=== PATIENT | female | born 1970 | race African-American/Black ===

== ENCOUNTER 2019-07-19 12:11 | Inpatient (IN) | payer OTHER ==
[2019-07-19] MEDS ORDERED: SODIUM CHLORIDE 0.9% 1,000 ML IV ONE ×2 (12:22)
[2019-07-19 12:26] LABS: Glucose,Whole Blood 174 mg/dL (75-99)
[2019-07-19 12:36] LABS: VBG PH 6.84 (7.31-7.41)
[2019-07-19] MEDS ORDERED: SODIUM BICARB 8.4% 50 ML SYR (1 MEQ/ML) IV STA ×4 (12:36→22:08)
[2019-07-19] MEDS ORDERED: EPINEPHrine 10 ML SYRINGE (0.1 MG/ML) ONE (12:50)
[2019-07-19 12:54] LABS: ALT 43 U/L (4-34); AST 178 U/L (14-36); Acetaminophen 11.5 ug/mL; African American GFR (CKD) 17 (>60 ml/min/1.73 sqM); Albumin 2.5 g/dL (3.5-5.0); Alkaline Phosphatase 215 U/L (38-126); Blood Urea Nitrogen 11 mg/dL (7-17); Calcium 7.5 mg/dL (8.4-10.2); Chloride 111 mmol/L (98-107); Creatine Kinase 374 U/L (30-135); Glucose 167 mg/dL (74-99); Non-African American GFR(CKD) 15 (>60 ml/min/1.73 sqM); Sodium 143 mmol/L (137-145); Total Bilirubin 0.8 mg/dL (0.2-1.3); Total Protein 5.3 g/dL (6.3-8.2)
[2019-07-19 12:59] LABS: Lactic Acid, Venous 20.4 mmol/L (0.7-2.0)
[2019-07-19 13:00] LABS: Potassium 6.6 mmol/L (3.5-5.1)
[2019-07-19 13:01] LABS: Alcohol 274 mg/dL; Carbon Dioxide <5 mmol/L (22-30)
[2019-07-19 13:04] LABS: Anisocytosis Slight; Basophils % (A) 0 %; Eosinophils # (A) 0.1 k/uL (0-0.7); Eosinophils % (A) 1 %; HCT 23.7 % (34.0-46.0); Hypochromasia Marked; Lymphocytes # (A) 1.4 k/uL (1.0-4.8); Lymphocytes % (A) 26 %; MCH 30.7 pg (25.0-35.0); MCHC 26.5 g/dL (31.0-37.0); MCV 115.7 fL (80.0-100.0); Macrocytosis Marked; Mean Platelet Volume 10.7; Monocytes # (A) 0.2 k/uL (0-1.0); Monocytes % (A) 4 %; Neutrophils # (A) 3.8 k/uL (1.3-7.7); Neutrophils % (A) 69 %; RBC 2.05 m/uL (3.80-5.40); RDW 19.9 % (11.5-15.5); WBC 5.6 k/uL (3.8-10.6)
[2019-07-19] MEDS ORDERED: DEXTROSE 50% SYRINGE 50 ML IVP STA (13:05)
[2019-07-19] MEDS ORDERED: INSULIN REGULAR 100 UNIT/ML VIAL IV ONE (13:05)
[2019-07-19 13:06] LABS: INR 1.7 (<1.2); Partial Thromboplastin Time 42.3 sec (22.0-30.0); Prothrombin Time 16.9 sec (9.0-12.0)
[2019-07-19 13:08] LABS: HGB 6.3 gm/dL (11.4-16.0)
--- NOTE | 2019-07-19 13:19 | CT ---
EXAMINATION TYPE: CT brain wo con DATE OF EXAM: 07/19/2019 COMPARISON: None HISTORY: Altered mental status CT DLP: 1212.4 mGycm. Automated Exposure Control for Dose Reduction was Utilized. TECHNIQUE: CT scan of the head is performed without contrast. FINDINGS: There is motion on the exam. There is no acute intracranial hemorrhage, mass effect, or m idline shift identified. The ventricles and sulci are within normal limits in size. The globes are intact and the visualized sinuses are clear. IMPRESSION: No acute intracranial hemorrhage, mass effect, or midline shift is seen.
[2019-07-19] MEDS ORDERED: SODIUM CHLORIDE 0.9% 2,000 ML IV ONE (13:20)
[2019-07-19 13:24] LABS: Poikilocytosis (M) Present; Target Cells Present
[2019-07-19 13:25] LABS: Crenated RBC Present; Platelet Count 48 k/uL (150-450)
[2019-07-19 13:27] LABS: RBC Fragments Present
[2019-07-19] MEDS ORDERED: PANTOPRAZOLE 40 MG/10 ML VIAL IVP ONE (13:28)
[2019-07-19 13:35] LABS: ABG Oxygen Saturation 99.3 % (94-97); ABG PCO2 22 mmHg (35-45); ABG PO2 >400 mmHg (83-108); ABG TCO2 4 mmol/L (19-24); Allen Test Performed? Yes
[2019-07-19] MEDS ORDERED: NOREPINEPHRINE 32 MG in SODIUM CHLORIDE 0.9% 218 ML IV ONE (13:35)
[2019-07-19] MEDS ORDERED: MIDAZOLAM 1 MG/ML 5 ML VIAL IV STA ×2 (13:39→15:30)
[2019-07-19 13:42] LABS: ABG PH 6.81 (7.35-7.45)
[2019-07-19 13:43] LABS: ABG Base Excess -30.8 mmol/L; ABG HCO3 4 mmol/L (21-25)
--- NOTE | 2019-07-19 14:20 | XR ---
EXAMINATION TYPE: XR chest 1V DATE OF EXAM: 07/19/2019 COMPARISON: None HISTORY: Status post intubation TECHNIQUE: Single frontal view of the chest is obtained. FINDINGS: Endotracheal tube is present within the right mainstem bronchus. NG tube is present and is coursing to the level overlying the stomach the left upper quadrant. There is a loop recorder over t he left heart. No evident pneumothorax. No pleural effusion. Lung lines are low. Perihilar increased attenuation is greater on the right than on the left. There are overlying cardiac leads. IMPRESSION: Selective intubation. Low lung volumes, possible perihilar atelectatic change. Follow-up recommended. Report relayed telephonically to the referring clinician at the time of interpretation.
[2019-07-19 14:36] LABS: Glucose,Whole Blood 210 mg/dL (75-99)
[2019-07-19 14:37] LABS: Amorphous Sediment,Urine Rare /hpf; Appearance,Urine Turbid (Clear); Bacteria,Urine Many /hpf; Bilirubin,Urine Negative (Negative); Blood,Urine Moderate (Negative); Color,Urine Yellow; Glucose,Urine (UA) Trace (Negative); Hyaline Casts,Urine 73 /lpf (0-2); Ketones,Urine Negative (Negative); Leukocyte Esterase,Urine Large (Negative); Mucus,Urine Many /hpf; Nitrite,Urine Negative (Negative); Protein,Urine 2+ (Negative); RBC,Urine 82 /hpf (0-5); Urobilinogen,Urine <2.0 mg/dL (<2.0); WBC,Urine >182 /hpf (0-5)
[2019-07-19 14:42] LABS: Amphetamine Screen,Urine Not Detected (NotDetected); Barbiturate Screen,Urine Not Detected (NotDetected); Benzodiazepines Screen,Urine Not Detected (NotDetected); Cocaine Screen,Urine Not Detected (NotDetected); Methadone Screen, Urine Not Detected (NotDetected); Opiate Screen,Urine Not Detected (NotDetected); Oxycodone Screen, Urine Not Detected (NotDetected); Phencyclidine Screen,Urine Not Detected (NotDetected); Tricyclic Antidepressant,Urine Not Detected (NotDetected); Urn Cannabinoid Scrn Not Detected (NotDetected)
--- NOTE | 2019-07-19 14:47 | ED ---
Altered Mental Status HPI - General Chief Complaint: Altered Mental Status Stated Complaint: Unconscious Time Seen by Provider: 07/19/19 12:11 Source: EMS Mode of arrival: EMS Limitations: altered mental status - History of Present Illness Initial Comments: E patient is a 48-year-old female with unknown past medical history presents to the emergency department after EMS was called for unresponsive state. The patient lives with a friend. The friend states that the patient awoke at 8:30 this morning and took her trazodone. She then went back into her room. He checked on her round 11:30 and found her unresponsive. EMS arrived to find the patient laying supine on the ground covered with a blanket. They found her sugars to be low and therefore gave her an amp of dextrose. She did awaken somewhat. She was yelling in the back of the ambulance. She opens her eyes to tactile stimuli and repetitively states "stop". She arrives and does not follow commands. Friend states that she had a history of psychiatric disease however cannot comment on her other medical history. She recently moved area. She does have some medications with her however friend states that he never sees her take them. He cannot provide any additional history. The remainder of the HPI is limited as the patient is altered - Related Data Home Medications Medication Instructions Recorded Confirmed Acetaminophen [Tylenol 8 Hour] 650 mg PO DAILY 07/22/19 07/22/19 Citalopram Hydrobromide 20 mg PO DAILY PRN 07/22/19 07/22/19 [Citalopram HBr] Famotidine 20 mg PO HS 07/22/19 07/22/19 Ferrous Sulfate [Feosol] 325 mg PO DAILY 07/22/19 07/22/19 Lisinopril [Prinivil] 10 mg PO DAILY 07/22/19 07/22/19 Loratadine 10 mg PO DAILY 07/22/19 07/22/19 Metoprolol Tartrate [Lopressor] 50 mg PO BID 07/22/19 07/22/19 Omeprazole 20 mg PO DAILY 07/22/19 07/22/19 risperiDONE [RisperDAL] 4 mg PO HS 07/22/19 07/22/19 traZODone HCL 150 mg PO DAILY 07/22/19 07/22/19 Allergies Allergy/AdvReac Type Severity Reaction Status Date / Time Unable to Assess Allergy Verified 07/19/19 12:38 Review of Systems ROS Statement: Those systems with pertinent positive or pertinent negative responses have been documented in the HPI. ROS Other: All systems not noted in ROS Statement are negative. Past Medical History Past Medical History: Unable to Obtain History of Any Multi-Drug Resistant Organisms: Unobtainable Past Surgical History: Unable to Obtain Past Psychological History: Unable to Obtain Smoking Status: Unknown if ever smoked Past Alcohol Use History: Unable to Obtain Past Drug Use History: Unable to Obtain General Exam Limitations: altered mental status General appearance: obtunded Head exam: Present: atraumatic, normocephalic, normal inspection Eye exam: Present: other (4 to 3, sluggish ) ENT exam: Present: mucous membranes dry Neck exam: Absent: meningismus Respiratory exam: Present: normal lung sounds bilaterally, other (normal spontanous respirations). Absent: respiratory distress, rales, rhonchi Cardiovascular Exam: Present: normal rhythm, tachycardia GI/Abdominal exam: Present: soft, tenderness (generalized upon palpation. ). Absent: guarding, rebound, rigid Extremities exam: Present: normal inspection, full ROM, normal capillary refill. Absent: tenderness, pedal edema, joint swelling, calf tenderness Neurological exam: Present: altered Skin exam: Present: diaphoretic, pallor Course Vital Signs 07/19/19 07/19/19 07/19/19 12:38 13:26 14:02 Temperature 90.1 F L Pulse Rate 80 85 Pulse Rate [ 92 Right Supine] Respiratory 22 14 17 Rate Blood Pressure 65/37 88/40 Blood Pressure 93/44 [Right Arm] O2 Sat by Pulse 96 100 100 Oximetry 07/19/19 07/19/19 07/19/19 14:10 14:20 14:30 Temperature Pulse Rate 85 88 Pulse Rate [ Right Supine] Respiratory 15 16 Rate Blood Pressure 93/44 97/45 96/45 Blood Pressure [Right Arm] O2 Sat by Pulse 100 100 Oximetry 07/19/19 07/19/19 07/19/19 14:40 14:50 15:00 Temperature Pulse Rate 89 84 95 Pulse Rate [ Right Supine] Respiratory 20 14 17 Rate Blood Pressure 90/45 96/49 92/46 Blood Pressure [Right Arm] O2 Sat by Pulse 100 100 100 Oximetry 07/19/19 07/19/19 07/19/19 15:01 15:05 15:10 Temperature 90 F L Pulse Rate 96 98 96 Pulse Rate [ Right Supine] Respiratory 17 16 16 Rate Blood Pressure 106/52 107/43 102/46 Blood Pressure [Right Arm] O2 Sat by Pulse 100 100 Oximetry 07/19/19 07/19/19 07/19/19 15:15 15:20 15:30 Temperature 90 F L Pulse Rate 101 H 98 105 H Pulse Rate [ Right Supine] Respiratory 17 13 15 Rate Blood Pressure 111/65 106/60 115/82 Blood Pressure [Right Arm] O2 Sat by Pulse 100 100 100 Oximetry 07/19/19 07/19/19 07/19/19 15:39 15:40 15:50 Temperature 90 F L Pulse Rate 100 101 H 103 H Pulse Rate [ Right Supine] Respiratory 17 14 20 Rate Blood Pressure 116/73 116/73 128/76 Blood Pressure [Right Arm] O2 Sat by Pulse 100 100 Oximetry 07/19/19 07/19/19 07/19/19 16:00 16:10 16:20 Temperature Pulse Rate 106 H 108 H 109 H Pulse Rate [ Right Supine] Respiratory 18 18 18 Rate Blood Pressure 126/78 140/77 144/80 Blood Pressure [Right Arm] O2 Sat by Pulse 100 100 100 Oximetry 07/19/19 07/19/19 07/19/19 16:30 16:40 16:50 Temperature Pulse Rate 108 H 105 H 105 H Pulse Rate [ Right Supine] Respiratory 19 14 16 Rate Blood Pressure 150/80 136/75 132/70 Blood Pressure [Right Arm] O2 Sat by Pulse 100 100 100 Oximetry 07/19/19 07/19/19 07/19/19 17:00 17:10 17:20 Temperature Pulse Rate 104 H 105 H 100 Pulse Rate [ Right Supine] Respiratory 18 22 11 L Rate Blood Pressure 128/72 135/72 121/71 Blood Pressure [Right Arm] O2 Sat by Pulse 99 100 100 Oximetry 07/19/19 07/19/19 17:30 17:40 Temperature 94.2 F L Pulse Rate 101 H 102 H Pulse Rate [ Right Supine] Respiratory 23 14 Rate Blood Pressure 136/69 128/67 Blood Pressure [Right Arm] O2 Sat by Pulse 100 Oximetry Procedures - Central Line Placement Right Femoral Consent Obtained: emergent situation Patient Placed on Monitor/Pulse Ox: Yes Prep: mask, gown, gloves Central Line Prep: Povidone-Iodine 1% Ultrasound Used for Placement: Yes Central Line Lumen Inserted: triple Bloods Obtained for Lab: No Central Line Position: good blood return, all ports aspirated, flushed, capped, sutured in place with nylon Dressing Applied: Tegaderm Patient Tolerated Procedure: no complications - Intubation Laryngoscope: other (glidescope) Size: 3 ET Tube Size: 7.5 ET Tube Uncuffed: No Tube Secured Depth (cm): 25 (cm) Tube Secured Location: lips Tube Placement Confirmation: visualized tube passing through cords, equal breath sounds bilaterally, confirmation by capnometry Patient Tolerated Procedure: no complications Additional Comments: ET tube retracted twice due to right mainstem intubation Medical Decision Making - Medical Decision Making Upon arrival the patient is placed in a trauma 2. She is protecting her airway. She does open her eyes and look around to tactile stimuli. She is hooked up to continuous pulse ox and cardiac monitoring. A peripheral IV had been placed by EMS. A second line was established. Patient was started on a 2 L bolus of norm al saline due to her hypotension. Laboratory studies were drawn. Accu-Chek was performed and was 174. A bedside FAST exam was performed to evaluate for hypotension. No signs of aortic dissection or free fluid in the pelvis. A 12- lead EKG was performed which demonstrated a normal sinus rhythm with a ventricular rate of 81. ID interval 162. QRS 102. Narrow QRS complex. QTC prolonged at 506. Peaked T waves in V2 through V4. The patient was immediately sent over for CT of her brain because of her altered mental status. Patient is returned to the trauma bay. She remains hypotensive. Levophed is ordered however the patient does become bradycardic, then asystolic. Pulses can not be palpated and compressions are started. Patient was given a dose of epinephrine. Glidescope intubation was performed wth 7.5 cm tube placed 25 cm at the lips. One round of compressions was performed and the patient did achieve pulses back - downtime approximately 3 minutes. A right femoral central line was placed. Chest x-ray was performed which demonstrated mainstem bronchus intubation. The patient's tube was retracted. Repeat x-ray was performed after tube was retracted to 23 cm. OG tube placed immediately put out 75 cc of bright red blood. The patient does have stable blood pressures for a short period of time however they did fall again and the patient is started on Levophed. A VBG was performed which demonstrated a pH of 6.8. CO2 of 25 and CO3 of 4. Because this patient was given an amp of bicarb. The patient was also given 10 units of insulin and an amp of dextrose because of her hyperkalemia with peaked T waves. Patient received her full 2 L bolus of normal saline. Patient additional laboratory studies are markedly off to include hemoglobin of 6.3. She was typed and screened and a unit of blood was ordered. Platelets are only 48 therefore platelets are ordered. INR is 1.7. Creatinine 3.5. AST 178. ALTs 43. Alk phos 215. CK 374. Ammonia is 199. Serum alcohol 274. I did order an additional amp of bicarb as well as a bicarb drip as the patient does have a repeat gas which shows a pH of 6.8 and a bicarb of 4. The patient's weaned down on her O2 and respiratory rate. The patient does awaken a little and therefore she is given 2 mg of Versed and started on a Versed drip. Patient given a dose of Protonix [address] brain demonstrates no acute intracranial hemorrhage, mass effect or midline shift. She is also sent over for a CT of her abdomen and pelvis without contrast. The patient was transfused one unit of blood. Lactulose ordered for her high ammonia level. Antibiotics were placed for the acute urinary tract infection.Patient was sent over for the CT without contrast of her abdomen which demonstrated severe pancolitis with mesenteric edema and small volume ascites. Ischemic bowel should be excluded. Few areas of fluid which is hyperdense could relate to proteinaceous continence or hemoperitoneum. Severe degree of hepatic steatosis. Bibasilar airspace disease left greater than right. Mild fullness of the renal collecting system without radiopaque calculus. This read I did discuss the case with Dr. chapman at 1509 p.m. He is aware of the consult. Patient is unstable at this time to be taken for surgery. I discussed the case with Dr. Ruiz at 1519 PM. He requested the patient be placed on vasopressin. I discussed the case with Dr. Chapman at 1410 who requested lites every 4. Patient will remain at 100 mL on the bicarb drip. I also discussed case with Dr. Pierre at 1620 who requested octreotide drip. Patient was given Rocephin originally for her UTI. After the addition of the CT read from the abdomen I did add on Zosyn. Repeat chest x-ray continues to demonstrate a right mainstem intubation and therefore we did retract the tube to 21 cm. The patient was admitted to Dr. Ramirez who I discussed the case with at 1530. Patient is then transferred to the unit in critical condition - Lab Data Result diagrams: 07/22/19 04:00 07/22/19 04:00 Lab Results 07/19/19 07/19/19 07/19/19 Range/Units 08:18 08:18 12:14 WBC (3.8-10.6) k/uL RBC (3.80-5.40) m/uL Hgb (11.4-16.0) gm/dL Hct (34.0-46.0) % MCV (80.0-100.0) fL MCH (25.0-35.0) pg MCHC (31.0-37.0) g/dL RDW (11.5-15.5) % Plt Count (150-450) k/uL Neutrophils % % Lymphocytes % % Monocytes % % Eosinophils % % Basophils % % Neutrophils # (1.3-7.7) k/uL Lymphocytes # (1.0-4.8) k/uL Monocytes # (0-1.0) k/uL Eosinophils # (0-0.7) k/uL Basophils # (0-0.2) k/uL Manual Slide Review Hypochromasia Poikilocytosis (manual Anisocytosis Macrocytosis Target Cells Crenated Cell Fragmented RBCs PT (9.0-12.0) sec INR (<1.2) APTT (22.0-30.0) sec Sample Site ABG pH (7.35-7.45) ABG pCO2 (35-45) mmHg ABG pO2 (83-108) mmHg ABG HCO3 (21-25) mmol/L ABG Total CO2 (19-24) mmol/L ABG O2 Saturation (94-97) % ABG Base Excess mmol/L Norberto Test VBG pH (7.31-7.41) VBG pCO2 (37-51) mmHg VBG HCO3 (24-28) mmol/L FiO2 % Sodium (137-145) mmol/L Potassium (3.5-5.1) mmol/L Chloride (98-107) mmol/L Carbon Dioxide (22-30) mmol/L Anion Gap mmol/L BUN (7-17) mg/dL Creatinine (0.52-1.04) mg/dL Est GFR (CKD-EPI)AfAm (>60 ml/min/1.73 sqM) Est GFR (CKD-EPI)NonAf (>60 ml/min/1.73 sqM) Glucose (74-99) mg/dL POC Glucose (mg/dL) 174 H (75-99) mg/dL POC Glu [employer] ID Priscilla [place] Osmolality 382 H* (280-301) mosm/kg Lactic Ac Sepsis Rflx Plasma Lactic Acid Robert (0.7-2.0) mmol/L Calcium (8.4-10.2) mg/dL Total Bilirubin (0.2-1.3) mg/dL AST (14-36) U/L ALT (4-34) U/L Alkaline Phosphatase (38-126) U/L Ammonia (<30) umol/L Creatine Kinase (30-135) U/L Troponin I (0.000-0.034) ng/mL Total Protein (6.3-8.2) g/dL Albumin (3.5-5.0) g/dL Urine Color Urine Appearance (Clear) Urine pH (5.0-8.0) Ur Specific [place] (1.001-1.035) Urine Protein (Negative) Urine Glucose (UA) (Negative) Urine Ketones (Negative) Urine Blood (Negative) Urine Nitrite (Negative) Urine Bilirubin (Negative) Urine Urobilinogen (<2.0) mg/dL Ur Leukocyte Esterase (Negative) Urine RBC (0-5) /hpf Urine WBC (0-5) /hpf Urine WBC Clumps (None) /hpf Amorphous Sediment (None) /hpf Urine Bacteria (None) /hpf Hyaline Casts (0-2) /lpf Urine Mucus (None) /hpf Urine HCG, Qual (Not Detectd) Salicylates mg/dL Urine Opiates Screen (NotDetected) Ur Oxycodone Screen (NotDetected) Urine Methadone Screen (NotDetected) Ur Propoxyphene Screen (NotDetected) Acetaminophen ug/mL Ur Barbiturates Screen (NotDetected) U Tricyclic Antidepress (NotDetected) Ur Phencyclidine Scrn (NotDetected) Ur Amphetamines Screen (NotDetected) U Methamphetamines Scrn (NotDetected) U Benzodiazepines Scrn (NotDetected) Urine Cocaine Screen (NotDetected) U Marijuana (THC) Screen (NotDetected) Serum Alcohol mg/dL Ethyl Alcohol Screen 191 H (Negative) mg/dL Methyl Alcohol, Qual Negative (Negative) mg/dL Isopropyl Alc, Qual Negative (Negative) mg/dL Acetone, Qual Negative (Negative) mg/dL Blood Type Blood Type Confirm Blood Type Recheck Bld Type Recheck Status Antibody Screen Crossmatch Spec Expiration Date 07/19/19 07/19/19 07/19/19 Range/Units 12:15 12:15 12:15 WBC 5.6 (3.8-10.6) k/uL RBC 2.05 L (3.80-5.40) m/uL Hgb 6.3 L* (11.4-16.0) gm/dL Hct 23.7 L (34.0-46.0) % MCV 115.7 H (80.0-100.0) fL MCH 30.7 (25.0-35.0) pg MCHC 26.5 L (31.0-37.0) g/dL RDW 19.9 H (11.5-15.5) % Plt Count 48 L (150-450) k/uL Neutrophils % 69 % Lymphocytes % 26 % Monocytes % 4 % Eosinophils % 1 % Basophils % 0 % Neutrophils # 3.8 (1.3-7.7) k/uL Lymphocytes # 1.4 (1.0-4.8) k/uL Monocytes # 0.2 (0-1.0) k/uL Eosinophils # 0.1 (0-0.7) k/uL Basophils # 0.0 (0-0.2) k/uL Manual Slide Review Performed Hypochromasia Marked Poikilocytosis (manual Present Anisocytosis Slight Macrocytosis Marked A Target Cells Present Crenated Cell Present Fragmented RBCs Present PT 16.9 H (9.0-12.0) sec INR 1.7 H (<1.2) APTT 42.3 H (22.0-30.0) sec Sample Site ABG pH (7.35-7.45) ABG pCO2 (35-45) mmHg ABG pO2 (83-108) mmHg ABG HCO3 (21-25) mmol/L ABG Total CO2 (19-24) mmol/L ABG O2 Saturation (94-97) % ABG Base Excess mmol/L Norberto Test VBG pH 6.84 L* (7.31-7.41) VBG pCO2 25 L (37-51) mmHg VBG HCO3 4 L* (24-28) mmol/L FiO2 % Sodium (137-145) mmol/L Potassium (3.5-5.1) mmol/L Chloride (98-107) mmol/L Carbon Dioxide (22-30) mmol/L Anion Gap mmol/L BUN (7-17) mg/dL Creatinine (0.52-1.04) mg/dL Est GFR (CKD-EPI)AfAm (>60 ml/min/1.73 sqM) Est GFR (CKD-EPI)NonAf (>60 ml/min/1.73 sqM) Glucose (74-99) mg/dL POC Glucose (mg/dL) (75-99) mg/dL POC Glu [employer] ID Osmolality (280-301) mosm/kg Lactic Ac Sepsis Rflx Plasma Lactic Acid Robert (0.7-2.0) mmol/L Calcium (8.4-10.2) mg/dL Total Bilirubin (0.2-1.3) mg/dL AST (14-36) U/L ALT (4-34) U/L Alkaline Phosphatase (38-126) U/L Ammonia (<30) umol/L Creatine Kinase (30-135) U/L Troponin I (0.000-0.034) ng/mL Total Protein (6.3-8.2) g/dL Albumin (3.5-5.0) g/dL Urine Color Urine Appearance (Clear) Urine pH (5.0-8.0) Ur Specific [place] (1.001-1.035) Urine Protein (Negative) Urine Glucose (UA) (Negative) Urine Ketones (Negative) Urine Blood (Negative) Urine Nitrite (Negative) Urine Bilirubin (Negative) Urine Urobilinogen (<2.0) mg/dL Ur Leukocyte Esterase (Negative) Urine RBC (0-5) /hpf Urine WBC (0-5) /hpf Urine WBC Clumps (None) /hpf Amorphous Sediment (None) /hpf Urine Bacteria (None) /hpf Hyaline Casts (0-2) /lpf Urine Mucus (None) /hpf Urine HCG, Qual (Not Detectd) Salicylates mg/dL Urine Opiates Screen (NotDetected) Ur Oxycodone Screen (NotDetected) Urine Methadone Screen (NotDetected) Ur Propoxyphene Screen (NotDetected) Acetaminophen ug/mL Ur Barbiturates Screen (NotDetected) U Tricyclic Antidepress (NotDetected) Ur Phencyclidine Scrn (NotDetected) Ur Amphetamines Screen (NotDetected) U Methamphetamines Scrn (NotDetected) U Benzodiazepines Scrn (NotDetected) Urine Cocaine Screen (NotDetected) U Marijuana (THC) Screen (NotDetected) Serum Alcohol mg/dL Ethyl Alcohol Screen (Negative) mg/dL Methyl Alcohol, Qual (Negative) mg/dL Isopropyl Alc, Qual (Negative) mg/dL Acetone, Qual (Negative) mg/dL Blood Type Blood Type Confirm Blood Type Recheck Bld Type Recheck Status Antibody Screen Crossmatch Spec Expiration Date 07/19/19 07/19/19 07/19/19 Range/Units 12:15 12:15 12:15 WBC (3.8-10.6) k/uL RBC (3.80-5.40) m/uL Hgb (11.4-16.0) gm/dL Hct (34.0-46.0) % MCV (80.0-100.0) fL MCH (25.0-35.0) pg MCHC (31.0-37.0) g/dL RDW (11.5-15.5) % Plt Count (150-450) k/uL Neutrophils % % Lymphocytes % % Monocytes % % Eosinophils % % Basophils % % Neutrophils # (1.3-7.7) k/uL Lymphocytes # (1.0-4.8) k/uL Monocytes # (0-1.0) k/uL Eosinophils # (0-0.7) k/uL Basophils # (0-0.2) k/uL Manual Slide Review Hypochromasia Poikilocytosis (manual Anisocytosis Macrocytosis Target Cells Crenated Cell Fragmented RBCs PT (9.0-12.0) sec INR (<1.2) APTT (22.0-30.0) sec Sample Site ABG pH (7.35-7.45) ABG pCO2 (35-45) mmHg ABG pO2 (83-108) mmHg ABG HCO3 (21-25) mmol/L ABG Total CO2 (19-24) mmol/L ABG O2 Saturation (94-97) % ABG Base Excess mmol/L Norberto Test VBG pH (7.31-7.41) VBG pCO2 (37-51) mmHg VBG HCO3 (24-28) mmol/L FiO2 % Sodium 143 (137-145) mmol/L Potassium 6.6 H* (3.5-5.1) mmol/L Chloride 111 H (98-107) mmol/L Carbon Dioxide <5 L* (22-30) mmol/L Anion Gap mmol/L BUN 11 (7-17) mg/dL Creatinine 3.55 H (0.52-1.04) mg/dL Est GFR (CKD-EPI)AfAm 17 (>60 ml/min/1.73 sqM) Est GFR (CKD-EPI)NonAf 15 (>60 ml/min/1.73 sqM) Glucose 167 H (74-99) mg/dL POC Glucose (mg/dL) (75-99) mg/dL POC Glu [employer] Architect ID Osmolality (280-301) mosm/kg Lactic Ac Sepsis Rflx Plasma Lactic Acid Robert 20.4 H* (0.7-2.0) mmol/L Calcium 7.5 L (8.4-10.2) mg/dL Total Bilirubin 0.8 (0.2-1.3) mg/dL AST 178 H (14-36) U/L ALT 43 H (4-34) U/L Alkaline Phosphatase 215 H (38-126) U/L Ammonia 199 H (<30) umol/L Creatine Kinase 374 H (30-135) U/L Troponin I <0.012 (0.000-0.034) ng/mL Total Protein 5.3 L (6.3-8.2) g/dL Albumin 2.5 L (3.5-5.0) g/dL Urine Color Urine Appearance (Clear) Urine pH (5.0-8.0) Ur Specific [place] (1.001-1.035) Urine Protein (Negative) Urine Glucose (UA) (Negative) Urine Ketones (Negative) Urine Blood (Negative) Urine Nitrite (Negative) Urine Bilirubin (Negative) Urine Urobilinogen (<2.0) mg/dL Ur Leukocyte Esterase (Negative) Urine RBC (0-5) /hpf Urine WBC (0-5) /hpf Urine WBC Clumps (None) /hpf Amorphous Sediment (None) /hpf Urine Bacteria (None) /hpf Hyaline Casts (0-2) /lpf Urine Mucus (None) /hpf Urine HCG, Qual (Not Detectd) Salicylates 1.0 mg/dL Urine Opiates Screen (NotDetected) Ur Oxycodone Screen (NotDetected) Urine Methadone Screen (NotDetected) Ur Propoxyphene Screen (NotDetected) Acetaminophen 11.5 ug/mL Ur Barbiturates Screen (NotDetected) U Tricyclic Antidepress (NotDetected) Ur Phencyclidine Scrn (NotDetected) Ur Amphetamines Screen (NotDetected) U Methamphetamines Scrn (NotDetected) U Benzodiazepines Scrn (NotDetected) Urine Cocaine Screen (NotDetected) U Marijuana (THC) Screen (NotDetected) Serum Alcohol 274 H* mg/dL Ethyl Alcohol Screen (Negative) mg/dL Methyl Alcohol, Qual (Negative) mg/dL Isopropyl Alc, Qual (Negative) mg/dL Acetone, Qual (Negative) mg/dL Blood Type Blood Type Confirm Blood Type Recheck Bld Type Recheck Status Antibody Screen Crossmatch Spec Expiration Date 07/19/19 07/19/19 07/19/19 Range/Units 12:15 13:00 13:10 WBC (3.8-10.6) k/uL RBC (3.80-5.40) m/uL Hgb (11.4-16.0) gm/dL Hct (34.0-46.0) % MCV (80.0-100.0) fL MCH (25.0-35.0) pg MCHC (31.0-37.0) g/dL RDW (11.5-15.5) % Plt Count (150-450) k/uL Neutrophils % % Lymphocytes % % Monocytes % % Eosinophils % % Basophils % % Neutrophils # (1.3-7.7) k/uL Lymphocytes # (1.0-4.8) k/uL Monocytes # (0-1.0) k/uL Eosinophils # (0-0.7) k/uL Basophils # (0-0.2) k/uL Manual Slide Review Hypochromasia Poikilocytosis (manual Anisocytosis Macrocytosis Target Cells Crenated Cell Fragmented RBCs PT (9.0-12.0) sec INR (<1.2) APTT (22.0-30.0) sec Sample Site ABG pH (7.35-7.45) ABG pCO2 (35-45) mmHg ABG pO2 (83-108) mmHg ABG HCO3 (21-25) mmol/L ABG Total CO2 (19-24) mmol/L ABG O2 Saturation (94-97) % ABG Base Excess mmol/L Norberto Test VBG pH (7.31-7.41) VBG pCO2 (37-51) mmHg VBG HCO3 (24-28) mmol/L FiO2 % Sodium (137-145) mmol/L Potassium (3.5-5.1) mmol/L Chloride (98-107) mmol/L Carbon Dioxide (22-30) mmol/L Anion Gap mmol/L BUN (7-17) mg/dL Creatinine (0.52-1.04) mg/dL Est GFR (CKD-EPI)AfAm (>60 ml/min/1.73 sqM) Est GFR (CKD-EPI)NonAf (>60 ml/min/1.73 sqM) Glucose (74-99) mg/dL POC Glucose (mg/dL) (75-99) mg/dL POC Glu [employer] Architect ID Osmolality (280-301) mosm/kg Lactic Ac Sepsis Rflx Y Plasma Lactic Acid Robert (0.7-2.0) mmol/L Calcium (8.4-10.2) mg/dL Total Bilirubin (0.2-1.3) mg/dL AST (14-36) U/L ALT (4-34) U/L Alkaline Phosphatase (38-126) U/L Ammonia (<30) umol/L Creatine Kinase (30-135) U/L Troponin I (0.000-0.034) ng/mL Total Protein (6.3-8.2) g/dL Albumin (3.5-5.0) g/dL Urine Color Urine Appearance (Clear) Urine pH (5.0-8.0) Ur Specific [place] (1.001-1.035) Urine Protein (Negative) Urine Glucose (UA) (Negative) Urine Ketones (Negative) Urine Blood (Negative) Urine Nitrite (Negative) Urine Bilirubin (Negative) Urine Urobilinogen (<2.0) mg/dL Ur Leukocyte Esterase (Negative) Urine RBC (0-5) /hpf Urine WBC (0-5) /hpf Urine WBC Clumps (None) /hpf Amorphous Sediment (None) /hpf Urine Bacteria (None) /hpf Hyaline Casts (0-2) /lpf Urine Mucus (None) /hpf Urine HCG, Qual (Not Detectd) Salicylates mg/dL Urine Opiates Screen (NotDetected) Ur Oxycodone Screen (NotDetected) Urine Methadone Screen (NotDetected) Ur Propoxyphene Screen (NotDetected) Acetaminophen ug/mL Ur Barbiturates Screen (NotDetected) U Tricyclic Antidepress (NotDetected) Ur Phencyclidine Scrn (NotDetected) Ur Amphetamines Screen (NotDetected) U Methamphetamines Scrn (NotDetected) U Benzodiazepines Scrn (NotDetected) Urine Cocaine Screen (NotDetected) U Marijuana (THC) Screen (NotDetected) Serum Alcohol mg/dL Ethyl Alcohol Screen (Negative) mg/dL Methyl Alcohol, Qual (Negative) mg/dL Isopropyl Alc, Qual (Negative) mg/dL Acetone, Qual (Negative) mg/dL Blood Type B Positive Blood Type Confirm B Positive Blood Type Recheck No Previous Record Bld Type Recheck Status CABO Indicated Antibody Screen NEGATIVE Crossmatch See Detail Spec Expiration Date 07/22/2019 - 231407/19/19 07/19/19 07/19/19 Range/Units 13:25 14:22 14:22 WBC (3.8-10.6) k/uL RBC (3.80-5.40) m/uL Hgb (11.4-16.0) gm/dL Hct (34.0-46.0) % MCV (80.0-100.0) fL MCH (25.0-35.0) pg MCHC (31.0-37.0) g/dL RDW (11.5-15.5) % Plt Count (150-450) k/uL Neutrophils % % Lymphocytes % % Monocytes % % Eosinophils % % Basophils % % Neutrophils # (1.3-7.7) k/uL Lymphocytes # (1.0-4.8) k/uL Monocytes # (0-1.0) k/uL Eosinophils # (0-0.7) k/uL Basophils # (0-0.2) k/uL Manual Slide Review Hypochromasia Poikilocytosis (manual Anisocytosis Macrocytosis Target Cells Crenated Cell Fragmented RBCs PT (9.0-12.0) sec INR (<1.2) APTT (22.0-30.0) sec Sample Site RT BRACHIAL ABG pH 6.81 L* (7.35-7.45) ABG pCO2 22 L (35-45) mmHg ABG pO2 >400 H (83-108) mmHg ABG HCO3 4 L* (21-25) mmol/L ABG Total CO2 4 L (19-24) mmol/L ABG O2 Saturation 99.3 H (94-97) % ABG Base Excess -30.8 mmol/L Norberto Test Yes VBG pH (7.31-7.41) VBG pCO2 (37-51) mmHg VBG HCO3 (24-28) mmol/L FiO2 100 % Sodium (137-145) mmol/L Potassium (3.5-5.1) mmol/L Chloride (98-107) mmol/L Carbon Dioxide (22-30) mmol/L Anion Gap mmol/L BUN (7-17) mg/dL Creatinine (0.52-1.04) mg/dL Est GFR (CKD-EPI)AfAm (>60 ml/min/1.73 sqM) Est GFR (CKD-EPI)NonAf (>60 ml/min/1.73 sqM) Glucose (74-99) mg/dL POC Glucose (mg/dL) (75-99) mg/dL POC Glu [employer] ID Osmolality ([phone]) mosm/kg Lactic Ac Sepsis Rflx Plasma Lactic Acid Robert (0.7-2.0) mmol/L Calcium (8.4-10.2) mg/dL Total Bilirubin (0.2-1.3) mg/dL AST (14-36) U/L ALT (4-34) U/L Alkaline Phosphatase (38-126) U/L Ammonia (<30) umol/L Creatine Kinase (30-135) U/L Troponin I (0.000-0.034) ng/mL Total Protein (6.3-8.2) g/dL Albumin (3.5-5.0) g/dL Urine Color Yellow Urine Appearance Turbid H (Clear) Urine pH 6.0 (5.0-8.0) Ur Specific [place] 1.020 (1.001-1.035) Urine Protein 2+ H (Negative) Urine Glucose (UA) Trace H (Negative) Urine Ketones Negative (Negative) Urine Blood Moderate H (Negative) Urine Nitrite Negative (Negative) Urine Bilirubin Negative (Negative) Urine Urobilinogen <2.0 (<2.0) mg/dL Ur Leukocyte Esterase Large H (Negative) Urine RBC 82 H (0-5) /hpf Urine WBC >182 H (0-5) /hpf Urine WBC Clumps Many H (None) /hpf Amorphous Sediment Rare H (None) /hpf Urine Bacteria Many H (None) /hpf Hyaline Casts 73 H (0-2) /lpf Urine Mucus Many H (None) /hpf Urine HCG, Qual (Not Detectd) Salicylates mg/dL Urine Opiates Screen Not Detected (NotDetected) Ur Oxycodone Screen Not Detected (NotDetected) Urine Methadone Screen Not Detected (NotDetected) Ur Propoxyphene Screen Not Detected (NotDetected) Acetaminophen ug/mL Ur Barbiturates Screen Not Detected (NotDetected) U Tricyclic Antidepress Not Detected (NotDetected) Ur Phencyclidine Scrn Not Detected (NotDetected) Ur Amphetamines Screen Not Detected (NotDetected) U Methamphetamines Scrn Not Detected (NotDetected) U Benzodiazepines Scrn Not Detected (NotDetected) Urine Cocaine Screen Not Detected (NotDetected) U Marijuana (THC) Screen Not Detected (NotDetected) Serum Alcohol mg/dL Ethyl Alcohol Screen (Negative) mg/dL Methyl Alcohol, Qual (Negative) mg/dL Isopropyl Alc, Qual (Negative) mg/dL Acetone, Qual (Negative) mg/dL Blood Type Blood Type Confirm Blood Type Recheck Bld Type Recheck Status Antibody Screen Crossmatch Spec Expiration Date 07/19/19 07/19/19 Range/Units 14:22 14:29 WBC (3.8-10.6) k/uL RBC (3.80-5.40) m/uL Hgb (11.4-16.0) gm/dL Hct (34.0-46.0) % MCV (80.0-100.0) fL MCH (25.0-35.0) pg MCHC (31.0-37.0) g/dL RDW (11.5-15.5) % Plt Count (150-450) k/uL Neutrophils % % Lymphocytes % % Monocytes % % Eosinophils % % Basophils % % Neutrophils # (1.3-7.7) k/uL Lymphocytes # (1.0-4.8) k/uL Monocytes # (0-1.0) k/uL Eosinophils # (0-0.7) k/uL Basophils # (0-0.2) k/uL Manual Slide Review Hypochromasia Poikilocytosis (manual Anisocytosis Macrocytosis Target Cells Crenated Cell Fragmented RBCs PT (9.0-12.0) sec INR (<1.2) APTT (22.0-30.0) sec Sample Site ABG pH (7.35-7.45) ABG pCO2 (35-45) mmHg ABG pO2 (83-108) mmHg ABG HCO3 (21-25) mmol/L ABG Total CO2 (19-24) mmol/L ABG O2 Saturation (94-97) % ABG Base Excess mmol/L Norberto Test VBG pH (7.31-7.41) VBG pCO2 (37-51) mmHg VBG HCO3 (24-28) mmol/L FiO2 % Sodium (137-145) mmol/L Potassium (3.5-5.1) mmol/L Chloride (98-107) mmol/L Carbon Dioxide (22-30) mmol/L Anion Gap mmol/L BUN (7-17) mg/dL Creatinine (0.52-1.04) mg/dL Est GFR (CKD-EPI)AfAm (>60 ml/min/1.73 sqM) Est GFR (CKD-EPI)NonAf (>60 ml/min/1.73 sqM) Glucose (74-99) mg/dL POC Glucose (mg/dL) 210 H (75-99) mg/dL POC Glu Cloud [employer] Architect ID Jocelyn Montano Osmolality ([phone]) mosm/kg Lactic Ac Sepsis Rflx Plasma Lactic Acid Robert (0.7-2.0) mmol/L Calcium (8.4-10.2) mg/dL Total Bilirubin (0.2-1.3) mg/dL AST (14-36) U/L ALT (4-34) U/L Alkaline Phosphatase (38-126) U/L Ammonia (<30) umol/L Creatine Kinase (30-135) U/L Troponin I (0.000-0.034) ng/mL Total Protein (6.3-8.2) g/dL Albumin (3.5-5.0) g/dL Urine Color Urine Appearance (Clear) Urine pH (5.0-8.0) Ur Specific [place] (1.001-1.035) Urine Protein (Negative) Urine Glucose (UA) (Negative) Urine Ketones (Negative) Urine Blood (Negative) Urine Nitrite (Negative) Urine Bilirubin (Negative) Urine Urobilinogen (<2.0) mg/dL Ur Leukocyte Esterase (Negative) Urine RBC (0-5) /hpf Urine WBC (0-5) /hpf Urine WBC Clumps (None) /hpf Amorphous Sediment (None) /hpf Urine Bacteria (None) /hpf Hyaline Casts (0-2) /lpf Urine Mucus (None) /hpf Urine HCG, Qual Not Detected (Not Detectd) Salicylates mg/dL Urine Opiates Screen (NotDetected) Ur Oxycodone Screen (NotDetected) Urine Methadone Screen (NotDetected) Ur Propoxyphene Screen (NotDetected) Acetaminophen ug/mL Ur Barbiturates Screen (NotDetected) U Tricyclic Antidepress (NotDetected) Ur Phencyclidine Scrn (NotDetected) Ur Amphetamines Screen (NotDetected) U Methamphetamines Scrn (NotDetected) U Benzodiazepines Scrn (NotDetected) Urine Cocaine Screen (NotDetected) U Marijuana (THC) Screen (NotDetected) Serum Alcohol mg/dL Ethyl Alcohol Screen (Negative) mg/dL Methyl Alcohol, Qual (Negative) mg/dL Isopropyl Alc, Qual (Negative) mg/dL Acetone, Qual (Negative) mg/dL Blood Type Blood Type Confirm Blood Type Recheck Bld Type Recheck Status Antibody Screen Crossmatch Spec Expiration Date Critical Care Time Critical Care Time: Yes Critical Care Time: 76 minutes Disposition Clinical Impression: Alcoholic intoxication, Altered mental status, Hypoglycemia, Hypothermia, ADALBERTO (acute kidney injury), Lactic acidosis, Anemia, Cardiopulmonary arrest, UTI (urinary tract infection), Ventilator dependent, Hyperkalemia, Thrombocytopathia, Hypotension Disposition: ADMITTED IP TO THIS [facility] Condition: Critical Is patient prescribed a controlled substance at d/c from ED?: No Decision to Admit Reason: Admit from EC Decision Date: 07/19/19 Decision Time: 15:44
[2019-07-19] MEDS ORDERED: cefTRIAXone IN SWFI 1,000 MG/10 ML SYRINGE IVP STA (14:50)
--- NOTE | 2019-07-19 14:57 | CT ---
EXAMINATION TYPE: CT abdomen pelvis wo con DATE OF EXAM: 07/19/2019 COMPARISON: None HISTORY: abnormal labs, acidosis CT DLP: 649.7 mGycm Automated exposure control for dose reduction was used. TECHNIQUE: Helical acquisition of images was performed from the lung bases through the pelvis. FINDINGS: Lack of intravenous and oral contrast limit evaluation of both the hollow and solid viscera . LUNG BASES: Strand-like bibasilar opacities, left greater than right are likely on the basis of atele ctasis. LIVER/GB: Severe hypoattenuation of the hepatic parenchyma most commonly relates to hepatic steatosis and limits evaluation for hepatic masses. A punctate central focus of pneumobilia is incidentally se en. Crescentic fluid surrounds the liver although this appears hyperdense in comparison to the liver measures an average Hounsfield unit of that of simple fluid on multiple evaluations. Small amount of perisplenic fluid is also seen. Gallbladder appears hyperdense in comparison to the liver, possibly r elated to diffuse biliary sludge or cholelithiasis. PANCREAS: Pancreatic parenchymal calcifications are indicative of chronic pancreatitis. SPLEEN: Small amount of perisplenic fluid. ADRENALS: Grossly unremarkable in unenhanced morphology. KIDNEYS: There is fullness of the collecting systems bilaterally although suboptimally evaluated with out contrast. No nephrolithiasis. FREE AIR: No free air is visualized ADENOPATHY: Grossly limited by lack of intravenous and oral contrast, ascites, and mesenteric edema. Overall nondiagnostic exam for adenopathy. OSSEOUS STRUCTURES: Minimal retrolisthesis of L5 on S1 likely on a degenerative basis. Mild degenera tive change of the spine overall. BOWEL: There is severe diffuse bowel wall thickening throughout the entirety of the colon with ascit es and mesenteric edema limiting evaluation for pericolonic fat stranding. OTHER: Right-sided femoral approach central venous catheter is seen. Enteric tube is also placed. Fem oral catheter terminates in the common femoral vein and enteric tube within the stomach. Urinary blad bree is decompressed by Hillman catheter placement. Trace pericardial effusion partially visualized. IMPRESSION: 1. SEVERE PANCOLONIC BOWEL WALL THICKENING WITH MESENTERIC EDEMA AND SMALL VOLUME ASCITES. GIVEN THE ELEVATED LACTIC ACID ISCHEMIC BOWEL SHOULD BE EXCLUDED. GIVEN THE DIFFUSE INVOLVEMENT C. DIFFICILE I S AN ALTERNATIVE CONSIDERATION. 2. FEW AREAS OF THE FLUID IS SLIGHTLY HYPERDENSE THAT COULD RELATE TO PROTEINACEOUS CONTENT OR HEMOPE RITONEUM. CLOSE SURVEILLANCE WITH HEMATOCRIT AND HEMOGLOBIN IS RECOMMENDED THE UNENHANCED EXAM IS LIMITED TO EVALUATE VISCERAL TRAUMA. 3. SEVERE DEGREE HEPATIC STEATOSIS. 4. BIBASILAR AIRSPACE DISEASE, LEFT GREATER THAN RIGHT. THIS IS LIKELY ON THE BASIS OF ATELECTASIS AL THOUGH PNEUMONIA IS POSSIBLE. 5. MILD FULLNESS OF THE RENAL COLLECTING SYSTEMS/MILD HYDRONEPHROSIS WITHOUT RADIOPAQUE OBSTRUCTING C ALCULUS.
[2019-07-19] MEDS: MIDAZOLAM HCL 50 MG in SODIUM CHLORIDE 0.9% 40 ML IV SCH ×2 (14:58→23:41)
[2019-07-19] MEDS ORDERED: PIPERACILLIN-TAZOBACTAM 3.375 GM in SODIUM CHLORIDE 0.9% 100 ML IVPB STA (15:31)
--- NOTE | 2019-07-19 15:32 | XR ---
EXAMINATION TYPE: XR chest 1V portable DATE OF EXAM: 07/19/2019 COMPARISON: 07/19/2019 HISTORY: Tube retraction. TECHNIQUE: Single frontal view of the chest is obtained. FINDINGS: Artifact ischemia is seen overlying the patient, which could not be removed. Perihilar opac ities could be atelectasis as there is right mainstem bronchial intubation. Enteric tube appears appr opriate. Cardiac loop recorder is seen. Enlarged cardiomediastinal silhouette. IMPRESSION: Right mainstem bronchial intubation remains. Retraction of 2 cm is recommended.
[2019-07-19] MEDS ORDERED: NALOXONE 0.4 MG/ML 1 ML VIAL IV PRN (15:44)
[2019-07-19] MEDS ORDERED: SODIUM CHLORIDE 0.9% 50 ML with VASOPRESSIN 20 UNIT IVPB SCH ×2 (15:45)
[2019-07-19] MEDS ORDERED: SODIUM CHLORIDE 0.9% 150 ML with VASOPRESSIN 60 UNIT IV SCH ×2 (15:45)
[2019-07-19] MEDS: LACTULOSE 20 GM/30 ML CUP PO SCH (16:22)
[2019-07-19] MEDS ORDERED: DESMOPRESSIN ACETATE 24 MCG in SODIUM CHLORIDE 0.9% 50 ML IVPB ONE (16:29)
[2019-07-19 16:30] LABS: ABG Base Excess -29.5 mmol/L; ABG Oxygen Saturation 98.1 % (94-97); ABG PO2 165 mmHg (83-108); ABG TCO2 4 mmol/L (19-24); Allen Test Performed? Yes
[2019-07-19 16:36] LABS: ABG PH 6.89 (7.35-7.45)
[2019-07-19 16:37] LABS: ABG HCO3 4 mmol/L (21-25); ABG PCO2 19 mmHg (35-45)
[2019-07-19] MEDS: HYDROCORTISONE SUCCINATE 100 MG/2 ML VIAL IV SCH (16:45)
[2019-07-19] MEDS: OCTREOTIDE 500 MCG in SODIUM CHLORIDE 0.9% 250 ML IV SCH (16:46)
[2019-07-19] MEDS: DEXTROSE 5% IN WATER 1,000 ML with SODIUM BICARB (1 MEQ/ML) 150 ML IV SCH (16:48)
[2019-07-19 17:59] LABS: Glucose,Whole Blood 135 mg/dL (75-99)
[2019-07-19] MEDS: metroNIDAZOLE-NS PMX 500 MG in SALINE 1 100ML.BAG IVPB SCH (20:49)
[2019-07-19 20:51] LABS: ABG Base Excess -22.1 mmol/L; ABG Oxygen Saturation 98.1 % (94-97); ABG PCO2 22 mmHg (35-45); ABG PO2 122 mmHg (83-108); ABG TCO2 8 mmol/L (19-24); Allen Test Performed? Yes
[2019-07-19 20:55] LABS: ABG HCO3 7 mmol/L (21-25); ABG PH 7.12 (7.35-7.45)
--- NOTE | 2019-07-19 21:15 | P.GSCN ---
History of Present Illness Consult date: 07/19/19 History of present illness: 48 y/o female who was found down at home by her boyfriend. History of ETOH absue. Boyfriend states she was having normal BM yesterday and no NV. Only complaint was backpain according to him. Patient coded in ER and was intubated. Now intubated on high dose pressors in ICU. CT showed thickened colon and general surgery was consulted Past Medical History Past Medical History: Unable to Obtain History of Any Multi-Drug Resistant Organisms: Unobtainable Past Surgical History: Unable to Obtain Past Psychological History: Unable to Obtain Smoking Status: Unknown if ever smoked Past Alcohol Use History: Unable to Obtain Past Drug Use History: Unable to Obtain Medications and Allergies Home Medications Medication Instructions Recorded Confirmed Type Unable To Assess [Unable to Assess] 07/19/19 07/19/19 History Allergies Allergy/AdvReac Type Severity Reaction Status Date / Time Unable to Assess Allergy Verified 07/19/19 12:38 Surgical - Exam Osteopathic Statement: *. No significant issues noted on an osteopathic st ructural exam other than those noted in the History and Physical/Consult. Vital Signs Pulse Resp BP Pulse Ox 80 22 65/37 96 07/19/19 12:38 07/19/19 12:38 07/19/19 12:38 07/19/19 12:38 - General intubated and sedated. opens eyes but no meaningful response - Eyes PERRL - Neck no masses, trachea midline - Respiratory intubated sedated - Abdomen soft/distended/ no peritoneal signs on exam - Psychiatric intubated and sedated Results - Labs 07/19/19 12:15 07/19/19 12:15 Abnormal Lab Results - Last 24 Hours (Table) 07/19/19 07/19/19 07/19/19 Range/Units 12:14 12:15 12:15 RBC 2.05 L (3.80-5.40) m/uL Hgb 6.3 L* (11.4-16.0) gm/dL Hct 23.7 L (34.0-46.0) % MCV 115.7 H (80.0-100.0) fL MCHC 26.5 L (31.0-37.0) g/dL RDW 19.9 H (11.5-15.5) % Plt Count 48 L (150-450) k/uL Macrocytosis Marked A PT (9.0-12.0) sec INR (<1.2) APTT (22.0-30.0) sec ABG pH (7.35-7.45) ABG pCO2 (35-45) mmHg ABG pO2 (83-108) mmHg ABG HCO3 (21-25) mmol/L ABG Total CO2 (19-24) mmol/L ABG O2 Saturation (94-97) % VBG pH 6.84 L* (7.31-7.41) VBG pCO2 25 L (37-51) mmHg VBG HCO3 4 L* (24-28) mmol/L Potassium (3.5-5.1) mmol/L Chloride (98-107) mmol/L Carbon Dioxide (22-30) mmol/L Creatinine (0.52-1.04) mg/dL Glucose (74-99) mg/dL POC Glucose (mg/dL) 174 H (75-99) mg/dL Plasma Lactic Acid Rboert (0.7-2.0) mmol/L Calcium (8.4-10.2) mg/dL AST (14-36) U/L ALT (4-34) U/L Alkaline Phosphatase (38-126) U/L Ammonia (<30) umol/L Creatine Kinase (30-135) U/L Total Protein (6.3-8.2) g/dL Albumin (3.5-5.0) g/dL Urine Appearance (Clear) Urine Protein (Negative) Urine Glucose (UA) (Negative) Urine Blood (Negative) Ur Leukocyte Esterase (Negative) Urine RBC (0-5) /hpf Urine WBC (0-5) /hpf Urine WBC Clumps (None) /hpf Amorphous Sediment (None) /hpf Urine Bacteria (None) /hpf Hyaline Casts (0-2) /lpf Urine Mucus (None) /hpf Serum Alcohol mg/dL Crossmatch 07/19/19 07/19/19 07/19/19 Range/Units 12:15 12:15 12:15 RBC (3.80-5.40) m/uL Hgb (11.4-16.0) gm/dL Hct (34.0-46.0) % MCV (80.0-100.0) fL MCHC (31.0-37.0) g/dL RDW (11.5-15.5) % Plt Count (150-450) k/uL Macrocytosis PT 16.9 H (9.0-12.0) sec INR 1.7 H (<1.2) APTT 42.3 H (22.0-30.0) sec ABG pH (7.35-7.45) ABG pCO2 (35-45) mmHg ABG pO2 (83-108) mmHg ABG HCO3 (21-25) mmol/L ABG Total CO2 (19-24) mmol/L ABG O2 Saturation (94-97) % VBG pH (7.31-7.41) VBG pCO2 (37-51) mmHg VBG HCO3 (24-28) mmol/L Potassium 6.6 H* (3.5-5.1) mmol/L Chloride 111 H (98-107) mmol/L Carbon Dioxide <5 L* (22-30) mmol/L Creatinine 3.55 H (0.52-1.04) mg/dL Glucose 167 H (74-99) mg/dL POC Glucose (mg/dL) (75-99) mg/dL Plasma Lactic Acid Robert 20.4 H* (0.7-2.0) mmol/L Calcium 7.5 L (8.4-10.2) mg/dL AST 178 H (14-36) U/L ALT 43 H (4-34) U/L Alkaline Phosphatase 215 H (38-126) U/L Ammonia 199 H (<30) umol/L Creatine Kinase 374 H (30-135) U/L Total Protein 5.3 L (6.3-8.2) g/dL Albumin 2.5 L (3.5-5.0) g/dL Urine Appearance (Clear) Urine Protein (Negative) Urine Glucose (UA) (Negative) Urine Blood (Negative) Ur Leukocyte Esterase (Negative) Urine RBC (0-5) /hpf Urine WBC (0-5) /hpf Urine WBC Clumps (None) /hpf Amorphous Sediment (None) /hpf Urine Bacteria (None) /hpf Hyaline Casts (0-2) /lpf Urine Mucus (None) /hpf Serum Alcohol 274 H* mg/dL Crossmatch 07/19/19 07/19/19 07/19/19 Range/Units 12:15 13:25 14:22 RBC (3.80-5.40) m/uL Hgb (11.4-16.0) gm/dL Hct (34.0-46.0) % MCV (80.0-100.0) fL MCHC (31.0-37.0) g/dL RDW (11.5-15.5) % Plt Count (150-450) k/uL Macrocytosis PT (9.0-12.0) sec INR (<1.2) APTT (22.0-30.0) sec ABG pH 6.81 L* (7.35-7.45) ABG pCO2 22 L (35-45) mmHg ABG pO2 >400 H (83-108) mmHg ABG HCO3 4 L* (21-25) mmol/L ABG Total CO2 4 L (19-24) mmol/L ABG O2 Saturation 99.3 H (94-97) % VBG pH (7.31-7.41) VBG pCO2 (37-51) mmHg VBG HCO3 (24-28) mmol/L Potassium (3.5-5.1) mmol/L Chloride (98-107) mmol/L Carbon Dioxide (22-30) mmol/L Creatinine (0.52-1.04) mg/dL Glucose (74-99) mg/dL POC Glucose (mg/dL) (75-99) mg/dL Plasma Lactic Acid Robert (0.7-2.0) mmol/L Calcium (8.4-10.2) mg/dL AST (14-36) U/L ALT (4-34) U/L Alkaline Phosphatase (38-126) U/L Ammonia (<30) umol/L Creatine Kinase (30-135) U/L Total Protein (6.3-8.2) g/dL Albumin (3.5-5.0) g/dL Urine Appearance Turbid H (Clear) Urine Protein 2+ H (Negative) Urine Glucose (UA) Trace H (Negative) Urine Blood Moderate H (Negative) Ur Leukocyte Esterase Large H (Negative) Urine RBC 82 H (0-5) /hpf Urine WBC >182 H (0-5) /hpf Urine WBC Clumps Many H (None) /hpf Amorphous Sediment Rare H (None) /hpf Urine Bacteria Many H (None) /hpf Hyaline Casts 73 H (0-2) /lpf Urine Mucus Many H (None) /hpf Serum Alcohol mg/dL Crossmatch See Detail 07/19/19 07/19/19 07/19/19 Range/Units 14:29 16:26 17:57 RBC (3.80-5.40) m/uL Hgb (11.4-16.0) gm/dL Hct (34.0-46.0) % MCV (80.0-100.0) fL MCHC (31.0-37.0) g/dL RDW (11.5-15.5) % Plt Count (150-450) k/uL Macrocytosis PT (9.0-12.0) sec INR (<1.2) APTT (22.0-30.0) sec ABG pH 6.89 L* (7.35-7.45) ABG pCO2 19 L* (35-45) mmHg ABG pO2 165 H (83-108) mmHg ABG HCO3 4 L* (21-25) mmol/L ABG Total CO2 4 L (19-24) mmol/L ABG O2 Saturation 98.1 H (94-97) % VBG pH (7.31-7.41) VBG pCO2 (37-51) mmHg VBG HCO3 (24-28) mmol/L Potassium (3.5-5.1) mmol/L Chloride (98-107) mmol/L Carbon Dioxide (22-30) mmol/L Creatinine (0.52-1.04) mg/dL Glucose (74-99) mg/dL POC Glucose (mg/dL) 210 H 135 H (75-99) mg/dL Plasma Lactic Acid Robert (0.7-2.0) mmol/L Calcium (8.4-10.2) mg/dL AST (14-36) U/L ALT (4-34) U/L Alkaline Phosphatase (38-126) U/L Ammonia (<30) umol/L Creatine Kinase (30-135) U/L Total Protein (6.3-8.2) g/dL Albumin (3.5-5.0) g/dL Urine Appearance (Clear) Urine Protein (Negative) Urine Glucose (UA) (Negative) Urine Blood (Negative) Ur Leukocyte Esterase (Negative) Urine RBC (0-5) /hpf Urine WBC (0-5) /hpf Urine WBC Clumps (None) /hpf Amorphous Sediment (None) /hpf Urine Bacteria (None) /hpf Hyaline Casts (0-2) /lpf Urine Mucus (None) /hpf Serum Alcohol mg/dL Crossmatch 07/19/19 Range/Units 20:46 RBC (3.80-5.40) m/uL Hgb (11.4-16.0) gm/dL Hct (34.0-46.0) % MCV (80.0-100.0) fL MCHC (31.0-37.0) g/dL RDW (11.5-15.5) % Plt Count (150-450) k/uL Macrocytosis PT (9.0-12.0) sec INR (<1.2) APTT (22.0-30.0) sec ABG pH 7.12 L* (7.35-7.45) ABG pCO2 22 L (35-45) mmHg ABG pO2 122 H (83-108) mmHg ABG HCO3 7 L* (21-25) mmol/L ABG Total CO2 8 L (19-24) mmol/L ABG O2 Saturation 98.1 H (94-97) % VBG pH (7.31-7.41) VBG pCO2 (37-51) mmHg VBG HCO3 (24-28) mmol/L Potassium (3.5-5.1) mmol/L Chloride (98-107) mmol/L Carbon Dioxide (22-30) mmol/L Creatinine (0.52-1.04) mg/dL Glucose (74-99) mg/dL POC Glucose (mg/dL) (75-99) mg/dL Plasma Lactic Acid Robert (0.7-2.0) mmol/L Calcium (8.4-10.2) mg/dL AST (14-36) U/L ALT (4-34) U/L Alkaline Phosphatase (38-126) U/L Ammonia (<30) umol/L Creatine Kinase (30-135) U/L Total Protein (6.3-8.2) g/dL Albumin (3.5-5.0) g/dL Urine Appearance (Clear) Urine Protein (Negative) Urine Glucose (UA) (Negative) Urine Blood (Negative) Ur Leukocyte Esterase (Negative) Urine RBC (0-5) /hpf Urine WBC (0-5) /hpf Urine WBC Clumps (None) /hpf Amorphous Sediment (None) /hpf Urine Bacteria (None) /hpf Hyaline Casts (0-2) /lpf Urine Mucus (None) /hpf Serum Alcohol mg/dL Crossmatch Diabetes panel 07/19/19 Range/Units 12:15 Sodium 143 (137-145) mmol/L Potassium 6.6 H* (3.5-5.1) mmol/L Chloride 111 H (98-107) mmol/L Carbon Dioxide <5 L* (22-30) mmol/L BUN 11 (7-17) mg/dL Creatinine 3.55 H (0.52-1.04) mg/dL Glucose 167 H (74-99) mg/dL Calcium 7.5 L (8.4-10.2) mg/dL AST 178 H (14-36) U/L ALT 43 H (4-34) U/L Alkaline Phosphatase 215 H (38-126) U/L Total Protein 5.3 L (6.3-8.2) g/dL Albumin 2.5 L (3.5-5.0) g/dL Calcium panel 07/19/19 Range/Units 12:15 Calcium 7.5 L (8.4-10.2) mg/dL Albumin 2.5 L (3.5-5.0) g/dL Pituitary panel 07/19/19 Range/Units 12:15 Sodium 143 (137-145) mmol/L Potassium 6.6 H* (3.5-5.1) mmol/L Chloride 111 H (98-107) mmol/L Carbon Dioxide <5 L* (22-30) mmol/L BUN 11 (7-17) mg/dL Creatinine 3.55 H (0.52-1.04) mg/dL Glucose 167 H (74-99) mg/dL Calcium 7.5 L (8.4-10.2) mg/dL Adrenal panel 07/19/19 Range/Units 12:15 Sodium 143 (137-145) mmol/L Potassium 6.6 H* (3.5-5.1) mmol/L Chloride 111 H (98-107) mmol/L Carbon Dioxide <5 L* (22-30) mmol/L BUN 11 (7-17) mg/dL Creatinine 3.55 H (0.52-1.04) mg/dL Glucose 167 H (74-99) mg/dL Calcium 7.5 L (8.4-10.2) mg/dL Total Bilirubin 0.8 (0.2-1.3) mg/dL AST 178 H (14-36) U/L ALT 43 H (4-34) U/L Alkaline Phosphatase 215 H (38-126) U/L Total Protein 5.3 L (6.3-8.2) g/dL Albumin 2.5 L (3.5-5.0) g/dL Assessment and Plan Assessment: VDRF, Colitis, likely septic shock, UTI, etoh abuse, coagulopathic Plan: Patient is critically ill and unstable. She is severely acidotic and coagulopathic. She also is thrombocytopenic. She is not a surgical candidate at this time. Recommend continued ICU care and resuscitation along with empiric broad spectum antibiotics. Very poor prognosis
[2019-07-19] MEDS: SODIUM CHLORIDE 0.9% 150 ML with VASOPRESSIN 60 UNIT IV SCH ×2 (21:16)
[2019-07-19 22:27] LABS: Glucose,Whole Blood 186 mg/dL (75-99)
[2019-07-19 22:42] LABS: Anisocytosis Slight; HCT 28.8 % (34.0-46.0); Hypochromasia Marked; MCH 30.2 pg (25.0-35.0); MCHC 29.5 g/dL (31.0-37.0); Macrocytosis Moderate; Mean Platelet Volume 9.7; RBC 2.82 m/uL (3.80-5.40); RDW 19.9 % (11.5-15.5); WBC 5.4 k/uL (3.8-10.6)
[2019-07-19 22:51] LABS: HGB 8.5 gm/dL (11.4-16.0)
[2019-07-19 22:52] LABS: INR 1.5 (<1.2); MCV 102.2 fL (80.0-100.0); Partial Thromboplastin Time 30.6 sec (22.0-30.0); Platelet Count 81 k/uL (150-450); Prothrombin Time 14.5 sec (9.0-12.0)
[2019-07-19 22:56] LABS: Calcium 6.6 mg/dL (8.4-10.2); Potassium 5.4 mmol/L (3.5-5.1); Total Bilirubin 1.4 mg/dL (0.2-1.3); Total Protein 6.1 g/dL (6.3-8.2)
[2019-07-19 22:56] LABS: ABG Base Excess -20.1 mmol/L; ABG Oxygen Saturation 97.9 % (94-97); ABG PCO2 23 mmHg (35-45); ABG PO2 116 mmHg (83-108); ABG TCO2 9 mmol/L (19-24); Allen Test Performed? Yes
[2019-07-19 23:01] LABS: ABG HCO3 8 mmol/L (21-25); ABG PH 7.17 (7.35-7.45)
--- NOTE | 2019-07-19 23:19 | P.CNPUL ---
History of Present Illness Consult date: 07/19/19 Requesting physician: Alexy Ramirez Reason for consult: other Chief complaint: Cardiac arrest History of present illness: This is a 48-year-old -Citizen Of [place] female, no available past medical history on this patient, patient was brought into the emergency room by EMS when the patient was noted by a boyfriend unresponsive. Patient is known to have history of alcohol abuse, she is also known to have history of depression, normally takes trazodone. According to the boyfriend, around 8:30 AM, patient was found unresponsive. Upon EMS arrival patient was noted to have low sugars, and she was given an amp of dextrose. She did wake up a bit, however remained lethargic, and on her weight in the ambulance to the ER patient was yelling and getting restless and agitated. Upon arrival to the ER, patient was not follow any instructions. Patient was evaluated, initially she was able to protect her airways, she would open her eyes and look around to tactile stimuli. After IV access, and after basic labs were ordered, patient was noted to 12-lead EKG showed mostly normal sinus rhythm rate of 81/m. She had peak T waves in V2 through V4 and the patient was sent for CT of the brain because of altered mental status. Upon returning from CT to the trauma bay, patient became hypot ensive, levo fed was started for hypotension and bradycardia then she went into asystole. CPR was started, epinephrine was given, patient was intubated by the ER physician, and she had one round of chest compressions. In the meantime patient was intubated, and her endotracheal tube was noted to be initially in the right mainstem bronchus, and this was retracted a bit. Orogastric tube was placed, and she was noted to have 75 mL of bright blood in the orogastric tube. Patient continued to require levo fed, and she was given fluid boluses for hypotension. Venous blood gases showed very low pH of 6.8, pCO2 was 25, and bicarb was 4. Sodium bicarb was given. Patient was noted to have elevated potassium, hence 10 units of insulin were given along with 1 amp of dextrose. Patient received 2 L of fluid boluses. And labs came back showing a hemoglobin of 6.3. Platelets were also noted to be low at 48,000. INR was 1.7. Creatinine 3.5. And her liver enzymes were elevated. Ammonia level was also noted to be 199. Her serum alcohol was 274. Patient was placed on a bicarb drip, she was placed empirically on antibiotics, and she was also placed on lactulose. CT of the brain showed no evidence of intracranial hemorrhage or mass effect. CT of the abdomen and pelvis was abnormal showing severe pancolitis with mesenteric edema and small volume ascites. The radiologist felt this could be consistent with ischemic bowel. Patient was also noted to have severe degree of hepatic steatosis. And bibasilar airspace disease/atelectasis. Patient remained hypotensive requiring more norepinephrine, and vasopressin was added. Surgical consultation was initiated, however considering the patient's clinical presentation and hypotension requiring significant amount of vasopressin and norepinephrine, and considering the patient was extremely acidotic, her lactic acid was as high as 20. Patient felt to be not a surgical candidate. And she needed to be more resuscitated before surgery could even be considered. Patient was also placed on Sandostatin. Rocephin was given in the ER, and I have recommended Flagyl and Zosyn. I came in to see the patient in the ICU, a left brachial arterial line was placed, and recommended further labs to be ordered including ABG, coagulation profile, and CBC. These are presently pending. In the meantime patient received a total of 2 units of packed RBCs, 2 units of fresh frozen plasma, and 1 unit of platelets. Drug screen was basically negative except she had acetaminophen level of 11.5. Salicylate 1.0, and serum alcohol level was 274. Review of Systems ROS unobtainable: due to endotracheal tube Past Medical History Past Medical History: Unable to Obtain History of Any Multi-Drug Resistant Organisms: Unobtainable Past Surgical History: Unable to Obtain Past Psychological History: Unable to Obtain Smoking Status: Unknown if ever smoked Past Alcohol Use History: Unable to Obtain Past Drug Use History: Unable to Obtain Medications and Allergies Home Medications Medication Instructions Recorded Confirmed Type Unable To Assess [Unable to Assess] 07/19/19 07/19/19 History Allergies Allergy/AdvReac Type Severity Reaction Status Date / Time Unable to Assess Allergy Verified 07/19/19 12:38 Physical Exam Vitals: Vital Signs Temp Pulse Pulse Resp BP BP Pulse Ox 07/19/19 21:24 94.5 F L 103 H 29 H 96/50 99 07/19/19 21:15 104 H 26 H 103/53 99 07/19/19 21:07 94.5 F L 102 H 26 H 103/53 98 07/19/19 21:00 93.9 F L 103 H 24 107/54 99 07/19/19 20:57 34.4 F L 103 H 26 H 100/52 99 07/19/19 20:45 34.6 F L 103 H 24 104/49 98 07/19/19 20:30 102 H 24 92/50 99 07/19/19 20:27 94.4 F L 105 H 24 99/50 07/19/19 20:15 34.1 F L 103 H 22 92/49 99 07/19/19 20:05 92.8 F L 101 H 22 92/49 100 07/19/19 20:00 92.8 F L 111 H 25 H 85/48 99 07/19/19 19:57 92.8 F L 102 H 20 94/57 100 07/19/19 19:45 92 20 84/46 99 07/19/19 19:30 91 27 H 84/46 99 07/19/19 19:27 92.8 F L 103 H 20 85/48 100 07/19/19 19:17 92.8 F L 105 H 21 84/46 98 07/19/19 19:15 89 25 H 76/44 99 07/19/19 19:00 87 19 80/44 99 07/19/19 18:45 89 17 91/52 99 07/19/19 18:30 92 9 L 94/54 99 07/19/19 18:15 93 11 L 120/66 99 07/19/19 17:40 94.2 F L 102 H 14 128/67 07/19/19 17:30 101 H 23 136/69 100 07/19/19 17:20 100 11 L 121/71 100 07/19/19 17:10 105 H 22 135/72 100 07/19/19 17:00 104 H 18 128/72 99 07/19/19 16:50 105 H 16 132/70 100 07/19/19 16:40 105 H 14 136/75 100 07/19/19 16:30 108 H 19 150/80 100 07/19/19 16:20 109 H 18 144/80 100 07/19/19 16:10 108 H 18 140/77 100 05//20 16:00 106 H 18 126/78 100 07/19/19 15:50 103 H 20 128/76 100 07/19/19 15:40 101 H 14 116/73 100 07/19/19 15:39 90 F L 100 17 116/73 07/19/19 15:30 105 H 15 115/82 100 07/19/19 15:20 98 13 106/60 100 07/19/19 15:15 90 F L 101 H 17 111/65 100 07/19/19 15:10 96 16 102/46 100 07/19/19 15:05 98 16 107/43 100 07/19/19 15:01 90 F L 96 17 106/52 07/19/19 15:00 95 17 92/46 100 07/19/19 14:50 84 14 96/49 100 07/19/19 14:40 89 20 90/45 100 07/19/19 14:30 96/45 07/19/19 14:20 88 16 97/45 100 07/19/19 14:10 85 15 93/44 100 07/19/19 14:02 85 17 88/40 100 07/19/19 13:26 90.1 F L 92 14 93/44 100 07/19/19 12:38 80 22 65/37 96 Intake and Output 07/19/19 07/19/19 07/19/19 06:59 14:59 22:59 Intake Total 1.053 1267.327 Output Total 10 45 Balance -8.947 1222.327 Intake: IV 400 Dextrose 5% in Water 1, 400 000 ml @ 150 mls/hr IV . Q7H40M CIARRA with Sodium Bicarb (1 Meq/ml) 150 ml Rx#:[id number] Intake, IV Titration 1.053 33.327 Amount Midazolam HCl 50 mg In 6.25 Sodium Chloride 0.9% 40 ml @ 1 MG/HR 1 mls/hr IV .Q24H CIRARA Rx#:[id number] Norepinephrine 32 mg In 1.053 27.077 Sodium Chloride 0.9% 218 ml @ 0.05 MCG/KG/MIN 1. 914 mls/hr IV .Q24H ONE Rx#:[id number] Blood Product 834 Ffp 24 Cpd Unit 0 [id number] Platelet Irr Pheresis 2 214 Acda Unit [id number] As-1 Unit 310 [id number] As-3 Unit 310 [id number] Output: Urine 10 45 Uretheral (Hillman) 10 Other: Weight 81.647 kg Physical Exam: Revealed a 48-year-old -Citizen Of [place] female, intubated, with draws to painful stimuli, presently on Versed drip. Head: Atraumatic, normocephalic, endotracheal tube and orogastric tube are intact. HEENT:[Neck is supple.] [No neck masses.] [No thyromegaly.] [No JVD.] Moist mucous membranes. PERRLA, EOMI, no icterus. Chest: [Symmetrical chest expansion, crackles at the bases, no rhonchi and no wheezes..] Cardiac Exam: [Normal S1 and S2, no S3 gallop, no murmur.] Abdomen: [Soft, distended, nontender, no megaly, no rebound, no guarding, no bowel sounds. Extremities: [No clubbing, no edema, no cyanosis.] Neurological Exam: Patient is intubated, sedated, unable to assess. Psychiatric: Could not be assessed. Results - Laboratory Findings CBC and BMP: 07/19/19 22:25 07/19/19 12:15 ABG ABG pH 7.12 (7.35-7.45) L* 07/19/19 20:46 ABG pCO2 22 mmHg (35-45) L 07/19/19 20:46 ABG pO2 122 mmHg (83-108) H 07/19/19 20:46 ABG O2 Saturation 98.1 % (94-97) H 07/19/19 20:46 PT/INR, D-dimer PT 14.5 sec (9.0-12.0) H 07/19/19 22:25 INR 1.5 (<1.2) H 07/19/19 22:25 Abnormal lab findings: Abnormal Labs 07/19/19 07/19/19 07/19/19 08:18 08:18 12:14 RBC Hgb Hct MCV MCHC RDW Plt Count Macrocytosis PT INR APTT ABG pH ABG pCO2 ABG pO2 ABG HCO3 ABG Total CO2 ABG O2 Saturation VBG pH VBG pCO2 VBG HCO3 Potassium Chloride Carbon Dioxide Creatinine Glucose POC Glucose (mg/dL) 174 H Osmolality 382 H* Plasma Lactic Acid Robert 18.1 H* Calcium AST ALT Alkaline Phosphatase Ammonia Creatine Kinase Total Protein Albumin Urine Appearance Urine Protein Urine Glucose (UA) Urine Blood Ur Leukocyte Esterase Urine RBC Urine WBC Urine WBC Clumps Amorphous Sediment Urine Bacteria Hyaline Casts Urine Mucus Serum Alcohol Crossmatch 07/19/19 07/19/19 07/19/19 12:15 12:15 12:15 RBC 2.05 L Hgb 6.3 L* Hct 23.7 L MCV 115.7 H MCHC 26.5 L RDW 19.9 H Plt Count 48 L Macrocytosis Marked A PT 16.9 H INR 1.7 H APTT 42.3 H ABG pH ABG pCO2 ABG pO2 ABG HCO3 ABG Total CO2 ABG O2 Saturation VBG pH 6.84 L* VBG pCO2 25 L VBG HCO3 4 L* Potassium Chloride Carbon Dioxide Creatinine Glucose POC Glucose (mg/dL) Osmolality Plasma Lactic Acid Robert Calcium AST ALT Alkaline Phosphatase Ammonia Creatine Kinase Total Protein Albumin Urine Appearance Urine Protein Urine Glucose (UA) Urine Blood Ur Leukocyte Esterase Urine RBC Urine WBC Urine WBC Clumps Amorphous Sediment Urine Bacteria Hyaline Casts Urine Mucus Serum Alcohol Crossmatch 07/19/19 07/19/19 07/19/19 12:15 12:15 12:15 RBC Hgb Hct MCV MCHC RDW Plt Count Macrocytosis PT INR APTT ABG pH ABG pCO2 ABG pO2 ABG HCO3 ABG Total CO2 ABG O2 Saturation VBG pH VBG pCO2 VBG HCO3 Potassium 6.6 H* Chloride 111 H Carbon Dioxide <5 L* Creatinine 3.55 H Glucose 167 H POC Glucose (mg/dL) Osmolality Plasma Lactic Acid Robert 20.4 H* Calcium 7.5 L AST 178 H ALT 43 H Alkaline Phosphatase 215 H Ammonia 199 H Creatine Kinase 374 H Total Protein 5.3 L Albumin 2.5 L Urine Appearance Urine Protein Urine Glucose (UA) Urine Blood Ur Leukocyte Esterase Urine RBC Urine WBC Urine WBC Clumps Amorphous Sediment Urine Bacteria Hyaline Casts Urine Mucus Serum Alcohol 274 H* Crossmatch See Detail 07/19/19 07/19/19 07/19/19 13:25 14:22 14:29 RBC Hgb Hct MCV MCHC RDW Plt Count Macrocytosis PT INR APTT ABG pH 6.81 L* ABG pCO2 22 L ABG pO2 >400 H ABG HCO3 4 L* ABG Total CO2 4 L ABG O2 Saturation 99.3 H VBG pH VBG pCO2 VBG HCO3 Potassium Chloride Carbon Dioxide Creatinine Glucose POC Glucose (mg/dL) 210 H Osmolality Plasma Lactic Acid Robert Calcium AST ALT Alkaline Phosphatase Ammonia Creatine Kinase Total Protein Albumin Urine Appearance Turbid H Urine Protein 2+ H Urine Glucose (UA) Trace H Urine Blood Moderate H Ur Leukocyte Esterase Large H Urine RBC 82 H Urine WBC >182 H Urine WBC Clumps Many H Amorphous Sediment Rare H Urine Bacteria Many H Hyaline Casts 73 H Urine Mucus Many H Serum Alcohol Crossmatch 07/19/19 07/19/19 07/19/19 16:26 17:57 20:46 RBC Hgb Hct MCV MCHC RDW Plt Count Macrocytosis PT INR APTT ABG pH 6.89 L* 7.12 L* ABG pCO2 19 L* 22 L ABG pO2 165 H 122 H ABG HCO3 4 L* 7 L* ABG Total CO2 4 L 8 L ABG O2 Saturation 98.1 H 98.1 H VBG pH VBG pCO2 VBG HCO3 Potassium Chloride Carbon Dioxide Creatinine Glucose POC Glucose (mg/dL) 135 H Osmolality Plasma Lactic Acid Robert Calcium AST ALT Alkaline Phosphatase Ammonia Creatine Kinase Total Protein Albumin Urine Appearance Urine Protein Urine Glucose (UA) Urine Blood Ur Leukocyte Esterase Urine RBC Urine WBC Urine WBC Clumps Amorphous Sediment Urine Bacteria Hyaline Casts Urine Mucus Serum Alcohol Crossmatch 07/19/19 07/19/19 07/19/19 22:25 22:25 22:26 RBC 2.82 L Hgb 8.5 L D Hct 28.8 L MCV 102.2 H D MCHC 29.5 L RDW 19.9 H Plt Count 81 L D Macrocytosis PT 14.5 H INR 1.5 H APTT 30.6 H ABG pH ABG pCO2 ABG pO2 ABG HCO3 ABG Total CO2 ABG O2 Saturation VBG pH VBG pCO2 VBG HCO3 Potassium Chloride Carbon Dioxide Creatinine Glucose POC Glucose (mg/dL) 186 H Osmolality Plasma Lactic Acid Robert Calcium AST ALT Alkaline Phosphatase Ammonia Creatine Kinase Total Protein Albumin Urine Appearance Urine Protein Urine Glucose (UA) Urine Blood Ur Leukocyte Esterase Urine RBC Urine WBC Urine WBC Clumps Amorphous Sediment Urine Bacteria Hyaline Casts Urine Mucus Serum Alcohol Crossmatch - Diagnostic Findings Additional studies: CT of abdomen and pelvis as noted in HPI. Assessment and Plan Assessment: Impression: Acute hypoxic respiratory failure, suspect abdominal sepsis. And septic shock. Possible ischemic colitis. Acute blood loss anemia with upper GI bleeding noted after placement of nasogastric tube. Acute thrombocytopenia secondary to sepsis. Shock liver secondary to hypotension and could also be related to history of alcohol abuse. Mental status change, suspect hepatic encephalopathy with elevated ammonia level. Acute kidney injury secondary to acute tubular necrosis and hypotension. Severe anion gap metabolic acidosis, secondary to sepsis and acute kidney injury. Acute lactic acidosis secondary to ischemic bowel and hypotension. Possible urinary tract infection. Acute alcohol intoxication based on her abnormal I'll call level on presentation. Recommendation: Continue present supportive care measures including Ventilatory support. Hemodynamic support. Patient is presently on norepinephrine and vasopressin. GI and DVT prophylaxis. Avoid anticoagulation therapy. Surgical consultation Infectious disease consultation GI consultation for upper GI bleeding. Nephrology consultation for her acute kidney injury. Empiric antibiotics. Patient is now on Zosyn and Flagyl. Transfuse accordingly, maintain hemoglobin of above 7. Continue sodium bicarb. And correct metabolic acidosis. Patient received significant amount of fluid boluses initially. Continue octreotide. Overall prognosis is extremely poor and guarded. Patient was already evaluated by general surgery, and felt to be unstable for any surgical intervention at this point. We'll continue to follow. Time with Patient: Greater than 30
--- NOTE | 2019-07-20 00:16 | PCN ---
PROCEDURE NOTE OPERATIVE REPORT: Placement of the left brachial arterial line. PREOPERATIVE DIAGNOSIS: Acute septic shock and hypotension. POSTOPERATIVE DIAGNOSIS: Acute septic shock and hypotension. ANESTHESIA: Used none deployed. PROCEDURE IN DETAIL: The left brachial artery was prepared and the left brachial region was prepared in a sterile fashion and drapes were applied. The left brachial artery was palpated, cannulated easily and a guidewire was placed. A Cook catheter was inserted over the guidewire, the guidewire was removed. Good blood flow, good waveform noted, line was secured using 3.0 silk sutures, no evidence of any immediate complications. MMODL / IJN: [id number] /
[2019-07-20] MEDS: HYDROCORTISONE SUCCINATE 100 MG/2 ML VIAL IV SCH ×4 (00:24→22:04)
[2019-07-20] MEDS: CHLORHEXIDINE GLUCONATE 15 ML CUP MUCOUS MEM SCH ×3 (00:24→20:18)
[2019-07-20] MEDS: LACTULOSE 20 GM/30 ML CUP PO SCH ×3 (00:24→20:17)
[2019-07-20 01:05] LABS: Ethanol 191 mg/dL (Negative); Isopropanol Negative (Negative)
[2019-07-20] MEDS: metroNIDAZOLE-NS PMX 500 MG in SALINE 1 100ML.BAG IVPB SCH ×4 (02:08→22:04)
[2019-07-20 02:34] LABS: Glucose,Whole Blood 229 mg/dL (75-99)
[2019-07-20] MEDS: OCTREOTIDE 500 MCG in SODIUM CHLORIDE 0.9% 250 ML IV SCH (02:35)
[2019-07-20 02:46] LABS: Anisocytosis Moderate; HCT 28.1 % (34.0-46.0); HGB 8.5 gm/dL (11.4-16.0); Hypochromasia Marked; MCH 30.6 pg (25.0-35.0); MCHC 30.4 g/dL (31.0-37.0); MCV 100.7 fL (80.0-100.0); Macrocytosis Moderate; Mean Platelet Volume 9.9; RBC 2.79 m/uL (3.80-5.40); RDW 20.1 % (11.5-15.5); WBC 4.5 k/uL (3.8-10.6)
[2019-07-20] MEDS: INSULIN ASPART (NovoLOG) 100 UNIT/ML VIAL SQ SCH ×3 (02:53→11:10)
[2019-07-20 02:54] LABS: Potassium 5.7 mmol/L (3.5-5.1)
[2019-07-20 02:57] LABS: Platelet Count 97 k/uL (150-450)
[2019-07-20] MEDS: DEXTROSE 5% IN WATER 1,000 ML with SODIUM BICARB (1 MEQ/ML) 150 ML IV SCH ×3 (04:57→20:15)
[2019-07-20] MEDS: PIPERACILLIN-TAZOBACTAM 3.375 GM in SODIUM CHLORIDE 0.9% 100 ML IVPB SCH ×2 (06:13→16:33)
[2019-07-20 06:48] LABS: Glucose,Whole Blood 240 mg/dL (75-99)
[2019-07-20 07:09] LABS: Albumin 2.9 g/dL (3.5-5.0)
[2019-07-20 07:10] LABS: Anisocytosis Moderate; HCT 27.4 % (34.0-46.0); HGB 8.5 gm/dL (11.4-16.0); Hypochromasia Marked; MCH 30.7 pg (25.0-35.0); MCHC 30.9 g/dL (31.0-37.0); MCV 99.3 fL (80.0-100.0); Macrocytosis Moderate; Mean Platelet Volume 9.3; Potassium 5.4 mmol/L (3.5-5.1); RBC 2.76 m/uL (3.80-5.40); Total Bilirubin 1.5 mg/dL (0.2-1.3); WBC 6.1 k/uL (3.8-10.6)
[2019-07-20 07:15] LABS: Platelet Count 84 k/uL (150-450)
[2019-07-20 07:28] LABS: Band Neutrophils % 22 %; Lymphocytes # (M) 0.98 k/uL (1.0-4.8); Monocytes # (M) 0.24 k/uL (0-1.0); Neutrophils % (M) 59 %; Nucleated Red Blood Cells 0 /100 WBC (0-0); Total Cells Counted 200; Toxic Vacuolation Present
[2019-07-20 07:29] LABS: Crenated RBC Present; Polychromasia Present
[2019-07-20 07:50] LABS: Calcium 6.2 mg/dL (8.4-10.2)
[2019-07-20 07:56] LABS: ABG Base Excess -16.5 mmol/L; ABG Oxygen Saturation 97.1 % (94-97); ABG PCO2 22 mmHg (35-45); ABG PH 7.28 (7.35-7.45); ABG PO2 97 mmHg (83-108); ABG TCO2 11 mmol/L (19-24)
[2019-07-20 07:58] LABS: ABG HCO3 10 mmol/L (21-25)
[2019-07-20] MEDS: PANTOPRAZOLE 40 MG/10 ML VIAL IV SCH (08:26)
[2019-07-20] MEDS ORDERED: CALCIUM GLUCONATE 1 GM in SODIUM CHLORIDE 0.9% 100 ML IVPB ONE ×2 (08:30→20:15)
--- NOTE | 2019-07-20 09:59 | CONS ---
CONSULTATION DATE OF CONSULTATION: July 20, 2019. REASON FOR CONSULTATION: Acute upper GI bleed. HISTORY OF PRESENT ILLNESS: The patient is a 48-year-old white female with history of alcoholism, was brought in to the emergency room by her boyfriend and as per the notes, she was complaining of some back pain yesterday morning and took some trazodone. Following that, she became unresponsive around 8:30 am. She came to the emergency room was unresponsive by the EMS. In the ER, she had cardiac arrest. She was CODED and intubated and while they were putting an NG tube, there was about 75 mL of bright red blood per NG tube and hence I was consulted for upper GI bleed. The patient subsequently was transferred to the intensive care unit. She remains on pressors with Levophed and vasopressin at this time. She was also started on Sandostatin however through the night, the patient continues to remain hemodynamically unstable. She is on pressor support. She had an NG tube in there which she had about 200 mL of coffee-ground material. She did have a CT of the abdomen and pelvis done in the emergency room that did show diffuse thickening of the colon. Possibility of ischemic colitis was considered by the radiologist. Dr. Hinojosa was consulted who recommended conservative approach at the present time. The patient is currently intubated, sedated on the vent, on pressors. PAST MEDICAL HISTORY: Alcohol use. PAST SURGICAL HISTORY: Unable to obtain. MEDICATIONS: At home unable to obtain. SOCIAL HISTORY: Unable to obtain. Family history unable to obtain. REVIEW OF SYSTEMS: Unable to obtain. ALLERGIES: Unable to obtain. PHYSICAL EXAMINATION: She remains on the vent, hemodynamically unstable. Vital signs: Blood pressure is 112/53, pulse rate 114, temperature 99.7. HEENT examination unremarkable. Conjunctivae pink. Sclerae anicteric. Oral cavity no lesions. NECK: No JVD or lymph node enlargement. CHEST was clear to auscultation. HEART: Regular rate and rhythm. ABDOMEN was distended. It was firm. No free fluid noted. EXTREMITIES no pedal edema. NEURO: She is sedated. LABS: Done at the time of admission to the hospital yesterday WBC 5.4, hemoglobin 8.5, and platelets 81. Today hemoglobin is 8.5, and platelets are 84,000. Sodium 145, potassium 5.4, chloride 107, CO2 10, BUN 12, creatinine 3.52, T-bilirubin is 1.4, AST 89, ALT is 53. Ammonia was 65. It was 199 yesterday. IMPRESSION: 1. Acute respiratory failure on the vent and sedated. 2. Hemodynamic instability remains on pressor support. 3. Severe metabolic acidosis. 4. Acute upper gastrointestinal bleed after NG tube was placed, probably related to NG tube trauma. The patient did not have significant bleeding since being in the hospital. However, she did present with a hemoglobin of 6.3 g/dL and most likely she may be having occult gastrointestinal blood loss/subacute bleed. Presently on IV Sandostatin drip for possible esophageal variceal bleeding. 5. Elevated LFTs consistent with alcoholic liver disease. 6. Diffuse abdominal pain and questionable ischemic colitis on CT scan. Surgery following the patient closely. 7. Hepatic encephalopathy on oral lactulose 30 mL twice daily. RECOMMENDATIONS: 1. Continue with broad-spectrum antibiotics. 2. Management as per ICU. 3. No plans for any endoscopic intervention at the present time. 4. Continue Protonix 40 mg twice daily. 5. Continue lactulose and will add oral Xifaxan 550 mg twice a day via the NG tube. 6. Monitor labs on a daily basis. We will follow with you closely. Thank you for this consultation. MMODL / IJN: [id number] /
[2019-07-20] MEDS: PROPOFOL 1,000 MG in EMPTY BAG 1 BAG IV SCH ×4 (10:16→23:46)
[2019-07-20] MEDS: RIFAXIMIN 550 MG TABLET PO SCH ×2 (11:05→20:20)
--- NOTE | 2019-07-20 11:05 | P.NPCON ---
History of Present Illness - Reason for Consult acute renal failure, metabolic acidosis - History of Present Illness Reason for consultation: Acute kidney injury History of present illness: Patient is a 48-year-old female seen in renal consultation for acute kidney injury. Patient's creatinine on admission was 3.55 and is 3.52 today. Unknown baseline renal function. Patient was brought to the hospital by the EMS due to altered mental status. She was found to be unresponsive. She lives with a frie nd. Patient had taken trazodone the morning of admission and was later found to be unresponsive on the ground covered with a blanket. Her blood sugar was low and she received a dose of dextrose at the EMS. She is currently intubated and sedated. Patient was noted to be severely acidotic with a bicarb level that was less than 5. Patient's potassium level was 6.6 which was medically treated. It was 5.4 this morning. She is currently maintained on bicarb drip along with high-dose Levophed and vasopressin. Patient is oliguric. Subsequently the patient had cardiac arrest in the ER. She she underwent chest compressions and was also given a dose of epinephrine. He was subsequently transferred to the intensive care unit. CAT scan of the abdomen and pelvis revealed a thickened:. She's being followed by surgery and is not a surgical candidate at this time. She is receiving IV antibiotics. Vital signs: Currently on high-dose vasopressors. She is tachycardic. Temperature 99.7F. General: The patient appeared well nourished and normally developed. HEENT: Head exam is unremarkable. Neck is without jugular venous distension. Intubated. LUNGS: Lungs are clear to auscultation and percussion. Breath sounds decreased. HEART: Tachycardic. ABDOMEN: No distention noted. EXTREMITITES: No clubbing, cyanosis, or edema. Past Medical History Past Medical History: Unable to Obtain History of Any Multi-Drug Resistant Organisms: Unobtainable Past Surgical History: Unable to Obtain Past Psychological History: Unable to Obtain Smoking Status: Unknown if ever smoked Past Alcohol Use History: Unable to Obtain Past Drug Use History: Unable to Obtain Medications and Allergies Home Medications Medication Instructions Recorded Confirmed Type Unable To Assess [Unable to Assess] 07/19/19 07/19/19 History Allergies Allergy/AdvReac Type Severity Reaction Status Date / Time Unable to Assess Allergy Verified 07/19/19 12:38 Physical Exam Vitals: Vital Signs Temp Pulse Pulse Pulse Resp BP BP 07/20/19 09:00 117 H 31 H 112/54 20 08:45 114 H 24 112/53 20 08:30 114 H 25 H 112/54 20 08:15 118 H 30 H 108/51 20 08:00 99.7 F H 113 H 24 105/53 20 07:45 115 H 24 109/48 07/20/19 07:39 122 H 07/20/19 07:30 112 H 23 105/45 07/20/19 07:15 112 H 25 H 103/45 07/20/19 07:00 113 H 24 102/44 07/20/19 06:45 114 H 22 106/45 07/20/19 06:30 114 H 23 96/46 07/20/19 06:15 113 H 24 89/34 07/20/19 06:00 111 H 23 102/45 07/20/19 05:45 118 H 23 102/43 07/20/19 05:30 117 H 24 105/44 07/20/19 05:15 118 H 24 104/51 07/20/19 05:00 121 H 23 93/47 07/20/19 04:45 123 H 23 91/60 07/20/19 04:30 123 H 21 92/42 20 04:15 122 H 27 H 92/42 20 04:00 99.3 F 121 H 122 H 28 H 88/43 20 03:45 120 H 25 H 90/38 0520 03:30 120 H 31 H 86/45 05/2420 03:15 123 H 17 99/41 0520 03:00 123 H 32 H 94/48 052420 02:45 123 H 36 H 97/51 05/24/20 02:30 123 H 36 H 88/50 052420 02:15 126 H 31 H 92/48 2420 02:00 125 H 31 H 80/58 052420 01:45 123 H 29 H 97/47 052420 01:30 123 H 29 H 95/51 05/2420 01:15 122 H 23 88/55 05/24/20 01:00 99.0 F 122 H 30 H 88/55 20 00:45 121 H 29 H 96/52 20 00:30 28 H 84/53 20 00:15 116 H 23 92/49 20 00:14 116 H 23 92/49 20 00:00 98.2 F 115 H 114 H 25 H 90/43 20 23:45 114 H 23 93/48 20 23:41 97.5 F L 114 H 31 H 93/50 20 23:30 113 H 22 96/47 07/19/19 23:15 113 H 22 93/50 07/19/19 23:11 97.3 F L 114 H 30 H 105/45 20 23:01 96.4 F L 112 H 29 H 93/50 20 23:00 112 H 22 94/46 07/19/19 22:45 112 H 44 H 98/56 07/19/19 22:30 96.4 F L 113 H 12 99/55 07/19/19 22:15 108 H 32 H 93/49 20 22:00 102 H 26 H 104/50 20 21:45 106 H 29 H 105/58 20 21:30 102 H 20 96/50 20 21:24 94.5 F L 103 H 29 H 96/50 20 21:15 104 H 26 H 103/53 20 21:07 94.5 F L 102 H 26 H 103/53 20 21:00 93.9 F L 103 H 24 107/54 //20 20:57 34.4 F L 103 H 26 H 100/52 //20 20:45 34.6 F L 103 H 24 104/49 20 20:30 102 H 24 92/50 07/18/20 20:27 94.4 F L 105 H 24 99/50 //20 20:15 34.1 F L 103 H 22 92/49 07/18/20 20:05 92.8 F L 101 H 22 92/49 20 20:00 92.8 F L 111 H 102 H 22 85/48 05/23/20 19:57 92.8 F L 102 H 20 94/57 05/23/20 19:45 92 20 84/46 05/23/20 19:30 91 27 H 84/46 05/23/20 19:27 92.8 F L 103 H 20 85/48 05/23/20 19:17 92.8 F L 105 H 21 84/46 05/23/20 19:15 89 25 H 76/44 05//20 19:00 87 19 80/44 05/23/20 18:45 89 17 91/52 05/23/20 18:30 92 9 L 94/54 05//20 18:15 93 11 L 120/66 05//20 17:40 94.2 F L 102 H 14 128/67 05//20 17:30 101 H 23 136/69 05//20 17:20 100 11 L 121/71 05//20 17:10 105 H 22 135/72 05//20 17:00 104 H 18 128/72 05//20 16:50 105 H 16 132/70 05//20 16:40 105 H 14 136/75 05//20 16:30 108 H 19 150/80 05//20 16:20 109 H 18 144/80 05//20 16:10 108 H 18 140/77 05//20 16:00 106 H 18 126/78 05//20 15:50 103 H 20 128/76 05//20 15:40 101 H 14 116/73 05//20 15:39 90 F L 100 17 116/73 05//20 15:30 105 H 15 115/82 05/23/20 15:20 98 13 106/60 05//20 15:15 90 F L 101 H 17 111/65 05//20 15:10 96 16 102/46 05//20 15:05 98 16 107/43 05//20 15:01 90 F L 96 17 106/52 05//20 15:00 95 17 92/46 05//20 14:50 84 14 96/49 05//20 14:40 89 20 90/45 05//20 14:30 96/45 05/23/20 14:20 88 16 97/45 07/19/19 14:10 85 15 93/44 07/19/19 14:02 85 17 88/40 07/19/19 13:26 90.1 F L 92 14 93/44 07/19/19 12:38 80 22 65/37 Pulse Ox 07/20/19 09:00 98 07/20/19 08:45 99 07/20/19 08:30 99 07/20/19 08:15 99 07/20/19 08:00 98 07/20/19 07:45 99 07/20/19 07:39 07/20/19 07:30 98 07/20/19 07:15 99 07/20/19 07:00 99 07/20/19 06:45 97 07/20/19 06:30 99 07/20/19 06:15 99 07/20/19 06:00 100 07/20/19 05:45 100 07/20/19 05:30 98 07/20/19 05:15 99 07/20/19 05:00 99 07/20/19 04:45 07/20/19 04:30 07/20/19 04:15 98 07/20/19 04:00 98 07/20/19 03:45 98 07/20/19 03:30 98 07/20/19 03:15 97 07/20/19 03:00 97 07/20/19 02:45 97 07/20/19 02:30 97 07/20/19 02:15 97 07/20/19 02:00 97 07/20/19 01:45 97 07/20/19 01:30 97 07/20/19 01:15 97 07/20/19 01:00 98 07/20/19 00:45 98 07/20/19 00:30 98 07/20/19 00:15 98 07/20/19 00:14 98 07/20/19 00:00 98 07/19/19 23:45 98 07/19/19 23:41 98 07/19/19 23:30 98 07/19/19 23:15 99 05 23:11 98 07/19/19 23:01 99 07/19/19 23:00 99 07/19/19 22:45 99 05 22:30 99 05 22:15 99 05 22:00 99 05 21:45 99 05 21:30 98 05 21:24 99 05 21:15 99 05 21:07 98 05 21:00 99 05 20:57 99 05 20:45 98 05 20:30 99 05 20:27 05 20:15 99 05 20:05 100 05 20:00 99 05 19:57 100 05 19:45 99 05 19:30 99 05 19:27 100 05 19:17 98 05 19:15 99 05 19:00 99 05 18:45 99 05 18:30 99 05 18:15 99 05 17:40 05 17:30 100 05 17:20 100 05 17:10 100 05 17:00 99 05 16:50 100 05 16:40 100 05 16:30 100 05 16:20 100 05 16:10 100 05 16:00 100 05 15:50 100 05 15:40 100 05 15:39 05 15:30 100 05 15:20 100 05 15:15 100 05 15:10 100 05 15:05 100 05 15:01 05 15:00 100 05 14:50 100 05 14:40 100 05 14:30 05 14:20 100 05 14:10 100 05 14:02 100 05 13:26 100 05 12:38 96 Intake and Output 05 05/07/20/19 22:59 06:59 14:59 Intake Total 1494.469 3422.620 509 Output Total 45 210 10 Balance 6808.299 0725.620 499 Intake: IV 700 1274 459 Dextrose 5% in Water 1, 550 1200 450 000 ml @ 150 mls/hr IV . Q7H40M [facility] with Sodium Bicarb (1 Meq/ml) 150 ml Rx#:[id number] Sodium bicarbonate IVP 150 50 pressure bag 24 9 Intake, IV Titration 33.327 479.620 50 Amount Midazolam HCl 50 mg In 6.25 12.333 50 Sodium Chloride 0.9% 40 ml @ 1 MG/HR 1 mls/hr IV .Q24H [facility] Rx#:[id number] Norepinephrine 32 mg In 27.077 221.870 Sodium Chloride 0.9% 218 ml @ 0.05 MCG/KG/MIN 1. 914 mls/hr IV .Q24H ONE Rx#:[id number] Octreotide 500 mcg In 245.417 Sodium Chloride 0.9% 250 ml @ 50 MCG/HR 25 mls/hr IV .Q10H [facility] Rx#: [id number] Blood Product 834 591 Ffp 24 Cpd Unit 275 [id number] Ffp 24 Cpd Unit 0 316 [id number] Platelet Irr Pheresis 2 214 Acda Unit [id number] As-1 Unit 310 [id number] As-3 Unit 310 [id number] Output: Gastric Drainage 200 Urine 45 10 10 Other: Voiding Method Indwelling Catheter Indwelling Catheter Indwelling Catheter # Voids 0 0 Weight 84.5 kg ABP, PAP, CO, CI - Last 8 Hours Arterial Blood Pressure 137/51 Arterial Blood Pressure 134/48 Arterial Blood Pressure 133/46 Arterial Blood Pressure 132/45 Arterial Blood Pressure 130/45 Arterial Blood Pressure 126/43 Arterial Blood Pressure 126/42 Arterial Blood Pressure 122/42 Arterial Blood Pressure 120/39 Arterial Blood Pressure 20/20 Arterial Blood Pressure 127/44 Arterial Blood Pressure 118/45 Arterial Blood Pressure 82/33 Arterial Blood Pressure 127/45 Arterial Blood Pressure 121/43 Arterial Blood Pressure 121/43 Arterial Blood Pressure 120/44 Arterial Blood Pressure 143/45 Arterial Blood Pressure 123/49 Arterial Blood Pressure 122/46 Arterial Blood Pressure 121/45 Arterial Blood Pressure 117/44 Arterial Blood Pressure 113/45 Arterial Blood Pressure 105/46 Arterial Blood Pressure 105/46 Results - Lab Results Most recent lab results ABG pH 7.28 (7.35-7.45) L 07/20/19 07:48 ABG pCO2 22 mmHg (35-45) L 07/20/19 07:48 ABG pO2 97 mmHg (83-108) 07/20/19 07:48 ABG HCO3 10 mmol/L (21-25) L* 07/20/19 07:48 ABG O2 Saturation 97.1 % (94-97) H 07/20/19 07:48 Calcium 6.2 mg/dL (8.4-10.2) L* 07/20/19 06:45 07/20/19 06:45 07/20/19 06:45 Assessment and Plan Plan: Assessment: 1. Acute kidney injury secondary to ATN secondary to septic shock. Creatinine 3.52 today. CAT scan revealed fullness of the collecting systems. Unknown baseline renal function. 2. Hyperkalemia secondary to acute kidney injury, metabolic acidosis and GI bleed. Improved with medical management. 3. Severe metabolic acidosis secondary to acute kidney injury and lactic acidosis. Volatile screen negative. 4. Hypocalcemia secondary to acute kidney injury. 5. Acute GI bleed status post blood transfusion and IV DDAVP. GI following. Plan: Maintain isotonic bicarb drip at 150 mL an hour. Wean FiO2 and vasopressors. Follow cultures. Repeat BMP at 5 PM today. Check phosphorus level. Calcium was replaced. Check renal ultrasound. Continue to assess daily for the need for renal replacement therapy. At this time she is hemodynamically very unstable to tolerate renal replacement therapy. Thank you for the consultation. I will continue to follow the patient with you during her hospital stay.
[2019-07-20] MEDS: NOREPINEPHRINE 32 MG in SODIUM CHLORIDE 0.9% 218 ML IV SCH (11:07)
[2019-07-20 11:11] LABS: Glucose,Whole Blood 264 mg/dL (75-99)
--- NOTE | 2019-07-20 11:12 | XR ---
EXAMINATION TYPE: XR chest 1V portable DATE OF EXAM: 07/20/2019 COMPARISON: 07/19/2019 HISTORY: Tube placement TECHNIQUE: Single frontal view of the chest is obtained. FINDINGS: Endotracheal tube has been retracted. This terminates approximately 9 mm from the zully a nd remains low-lying. Enteric tube terminates in the left upper quadrant appearing appropriately plac ed. Strand-like bibasilar opacities are now present with improved aeration of the upper lungs. Stable size of the cardiomediastinal silhouette. Cardiac loop recorder again noted. IMPRESSION: 1. Endotracheal tube has been retracted no longer within the right mainstem bronchus however this rem ains low-lying terminating approximately 9 mm from the zully and should be retracted 1 to 2 cm for o ptimal placement. 2. Improved aeration of the upper lungs with strand-like bibasilar opacities, possible atelectasis.
--- NOTE | 2019-07-20 12:26 | P.PN ---
Subjective Progress Note Date: 07/20/19 patient continues to be on high dose pressors. She is unstable. No bowel movement reported. Objective - Vital Signs Vital signs: Vital Signs Temp 99.7 F H 07/20/19 08:00 Pulse 122 H 07/20/19 11:38 Resp 29 H 07/20/19 11:30 BP 119/62 07/20/19 11:30 Pulse Ox 98 07/20/19 11:30 Intake & Output 07/19/19 07/20/19 07/20/19 18:59 06:59 18:59 Intake Total 173.401 2002.863 979.450 Output Total 10 255 30 Balance 770.073 1492.863 949.450 Weight 81.647 kg 84.5 kg Intake: IV 1974 918 Dextrose 5% in Water 1, 1750 900 000 ml @ 150 mls/hr IV . Q7H40M [facility] with Sodium Bicarb (1 Meq/ml) 150 ml Rx#:[id number] Sodium bicarbonate IVP 200 pressure bag 24 18 Intake, IV Titration 19.137 494.863 61.450 Amount Midazolam HCl 50 mg In 18.583 50 Sodium Chloride 0.9% 40 ml @ 1 MG/HR 1 mls/hr IV .Q24H [facility] Rx#:[id number] Norepinephrine 32 mg In 19.137 230.863 Sodium Chloride 0.9% 218 ml @ 0.05 MCG/KG/MIN 1. 914 mls/hr IV .Q24H ONE Rx#:[id number] Octreotide 500 mcg In 245.417 Sodium Chloride 0.9% 250 ml @ 50 MCG/HR 25 mls/hr IV .Q10H [facility] Rx#: [id number] Propofol 1,000 mg In 11.450 Empty Bag 1 bag @ Titrate IV .Q0M [facility] Rx#: [id number] Blood Product 310 1115 Ffp 24 Cpd Unit 275 [id number] Ffp 24 Cpd Unit 316 [id number] Platelet Irr Pheresis 2 214 Acda Unit [id number] Rc As-1 Unit 310 [id number] As-3 Unit 310 [id number] Output: Gastric Drainage 200 Urine 10 55 30 Uretheral ([place]) 10 Other: Voiding Method Indwelling Catheter Indwelling Catheter # Voids 0 0 ABP, PAP, CO, CI - Last Documented Arterial Blood Pressure 134/58 - Constitutional Constitutional Comment(s): intubated and sedated - Respiratory Details: nonlabored - Cardiovascular Details: tachy - Gastrointestinal Gastrointestinal Comment(s): Distended, nontender. no rigidity - Psychiatric Psychiatric Comment(s): intubated and sedated - Labs CBC & Chem 7: 07/20/19 06:45 07/20/19 06:45 Labs: Abnormal Lab Results - Last 24 Hours (Table) 07/19/19 07/19/19 07/19/19 Range/Units 08:18 08:18 12:14 RBC (3.80-5.40) m/uL Hgb (11.4-16.0) gm/dL Hct (34.0-46.0) % MCV (80.0-100.0) fL MCHC (31.0-37.0) g/dL RDW (11.5-15.5) % Plt Count (150-450) k/uL Lymphocytes # (Manual) (1.0-4.8) k/uL Macrocytosis PT (9.0-12.0) sec INR (<1.2) APTT (22.0-30.0) sec ABG pH (7.35-7.45) ABG pCO2 (35-45) mmHg ABG pO2 (83-108) mmHg ABG HCO3 (21-25) mmol/L ABG Total CO2 (19-24) mmol/L ABG O2 Saturation (94-97) % ABG Lactic Acid (0.5-1.6) mmol/L VBG pH (7.31-7.41) VBG pCO2 (37-51) mmHg VBG HCO3 (24-28) mmol/L Potassium (3.5-5.1) mmol/L Chloride (98-107) mmol/L Carbon Dioxide (22-30) mmol/L Creatinine (0.52-1.04) mg/dL Glucose (74-99) mg/dL POC Glucose (mg/dL) 174 H (75-99) mg/dL Osmolality 382 H* (280-301) mosm/kg Plasma Lactic Acid Robert (0.7-2.0) mmol/L Calcium (8.4-10.2) mg/dL Total Bilirubin (0.2-1.3) mg/dL AST (14-36) U/L ALT (4-34) U/L Alkaline Phosphatase (38-126) U/L Ammonia (<30) umol/L Creatine Kinase (30-135) U/L Total Protein (6.3-8.2) g/dL Albumin (3.5-5.0) g/dL Urine Appearance (Clear) Urine Protein (Negative) Urine Glucose (UA) (Negative) Urine Blood (Negative) Ur Leukocyte Esterase (Negative) Urine RBC (0-5) /hpf Urine WBC (0-5) /hpf Urine WBC Clumps (None) /hpf Amorphous Sediment (None) /hpf Urine Bacteria (None) /hpf Hyaline Casts (0-2) /lpf Urine Mucus (None) /hpf Serum Alcohol mg/dL Ethyl Alcohol Screen 191 H (Negative) mg/dL Crossmatch 07/19/19 07/19/19 07/19/19 Range/Units 12:15 12:15 12:15 RBC 2.05 L (3.80-5.40) m/uL Hgb 6.3 L* (11.4-16.0) gm/dL Hct 23.7 L (34.0-46.0) % MCV 115.7 H (80.0-100.0) fL MCHC 26.5 L (31.0-37.0) g/dL RDW 19.9 H (11.5-15.5) % Plt Count 48 L (150-450) k/uL Lymphocytes # (Manual) (1.0-4.8) k/uL Macrocytosis Marked A PT 16.9 H (9.0-12.0) sec INR 1.7 H (<1.2) APTT 42.3 H (22.0-30.0) sec ABG pH (7.35-7.45) ABG pCO2 (35-45) mmHg ABG pO2 (83-108) mmHg ABG HCO3 (21-25) mmol/L ABG Total CO2 (19-24) mmol/L ABG O2 Saturation (94-97) % ABG Lactic Acid (0.5-1.6) mmol/L VBG pH 6.84 L* (7.31-7.41) VBG pCO2 25 L (37-51) mmHg VBG HCO3 4 L* (24-28) mmol/L Potassium (3.5-5.1) mmol/L Chloride (98-107) mmol/L Carbon Dioxide (22-30) mmol/L Creatinine (0.52-1.04) mg/dL Glucose (74-99) mg/dL POC Glucose (mg/dL) (75-99) mg/dL Osmolality (280-301) mosm/kg Plasma Lactic Acid Robert (0.7-2.0) mmol/L Calcium (8.4-10.2) mg/dL Total Bilirubin (0.2-1.3) mg/dL AST (14-36) U/L ALT (4-34) U/L Alkaline Phosphatase (38-126) U/L Ammonia (<30) umol/L Creatine Kinase (30-135) U/L Total Protein (6.3-8.2) g/dL Albumin (3.5-5.0) g/dL Urine Appearance (Clear) Urine Protein (Negative) Urine Glucose (UA) (Negative) Urine Blood (Negative) Ur Leukocyte Esterase (Negative) Urine RBC (0-5) /hpf Urine WBC (0-5) /hpf Urine WBC Clumps (None) /hpf Amorphous Sediment (None) /hpf Urine Bacteria (None) /hpf Hyaline Casts (0-2) /lpf Urine Mucus (None) /hpf Serum Alcohol mg/dL Ethyl Alcohol Screen (Negative) mg/dL Crossmatch 07/19/19 07/19/19 07/19/19 Range/Units 12:15 12:15 12:15 RBC (3.80-5.40) m/uL Hgb (11.4-16.0) gm/dL Hct (34.0-46.0) % MCV (80.0-100.0) fL MCHC (31.0-37.0) g/dL RDW (11.5-15.5) % Plt Count (150-450) k/uL Lymphocytes # (Manual) (1.0-4.8) k/uL Macrocytosis PT (9.0-12.0) sec INR (<1.2) APTT (22.0-30.0) sec ABG pH (7.35-7.45) ABG pCO2 (35-45) mmHg ABG pO2 (83-108) mmHg ABG HCO3 (21-25) mmol/L ABG Total CO2 (19-24) mmol/L ABG O2 Saturation (94-97) % ABG Lactic Acid (0.5-1.6) mmol/L VBG pH (7.31-7.41) VBG pCO2 (37-51) mmHg VBG HCO3 (24-28) mmol/L Potassium 6.6 H* (3.5-5.1) mmol/L Chloride 111 H (98-107) mmol/L Carbon Dioxide <5 L* (22-30) mmol/L Creatinine 3.55 H (0.52-1.04) mg/dL Glucose 167 H (74-99) mg/dL POC Glucose (mg/dL) (75-99) mg/dL Osmolality (280-301) mosm/kg Plasma Lactic Acid Robert 20.4 H* (0.7-2.0) mmol/L Calcium 7.5 L (8.4-10.2) mg/dL Total Bilirubin (0.2-1.3) mg/dL AST 178 H (14-36) U/L ALT 43 H (4-34) U/L Alkaline Phosphatase 215 H (38-126) U/L Ammonia 199 H (<30) umol/L Creatine Kinase 374 H (30-135) U/L Total Protein 5.3 L (6.3-8.2) g/dL Albumin 2.5 L (3.5-5.0) g/dL Urine Appearance (Clear) Urine Protein (Negative) Urine Glucose (UA) (Negative) Urine Blood (Negative) Ur Leukocyte Esterase (Negative) Urine RBC (0-5) /hpf Urine WBC (0-5) /hpf Urine WBC Clumps (None) /hpf Amorphous Sediment (None) /hpf Urine Bacteria (None) /hpf Hyaline Casts (0-2) /lpf Urine Mucus (None) /hpf Serum Alcohol 274 H* mg/dL Ethyl Alcohol Screen (Negative) mg/dL Crossmatch See Detail 07/19/19 07/19/19 07/19/19 Range/Units 13:25 14:22 14:29 RBC (3.80-5.40) m/uL Hgb (11.4-16.0) gm/dL Hct (34.0-46.0) % MCV (80.0-100.0) fL MCHC (31.0-37.0) g/dL RDW (11.5-15.5) % Plt Count (150-450) k/uL Lymphocytes # (Manual) (1.0-4.8) k/uL Macrocytosis PT (9.0-12.0) sec INR (<1.2) APTT (22.0-30.0) sec ABG pH 6.81 L* (7.35-7.45) ABG pCO2 22 L (35-45) mmHg ABG pO2 >400 H (83-108) mmHg ABG HCO3 4 L* (21-25) mmol/L ABG Total CO2 4 L (19-24) mmol/L ABG O2 Saturation 99.3 H (94-97) % ABG Lactic Acid (0.5-1.6) mmol/L VBG pH (7.31-7.41) VBG pCO2 (37-51) mmHg VBG HCO3 (24-28) mmol/L Potassium (3.5-5.1) mmol/L Chloride (98-107) mmol/L Carbon Dioxide (22-30) mmol/L Creatinine (0.52-1.04) mg/dL Glucose (74-99) mg/dL POC Glucose (mg/dL) 210 H (75-99) mg/dL Osmolality (280-301) mosm/kg Plasma Lactic Acid Robert (0.7-2.0) mmol/L Calcium (8.4-10.2) mg/dL Total Bilirubin (0.2-1.3) mg/dL AST (14-36) U/L ALT (4-34) U/L Alkaline Phosphatase (38-126) U/L Ammonia (<30) umol/L Creatine Kinase (30-135) U/L Total Protein (6.3-8.2) g/dL Albumin (3.5-5.0) g/dL Urine Appearance Turbid H (Clear) Urine Protein 2+ H (Negative) Urine Glucose (UA) Trace H (Negative) Urine Blood Moderate H (Negative) Ur Leukocyte Esterase Large H (Negative) Urine RBC 82 H (0-5) /hpf Urine WBC >182 H (0-5) /hpf Urine WBC Clumps Many H (None) /hpf Amorphous Sediment Rare H (None) /hpf Urine Bacteria Many H (None) /hpf Hyaline Casts 73 H (0-2) /lpf Urine Mucus Many H (None) /hpf Serum Alcohol mg/dL Ethyl Alcohol Screen (Negative) mg/dL Crossmatch 07/19/19 07/19/19 07/19/19 Range/Units 16:26 17:57 20:00 RBC (3.80-5.40) m/uL Hgb (11.4-16.0) gm/dL Hct (34.0-46.0) % MCV (80.0-100.0) fL MCHC (31.0-37.0) g/dL RDW (11.5-15.5) % Plt Count (150-450) k/uL Lymphocytes # (Manual) (1.0-4.8) k/uL Macrocytosis PT (9.0-12.0) sec INR (<1.2) APTT (22.0-30.0) sec ABG pH 6.89 L* (7.35-7.45) ABG pCO2 19 L* (35-45) mmHg ABG pO2 165 H (83-108) mmHg ABG HCO3 4 L* (21-25) mmol/L ABG Total CO2 4 L (19-24) mmol/L ABG O2 Saturation 98.1 H (94-97) % ABG Lactic Acid (0.5-1.6) mmol/L VBG pH (7.31-7.41) VBG pCO2 (37-51) mmHg VBG HCO3 (24-28) mmol/L Potassium (3.5-5.1) mmol/L Chloride (98-107) mmol/L Carbon Dioxide (22-30) mmol/L Creatinine (0.52-1.04) mg/dL Glucose (74-99) mg/dL POC Glucose (mg/dL) 135 H (75-99) mg/dL Osmolality (280-301) mosm/kg Plasma Lactic Acid Robert 18.1 H* (0.7-2.0) mmol/L Calcium (8.4-10.2) mg/dL Total Bilirubin (0.2-1.3) mg/dL AST (14-36) U/L ALT (4-34) U/L Alkaline Phosphatase (38-126) U/L Ammonia (<30) umol/L Creatine Kinase (30-135) U/L Total Protein (6.3-8.2) g/dL Albumin (3.5-5.0) g/dL Urine Appearance (Clear) Urine Protein (Negative) Urine Glucose (UA) (Negative) Urine Blood (Negative) Ur Leukocyte Esterase (Negative) Urine RBC (0-5) /hpf Urine WBC (0-5) /hpf Urine WBC Clumps (None) /hpf Amorphous Sediment (None) /hpf Urine Bacteria (None) /hpf Hyaline Casts (0-2) /lpf Urine Mucus (None) /hpf Serum Alcohol mg/dL Ethyl Alcohol Screen (Negative) mg/dL Crossmatch 07/19/19 07/19/19 07/19/19 Range/Units 20:46 22:25 22:25 RBC 2.82 L (3.80-5.40) m/uL Hgb 8.5 L D (11.4-16.0) gm/dL Hct 28.8 L (34.0-46.0) % MCV 102.2 H D (80.0-100.0) fL MCHC 29.5 L (31.0-37.0) g/dL RDW 19.9 H (11.5-15.5) % Plt Count 81 L D (150-450) k/uL Lymphocytes # (Manual) (1.0-4.8) k/uL Macrocytosis PT (9.0-12.0) sec INR (<1.2) APTT (22.0-30.0) sec ABG pH 7.12 L* (7.35-7.45) ABG pCO2 22 L (35-45) mmHg ABG pO2 122 H (83-108) mmHg ABG HCO3 7 L* (21-25) mmol/L ABG Total CO2 8 L (19-24) mmol/L ABG O2 Saturation 98.1 H (94-97) % ABG Lactic Acid (0.5-1.6) mmol/L VBG pH (7.31-7.41) VBG pCO2 (37-51) mmHg VBG HCO3 (24-28) mmol/L Potassium 5.4 H (3.5-5.1) mmol/L Chloride 109 H (98-107) mmol/L Carbon Dioxide 7 L* (22-30) mmol/L Creatinine 3.03 H (0.52-1.04) mg/dL Glucose 174 H (74-99) mg/dL POC Glucose (mg/dL) (75-99) mg/dL Osmolality (280-301) mosm/kg Plasma Lactic Acid Robert (0.7-2.0) mmol/L Calcium 6.6 L (8.4-10.2) mg/dL Total Bilirubin 1.4 H (0.2-1.3) mg/dL AST 289 H (14-36) U/L ALT 53 H (4-34) U/L Alkaline Phosphatase 241 H (38-126) U/L Ammonia (<30) umol/L Creatine Kinase (30-135) U/L Total Protein 6.1 L (6.3-8.2) g/dL Albumin 3.0 L (3.5-5.0) g/dL Urine Appearance (Clear) Urine Protein (Negative) Urine Glucose (UA) (Negative) Urine Blood (Negative) Ur Leukocyte Esterase (Negative) Urine RBC (0-5) /hpf Urine WBC (0-5) /hpf Urine WBC Clumps (None) /hpf Amorphous Sediment (None) /hpf Urine Bacteria (None) /hpf Hyaline Casts (0-2) /lpf Urine Mucus (None) /hpf Serum Alcohol mg/dL Ethyl Alcohol Screen (Negative) mg/dL Crossmatch 07/19/19 07/19/19 07/19/19 Range/Units 22:25 22:26 22:50 RBC (3.80-5.40) m/uL Hgb (11.4-16.0) gm/dL Hct (34.0-46.0) % MCV (80.0-100.0) fL MCHC (31.0-37.0) g/dL RDW (11.5-15.5) % Plt Count (150-450) k/uL Lymphocytes # (Manual) (1.0-4.8) k/uL Macrocytosis PT 14.5 H (9.0-12.0) sec INR 1.5 H (<1.2) APTT 30.6 H (22.0-30.0) sec ABG pH 7.17 L* (7.35-7.45) ABG pCO2 23 L (35-45) mmHg ABG pO2 116 H (83-108) mmHg ABG HCO3 8 L* (21-25) mmol/L ABG Total CO2 9 L (19-24) mmol/L ABG O2 Saturation 97.9 H (94-97) % ABG Lactic Acid (0.5-1.6) mmol/L VBG pH (7.31-7.41) VBG pCO2 (37-51) mmHg VBG HCO3 (24-28) mmol/L Potassium (3.5-5.1) mmol/L Chloride (98-107) mmol/L Carbon Dioxide (22-30) mmol/L Creatinine (0.52-1.04) mg/dL Glucose (74-99) mg/dL POC Glucose (mg/dL) 186 H (75-99) mg/dL Osmolality (280-301) mosm/kg Plasma Lactic Acid Robert (0.7-2.0) mmol/L Calcium (8.4-10.2) mg/dL Total Bilirubin (0.2-1.3) mg/dL AST (14-36) U/L ALT (4-34) U/L Alkaline Phosphatase (38-126) U/L Ammonia (<30) umol/L Creatine Kinase (30-135) U/L Total Protein (6.3-8.2) g/dL Albumin (3.5-5.0) g/dL Urine Appearance (Clear) Urine Protein (Negative) Urine Glucose (UA) (Negative) Urine Blood (Negative) Ur Leukocyte Esterase (Negative) Urine RBC (0-5) /hpf Urine WBC (0-5) /hpf Urine WBC Clumps (None) /hpf Amorphous Sediment (None) /hpf Urine Bacteria (None) /hpf Hyaline Casts (0-2) /lpf Urine Mucus (None) /hpf Serum Alcohol mg/dL Ethyl Alcohol Screen (Negative) mg/dL Crossmatch 07/20/19 07/20/19 07/20/19 Range/Units 02:32 02:35 02:35 RBC 2.79 L (3.80-5.40) m/uL Hgb 8.5 L (11.4-16.0) gm/dL Hct 28.1 L (34.0-46.0) % MCV 100.7 H (80.0-100.0) fL MCHC 30.4 L (31.0-37.0) g/dL RDW 20.1 H (11.5-15.5) % Plt Count 97 L (150-450) k/uL Lymphocytes # (Manual) (1.0-4.8) k/uL Macrocytosis PT (9.0-12.0) sec INR (<1.2) APTT (22.0-30.0) sec ABG pH (7.35-7.45) ABG pCO2 (35-45) mmHg ABG pO2 (83-108) mmHg ABG HCO3 (21-25) mmol/L ABG Total CO2 (19-24) mmol/L ABG O2 Saturation (94-97) % ABG Lactic Acid (0.5-1.6) mmol/L VBG pH (7.31-7.41) VBG pCO2 (37-51) mmHg VBG HCO3 (24-28) mmol/L Potassium 5.7 H (3.5-5.1) mmol/L Chloride (98-107) mmol/L Carbon Dioxide 9 L* (22-30) mmol/L Creatinine (0.52-1.04) mg/dL Glucose (74-99) mg/dL POC Glucose (mg/dL) 229 H (75-99) mg/dL Osmolality (280-301) mosm/kg Plasma Lactic Acid Robert (0.7-2.0) mmol/L Calcium (8.4-10.2) mg/dL Total Bilirubin (0.2-1.3) mg/dL AST (14-36) U/L ALT (4-34) U/L Alkaline Phosphatase (38-126) U/L Ammonia (<30) umol/L Creatine Kinase (30-135) U/L Total Protein (6.3-8.2) g/dL Albumin (3.5-5.0) g/dL Urine Appearance (Clear) Urine Protein (Negative) Urine Glucose (UA) (Negative) Urine Blood (Negative) Ur Leukocyte Esterase (Negative) Urine RBC (0-5) /hpf Urine WBC (0-5) /hpf Urine WBC Clumps (None) /hpf Amorphous Sediment (None) /hpf Urine Bacteria (None) /hpf Hyaline Casts (0-2) /lpf Urine Mucus (None) /hpf Serum Alcohol mg/dL Ethyl Alcohol Screen (Negative) mg/dL Crossmatch 07/20/19 07/20/19 07/20/19 Range/Units 06:45 06:45 06:45 RBC 2.76 L (3.80-5.40) m/uL Hgb 8.5 L (11.4-16.0) gm/dL Hct 27.4 L (34.0-46.0) % MCV (80.0-100.0) fL MCHC 30.9 L (31.0-37.0) g/dL RDW 20.0 H (11.5-15.5) % Plt Count 84 L (150-450) k/uL Lymphocytes # (Manual) 0.98 L (1.0-4.8) k/uL Macrocytosis PT (9.0-12.0) sec INR (<1.2) APTT (22.0-30.0) sec ABG pH (7.35-7.45) ABG pCO2 (35-45) mmHg ABG pO2 (83-108) mmHg ABG HCO3 (21-25) mmol/L ABG Total CO2 (19-24) mmol/L ABG O2 Saturation (94-97) % ABG Lactic Acid (0.5-1.6) mmol/L VBG pH (7.31-7.41) VBG pCO2 (37-51) mmHg VBG HCO3 (24-28) mmol/L Potassium 5.4 H (3.5-5.1) mmol/L Chloride (98-107) mmol/L Carbon Dioxide 10 L (22-30) mmol/L Creatinine 3.52 H (0.52-1.04) mg/dL Glucose 231 H (74-99) mg/dL POC Glucose (mg/dL) (75-99) mg/dL Osmolality (280-301) mosm/kg Plasma Lactic Acid Robert (0.7-2.0) mmol/L Calcium 6.2 L* (8.4-10.2) mg/dL Total Bilirubin 1.5 H (0.2-1.3) mg/dL AST 355 H (14-36) U/L ALT 50 H (4-34) U/L Alkaline Phosphatase 221 H (38-126) U/L Ammonia 65 H (<30) umol/L Creatine Kinase (30-135) U/L Total Protein 6.0 L (6.3-8.2) g/dL Albumin 2.9 L (3.5-5.0) g/dL Urine Appearance (Clear) Urine Protein (Negative) Urine Glucose (UA) (Negative) Urine Blood (Negative) Ur Leukocyte Esterase (Negative) Urine RBC (0-5) /hpf Urine WBC (0-5) /hpf Urine WBC Clumps (None) /hpf Amorphous Sediment (None) /hpf Urine Bacteria (None) /hpf Hyaline Casts (0-2) /lpf Urine Mucus (None) /hpf Serum Alcohol mg/dL Ethyl Alcohol Screen (Negative) mg/dL Crossmatch 07/20/19 07/20/19 07/20/19 Range/Units 06:45 06:47 07:48 RBC (3.80-5.40) m/uL Hgb (11.4-16.0) gm/dL Hct (34.0-46.0) % MCV (80.0-100.0) fL MCHC (31.0-37.0) g/dL RDW (11.5-15.5) % Plt Count (150-450) k/uL Lymphocytes # (Manual) (1.0-4.8) k/uL Macrocytosis PT (9.0-12.0) sec INR (<1.2) APTT (22.0-30.0) sec ABG pH 7.28 L (7.35-7.45) ABG pCO2 22 L (35-45) mmHg ABG pO2 (83-108) mmHg ABG HCO3 10 L* (21-25) mmol/L ABG Total CO2 11 L (19-24) mmol/L ABG O2 Saturation 97.1 H (94-97) % ABG Lactic Acid 17.5 H* (0.5-1.6) mmol/L VBG pH (7.31-7.41) VBG pCO2 (37-51) mmHg VBG HCO3 (24-28) mmol/L Potassium (3.5-5.1) mmol/L Chloride (98-107) mmol/L Carbon Dioxide (22-30) mmol/L Creatinine (0.52-1.04) mg/dL Glucose (74-99) mg/dL POC Glucose (mg/dL) 240 H (75-99) mg/dL Osmolality (280-301) mosm/kg Plasma Lactic Acid Robert (0.7-2.0) mmol/L Calcium (8.4-10.2) mg/dL Total Bilirubin (0.2-1.3) mg/dL AST (14-36) U/L ALT (4-34) U/L Alkaline Phosphatase (38-126) U/L Ammonia (<30) umol/L Creatine Kinase (30-135) U/L Total Protein (6.3-8.2) g/dL Albumin (3.5-5.0) g/dL Urine Appearance (Clear) Urine Protein (Negative) Urine Glucose (UA) (Negative) Urine Blood (Negative) Ur Leukocyte Esterase (Negative) Urine RBC (0-5) /hpf Urine WBC (0-5) /hpf Urine WBC Clumps (None) /hpf Amorphous Sediment (None) /hpf Urine Bacteria (None) /hpf Hyaline Casts (0-2) /lpf Urine Mucus (None) /hpf Serum Alcohol mg/dL Ethyl Alcohol Screen (Negative) mg/dL Crossmatch 07/20/19 Range/Units 11:09 RBC (3.80-5.40) m/uL Hgb (11.4-16.0) gm/dL Hct (34.0-46.0) % MCV (80.0-100.0) fL MCHC (31.0-37.0) g/dL RDW (11.5-15.5) % Plt Count (150-450) k/uL Lymphocytes # (Manual) (1.0-4.8) k/uL Macrocytosis PT (9.0-12.0) sec INR (<1.2) APTT (22.0-30.0) sec ABG pH (7.35-7.45) ABG pCO2 (35-45) mmHg ABG pO2 (83-108) mmHg ABG HCO3 (21-25) mmol/L ABG Total CO2 (19-24) mmol/L ABG O2 Saturation (94-97) % ABG Lactic Acid (0.5-1.6) mmol/L VBG pH (7.31-7.41) VBG pCO2 (37-51) mmHg VBG HCO3 (24-28) mmol/L Potassium (3.5-5.1) mmol/L Chloride (98-107) mmol/L Carbon Dioxide (22-30) mmol/L Creatinine (0.52-1.04) mg/dL Glucose (74-99) mg/dL POC Glucose (mg/dL) 264 H (75-99) mg/dL Osmolality (280-301) mosm/kg Plasma Lactic Acid Robert (0.7-2.0) mmol/L Calcium (8.4-10.2) mg/dL Total Bilirubin (0.2-1.3) mg/dL AST (14-36) U/L ALT (4-34) U/L Alkaline Phosphatase (38-126) U/L Ammonia (<30) umol/L Creatine Kinase (30-135) U/L Total Protein (6.3-8.2) g/dL Albumin (3.5-5.0) g/dL Urine Appearance (Clear) Urine Protein (Negative) Urine Glucose (UA) (Negative) Urine Blood (Negative) Ur Leukocyte Esterase (Negative) Urine RBC (0-5) /hpf Urine WBC (0-5) /hpf Urine WBC Clumps (None) /hpf Amorphous Sediment (None) /hpf Urine Bacteria (None) /hpf Hyaline Casts (0-2) /lpf Urine Mucus (None) /hpf Serum Alcohol mg/dL Ethyl Alcohol Screen (Negative) mg/dL Crossmatch Microbiology - Last 24 Hours (Table) 07/19/19 14:22 Urine Culture - Preliminary Urine,Voided 07/19/19 20:14 Sputum Culture - Preliminary Sputum Assessment and Plan Assessment: VDRF, Colitis, likely septic shock, UTI, cirrhosis, ADALBERTO Plan: patient continues to require high dose pressors, bicarb drip. I do not believe she is is stable for surgery would survive surgery at this time. Continue ICU care.if concern for ischemic colitis continues possibly could consider flexible sigmoidoscopy at bedside as a diagnostic procedure. There has been no reports of bloody bowel movements yet which would be expected with ischemic colitis.
--- NOTE | 2019-07-20 13:17 | US ---
EXAMINATION TYPE: US kidneys/renal and bladder DATE OF EXAM: 07/20/2019 COMPARISON: NONE CLINICAL HISTORY: annabel. Very limited and difficult exam. ICU patient on a vent EXAM MEASUREMENTS: Right Kidney: Not visualized Left Kidney: 12 x 5.6 x 4.2 cm Right Kidney: Obscured by overlying bowel gas Left Kidney: No hydronephrosis or masses seen Bladder: Not visualized, patient has banks Trace perihepatic ascites partially visualized. IMPRESSION: Partially visualized abdominal ascites. No hydronephrosis or nephrolithiasis of the left kidney. Nonvisualization of the right kidney.
--- NOTE | 2019-07-20 13:41 | P.PN ---
Subjective Progress Note Date: 07/20/19 Principal diagnosis: Acute hypoxic respiratory failure, cardiac arrest, suspect ischemic colitis with This is a 48-year-old -[place] female, no available past medical history on this patient, patient was brought into the emergency room by EMS when the patient was noted by a boyfriend unresponsive. Patient is known to have history of alcohol abuse, she is also known to have history of depression, normally takes trazodone. According to the boyfriend, around 8:30 AM, patient was found unresponsive. Upon EMS arrival patient was noted to have low sugars, and she was given an amp of dextrose. She did wake up a bit, however remained lethargic, and on her weight in the ambulance to the ER patient was yelling and getting restless and agitated. Upon arrival to the ER, patient was not follow any instructions. Patient was evaluated, initially she was able to protect her airways, she would open her eyes and look around to tactile stimuli. After IV access, and after basic labs were ordered, patient was noted to 12-lead EKG showed mostly normal sinus rhythm rate of 81/m. She had peak T waves in V2 through V4 and the patient was sent for CT of the brain because of altered mental status. Upon returning from CT to the trauma bay, patient became hypotensive, levo fed was started for hypotension and bradycardia then she went into asystole. CPR was started, epinephrine was given, patient was intubated by the ER physician, and she had one round of chest compressions. In the meantime patient was intubated, and her endotracheal tube was noted to be initially in the right mainstem bronchus, and this was retracted a bit. Orogastric tube was placed, and she was noted to have 75 mL of bright blood in the orogastric tube. Patient continued to require levo fed, and she was given fluid boluses for hypotension. Venous blood gases showed very low pH of 6.8, pCO2 was 25, and bicarb was 4. Sodium bicarb was given. Patient was noted to have elevated potassium, hence 10 units of insulin were given along with 1 amp of dextrose. Patient received 2 L of fluid boluses. And labs came back showing a hemoglobin of 6.3. Platelets were also noted to be low at 48,000. INR was 1.7. Creatinine 3.5. And her liver enzymes were elevated. Ammonia level was also noted to be 199. Her serum alcohol was 274. Patient was placed on a bicarb drip, she was placed empirically on antibiotics, and she was also placed on lactulose. CT of the brain showed no evidence of intracranial hemorrhage or mass effect. CT of the abdomen and pelvis was abnormal showing severe pancolitis with mesenteric edema and small volume ascites. The radiologist felt this could be consistent with ischemic bowel. Patient was also noted to have severe degree of hepatic steatosis. And bibasilar airspace disease/atelectasis. Patient remained hypotensive requiring more norepinephrine, and vasopressin was added. Surgical consultation was initiated, however considering the patient's clinical presentation and hypotension requiring significant amount of vasopressin and norepinephrine, and considering the patient was extremely acidotic, her lactic acid was as high as 20. Patient felt to be not a surgical candidate. And she needed to be more resuscitated before surgery could even be considered. Patient was also placed on Sandostatin. Rocephin was given in the ER, and I have recommended Flagyl and Zosyn. I came in to see the patient in the ICU, a left brachial arterial line was placed, and recommended further labs to be ordered including ABG, coagulation profile, and CBC. These are presently pending. In the meantime patient received a total of 2 units of packed RBCs, 2 units of fresh frozen plasma, and 1 unit of platelets. Drug screen was basically negative except she had acetaminophen level of 11.5. Salicylate 1.0, and serum alcohol level was 274. Patient was reevaluated today on 07/20/19. Remains intubated and mechanically ventilated. Her ventilator settings are assist control rate of 20, volume is 400 FiO2 is 40% and PEEP of 5. ABG showed a pO2 of 97 pCO2 of 22 pH of 7.28. Patient remains on sodium bicarb drip. Remains on octreotide, Versed at 5 mg per hour, vasopressin at 0.04 units per hour, norepinephrine at 0.75 mcg/kg/m, is also on bicarb drip at 150 MLS per hour. Patient has no urine output, her liver enzymes remain elevated. Her abdomen remains distended. She was seen by many consultants including surgery, patient remains a very poor candidate for any surgical intervention at this point as she seems to be hemodynamically unsta ble. Ideally speaking would be worthwhile doing exploratory laparotomy, however the surgeon evaluated the patient, and we both felt that she is a high surgical risk at this point, and her hemodynamic status will not allow surgical intervention safely. Her boyfriend is here today, and I discussed her status with the boyfriend, he told me that the patient is known to be alcoholic, he also told me that the night before she came into the hospital she was having lower back pain and abdominal pain. She had this all night and she was moaning and groaning with pain. The following day she was unresponsive and she had mental status changes, that is when EMS was notified. Patient received so far s lizeth admission 2 units of packed RBCs, 2 units of fresh frozen plasma, and bunions of platelets. She is also on Zosyn and Flagyl empirically for abdominal sepsis and septic shock. WBC count today is 6.1 hemoglobin is 8.5. Patient continues to have significant bandemia on her differential. Potassium is a bit high at 5.4 bicarb today is 10 BUN is 12 creatinine is 3.52. Liver enzymes remain elevated. And her blood sugar is 240. Calcium is low, the patient will receive calcium gluconate. Ammonia level is down to 65, patient remains on lactulose. AST is 355 and ALT is 50 with alkaline phosphatase of 221. Chest x- ray showed improved aeration of upper lungs with stand like bibasilar atele ctasis. Ultrasound of the abdomen and pelvis showed partially visualized abdominal ascites. No hydronephrosis. And a trace of perihepatic ascites noted. Patient is sedated on Versed Objective - Vital Signs Vital signs: Vital Signs Temp 99.7 F H 07/20/19 08:00 Pulse 122 H 07/20/19 11:38 Resp 29 H 07/20/19 11:30 BP 119/62 07/20/19 11:30 Pulse Ox 98 07/20/19 11:30 Intake & Output 07/19/19 07/20/19 07/20/19 18:59 06:59 18:59 Intake Total 603.403 8223.863 979.450 Output Total 10 255 30 Balance 535.007 7296.863 949.450 Weight 84.5 kg 84.5 kg Intake: IV 1974 918 Dextrose 5% in Water 1 1750 900 000 ml @ 150 mls/hr IV . Q7H40M [facility] with Sodium Bicarb (1 Meq/ml) 150 ml Rx#:[id number] Sodium bicarbonate IVP 200 pressure bag 24 18 Intake, IV Titration 19.137 494.863 61.450 Amount Midazolam HCl 50 mg In 18.583 50 Sodium Chloride 0.9% 40 ml @ 1 MG/HR 1 mls/hr IV .Q24H [facility] Rx#:[id number] Norepinephrine 32 mg In 19.137 230.863 Sodium Chloride 0.9% 218 ml @ 0.05 MCG/KG/MIN 1. 914 mls/hr IV .Q24H [facility] Rx#:[id number] Octreotide 500 mcg In 245.417 Sodium Chloride 0.9% 250 ml @ 50 MCG/HR 25 mls/hr IV .Q10H [facility] Rx#: [id number] Propofol 1,000 mg In 11.450 Empty Bag 1 bag @ Titrate IV .Q0M [facility] Rx#: [id number] Blood Product 310 1115 Ffp 24 Cpd Unit 275 [id number] Ffp 24 Cpd Unit 316 [id number] Platelet Irr Pheresis 2 214 Acda Unit [id number] Rc As-1 Unit 310 [id number] Rc As-3 Unit 310 [id number] Output: Gastric Drainage 200 Urine 10 55 30 Uretheral (Hillman) 10 Other: Voiding Method Indwelling Catheter Indwelling Catheter # Voids 0 0 ABP, PAP, CO, CI - Last Documented Arterial Blood Pressure 134/58 - Exam Physical Exam: Revealed a 48-year-old -[place] female, intubated, on Versed drip. Head: Atraumatic, normocephalic, endotracheal tube and orogastric tube are intact. HEENT:[Neck is supple.] [No neck masses.] [No thyromegaly.] [No JVD.] Moist mucous membranes. PERRLA, EOMI, no icterus. Chest: [Symmetrical chest expansion, crackles at the bases, no rhonchi and no wheezes..] Cardiac Exam: [Normal S1 and S2, no S3 gallop, no murmur.] Abdomen: [Soft, distended, nontender, no megaly, no rebound, no guarding, no bowel sounds. Extremities: [No clubbing, no edema, no cyanosis.] Neurological Exam: Patient is intubated, sedated, unable to assess. Psychiatric: Could not be assessed. Skin: No rashes. - Labs CBC & Chem 7: 07/20/19 06:45 07/20/19 06:45 Labs: Abnormal Lab Results - Last 24 Hours (Table) 07/19/19 07/19/19 07/19/19 Range/Units 08:18 08:18 12:15 RBC (3.80-5.40) m/uL Hgb (11.4-16.0) gm/dL Hct (34.0-46.0) % MCV (80.0-100.0) fL MCHC (31.0-37.0) g/dL RDW (11.5-15.5) % Plt Count (150-450) k/uL Lymphocytes # (Manual) (1.0-4.8) k/uL PT (9.0-12.0) sec INR (<1.2) APTT (22.0-30.0) sec ABG pH (7.35-7.45) ABG pCO2 (35-45) mmHg ABG pO2 (83-108) mmHg ABG HCO3 (21-25) mmol/L ABG Total CO2 (19-24) mmol/L ABG O2 Saturation (94-97) % ABG Lactic Acid (0.5-1.6) mmol/L Potassium (3.5-5.1) mmol/L Chloride (98-107) mmol/L Carbon Dioxide (22-30) mmol/L Creatinine (0.52-1.04) mg/dL Glucose (74-99) mg/dL POC Glucose (mg/dL) (75-99) mg/dL Osmolality 382 H* (280-301) mosm/kg Plasma Lactic Acid Robert (0.7-2.0) mmol/L Calcium (8.4-10.2) mg/dL Total Bilirubin (0.2-1.3) mg/dL AST (14-36) U/L ALT (4-34) U/L Alkaline Phosphatase (38-126) U/L Ammonia (<30) umol/L Total Protein (6.3-8.2) g/dL Albumin (3.5-5.0) g/dL Urine Appearance (Clear) Urine Protein (Negative) Urine Glucose (UA) (Negative) Urine Blood (Negative) Ur Leukocyte Esterase (Negative) Urine RBC (0-5) /hpf Urine WBC (0-5) /hpf Urine WBC Clumps (None) /hpf Amorphous Sediment (None) /hpf Urine Bacteria (None) /hpf Hyaline Casts (0-2) /lpf Urine Mucus (None) /hpf Ethyl Alcohol Screen 191 H (Negative) mg/dL Crossmatch See Detail 07/19/19 07/19/19 07/19/19 Range/Units 13:25 14:22 14:29 RBC (3.80-5.40) m/uL Hgb (11.4-16.0) gm/dL Hct (34.0-46.0) % MCV (80.0-100.0) fL MCHC (31.0-37.0) g/dL RDW (11.5-15.5) % Plt Count (150-450) k/uL Lymphocytes # (Manual) (1.0-4.8) k/uL PT (9.0-12.0) sec INR (<1.2) APTT (22.0-30.0) sec ABG pH 6.81 L* (7.35-7.45) ABG pCO2 22 L (35-45) mmHg ABG pO2 >400 H (83-108) mmHg ABG HCO3 4 L* (21-25) mmol/L ABG Total CO2 4 L (19-24) mmol/L ABG O2 Saturation 99.3 H (94-97) % ABG Lactic Acid (0.5-1.6) mmol/L Potassium (3.5-5.1) mmol/L Chloride (98-107) mmol/L Carbon Dioxide (22-30) mmol/L Creatinine (0.52-1.04) mg/dL Glucose (74-99) mg/dL POC Glucose (mg/dL) 210 H (75-99) mg/dL Osmolality (280-301) mosm/kg Plasma Lactic Acid Robert (0.7-2.0) mmol/L Calcium (8.4-10.2) mg/dL Total Bilirubin (0.2-1.3) mg/dL AST (14-36) U/L ALT (4-34) U/L Alkaline Phosphatase (38-126) U/L Ammonia (<30) umol/L Total Protein (6.3-8.2) g/dL Albumin (3.5-5.0) g/dL Urine Appearance Turbid H (Clear) Urine Protein 2+ H (Negative) Urine Glucose (UA) Trace H (Negative) Urine Blood Moderate H (Negative) Ur Leukocyte Esterase Large H (Negative) Urine RBC 82 H (0-5) /hpf Urine WBC >182 H (0-5) /hpf Urine WBC Clumps Many H (None) /hpf Amorphous Sediment Rare H (None) /hpf Urine Bacteria Many H (None) /hpf Hyaline Casts 73 H (0-2) /lpf Urine Mucus Many H (None) /hpf Ethyl Alcohol Screen (Negative) mg/dL Crossmatch 07/19/19 07/19/19 07/19/19 Range/Units 16:26 17:57 20:00 RBC (3.80-5.40) m/uL Hgb (11.4-16.0) gm/dL Hct (34.0-46.0) % MCV (80.0-100.0) fL MCHC (31.0-37.0) g/dL RDW (11.5-15.5) % Plt Count (150-450) k/uL Lymphocytes # (Manual) (1.0-4.8) k/uL PT (9.0-12.0) sec INR (<1.2) APTT (22.0-30.0) sec ABG pH 6.89 L* (7.35-7.45) ABG pCO2 19 L* (35-45) mmHg ABG pO2 165 H (83-108) mmHg ABG HCO3 4 L* (21-25) mmol/L ABG Total CO2 4 L (19-24) mmol/L ABG O2 Saturation 98.1 H (94-97) % ABG Lactic Acid (0.5-1.6) mmol/L Potassium (3.5-5.1) mmol/L Chloride (98-107) mmol/L Carbon Dioxide (22-30) mmol/L Creatinine (0.52-1.04) mg/dL Glucose (74-99) mg/dL POC Glucose (mg/dL) 135 H (75-99) mg/dL Osmolality (280-301) mosm/kg Plasma Lactic Acid Robert 18.1 H* (0.7-2.0) mmol/L Calcium (8.4-10.2) mg/dL Total Bilirubin (0.2-1.3) mg/dL AST (14-36) U/L ALT (4-34) U/L Alkaline Phosphatase (38-126) U/L Ammonia (<30) umol/L Total Protein (6.3-8.2) g/dL Albumin (3.5-5.0) g/dL Urine Appearance (Clear) Urine Protein (Negative) Urine Glucose (UA) (Negative) Urine Blood (Negative) Ur Leukocyte Esterase (Negative) Urine RBC (0-5) /hpf Urine WBC (0-5) /hpf Urine WBC Clumps (None) /hpf Amorphous Sediment (None) /hpf Urine Bacteria (None) /hpf Hyaline Casts (0-2) /lpf Urine Mucus (None) /hpf Ethyl Alcohol Screen (Negative) mg/dL Crossmatch 07/19/19 07/19/19 07/19/19 Range/Units 20:46 22:25 22:25 RBC 2.82 L (3.80-5.40) m/uL Hgb 8.5 L D (11.4-16.0) gm/dL Hct 28.8 L (34.0-46.0) % MCV 102.2 H D (80.0-100.0) fL MCHC 29.5 L (31.0-37.0) g/dL RDW 19.9 H (11.5-15.5) % Plt Count 81 L D (150-450) k/uL Lymphocytes # (Manual) (1.0-4.8) k/uL PT (9.0-12.0) sec INR (<1.2) APTT (22.0-30.0) sec ABG pH 7.12 L* (7.35-7.45) ABG pCO2 22 L (35-45) mmHg ABG pO2 122 H (83-108) mmHg ABG HCO3 7 L* (21-25) mmol/L ABG Total CO2 8 L (19-24) mmol/L ABG O2 Saturation 98.1 H (94-97) % ABG Lactic Acid (0.5-1.6) mmol/L Potassium 5.4 H (3.5-5.1) mmol/L Chloride 109 H (98-107) mmol/L Carbon Dioxide 7 L* (22-30) mmol/L Creatinine 3.03 H (0.52-1.04) mg/dL Glucose 174 H (74-99) mg/dL POC Glucose (mg/dL) (75-99) mg/dL Osmolality (280-301) mosm/kg Plasma Lactic Acid Robert (0.7-2.0) mmol/L Calcium 6.6 L (8.4-10.2) mg/dL Total Bilirubin 1.4 H (0.2-1.3) mg/dL AST 289 H (14-36) U/L ALT 53 H (4-34) U/L Alkaline Phosphatase 241 H (38-126) U/L Ammonia (<30) umol/L Total Protein 6.1 L (6.3-8.2) g/dL Albumin 3.0 L (3.5-5.0) g/dL Urine Appearance (Clear) Urine Protein (Negative) Urine Glucose (UA) (Negative) Urine Blood (Negative) Ur Leukocyte Esterase (Negative) Urine RBC (0-5) /hpf Urine WBC (0-5) /hpf Urine WBC Clumps (None) /hpf Amorphous Sediment (None) /hpf Urine Bacteria (None) /hpf Hyaline Casts (0-2) /lpf Urine Mucus (None) /hpf Ethyl Alcohol Screen (Negative) mg/dL Crossmatch 07/19/19 07/19/19 07/19/19 Range/Units 22:25 22:26 22:50 RBC (3.80-5.40) m/uL Hgb (11.4-16.0) gm/dL Hct (34.0-46.0) % MCV (80.0-100.0) fL MCHC (31.0-37.0) g/dL RDW (11.5-15.5) % Plt Count (150-450) k/uL Lymphocytes # (Manual) (1.0-4.8) k/uL PT 14.5 H (9.0-12.0) sec INR 1.5 H (<1.2) APTT 30.6 H (22.0-30.0) sec ABG pH 7.17 L* (7.35-7.45) ABG pCO2 23 L (35-45) mmHg ABG pO2 116 H (83-108) mmHg ABG HCO3 8 L* (21-25) mmol/L ABG Total CO2 9 L (19-24) mmol/L ABG O2 Saturation 97.9 H (94-97) % ABG Lactic Acid (0.5-1.6) mmol/L Potassium (3.5-5.1) mmol/L Chloride (98-107) mmol/L Carbon Dioxide (22-30) mmol/L Creatinine (0.52-1.04) mg/dL Glucose (74-99) mg/dL POC Glucose (mg/dL) 186 H (75-99) mg/dL Osmolality (280-301) mosm/kg Plasma Lactic Acid Robert (0.7-2.0) mmol/L Calcium (8.4-10.2) mg/dL Total Bilirubin (0.2-1.3) mg/dL AST (14-36) U/L ALT (4-34) U/L Alkaline Phosphatase (38-126) U/L Ammonia (<30) umol/L Total Protein (6.3-8.2) g/dL Albumin (3.5-5.0) g/dL Urine Appearance (Clear) Urine Protein (Negative) Urine Glucose (UA) (Negative) Urine Blood (Negative) Ur Leukocyte Esterase (Negative) Urine RBC (0-5) /hpf Urine WBC (0-5) /hpf Urine WBC Clumps (None) /hpf Amorphous Sediment (None) /hpf Urine Bacteria (None) /hpf Hyaline Casts (0-2) /lpf Urine Mucus (None) /hpf Ethyl Alcohol Screen (Negative) mg/dL Crossmatch 07/20/19 07/20/19 07/20/19 Range/Units 02:32 02:35 02:35 RBC 2.79 L (3.80-5.40) m/uL Hgb 8.5 L (11.4-16.0) gm/dL Hct 28.1 L (34.0-46.0) % MCV 100.7 H (80.0-100.0) fL MCHC 30.4 L (31.0-37.0) g/dL RDW 20.1 H (11.5-15.5) % Plt Count 97 L (150-450) k/uL Lymphocytes # (Manual) (1.0-4.8) k/uL PT (9.0-12.0) sec INR (<1.2) APTT (22.0-30.0) sec ABG pH (7.35-7.45) ABG pCO2 (35-45) mmHg ABG pO2 (83-108) mmHg ABG HCO3 (21-25) mmol/L ABG Total CO2 (19-24) mmol/L ABG O2 Saturation (94-97) % ABG Lactic Acid (0.5-1.6) mmol/L Potassium 5.7 H (3.5-5.1) mmol/L Chloride (98-107) mmol/L Carbon Dioxide 9 L* (22-30) mmol/L Creatinine (0.52-1.04) mg/dL Glucose (74-99) mg/dL POC Glucose (mg/dL) 229 H (75-99) mg/dL Osmolality (280-301) mosm/kg Plasma Lactic Acid Robert (0.7-2.0) mmol/L Calcium (8.4-10.2) mg/dL Total Bilirubin (0.2-1.3) mg/dL AST (14-36) U/L ALT (4-34) U/L Alkaline Phosphatase (38-126) U/L Ammonia (<30) umol/L Total Protein (6.3-8.2) g/dL Albumin (3.5-5.0) g/dL Urine Appearance (Clear) Urine Protein (Negative) Urine Glucose (UA) (Negative) Urine Blood (Negative) Ur Leukocyte Esterase (Negative) Urine RBC (0-5) /hpf Urine WBC (0-5) /hpf Urine WBC Clumps (None) /hpf Amorphous Sediment (None) /hpf Urine Bacteria (None) /hpf Hyaline Casts (0-2) /lpf Urine Mucus (None) /hpf Ethyl Alcohol Screen (Negative) mg/dL Crossmatch 07/20/19 07/20/19 07/20/19 Range/Units 06:45 06:45 06:45 RBC 2.76 L (3.80-5.40) m/uL Hgb 8.5 L (11.4-16.0) gm/dL Hct 27.4 L (34.0-46.0) % MCV (80.0-100.0) fL MCHC 30.9 L (31.0-37.0) g/dL RDW 20.0 H (11.5-15.5) % Plt Count 84 L (150-450) k/uL Lymphocytes # (Manual) 0.98 L (1.0-4.8) k/uL PT (9.0-12.0) sec INR (<1.2) APTT (22.0-30.0) sec ABG pH (7.35-7.45) ABG pCO2 (35-45) mmHg ABG pO2 (83-108) mmHg ABG HCO3 (21-25) mmol/L ABG Total CO2 (19-24) mmol/L ABG O2 Saturation (94-97) % ABG Lactic Acid (0.5-1.6) mmol/L Potassium 5.4 H (3.5-5.1) mmol/L Chloride (98-107) mmol/L Carbon Dioxide 10 L (22-30) mmol/L Creatinine 3.52 H (0.52-1.04) mg/dL Glucose 231 H (74-99) mg/dL POC Glucose (mg/dL) (75-99) mg/dL Osmolality (280-301) mosm/kg Plasma Lactic Acid Robert (0.7-2.0) mmol/L Calcium 6.2 L* (8.4-10.2) mg/dL Total Bilirubin 1.5 H (0.2-1.3) mg/dL AST 355 H (14-36) U/L ALT 50 H (4-34) U/L Alkaline Phosphatase 221 H (38-126) U/L Ammonia 65 H (<30) umol/L Total Protein 6.0 L (6.3-8.2) g/dL Albumin 2.9 L (3.5-5.0) g/dL Urine Appearance (Clear) Urine Protein (Negative) Urine Glucose (UA) (Negative) Urine Blood (Negative) Ur Leukocyte Esterase (Negative) Urine RBC (0-5) /hpf Urine WBC (0-5) /hpf Urine WBC Clumps (None) /hpf Amorphous Sediment (None) /hpf Urine Bacteria (None) /hpf Hyaline Casts (0-2) /lpf Urine Mucus (None) /hpf Ethyl Alcohol Screen (Negative) mg/dL Crossmatch 05/24/20 05/24/20 05/24/20 Range/Units 06:45 06:47 07:48 RBC (3.80-5.40) m/uL Hgb (11.4-16.0) gm/dL Hct (34.0-46.0) % MCV (80.0-100.0) fL MCHC (31.0-37.0) g/dL RDW (11.5-15.5) % Plt Count (150-450) k/uL Lymphocytes # (Manual) (1.0-4.8) k/uL PT (9.0-12.0) sec INR (<1.2) APTT (22.0-30.0) sec ABG pH 7.28 L (7.35-7.45) ABG pCO2 22 L (35-45) mmHg ABG pO2 (83-108) mmHg ABG HCO3 10 L* (21-25) mmol/L ABG Total CO2 11 L (19-24) mmol/L ABG O2 Saturation 97.1 H (94-97) % ABG Lactic Acid 17.5 H* (0.5-1.6) mmol/L Potassium (3.5-5.1) mmol/L Chloride (98-107) mmol/L Carbon Dioxide (22-30) mmol/L Creatinine (0.52-1.04) mg/dL Glucose (74-99) mg/dL POC Glucose (mg/dL) 240 H (75-99) mg/dL Osmolality (280-301) mosm/kg Plasma Lactic Acid Robert (0.7-2.0) mmol/L Calcium (8.4-10.2) mg/dL Total Bilirubin (0.2-1.3) mg/dL AST (14-36) U/L ALT (4-34) U/L Alkaline Phosphatase (38-126) U/L Ammonia (<30) umol/L Total Protein (6.3-8.2) g/dL Albumin (3.5-5.0) g/dL Urine Appearance (Clear) Urine Protein (Negative) Urine Glucose (UA) (Negative) Urine Blood (Negative) Ur Leukocyte Esterase (Negative) Urine RBC (0-5) /hpf Urine WBC (0-5) /hpf Urine WBC Clumps (None) /hpf Amorphous Sediment (None) /hpf Urine Bacteria (None) /hpf Hyaline Casts (0-2) /lpf Urine Mucus (None) /hpf Ethyl Alcohol Screen (Negative) mg/dL Crossmatch 07/20/19 Range/Units 11:09 RBC (3.80-5.40) m/uL Hgb (11.4-16.0) gm/dL Hct (34.0-46.0) % MCV (80.0-100.0) fL MCHC (31.0-37.0) g/dL RDW (11.5-15.5) % Plt Count (150-450) k/uL Lymphocytes # (Manual) (1.0-4.8) k/uL PT (9.0-12.0) sec INR (<1.2) APTT (22.0-30.0) sec ABG pH (7.35-7.45) ABG pCO2 (35-45) mmHg ABG pO2 (83-108) mmHg ABG HCO3 (21-25) mmol/L ABG Total CO2 (19-24) mmol/L ABG O2 Saturation (94-97) % ABG Lactic Acid (0.5-1.6) mmol/L Potassium (3.5-5.1) mmol/L Chloride (98-107) mmol/L Carbon Dioxide (22-30) mmol/L Creatinine (0.52-1.04) mg/dL Glucose (74-99) mg/dL POC Glucose (mg/dL) 264 H (75-99) mg/dL Osmolality (280-301) mosm/kg Plasma Lactic Acid Robert (0.7-2.0) mmol/L Calcium (8.4-10.2) mg/dL Total Bilirubin (0.2-1.3) mg/dL AST (14-36) U/L ALT (4-34) U/L Alkaline Phosphatase (38-126) U/L Ammonia (<30) umol/L Total Protein (6.3-8.2) g/dL Albumin (3.5-5.0) g/dL Urine Appearance (Clear) Urine Protein (Negative) Urine Glucose (UA) (Negative) Urine Blood (Negative) Ur Leukocyte Esterase (Negative) Urine RBC (0-5) /hpf Urine WBC (0-5) /hpf Urine WBC Clumps (None) /hpf Amorphous Sediment (None) /hpf Urine Bacteria (None) /hpf Hyaline Casts (0-2) /lpf Urine Mucus (None) /hpf Ethyl Alcohol Screen (Negative) mg/dL Crossmatch Microbiology - Last 24 Hours (Table) 07/19/19 14:22 Urine Culture - Preliminary Urine,Voided 07/19/19 20:14 Sputum Culture - Preliminary Sputum Assessment and Plan Assessment: Impression: Acute hypoxic respiratory failure, suspect abdominal sepsis. And septic shock. Strongly suspect ischemic colitis. Acute blood loss anemia with upper GI bleeding noted after placement of nasogas tric tube. Acute thrombocytopenia secondary to sepsis. Shock liver secondary to hypotension and could also be related to history of alcohol abuse. Mental status change, suspect hepatic encephalopathy with elevated ammonia level. Acute kidney injury secondary to acute tubular necrosis and hypotension. Severe anion gap metabolic acidosis, secondary to sepsis and acute kidney injury. Acute lactic acidosis secondary to ischemic bowel and hypotension. Possible urinary tract infection. Acute alcohol intoxication based on her abnormal I'll call level on presentation. Recommendation: Continue present supportive care measures including Ventilatory support. Hemodynamic support. Continue vasopressin and norepinephrine.. GI and DVT prophylaxis. Avoid anticoagulation therapy. Surgical consultation, discussed the case with the surgeon/Dr. chapman today, again the patient is extremely poor surgical candidate at this point. Infectious disease consultation, pending. GI consultation for upper GI bleeding. Patient may have to be considered for dialysis considering the patient is anuric Empiric antibiotics. Patient is now on Zosyn and Flagyl. Transfuse accordingly, maintain hemoglobin of above 7. Continue sodium bicarb. Monitor acid base status closely. Continue octreotide. Patient to be seen by gastroenterology today Discussed her condition with her boyfriend who has been her boyfriend for the last 5 years. And he will try to approach her family and updated them on her status. Her family lives in [place]. Overall prognosis is extremely poor and guarded. Critical care time is 36 minutes. Time with Patient: Greater than 30
[2019-07-20 13:51] LABS: Anisocytosis Moderate; HCT 27.1 % (34.0-46.0); Hypochromasia Moderate; MCH 32.2 pg (25.0-35.0); MCHC 33.1 g/dL (31.0-37.0); MCV 97.2 fL (80.0-100.0); Macrocytosis Slight; Mean Platelet Volume 9.6; RBC 2.79 m/uL (3.80-5.40); RDW 20.4 % (11.5-15.5); WBC 8.5 k/uL (3.8-10.6)
[2019-07-20 13:54] LABS: Platelet Count 71 k/uL (150-450)
[2019-07-20 14:07] LABS: Glucose,Whole Blood 261 mg/dL (75-99)
[2019-07-20] MEDS ORDERED: INSULIN REGULAR BOLUS (FROM DRIP BAG) IV PRN (14:14)
[2019-07-20] MEDS: INSULIN REGULAR 100 UNIT in SODIUM CHLORIDE 0.9% 100 ML IV SCH (15:14)
[2019-07-20] MEDS: SODIUM CHLORIDE 0.9% 150 ML with VASOPRESSIN 60 UNIT IV SCH ×2 (15:25)
[2019-07-20 16:30] LABS: Glucose,Whole Blood 224 mg/dL (75-99)
[2019-07-20 17:11] LABS: Glucose,Whole Blood 200 mg/dL (75-99)
[2019-07-20 17:51] LABS: ABG Base Excess -3.4 mmol/L; ABG HCO3 21 mmol/L (21-25); ABG Oxygen Saturation 97.1 % (94-97); ABG PCO2 32 mmHg (35-45); ABG PH 7.43 (7.35-7.45); ABG PO2 90 mmHg (83-108); ABG TCO2 22 mmol/L (19-24); Allen Test Performed? Yes
[2019-07-20 18:40] LABS: Glucose,Whole Blood 183 mg/dL (75-99)
[2019-07-20 19:27] LABS: Potassium 3.8 mmol/L (3.5-5.1)
--- NOTE | 2019-07-20 19:41 | HP ---
HISTORY AND PHYSICAL CHIEF COMPLAINT: Altered mental status. HISTORY OF PRESENT ILLNESS: This 48-year-old year old female was brought to the emergency room by her boyfriend when she apparently became unresponsive. She had taken a trazodone and then apparently went back to bed. EMS was summoned and when they arrived, her blood sugar was low and she was minimally responsive. Relatives or friends indicated that she had histories of psychiatric problems in the past and recently moved to this area. While in the emergency room, she was hypotensive at 65/37 and then underwent a cardiorespiratory arrest and she was resuscitated and then transferred to ICU. There is no other history. Apparently, there was suggestion that she may have an intraabdominal process such as an ischemic bowel. Laboratory studies are abnormal with a white count of 5600 and hemoglobin is 6.3. Platelet count is 48,000. She had plasma lactic was 20.4. Calcium was low at 7.5 and AST was elevated at 178 with an ALT of 43. Alkaline phosphatase was 215. Ammonia level was 199. CK was 374. Serum alcohol was 274. Blood gases revealed a pH of 6.81, and CO2 of 22, and PO2 over 400 on 100% FiO2. REVIEW OF SYSTEMS: Could not be obtained. Past medical history, family history and personal and social histories could not be obtained. PHYSICAL EXAM: Blood pressure 120/53 with a pulse of 105, respirations 24 on a ventilator. Head, ears, eyes, nose, mouth, and throat were normal. Pupils were mid-range and gaze is conjugate. Breath sounds are heard bilaterally. Cardiac exam demonstrated 4/6 systolic murmur heard at the base. Abdomen is soft. There are no masses. Extremities: Normal and perfusion was adequate. IMPRESSION: 1. Cardiorespiratory arrest. 2. Anemia. 3. Elevated liver function studies. 4. Lactic acidemia. 5. Possible intraabdominal process. 6. Cardiac murmur. PLAN: Continue to follow in the ICU with intensive medicine, cardiology and surgery. MMODL / IJN: [id number] /
[2019-07-20 19:47] LABS: Calcium 6.2 mg/dL (8.4-10.2)
--- NOTE | 2019-07-20 19:59 | PN ---
PROGRESS NOTE DATE OF SERVICE: 07/20/2019. CHIEF COMPLAINT: Cardiorespiratory arrest, lactic acidemia, cardiac murmur. HISTORY OF PRESENT ILLNESS: This lady is improving slowly. Pressors are being weaned. She is sedated but she has moved about when she is not. PHYSICAL EXAMINATION: Blood pressure is 121/74. Eyes are unchanged, pupils being mid range. Breath sounds are heard on both sides and cardiac exam demonstrates murmur. Abdomen is soft. Extremities are appear perfused. IMPRESSION: 1. Cardiorespiratory arrest, etiology unknown. 2. Anemia. 3. Hypotension. 4. Possible intraabdominal catastrophe. 5. Possible sepsis. PLAN: Continue to follow with General Surgery. She is also being evaluated by Cardiology. MMODL / IJN: [id number] /
[2019-07-20 20:29] LABS: Glucose,Whole Blood 151 mg/dL (75-99)
[2019-07-20] MEDS: POTASSIUM CHLORIDE 10 MEQ in WATER FOR INJECTION 1 100ML.BAG IVPB SCH ×2 (20:59→22:04)
[2019-07-20 21:25] LABS: Glucose,Whole Blood 168 mg/dL (75-99)
[2019-07-20 22:01] LABS: Glucose,Whole Blood 170 mg/dL (75-99)
--- NOTE | 2019-07-20 22:59 | P.CONS ---
History of Present Illness - Reason for Consult Consult date: 07/20/19 sepsis Requesting physician: Jeet Ruiz - Chief Complaint unresponsive x 1 day - History of Present Illness Patient is a 48-year-old -[place] female who was brought into the ER [facility] yesterday afternoon after coming to the hospital with unresponsive by a friend that lives with her chronically to the friend the patient woke around 8 this morning and took her trazodone she then went back in her room discharge her on 830 and for her unresponsive EMS arrived to find patient lying supine on the ground covered with a blanket patient is to have a l ow blood sugar she was given an amp of dextrose slightly woke up yelling in the back of the ambulance and subsequently the patient was brought into the ER currently in the ER the patient had coded and had to be resuscitated patient has been hypothermic on presentation to the ER as well as hypotensive requiring pressor support patient did have a normal white count on presentation and remains to normal she did have low hemoglobin of 6.3 status post blood transfusion is up to 9.0 patient did have a CT of abdominal pelvis which did show diffuse thickening of the and chronic bowel wall thickening with mesenteric edema and small volume ascites suspicious for ischemic bowel resection with perihilar opacities patient had received multiple antibiotics and is currently on Zosyn infectious disease has been consulted for further recommendation monitor sepsis antibiotic mentation patient is currently sedated on the vent requiring pressor support in the form of lightheadedness depression and most in formation has been obtained from review the chart.nursing staff as patient herself is reported history no family available bedside. Review of Systems Positive point has been mentioned in HPI complete review could not be obtained because patient is intubated on the vent sedated Past Medical History Past Medical History: Unable to Obtain History of Any Multi-Drug Resistant Organisms: Unobtainable Past Surgical History: Unable to Obtain Past Psychological History: Unable to Obtain Smoking Status: Unknown if ever smoked Past Alcohol Use History: Unable to Obtain Past Drug Use History: Unable to Obtain Medications and Allergies Home Medications Medication Instructions Recorded Confirmed Type Unable To Assess [Unable to Assess] 07/19/19 07/19/19 History Allergies Allergy/AdvReac Type Severity Reaction Status Date / Time Unable to Assess Allergy Verified 07/19/19 12:38 Physical Exam Vitals: Vital Signs Temp Pulse Pulse Pulse Resp BP BP 05/24/20 09:00 117 H 31 H 112/54 05/24/20 08:45 114 H 24 112/53 05/24/20 08:30 114 H 25 H 112/54 05/24/20 08:15 118 H 30 H 108/51 05/24/20 08:00 99.7 F H 113 H 24 105/53 05/24/20 07:45 115 H 24 109/48 05/24/20 07:39 122 H 05/2420 07:30 112 H 23 105/45 05/24/20 07:15 112 H 25 H 103/45 05/24/20 07:00 113 H 24 102/44 05/24/20 06:45 114 H 22 106/45 05/24/20 06:30 114 H 23 96/46 05/24/20 06:15 113 H 24 89/34 05/24/20 06:00 111 H 23 102/45 05/24/20 05:45 118 H 23 102/43 05/24/20 05:30 117 H 24 105/44 05/24/20 05:15 118 H 24 104/51 05/24/20 05:00 121 H 23 93/47 05/24/20 04:45 123 H 23 91/60 05/24/20 04:30 123 H 21 92/42 05/24/20 04:15 122 H 27 H 92/42 05/24/20 04:00 99.3 F 121 H 122 H 28 H 88/43 05/24/20 03:45 120 H 25 H 90/38 05/24/20 03:30 120 H 31 H 86/45 05/24/20 03:15 123 H 17 99/41 05/24/20 03:00 123 H 32 H 94/48 05/24/20 02:45 123 H 36 H 97/51 05/24/20 02:30 123 H 36 H 88/50 05/24/20 02:15 126 H 31 H 92/48 05/24/20 02:00 125 H 31 H 80/58 05/24/20 01:45 123 H 29 H 97/47 05/24/20 01:30 123 H 29 H 95/51 05/24/20 01:15 122 H 23 88/55 05/24/20 01:00 99.0 F 122 H 30 H 88/55 05/24/20 00:45 121 H 29 H 96/52 20 00:30 28 H 84/53 20 00:15 116 H 23 92/49 20 00:14 116 H 23 92/49 20 00:00 98.2 F 115 H 114 H 25 H 90/43 20 23:45 114 H 23 93/48 20 23:41 97.5 F L 114 H 31 H 93/50 20 23:30 113 H 22 96/47 07/19/19 23:15 113 H 22 93/50 20 23:11 97.3 F L 114 H 30 H 105/45 07/19/19 23:01 96.4 F L 112 H 29 H 93/50 07/19/19 23:00 112 H 22 94/46 07/19/19 22:45 112 H 44 H 98/56 07/19/19 22:30 96.4 F L 113 H 12 99/55 07/19/19 22:15 108 H 32 H 93/49 07/19/19 22:00 102 H 26 H 104/50 20 21:45 106 H 29 H 105/58 07/19/19 21:30 102 H 20 96/50 07/19/19 21:24 94.5 F L 103 H 29 H 96/50 20 21:15 104 H 26 H 103/53 20 21:07 94.5 F L 102 H 26 H 103/53 20 21:00 93.9 F L 103 H 24 107/54 20 20:57 34.4 F L 103 H 26 H 100/52 20 20:45 34.6 F L 103 H 24 104/49 20 20:30 102 H 24 92/50 20 20:27 94.4 F L 105 H 24 99/50 20 20:15 34.1 F L 103 H 22 92/49 20 20:05 92.8 F L 101 H 22 92/49 20 20:00 92.8 F L 111 H 102 H 22 85/48 07/19/19 19:57 92.8 F L 102 H 20 94/57 05/23/20 19:45 92 20 84/46 05/23/20 19:30 91 27 H 84/46 05/23/20 19:27 92.8 F L 103 H 20 85/48 05/23/20 19:17 92.8 F L 105 H 21 84/46 05/23/20 19:15 89 25 H 76/44 05/23/20 19:00 87 19 80/44 05/23/20 18:45 89 17 91/52 05/23/20 18:30 92 9 L 94/54 05/23/20 18:15 93 11 L 120/66 05/23/20 17:40 94.2 F L 102 H 14 128/67 05//20 17:30 101 H 23 136/69 05/23/20 17:20 100 11 L 121/71 05/23/20 17:10 105 H 22 135/72 05/23/20 17:00 104 H 18 128/72 05//20 16:50 105 H 16 132/70 05//20 16:40 105 H 14 136/75 05//20 16:30 108 H 19 150/80 05/23/20 16:20 109 H 18 144/80 05/23/20 16:10 108 H 18 140/77 05/23/20 16:00 106 H 18 126/78 05/23/20 15:50 103 H 20 128/76 05/23/20 15:40 101 H 14 116/73 05/23/20 15:39 90 F L 100 17 116/73 05/23/20 15:30 105 H 15 115/82 05/23/20 15:20 98 13 106/60 05/23/20 15:15 90 F L 101 H 17 111/65 05/23/20 15:10 96 16 102/46 05/23/20 15:05 98 16 107/43 05//20 15:01 90 F L 96 17 106/52 05//20 15:00 95 17 92/46 05//20 14:50 84 14 96/49 05//20 14:40 89 20 90/45 05/23/20 14:30 96/45 05/23/20 14:20 88 16 97/45 05/23/20 14:10 85 15 93/44 07/19/19 14:02 85 17 88/40 07/19/19 13:26 90.1 F L 92 14 93/44 07/19/19 12:38 80 22 65/37 Pulse Ox 07/20/19 09:00 98 07/20/19 08:45 99 07/20/19 08:30 99 07/20/19 08:15 99 07/20/19 08:00 98 07/20/19 07:45 99 07/20/19 07:39 07/20/19 07:30 98 07/20/19 07:15 99 07/20/19 07:00 99 07/20/19 06:45 97 07/20/19 06:30 99 07/20/19 06:15 99 07/20/19 06:00 100 07/20/19 05:45 100 07/20/19 05:30 98 07/20/19 05:15 99 07/20/19 05:00 99 07/20/19 04:45 07/20/19 04:30 07/20/19 04:15 98 07/20/19 04:00 98 07/20/19 03:45 98 07/20/19 03:30 98 07/20/19 03:15 97 07/20/19 03:00 97 07/20/19 02:45 97 07/20/19 02:30 97 07/20/19 02:15 97 07/20/19 02:00 97 07/20/19 01:45 97 07/20/19 01:30 97 07/20/19 01:15 97 07/20/19 01:00 98 07/20/19 00:45 98 07/20/19 00:30 98 07/20/19 00:15 98 07/20/19 00:14 98 07/20/19 00:00 98 07/19/19 23:45 98 07/19/19 23:41 98 07/19/19 23:30 98 07/19/19 23:15 99 07/19/19 23:11 98 07/19/19 23:01 99 07/19/19 23:00 99 07/19/19 22:45 99 07/19/19 22:30 99 07/19/19 22:15 99 07/19/19 22:00 99 05 21:45 99 0520 21:30 98 0520 21:24 99 05 21:15 99 05 21:07 98 05 21:00 99 0520 20:57 99 0520 20:45 98 0520 20:30 99 0520 20:27 05 20:15 99 05 20:05 100 05 20:00 99 0520 19:57 100 05 19:45 99 05 19:30 99 05 19:27 100 05 19:17 98 05 19:15 99 05 19:00 99 05 18:45 99 05 18:30 99 05 18:15 99 05 17:40 05 17:30 100 05 17:20 100 05 17:10 100 05 17:00 99 05 16:50 100 05 16:40 100 05 16:30 100 05 16:20 100 05 16:10 100 05 16:00 100 05 15:50 100 05 15:40 100 05 15:39 05 15:30 100 05 15:20 100 07/19/19 15:15 100 07/19/19 15:10 100 05 15:05 100 07/19/19 15:01 05 15:00 100 05 14:50 100 05 14:40 100 07/19/19 14:30 05 14:20 100 05 14:10 100 05 14:02 100 05 13:26 100 05 12:38 96 Intake and Output 05 05/20 05 22:59 06:59 14:59 Intake Total 7090.033 2100.620 510.986 Output Total 45 210 10 Balance 9219.948 5960.620 500.986 Intake: IV 700 1274 459 Dextrose 5% in Water 1, 550 1200 450 000 ml @ 150 mls/hr IV . Q7H40M [facility] with Sodium Bicarb (1 Meq/ml) 150 ml Rx#:[id number] Sodium bicarbonate IVP 150 50 pressure bag 24 9 Intake, IV Titration 33.327 479.620 51.986 Amount Midazolam HCl 50 mg In 6.25 12.333 50 Sodium Chloride 0.9% 40 ml @ 1 MG/HR 1 mls/hr IV .Q24H [facility] Rx#:[id number] Norepinephrine 32 mg In 27.077 221.870 Sodium Chloride 0.9% 218 ml @ 0.05 MCG/KG/MIN 1. 914 mls/hr IV .Q24H [facility] Rx#:[id number] Octreotide 500 mcg In 245.417 Sodium Chloride 0.9% 250 ml @ 50 MCG/HR 25 mls/hr IV .Q10H [facility] Rx#: [id number] Propofol 1,000 mg In 1.986 Empty Bag 1 bag @ Titrate IV .Q0M [facility] Rx#: [id number] Blood Product 834 591 Ffp 24 Cpd Unit 275 [id number] Ffp 24 Cpd Unit 0 316 [id number] Platelet Irr Pheresis 2 214 Acda Unit [id number] As-1 Unit 310 [id number] As-3 Unit 310 [id number] Output: Gastric Drainage 200 Urine 45 10 10 Other: Voiding Method Indwelling Catheter Indwelling Catheter Indwelling Catheter # Voids 0 0 Weight 84.5 kg ABP, PAP, CO, CI - Last 8 Hours Arterial Blood Pressure 137/51 Arterial Blood Pressure 134/48 Arterial Blood Pressure 133/46 Arterial Blood Pressure 132/45 Arterial Blood Pressure 130/45 Arterial Blood Pressure 126/43 Arterial Blood Pressure 126/42 Arterial Blood Pressure 122/42 Arterial Blood Pressure 120/39 Arterial Blood Pressure 20/20 Arterial Blood Pressure 127/44 Arterial Blood Pressure 118/45 Arterial Blood Pressure 82/33 Arterial Blood Pressure 127/45 Arterial Blood Pressure 121/43 Arterial Blood Pressure 121/43 Arterial Blood Pressure 120/44 Arterial Blood Pressure 143/45 Arterial Blood Pressure 123/49 Arterial Blood Pressure 122/46 Arterial Blood Pressure 121/45 Arterial Blood Pressure 117/44 Arterial Blood Pressure 113/45 Arterial Blood Pressure 105/46 GENERAL DESCRIPTION: Middle-aged female lying in bed, intubated on the vent no tachypnea or accessory muscle of respiration use. HEENT: Shows Pallor , no scleral icterus. Oral mucous membrane is dry. NECK: Trachea central, no thyromegaly. LUNGS: Unlabored breathing. Decreased breath sound at base. No wheeze or crackle. HEART: S1, S2, regular rate and rhythm. ABDOMEN: Soft, mild distention no tenderness , guarding or rigidity EXTREMITIES: No edema of feet. SKIN: No rash, no masses palpable. NEUROLOGICAL: The patient is sedated on the vent Results CBC & Chem 7: 07/20/19 13:15 07/20/19 19:05 Labs: Abnormal Lab Results - Last 24 Hours (Table) 07/19/19 07/19/19 07/19/19 Range/Units 08:18 08:18 12:14 RBC (3.80-5.40) m/uL Hgb (11.4-16.0) gm/dL Hct (34.0-46.0) % MCV (80.0-100.0) fL MCHC (31.0-37.0) g/dL RDW (11.5-15.5) % Plt Count (150-450) k/uL Lymphocytes # (Manual) (1.0-4.8) k/uL Macrocytosis PT (9.0-12.0) sec INR (<1.2) APTT (22.0-30.0) sec ABG pH (7.35-7.45) ABG pCO2 (35-45) mmHg ABG pO2 (83-108) mmHg ABG HCO3 (21-25) mmol/L ABG Total CO2 (19-24) mmol/L ABG O2 Saturation (94-97) % ABG Lactic Acid (0.5-1.6) mmol/L VBG pH (7.31-7.41) VBG pCO2 (37-51) mmHg VBG HCO3 (24-28) mmol/L Potassium (3.5-5.1) mmol/L Chloride (98-107) mmol/L Carbon Dioxide (22-30) mmol/L Creatinine (0.52-1.04) mg/dL Glucose (74-99) mg/dL POC Glucose (mg/dL) 174 H (75-99) mg/dL Osmolality 382 H* (280-301) mosm/kg Plasma Lactic Acid Robert (0.7-2.0) mmol/L Calcium (8.4-10.2) mg/dL Total Bilirubin (0.2-1.3) mg/dL AST (14-36) U/L ALT (4-34) U/L Alkaline Phosphatase (38-126) U/L Ammonia (<30) umol/L Creatine Kinase (30-135) U/L Total Protein (6.3-8.2) g/dL Albumin (3.5-5.0) g/dL Urine Appearance (Clear) Urine Protein (Negative) Urine Glucose (UA) (Negative) Urine Blood (Negative) Ur Leukocyte Esterase (Negative) Urine RBC (0-5) /hpf Urine WBC (0-5) /hpf Urine WBC Clumps (None) /hpf Amorphous Sediment (None) /hpf Urine Bacteria (None) /hpf Hyaline Casts (0-2) /lpf Urine Mucus (None) /hpf Serum Alcohol mg/dL Ethyl Alcohol Screen 191 H (Negative) mg/dL Crossmatch 07/19/19 07/19/19 07/19/19 Range/Units 12:15 12:15 12:15 RBC 2.05 L (3.80-5.40) m/uL Hgb 6.3 L* (11.4-16.0) gm/dL Hct 23.7 L (34.0-46.0) % MCV 115.7 H (80.0-100.0) fL MCHC 26.5 L (31.0-37.0) g/dL RDW 19.9 H (11.5-15.5) % Plt Count 48 L (150-450) k/uL Lymphocytes # (Manual) (1.0-4.8) k/uL Macrocytosis Marked A PT 16.9 H (9.0-12.0) sec INR 1.7 H (<1.2) APTT 42.3 H (22.0-30.0) sec ABG pH (7.35-7.45) ABG pCO2 (35-45) mmHg ABG pO2 (83-108) mmHg ABG HCO3 (21-25) mmol/L ABG Total CO2 (19-24) mmol/L ABG O2 Saturation (94-97) % ABG Lactic Acid (0.5-1.6) mmol/L VBG pH 6.84 L* (7.31-7.41) VBG pCO2 25 L (37-51) mmHg VBG HCO3 4 L* (24-28) mmol/L Potassium (3.5-5.1) mmol/L Chloride (98-107) mmol/L Carbon Dioxide (22-30) mmol/L Creatinine (0.52-1.04) mg/dL Glucose (74-99) mg/dL POC Glucose (mg/dL) (75-99) mg/dL Osmolality (280-301) mosm/kg Plasma Lactic Acid Robert (0.7-2.0) mmol/L Calcium (8.4-10.2) mg/dL Total Bilirubin (0.2-1.3) mg/dL AST (14-36) U/L ALT (4-34) U/L Alkaline Phosphatase (38-126) U/L Ammonia (<30) umol/L Creatine Kinase (30-135) U/L Total Protein (6.3-8.2) g/dL Albumin (3.5-5.0) g/dL Urine Appearance (Clear) Urine Protein (Negative) Urine Glucose (UA) (Negative) Urine Blood (Negative) Ur Leukocyte Esterase (Negative) Urine RBC (0-5) /hpf Urine WBC (0-5) /hpf Urine WBC Clumps (None) /hpf Amorphous Sediment (None) /hpf Urine Bacteria (None) /hpf Hyaline Casts (0-2) /lpf Urine Mucus (None) /hpf Serum Alcohol mg/dL Ethyl Alcohol Screen (Negative) mg/dL Crossmatch 07/19/19 07/19/19 07/19/19 Range/Units 12:15 12:15 12:15 RBC (3.80-5.40) m/uL Hgb (11.4-16.0) gm/dL Hct (34.0-46.0) % MCV (80.0-100.0) fL MCHC (31.0-37.0) g/dL RDW (11.5-15.5) % Plt Count (150-450) k/uL Lymphocytes # (Manual) (1.0-4.8) k/uL Macrocytosis PT (9.0-12.0) sec INR (<1.2) APTT (22.0-30.0) sec ABG pH (7.35-7.45) ABG pCO2 (35-45) mmHg ABG pO2 (83-108) mmHg ABG HCO3 (21-25) mmol/L ABG Total CO2 (19-24) mmol/L ABG O2 Saturation (94-97) % ABG Lactic Acid (0.5-1.6) mmol/L VBG pH (7.31-7.41) VBG pCO2 (37-51) mmHg VBG HCO3 (24-28) mmol/L Potassium 6.6 H* (3.5-5.1) mmol/L Chloride 111 H (98-107) mmol/L Carbon Dioxide <5 L* (22-30) mmol/L Creatinine 3.55 H (0.52-1.04) mg/dL Glucose 167 H (74-99) mg/dL POC Glucose (mg/dL) (75-99) mg/dL Osmolality (280-301) mosm/kg Plasma Lactic Acid Robert 20.4 H* (0.7-2.0) mmol/L Calcium 7.5 L (8.4-10.2) mg/dL Total Bilirubin (0.2-1.3) mg/dL AST 178 H (14-36) U/L ALT 43 H (4-34) U/L Alkaline Phosphatase 215 H (38-126) U/L Ammonia 199 H (<30) umol/L Creatine Kinase 374 H (30-135) U/L Total Protein 5.3 L (6.3-8.2) g/dL Albumin 2.5 L (3.5-5.0) g/dL Urine Appearance (Clear) Urine Protein (Negative) Urine Glucose (UA) (Negative) Urine Blood (Negative) Ur Leukocyte Esterase (Negative) Urine RBC (0-5) /hpf Urine WBC (0-5) /hpf Urine WBC Clumps (None) /hpf Amorphous Sediment (None) /hpf Urine Bacteria (None) /hpf Hyaline Casts (0-2) /lpf Urine Mucus (None) /hpf Serum Alcohol 274 H* mg/dL Ethyl Alcohol Screen (Negative) mg/dL Crossmatch See Detail 07/19/19 07/19/19 07/19/19 Range/Units 13:25 14:22 14:29 RBC (3.80-5.40) m/uL Hgb (11.4-16.0) gm/dL Hct (34.0-46.0) % MCV (80.0-100.0) fL MCHC (31.0-37.0) g/dL RDW (11.5-15.5) % Plt Count (150-450) k/uL Lymphocytes # (Manual) (1.0-4.8) k/uL Macrocytosis PT (9.0-12.0) sec INR (<1.2) APTT (22.0-30.0) sec ABG pH 6.81 L* (7.35-7.45) ABG pCO2 22 L (35-45) mmHg ABG pO2 >400 H (83-108) mmHg ABG HCO3 4 L* (21-25) mmol/L ABG Total CO2 4 L (19-24) mmol/L ABG O2 Saturation 99.3 H (94-97) % ABG Lactic Acid (0.5-1.6) mmol/L VBG pH (7.31-7.41) VBG pCO2 (37-51) mmHg VBG HCO3 (24-28) mmol/L Potassium (3.5-5.1) mmol/L Chloride (98-107) mmol/L Carbon Dioxide (22-30) mmol/L Creatinine (0.52-1.04) mg/dL Glucose (74-99) mg/dL POC Glucose (mg/dL) 210 H (75-99) mg/dL Osmolality (280-301) mosm/kg Plasma Lactic Acid Robert (0.7-2.0) mmol/L Calcium (8.4-10.2) mg/dL Total Bilirubin (0.2-1.3) mg/dL AST (14-36) U/L ALT (4-34) U/L Alkaline Phosphatase (38-126) U/L Ammonia (<30) umol/L Creatine Kinase (30-135) U/L Total Protein (6.3-8.2) g/dL Albumin (3.5-5.0) g/dL Urine Appearance Turbid H (Clear) Urine Protein 2+ H (Negative) Urine Glucose (UA) Trace H (Negative) Urine Blood Moderate H (Negative) Ur Leukocyte Esterase Large H (Negative) Urine RBC 82 H (0-5) /hpf Urine WBC >182 H (0-5) /hpf Urine WBC Clumps Many H (None) /hpf Amorphous Sediment Rare H (None) /hpf Urine Bacteria Many H (None) /hpf Hyaline Casts 73 H (0-2) /lpf Urine Mucus Many H (None) /hpf Serum Alcohol mg/dL Ethyl Alcohol Screen (Negative) mg/dL Crossmatch 07/19/19 07/19/19 07/19/19 Range/Units 16:26 17:57 20:00 RBC (3.80-5.40) m/uL Hgb (11.4-16.0) gm/dL Hct (34.0-46.0) % MCV (80.0-100.0) fL MCHC (31.0-37.0) g/dL RDW (11.5-15.5) % Plt Count (150-450) k/uL Lymphocytes # (Manual) (1.0-4.8) k/uL Macrocytosis PT (9.0-12.0) sec INR (<1.2) APTT (22.0-30.0) sec ABG pH 6.89 L* (7.35-7.45) ABG pCO2 19 L* (35-45) mmHg ABG pO2 165 H (83-108) mmHg ABG HCO3 4 L* (21-25) mmol/L ABG Total CO2 4 L (19-24) mmol/L ABG O2 Saturation 98.1 H (94-97) % ABG Lactic Acid (0.5-1.6) mmol/L VBG pH (7.31-7.41) VBG pCO2 (37-51) mmHg VBG HCO3 (24-28) mmol/L Potassium (3.5-5.1) mmol/L Chloride (98-107) mmol/L Carbon Dioxide (22-30) mmol/L Creatinine (0.52-1.04) mg/dL Glucose (74-99) mg/dL POC Glucose (mg/dL) 135 H (75-99) mg/dL Osmolality (280-301) mosm/kg Plasma Lactic Acid Robert 18.1 H* (0.7-2.0) mmol/L Calcium (8.4-10.2) mg/dL Total Bilirubin (0.2-1.3) mg/dL AST (14-36) U/L ALT (4-34) U/L Alkaline Phosphatase (38-126) U/L Ammonia (<30) umol/L Creatine Kinase (30-135) U/L Total Protein (6.3-8.2) g/dL Albumin (3.5-5.0) g/dL Urine Appearance (Clear) Urine Protein (Negative) Urine Glucose (UA) (Negative) Urine Blood (Negative) Ur Leukocyte Esterase (Negative) Urine RBC (0-5) /hpf Urine WBC (0-5) /hpf Urine WBC Clumps (None) /hpf Amorphous Sediment (None) /hpf Urine Bacteria (None) /hpf Hyaline Casts (0-2) /lpf Urine Mucus (None) /hpf Serum Alcohol mg/dL Ethyl Alcohol Screen (Negative) mg/dL Crossmatch 07/19/19 07/19/19 07/19/19 Range/Units 20:46 22:25 22:25 RBC 2.82 L (3.80-5.40) m/uL Hgb 8.5 L D (11.4-16.0) gm/dL Hct 28.8 L (34.0-46.0) % MCV 102.2 H D (80.0-100.0) fL MCHC 29.5 L (31.0-37.0) g/dL RDW 19.9 H (11.5-15.5) % Plt Count 81 L D (150-450) k/uL Lymphocytes # (Manual) (1.0-4.8) k/uL Macrocytosis PT (9.0-12.0) sec INR (<1.2) APTT (22.0-30.0) sec ABG pH 7.12 L* (7.35-7.45) ABG pCO2 22 L (35-45) mmHg ABG pO2 122 H (83-108) mmHg ABG HCO3 7 L* (21-25) mmol/L ABG Total CO2 8 L (19-24) mmol/L ABG O2 Saturation 98.1 H (94-97) % ABG Lactic Acid (0.5-1.6) mmol/L VBG pH (7.31-7.41) VBG pCO2 (37-51) mmHg VBG HCO3 (24-28) mmol/L Potassium 5.4 H (3.5-5.1) mmol/L Chloride 109 H (98-107) mmol/L Carbon Dioxide 7 L* (22-30) mmol/L Creatinine 3.03 H (0.52-1.04) mg/dL Glucose 174 H (74-99) mg/dL POC Glucose (mg/dL) (75-99) mg/dL Osmolality (280-301) mosm/kg Plasma Lactic Acid Robert (0.7-2.0) mmol/L Calcium 6.6 L (8.4-10.2) mg/dL Total Bilirubin 1.4 H (0.2-1.3) mg/dL AST 289 H (14-36) U/L ALT 53 H (4-34) U/L Alkaline Phosphatase 241 H (38-126) U/L Ammonia (<30) umol/L Creatine Kinase (30-135) U/L Total Protein 6.1 L (6.3-8.2) g/dL Albumin 3.0 L (3.5-5.0) g/dL Urine Appearance (Clear) Urine Protein (Negative) Urine Glucose (UA) (Negative) Urine Blood (Negative) Ur Leukocyte Esterase (Negative) Urine RBC (0-5) /hpf Urine WBC (0-5) /hpf Urine WBC Clumps (None) /hpf Amorphous Sediment (None) /hpf Urine Bacteria (None) /hpf Hyaline Casts (0-2) /lpf Urine Mucus (None) /hpf Serum Alcohol mg/dL Ethyl Alcohol Screen (Negative) mg/dL Crossmatch 07/19/19 07/19/19 07/19/19 Range/Units 22:25 22:26 22:50 RBC (3.80-5.40) m/uL Hgb (11.4-16.0) gm/dL Hct (34.0-46.0) % MCV (80.0-100.0) fL MCHC (31.0-37.0) g/dL RDW (11.5-15.5) % Plt Count (150-450) k/uL Lymphocytes # (Manual) (1.0-4.8) k/uL Macrocytosis PT 14.5 H (9.0-12.0) sec INR 1.5 H (<1.2) APTT 30.6 H (22.0-30.0) sec ABG pH 7.17 L* (7.35-7.45) ABG pCO2 23 L (35-45) mmHg ABG pO2 116 H (83-108) mmHg ABG HCO3 8 L* (21-25) mmol/L ABG Total CO2 9 L (19-24) mmol/L ABG O2 Saturation 97.9 H (94-97) % ABG Lactic Acid (0.5-1.6) mmol/L VBG pH (7.31-7.41) VBG pCO2 (37-51) mmHg VBG HCO3 (24-28) mmol/L Potassium (3.5-5.1) mmol/L Chloride (98-107) mmol/L Carbon Dioxide (22-30) mmol/L Creatinine (0.52-1.04) mg/dL Glucose (74-99) mg/dL POC Glucose (mg/dL) 186 H (75-99) mg/dL Osmolality (280-301) mosm/kg Plasma Lactic Acid Robert (0.7-2.0) mmol/L Calcium (8.4-10.2) mg/dL Total Bilirubin (0.2-1.3) mg/dL AST (14-36) U/L ALT (4-34) U/L Alkaline Phosphatase (38-126) U/L Ammonia (<30) umol/L Creatine Kinase (30-135) U/L Total Protein (6.3-8.2) g/dL Albumin (3.5-5.0) g/dL Urine Appearance (Clear) Urine Protein (Negative) Urine Glucose (UA) (Negative) Urine Blood (Negative) Ur Leukocyte Esterase (Negative) Urine RBC (0-5) /hpf Urine WBC (0-5) /hpf Urine WBC Clumps (None) /hpf Amorphous Sediment (None) /hpf Urine Bacteria (None) /hpf Hyaline Casts (0-2) /lpf Urine Mucus (None) /hpf Serum Alcohol mg/dL Ethyl Alcohol Screen (Negative) mg/dL Crossmatch 07/20/19 07/20/19 07/20/19 Range/Units 02:32 02:35 02:35 RBC 2.79 L (3.80-5.40) m/uL Hgb 8.5 L (11.4-16.0) gm/dL Hct 28.1 L (34.0-46.0) % MCV 100.7 H (80.0-100.0) fL MCHC 30.4 L (31.0-37.0) g/dL RDW 20.1 H (11.5-15.5) % Plt Count 97 L (150-450) k/uL Lymphocytes # (Manual) (1.0-4.8) k/uL Macrocytosis PT (9.0-12.0) sec INR (<1.2) APTT (22.0-30.0) sec ABG pH (7.35-7.45) ABG pCO2 (35-45) mmHg ABG pO2 (83-108) mmHg ABG HCO3 (21-25) mmol/L ABG Total CO2 (19-24) mmol/L ABG O2 Saturation (94-97) % ABG Lactic Acid (0.5-1.6) mmol/L VBG pH (7.31-7.41) VBG pCO2 (37-51) mmHg VBG HCO3 (24-28) mmol/L Potassium 5.7 H (3.5-5.1) mmol/L Chloride (98-107) mmol/L Carbon Dioxide 9 L* (22-30) mmol/L Creatinine (0.52-1.04) mg/dL Glucose (74-99) mg/dL POC Glucose (mg/dL) 229 H (75-99) mg/dL Osmolality (280-301) mosm/kg Plasma Lactic Acid Robert (0.7-2.0) mmol/L Calcium (8.4-10.2) mg/dL Total Bilirubin (0.2-1.3) mg/dL AST (14-36) U/L ALT (4-34) U/L Alkaline Phosphatase (38-126) U/L Ammonia (<30) umol/L Creatine Kinase (30-135) U/L Total Protein (6.3-8.2) g/dL Albumin (3.5-5.0) g/dL Urine Appearance (Clear) Urine Protein (Negative) Urine Glucose (UA) (Negative) Urine Blood (Negative) Ur Leukocyte Esterase (Negative) Urine RBC (0-5) /hpf Urine WBC (0-5) /hpf Urine WBC Clumps (None) /hpf Amorphous Sediment (None) /hpf Urine Bacteria (None) /hpf Hyaline Casts (0-2) /lpf Urine Mucus (None) /hpf Serum Alcohol mg/dL Ethyl Alcohol Screen (Negative) mg/dL Crossmatch 07/20/19 07/20/19 07/20/19 Range/Units 06:45 06:45 06:45 RBC 2.76 L (3.80-5.40) m/uL Hgb 8.5 L (11.4-16.0) gm/dL Hct 27.4 L (34.0-46.0) % MCV (80.0-100.0) fL MCHC 30.9 L (31.0-37.0) g/dL RDW 20.0 H (11.5-15.5) % Plt Count 84 L (150-450) k/uL Lymphocytes # (Manual) 0.98 L (1.0-4.8) k/uL Macrocytosis PT (9.0-12.0) sec INR (<1.2) APTT (22.0-30.0) sec ABG pH (7.35-7.45) ABG pCO2 (35-45) mmHg ABG pO2 (83-108) mmHg ABG HCO3 (21-25) mmol/L ABG Total CO2 (19-24) mmol/L ABG O2 Saturation (94-97) % ABG Lactic Acid (0.5-1.6) mmol/L VBG pH (7.31-7.41) VBG pCO2 (37-51) mmHg VBG HCO3 (24-28) mmol/L Potassium 5.4 H (3.5-5.1) mmol/L Chloride (98-107) mmol/L Carbon Dioxide 10 L (22-30) mmol/L Creatinine 3.52 H (0.52-1.04) mg/dL Glucose 231 H (74-99) mg/dL POC Glucose (mg/dL) (75-99) mg/dL Osmolality (280-301) mosm/kg Plasma Lactic Acid Robert (0.7-2.0) mmol/L Calcium 6.2 L* (8.4-10.2) mg/dL Total Bilirubin 1.5 H (0.2-1.3) mg/dL AST 355 H (14-36) U/L ALT 50 H (4-34) U/L Alkaline Phosphatase 221 H (38-126) U/L Ammonia 65 H (<30) umol/L Creatine Kinase (30-135) U/L Total Protein 6.0 L (6.3-8.2) g/dL Albumin 2.9 L (3.5-5.0) g/dL Urine Appearance (Clear) Urine Protein (Negative) Urine Glucose (UA) (Negative) Urine Blood (Negative) Ur Leukocyte Esterase (Negative) Urine RBC (0-5) /hpf Urine WBC (0-5) /hpf Urine WBC Clumps (None) /hpf Amorphous Sediment (None) /hpf Urine Bacteria (None) /hpf Hyaline Casts (0-2) /lpf Urine Mucus (None) /hpf Serum Alcohol mg/dL Ethyl Alcohol Screen (Negative) mg/dL Crossmatch 07/20/19 07/20/19 07/20/19 Range/Units 06:45 06:47 07:48 RBC (3.80-5.40) m/uL Hgb (11.4-16.0) gm/dL Hct (34.0-46.0) % MCV (80.0-100.0) fL MCHC (31.0-37.0) g/dL RDW (11.5-15.5) % Plt Count (150-450) k/uL Lymphocytes # (Manual) (1.0-4.8) k/uL Macrocytosis PT (9.0-12.0) sec INR (<1.2) APTT (22.0-30.0) sec ABG pH 7.28 L (7.35-7.45) ABG pCO2 22 L (35-45) mmHg ABG pO2 (83-108) mmHg ABG HCO3 10 L* (21-25) mmol/L ABG Total CO2 11 L (19-24) mmol/L ABG O2 Saturation 97.1 H (94-97) % ABG Lactic Acid 17.5 H* (0.5-1.6) mmol/L VBG pH (7.31-7.41) VBG pCO2 (37-51) mmHg VBG HCO3 (24-28) mmol/L Potassium (3.5-5.1) mmol/L Chloride (98-107) mmol/L Carbon Dioxide (22-30) mmol/L Creatinine (0.52-1.04) mg/dL Glucose (74-99) mg/dL POC Glucose (mg/dL) 240 H (75-99) mg/dL Osmolality (280-301) mosm/kg Plasma Lactic Acid Robetr (0.7-2.0) mmol/L Calcium (8.4-10.2) mg/dL Total Bilirubin (0.2-1.3) mg/dL AST (14-36) U/L ALT (4-34) U/L Alkaline Phosphatase (38-126) U/L Ammonia (<30) umol/L Creatine Kinase (30-135) U/L Total Protein (6.3-8.2) g/dL Albumin (3.5-5.0) g/dL Urine Appearance (Clear) Urine Protein (Negative) Urine Glucose (UA) (Negative) Urine Blood (Negative) Ur Leukocyte Esterase (Negative) Urine RBC (0-5) /hpf Urine WBC (0-5) /hpf Urine WBC Clumps (None) /hpf Amorphous Sediment (None) /hpf Urine Bacteria (None) /hpf Hyaline Casts (0-2) /lpf Urine Mucus (None) /hpf Serum Alcohol mg/dL Ethyl Alcohol Screen (Negative) mg/dL Crossmatch Microbiology - Last 24 Hours (Table) 07/19/19 14:22 Urine Culture - Preliminary Urine,Voided 07/19/19 20:14 Sputum Culture - Preliminary Sputum Assessment and Plan Assessment: -patient presented to hospital with unresponsiveness this patient noticed to have low blood sugar and subsequently have a cardiac arrest in the ER in this patient who noted to be hypotensive hypothermic with diffuse thickening of the colon wall and concern for possible ischemic colitis there is no clear history of any recent antibiotic exposure and are not mention no diarrhea making infectious colitis to be less likely. (1) Sepsis Current Visit: Yes Status: Acute Code(s): A41.9 - SEPSIS, UNSPECIFIED ORGANISM SNOMED Code(s): 14720567 (2) Ischemic colitis Current Visit: Yes Status: Acute Code(s): K55.9 - VASCULAR DISORDER OF INTESTINE, UNSPECIFIED SNOMED Code(s): 64063987 Plan: 1-patient will be treated with Zosyn 3.375 g every 8 hour should cover for enteric anaerobes and anaerobes 2-if the patient has any loose stool stool studies will be collected to rule out infectious etiology 3-IV fluids We will follow on clinical condition and cultures to further adjust medication if needed Thank you for this consultation we will follow the patient along with you Time with Patient: Greater than 30
[2019-07-20 23:41] LABS: Glucose,Whole Blood 170 mg/dL (75-99)
[2019-07-21 00:37] LABS: Glucose,Whole Blood 184 mg/dL (75-99)
[2019-07-21 02:13] LABS: Glucose,Whole Blood 148 mg/dL (75-99)
[2019-07-21 03:36] LABS: Glucose,Whole Blood 152 mg/dL (75-99)
[2019-07-21 04:24] LABS: Glucose,Whole Blood 138 mg/dL (75-99)
[2019-07-21] MEDS: INSULIN REGULAR 100 UNIT in SODIUM CHLORIDE 0.9% 100 ML IV SCH (04:43)
[2019-07-21] MEDS: PIPERACILLIN-TAZOBACTAM 3.375 GM in SODIUM CHLORIDE 0.9% 100 ML IVPB SCH ×2 (04:44→17:45)
[2019-07-21] MEDS: DEXTROSE 5% IN WATER 1,000 ML with SODIUM BICARB (1 MEQ/ML) 150 ML IV SCH (04:54)
[2019-07-21 05:07] LABS: Anisocytosis Moderate; HCT 27.8 % (34.0-46.0); HGB 9.3 gm/dL (11.4-16.0); MCH 31.8 pg (25.0-35.0); MCHC 33.6 g/dL (31.0-37.0); MCV 94.7 fL (80.0-100.0); Macrocytosis Slight; Mean Platelet Volume 10.1; RBC 2.94 m/uL (3.80-5.40); RDW 20.3 % (11.5-15.5)
[2019-07-21 05:22] LABS: Albumin 2.7 g/dL (3.5-5.0); Calcium 6.5 mg/dL (8.4-10.2); Potassium 3.9 mmol/L (3.5-5.1); Total Bilirubin 2.2 mg/dL (0.2-1.3); Total Protein 5.8 g/dL (6.3-8.2)
[2019-07-21 05:33] LABS: Glucose,Whole Blood 120 mg/dL (75-99)
[2019-07-21] MEDS: PROPOFOL 1,000 MG in EMPTY BAG 1 BAG IV SCH ×2 (05:33→12:00)
[2019-07-21 05:43] LABS: Band Neutrophils % 27 %; Metamyelocytes # (M) 0.18 k/uL (0); Metamyelocytes % 2 %; Neutrophils % (M) 59 %; Nucleated Red Blood Cells 1 /100 WBC (0-0); Total Cells Counted 200
[2019-07-21 05:44] LABS: Lymphocytes # (M) 0.79 k/uL (1.0-4.8); Monocytes # (M) 0.35 k/uL (0-1.0); Target Cells Present; WBC 8.8 k/uL (3.8-10.6)
[2019-07-21 05:45] LABS: Platelet Count 47 k/uL (150-450)
[2019-07-21 06:31] LABS: Glucose,Whole Blood 127 mg/dL (75-99)
--- NOTE | 2019-07-21 07:14 | XR ---
EXAMINATION TYPE: XR chest 1V portable DATE OF EXAM: 07/21/2019 COMPARISON: Prior chest x-ray 07/20/2019 HISTORY: Intubated TECHNIQUE: Single frontal view of the chest is obtained. FINDINGS: Endotracheal tube and NG tube are overlying appropriate positions. There are overlying car diac leads. No evident pneumothorax. Patchy density present bilaterally within the lungs. Heart size is stable. Loop recorder overlying the chest. IMPRESSION: There is no significant interval change, correlate for atelectasis versus pneumonia.
--- NOTE | 2019-07-21 07:17 | P.CRDCN ---
History of Present Illness Consult date: 07/20/19 History of present illness: Sadaf Lomeli This is Dr. Oliver dictating a consult on this patient Seen on June IMPRESSION / ASSESSMENT: Patient with multiple medical problems with a systolic arrest Hyperkalemic From a cardiac standpoint she had a mildly abnormal ECG with slightly peaked T waves but was also hyperkalemic. This is being treated At lites are normal creatinine is elevated she is a low calcium abnormal LFTs PLAN: From a cardiac standpoint no further workup at this point indicated Her prognosis is very guarded and a condition critical but primarily from noncardiac issues Continue ICU care Please call cardiology for any new cardiac issues HPI 48-year-old Afro-[place] female brought to the emergency room unresponsive History of alcohol use and depression Became hypertensive started on norepinephrine later became bradycardic and asys tolic CPR done patient intubated Noted to have an elevated potassium and this was treated Liver enzymes elevated Creatinine elevated Ammonia level CXCIX Serum alcohol 274 Computed tomography scan of the brain did not show any intracranial hemorrhage CT of the abdomen and pelvis showed severe pancolitis, mesenteric edema and small volume ascites Suggestion of ischemic bowel Seen by surgery Deemed not to be a surgical candidate Treated with IV antibiotics and packed red cells for anemia Acetaminophen level in the serum of around 11.5 Currently called. 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 Past Anesthesia/Blood Transfusion Reactions: No Reported Reaction Past Psychological History: Unable to Obtain Smoking Status: Unknown if ever smoked Past Alcohol Use History: Unable to Obtain Past Drug Use History: Unable to Obtain Medications and Allergies Home Medications Medication Instructions Recorded Confirmed Type Unable To Assess [Unable to Assess] 07/19/19 07/19/19 History Allergies Allergy/AdvReac Type Severity Reaction Status Date / Time Unable to Assess Allergy Verified 07/19/19 12:38 Physical Exam Vitals: Vital Signs Temp Pulse Pulse Resp BP Pulse Ox 07/21/19 07:00 82 20 122/71 99 05/25/20 06:45 82 20 123/71 99 05/25/20 06:30 81 20 128/74 99 05/25/20 06:15 74 20 128/76 100 05/25/20 06:00 80 20 121/68 99 05/25/20 05:45 82 20 123/68 100 05/25/20 05:30 81 20 124/71 100 05/25/20 05:15 79 20 125/75 99 05/25/20 05:00 78 20 126/72 99 05/25/20 04:45 80 20 122/71 99 05/25/20 04:30 83 20 130/72 99 05/25/20 04:15 81 20 53/36 98 05/25/20 04:00 98.1 F 87 20 131/76 91 L 05/25/20 03:45 89 20 120/66 05/25/20 03:30 93 20 120/68 98 05/25/20 03:15 92 20 115/67 99 05/25/20 03:00 92 20 119/68 99 05/25/20 02:45 92 20 117/66 99 05/25/20 02:30 91 20 118/68 100 05/25/20 02:15 88 20 114/65 99 05/25/20 02:00 91 20 124/68 100 05/25/20 01:45 90 20 123/70 99 05/25/20 01:30 89 20 113/69 99 05/25/20 01:15 92 20 122/69 100 05/25/20 01:00 89 20 119/69 98 05/25/20 00:45 88 20 132/76 100 05/25/20 00:30 85 20 129/72 99 05/25/20 00:17 85 20 129/72 99 05/25/20 00:15 86 20 121/69 98 05/25/20 00:00 97.9 F 89 20 121/67 99 05/24/20 23:45 90 20 128/74 99 05/24/20 23:30 87 20 134/79 99 05/24/20 23:15 82 20 133/76 99 05/24/20 23:00 93 20 137/78 99 05/24/20 22:45 84 20 132/79 100 05/24/20 22:30 96 23 136/75 100 05/24/20 22:15 84 20 131/78 99 05/24/20 22:00 87 20 150/87 99 05/24/20 21:45 97 23 136/68 99 05/24/20 21:30 89 21 125/71 99 05/24/20 21:15 89 20 130/73 99 05/24/20 21:00 98 20 123/70 99 05/24/20 20:45 90 20 124/71 98 05/24/20 20:30 92 20 119/68 98 05/24/20 20:15 93 20 120/62 98 05/24/20 20:00 98.4 F 96 20 118/62 97 05/24/20 19:45 96 20 116/60 97 05/24/20 19:30 96 20 119/63 96 05/24/20 19:15 97 20 125/62 97 05/24/20 19:00 98 20 121/66 97 05/24/20 18:45 98 20 118/58 96 05/24/20 18:30 98 20 118/58 96 05/24/20 18:15 98 20 118/59 96 05/24/20 18:00 98 21 115/55 96 05/24/20 17:45 99 25 H 121/59 96 05/24/20 17:30 101 H 20 118/65 97 05//20 17:15 102 H 12 117/63 97 05/20 17:00 103 H 15 121/65 97 05//20 16:45 105 H 22 117/64 97 05/24/20 16:30 104 H 18 116/60 97 05/2420 16:15 105 H 21 111/61 97 05/20 16:00 105 H 23 116/59 97 05/24/20 15:47 122 H 05/24/20 15:45 105 H 24 126/70 99 05/24/20 15:30 108 H 27 H 133/79 99 05/24/20 15:15 108 H 25 H 115/65 99 05/20 15:00 104 H 22 117/72 99 05/24/20 14:45 110 H 28 H 127/71 99 05/24/20 14:30 107 H 27 H 117/60 99 05/24/20 14:15 107 H 27 H 130/72 99 05/2420 14:00 105 H 27 H 126/67 97 07/20/19 13:45 105 H 26 H 126/66 07/20/19 13:30 108 H 29 H 134/75 97 07/20/19 13:15 109 H 27 H 137/71 99 07/20/19 13:00 109 H 29 H 146/74 99 07/20/19 12:45 103 H 27 H 113/75 99 07/20/19 12:30 107 H 30 H 128/67 98 07/20/19 12:15 109 H 27 H 127/73 96 07/20/19 12:00 99.9 F H 108 H 28 H 122/67 98 07/20/19 11:45 110 H 28 H 119/64 98 07/20/19 11:38 122 H 07/20/19 11:30 107 H 29 H 119/62 98 07/20/19 11:15 111 H 30 H 114/59 99 07/20/19 11:00 107 H 29 H 114/59 98 07/20/19 10:45 111 H 28 H 111/54 98 07/20/19 10:30 109 H 27 H 112/64 99 07/20/19 10:15 110 H 29 H 124/62 98 07/20/19 10:00 111 H 29 H 117/57 97 07/20/19 09:45 109 H 29 H 111/56 99 07/20/19 09:30 112 H 28 H 112/54 99 07/20/19 09:15 113 H 26 H 115/55 99 07/20/19 09:00 117 H 31 H 112/54 98 07/20/19 08:45 114 H 24 112/53 99 07/20/19 08:30 114 H 25 H 112/54 99 07/20/19 08:15 118 H 30 H 108/51 99 07/20/19 08:00 99.7 F H 113 H 24 105/53 98 24 07:45 115 H 24 109/48 99 07/20/19 07:39 122 H 07/20/19 07:30 112 H 23 105/45 98 Intake and Output 07/20/1920 07/21/19 22:59 06:59 14:59 Intake Total 6345.221 6888.892 98 Output Total 25 25 Balance 2286.830 4815.892 98 Intake: IV 1284 1084 98 0.9 KVO 60 160 20 Dextrose 5% in Water 1, 1200 900 75 000 ml @ 75 mls/hr IV . [id number] [facility] with Sodium Bicarb (1 Meq/ml) 150 ml Rx#:[id number] pressure bag 24 24 3 Intake, IV Titration 601.464 220.892 Amount Calcium Gluconate 1 gm In 100 Sodium Chloride 0.9% 100 ml @ 100 mls/hr IVPB ONCE ONE Rx#:[id number] Insulin Regular 100 unit 38.245 24.610 In Sodium Chloride 0.9% 100 ml @ Per Protocol IV .Q0M [facility] Rx#:[id number] Norepinephrine 32 mg In 69.474 25.973 Sodium Chloride 0.9% 218 ml @ 0.6 MCG/KG/MIN 23. 766 mls/hr IV .[id number] [facility] Rx#:[id number] Potassium Chloride 10 meq 100 In Water For Injection 1 100ml.bag @ 100 mls/hr IVPB Q1H [facility] Rx#: [id number] Propofol 1,000 mg In 152.475 166.586 Empty Bag 1 bag @ Titrate IV .Q0M [facility] Rx#: [id number] Sodium Chloride 0.9% 150 141.270 3.723 ml @ 0.04 UNITS/MIN 6.12 mls/hr IV .Q24H [facility] with Vasopressin 60 unit Rx#: [id number] Output: Urine 25 25 Other: Voiding Method Indwelling Catheter Indwelling Catheter # Bowel Movements 1 Weight 90.8 kg ABP, PAP, CO, CI - Last 8 Hours Arterial Blood Pressure 130/53 Arterial Blood Pressure 138/59 Arterial Blood Pressure 141/60 Arterial Blood Pressure 141/62 Arterial Blood Pressure 147/64 Arterial Blood Pressure 128/58 Arterial Blood Pressure 133/60 Arterial Blood Pressure 138/61 Arterial Blood Pressure 137/62 Arterial Blood Pressure 140/62 Arterial Blood Pressure 145/62 Arterial Blood Pressure 153/64 Arterial Blood Pressure 141/68 Arterial Blood Pressure 149/66 Arterial Blood Pressure 109/52 Arterial Blood Pressure 115/54 Arterial Blood Pressure 111/50 Arterial Blood Pressure 125/55 Arterial Blood Pressure 116/50 Arterial Blood Pressure 124/52 Arterial Blood Pressure 115/50 Arterial Blood Pressure 124/54 Arterial Blood Pressure 127/55 Arterial Blood Pressure 111/52 Arterial Blood Pressure 125/56 Arterial Blood Pressure 122/56 Arterial Blood Pressure 135/62 Arterial Blood Pressure 139/64 Arterial Blood Pressure 138/63 Arterial Blood Pressure 115/54 Arterial Blood Pressure 118/55 Arterial Blood Pressure 137/61 Results 07/21/19 04:25 07/21/19 04:25 Cardiac Enzymes 07/20/19 07/21/19 Range/Units 06:45 04:25 AST 355 H 541 H (14-36) U/L CBC 07/20/19 07/20/19 07/21/19 Range/Units 06:45 13:15 04:25 WBC 8.5 8.8 (3.8-10.6) k/uL RBC 2.79 L 2.94 L (3.80-5.40) m/uL Hgb 9.0 L 9.3 L (11.4-16.0) gm/dL Hct 27.1 L 27.8 L (34.0-46.0) % Plt Count 84 L 71 L 47 L (150-450) k/uL Comprehensive Metabolic Panel 07/20/19 07/20/19 07/21/19 Range/Units 06:45 19:05 04:25 Sodium 145 142 142 (137-145) mmol/L Potassium 5.4 H 3.8 3.9 (3.5-5.1) mmol/L Chloride 107 103 101 (98-107) mmol/L Carbon Dioxide 10 L 24 29 (22-30) mmol/L BUN 12 15 16 (7-17) mg/dL Creatinine 3.52 H 3.66 H 4.00 H (0.52-1.04) mg/dL Glucose 163 H 127 H (74-99) mg/dL Calcium 6.2 L* 6.2 L* 6.5 L (8.4-10.2) mg/dL AST 355 H 541 H (14-36) U/L ALT 50 H 75 H (4-34) U/L Alkaline Phosphatase 221 H 216 H (38-126) U/L Total Protein 5.8 L (6.3-8.2) g/dL Albumin 2.7 L (3.5-5.0) g/dL Current Medications Generic Name Dose Route Start Last Admin Trade Name Freq PRN Reason Stop Dose Admin Chlorhexidine Gluconate 15 ml 07/19/19 21:00 07/20/19 20:18 Peridex MUCOUS MEM 15 ml BID [facility] Administration Hydrocortisone Sodium Succinate 100 mg 07/19/19 16:00 07/20/19 22:04 Solu-Cortef IV 100 mg TID [facility] Administration Midazolam HCl 50 mg/ Sodium 50 mls @ 1 mls/hr 07/19/19 14:00 07/20/19 10:15 Chloride IV Infused .Q24H [facility] Titration Protocol 1 MG/HR Metronidazole 500 mg/ IV 100 mls @ 100 mls/hr 07/19/19 16:00 07/20/19 22:04 Solution IVPB 100 mls/hr TID [facility] Administration Propofol 1,000 mg/ IV Solution 100 mls @ 0 mls/hr 07/19/19 18:45 07/21/19 05:33 IV 35 mcg/kg/min .Q0M [facility] 17.745 mls/hr Administration Protocol Titrate Piperacillin Sod/Tazobactam 100 mls @ 25 mls/hr 07/20/19 05:00 07/21/19 04:44 Sod 3.375 gm/ Sodium Chloride IVPB 25 mls/hr Q12H [facility] Administration Vasopressin 60 unit/ Sodium 153 mls @ 6.12 mls/hr 07/19/19 21:16 07/21/19 00:40 Chloride IV 0 units/min .Q24H [facility] 0 mls/hr Titration Protocol 0.04 UNITS/MIN Norepinephrine Bitartrate 32 250 mls @ 23.766 mls/hr 07/20/19 10:30 07/21/19 06:49 mg/ Sodium Chloride IV 0.05 mcg/kg/min .[id number] [facility] 1.98 mls/hr Titration Protocol 0.6 MCG/KG/MIN Insulin Human Regular 100 unit 101 mls @ 0 mls/hr 07/20/19 14:15 07/21/19 05:33 / Sodium Chloride IV 0 units/hr .Q0M [facility] 0 mls/hr Titration Protocol Per Protocol Lactulose 30 gm 07/19/19 15:01 07/20/19 20:17 Cephulac PO 30 gm BID [facility] Administration Naloxone HCl 0.2 mg 07/19/19 15:44 Narcan IV Q2M PRN Opioid Reversal Pantoprazole Sodium 40 mg 07/20/19 09:00 07/20/19 08:26 Protonix IV 40 mg DAILY [facility] Administration Rifaximin 550 mg 07/20/19 09:15 07/20/19 20:20 Xifaxan PO 08/19/19 09:16 550 mg BID [facility] Administration Intake and Output 07/20/19 07/21/19 07/21/19 22:59 06:59 14:59 Intake Total 9106.209 6723.892 98 Output Total 25 25 Balance 3801.799 0536.892 98 Intake: IV 1284 1084 98 0.9 KVO 60 160 20 Dextrose 5% in Water 1, 1200 900 75 000 ml @ 75 mls/hr IV . [id number] [facility] with Sodium Bicarb (1 Meq/ml) 150 ml Rx#:[id number] pressure bag 24 24 3 Intake, IV Titration 601.464 220.892 Amount Calcium Gluconate 1 gm In 100 Sodium Chloride 0.9% 100 ml @ 100 mls/hr IVPB ONCE ONE Rx#:[id number] Insulin Regular 100 unit 38.245 24.610 In Sodium Chloride 0.9% 100 ml @ Per Protocol IV .Q0M [facility] Rx#:[id number] Norepinephrine 32 mg In 69.474 25.973 Sodium Chloride 0.9% 218 ml @ 0.6 MCG/KG/MIN 23. 766 mls/hr IV .[id number] [facility] Rx#:[id number] Potassium Chloride 10 meq 100 In Water For Injection 1 100ml.bag @ 100 mls/hr IVPB Q1H [facility] Rx#: [id number] Propofol 1,000 mg In 152.475 166.586 Empty Bag 1 bag @ Titrate IV .Q0M [facility] Rx#: [id number] Sodium Chloride 0.9% 150 141.270 3.723 ml @ 0.04 UNITS/MIN 6.12 mls/hr IV .Q24H [facility] with Vasopressin 60 unit Rx#: [id number] Output: Urine 25 25 Other: Voiding Method Indwelling Catheter Indwelling Catheter # Bowel Movements 1 Weight 90.8 kg 07/21/19 04:25 07/21/19 04:25
[2019-07-21 07:31] LABS: ABG Base Excess 8.2 mmol/L; ABG HCO3 30 mmol/L (21-25); ABG Oxygen Saturation 99.1 % (94-97); ABG PCO2 32 mmHg (35-45); ABG PO2 117 mmHg (83-108); ABG TCO2 31 mmol/L (19-24); Allen Test Performed? Yes
[2019-07-21 07:38] LABS: ABG PH 7.58 (7.35-7.45)
[2019-07-21 08:09] LABS: Glucose,Whole Blood 172 mg/dL (75-99)
[2019-07-21] MEDS: NOREPINEPHRINE 32 MG in SODIUM CHLORIDE 0.9% 218 ML IV SCH ×2 (08:16→13:46)
[2019-07-21] MEDS: metroNIDAZOLE-NS PMX 500 MG in SALINE 1 100ML.BAG IVPB SCH ×3 (08:29→20:56)
[2019-07-21] MEDS: LACTULOSE 20 GM/30 ML CUP PO SCH ×2 (08:29→20:56)
[2019-07-21] MEDS: CHLORHEXIDINE GLUCONATE 15 ML CUP MUCOUS MEM SCH ×2 (08:30→20:56)
[2019-07-21] MEDS: HYDROCORTISONE SUCCINATE 100 MG/2 ML VIAL IV SCH ×3 (08:30→20:56)
[2019-07-21] MEDS: PANTOPRAZOLE 40 MG/10 ML VIAL IV SCH (08:30)
[2019-07-21] MEDS: RIFAXIMIN 550 MG TABLET PO SCH ×2 (08:34→20:57)
[2019-07-21 09:07] LABS: Glucose,Whole Blood 187 mg/dL (75-99)
--- NOTE | 2019-07-21 09:16 | P.PN ---
Subjective Progress Note Date: 07/21/19 Patient is weaning pressors, responding to pain, lactic acidosis improving. Patient had BM overnight. Liquid brown. Objective - Vital Signs Vital signs: Vital Signs Temp 97.7 F 07/21/19 08:00 Pulse 92 07/21/19 09:00 Resp 20 07/21/19 09:00 BP 113/69 07/21/19 09:00 Pulse Ox 100 07/21/19 09:00 Intake & Output 07/20/19 07/21/19 07/21/19 18:59 06:59 18:59 Intake Total 2338.249 2194.199 294 Output Total 35 45 21 Balance 2303.249 2149.199 273 Weight 90.8 kg Intake: IV 1988 1603 294 0.9 KVO 220 60 Dextrose 5% in Water 1949 135 225 000 ml @ 75 mls/hr IV . [id number] [facility] with Sodium Bicarb (1 Meq/ml) 150 ml Rx#:[id number] pressure bag 39 33 9 Intake, IV Titration 349.249 591.199 0 Amount Calcium Gluconate 1 gm In 100 Sodium Chloride 0.9% 100 ml @ 100 mls/hr IVPB ONCE ONE Rx#:[id number] Insulin Regular 100 unit 19.560 43.295 0 In Sodium Chloride 0.9% 100 ml @ Per Protocol IV .Q0M [facility] Rx#:[id number] Midazolam HCl 50 mg In 50 Sodium Chloride 0.9% 40 ml @ 1 MG/HR 1 mls/hr IV .Q24H [facility] Rx#:[id number] Norepinephrine 32 mg In 93.874 58.215 Sodium Chloride 0.9% 218 ml @ 0.6 MCG/KG/MIN 23. 766 mls/hr IV .[id number] [facility] Rx#:[id number] Potassium Chloride 10 meq 100 In Water For Injection 1 100ml.bag @ 100 mls/hr IVPB Q1H [facility] Rx#: [id number] Propofol 1,000 mg In 63.925 266.586 Empty Bag 1 bag @ Titrate IV .Q0M [facility] Rx#: [id number] Sodium Chloride 0.9% 150 121.890 23.103 ml @ 0.04 UNITS/MIN 6.12 mls/hr IV .Q24H [facility] with Vasopressin 60 unit Rx#: [id number] Output: Urine 35 45 21 Other: Voiding Method Indwelling Catheter Indwelling Catheter Indwelling Catheter # Voids 0 # Bowel Movements 1 ABP, PAP, CO, CI - Last Documented Arterial Blood Pressure 117/43 - Constitutional Constitutional Comment(s): Intubated and sedated - Respiratory Details: Intubated and sedated - Cardiovascular Rhythm: regular - Gastrointestinal Gastrointestinal Comment(s): Soft, nondistended, nontender - Psychiatric Psychiatric: Present: A&O x's 3 - Labs CBC & Chem 7: 07/21/19 04:25 07/21/19 04:25 Labs: Abnormal Lab Results - Last 24 Hours (Table) 07/20/19 07/20/19 07/20/19 Range/Units 11:09 13:15 14:06 RBC 2.79 L (3.80-5.40) m/uL Hgb 9.0 L (11.4-16.0) gm/dL Hct 27.1 L (34.0-46.0) % RDW 20.4 H (11.5-15.5) % Plt Count 71 L (150-450) k/uL Lymphocytes # (Manual) (1.0-4.8) k/uL Metamyelocytes # (Man) (0) k/uL Nucleated RBCs (0-0) /100 WBC ABG pH (7.35-7.45) ABG pCO2 (35-45) mmHg ABG pO2 (83-108) mmHg ABG HCO3 (21-25) mmol/L ABG Total CO2 (19-24) mmol/L ABG O2 Saturation (94-97) % Creatinine (0.52-1.04) mg/dL Glucose (74-99) mg/dL POC Glucose (mg/dL) 264 H 261 H (75-99) mg/dL Plasma Lactic Acid Robert (0.7-2.0) mmol/L Calcium (8.4-10.2) mg/dL Total Bilirubin (0.2-1.3) mg/dL AST (14-36) U/L ALT (4-34) U/L Alkaline Phosphatase (38-126) U/L Total Protein (6.3-8.2) g/dL Albumin (3.5-5.0) g/dL 07/20/19 07/20/19 07/20/19 Range/Units 14:09 16:28 17:09 RBC (3.80-5.40) m/uL Hgb (11.4-16.0) gm/dL Hct (34.0-46.0) % RDW (11.5-15.5) % Plt Count (150-450) k/uL Lymphocytes # (Manual) (1.0-4.8) k/uL Metamyelocytes # (Man) (0) k/uL Nucleated RBCs (0-0) /100 WBC ABG pH (7.35-7.45) ABG pCO2 (35-45) mmHg ABG pO2 (83-108) mmHg ABG HCO3 (21-25) mmol/L ABG Total CO2 (19-24) mmol/L ABG O2 Saturation (94-97) % Creatinine (0.52-1.04) mg/dL Glucose (74-99) mg/dL POC Glucose (mg/dL) 224 H 200 H (75-99) mg/dL Plasma Lactic Acid Robert 13.7 H* (0.7-2.0) mmol/L Calcium (8.4-10.2) mg/dL Total Bilirubin (0.2-1.3) mg/dL AST (14-36) U/L ALT (4-34) U/L Alkaline Phosphatase (38-126) U/L Total Protein (6.3-8.2) g/dL Albumin (3.5-5.0) g/dL 07/20/19 07/20/19 07/20/19 Range/Units 17:43 18:38 19:05 RBC (3.80-5.40) m/uL Hgb (11.4-16.0) gm/dL Hct (34.0-46.0) % RDW (11.5-15.5) % Plt Count (150-450) k/uL Lymphocytes # (Manual) (1.0-4.8) k/uL Metamyelocytes # (Man) (0) k/uL Nucleated RBCs (0-0) /100 WBC ABG pH (7.35-7.45) ABG pCO2 32 L (35-45) mmHg ABG pO2 (83-108) mmHg ABG HCO3 (21-25) mmol/L ABG Total CO2 (19-24) mmol/L ABG O2 Saturation 97.1 H (94-97) % Creatinine 3.66 H (0.52-1.04) mg/dL Glucose 163 H (74-99) mg/dL POC Glucose (mg/dL) 183 H (75-99) mg/dL Plasma Lactic Acid Robert (0.7-2.0) mmol/L Calcium 6.2 L* (8.4-10.2) mg/dL Total Bilirubin (0.2-1.3) mg/dL AST (14-36) U/L ALT (4-34) U/L Alkaline Phosphatase (38-126) U/L Total Protein (6.3-8.2) g/dL Albumin (3.5-5.0) g/dL 07/20/19 07/20/19 07/20/19 Range/Units 20:27 21:24 21:59 RBC (3.80-5.40) m/uL Hgb (11.4-16.0) gm/dL Hct (34.0-46.0) % RDW (11.5-15.5) % Plt Count (150-450) k/uL Lymphocytes # (Manual) (1.0-4.8) k/uL Metamyelocytes # (Man) (0) k/uL Nucleated RBCs (0-0) /100 WBC ABG pH (7.35-7.45) ABG pCO2 (35-45) mmHg ABG pO2 (83-108) mmHg ABG HCO3 (21-25) mmol/L ABG Total CO2 (19-24) mmol/L ABG O2 Saturation (94-97) % Creatinine (0.52-1.04) mg/dL Glucose (74-99) mg/dL POC Glucose (mg/dL) 151 H 168 H 170 H (75-99) mg/dL Plasma Lactic Acid Robert (0.7-2.0) mmol/L Calcium (8.4-10.2) mg/dL Total Bilirubin (0.2-1.3) mg/dL AST (14-36) U/L ALT (4-34) U/L Alkaline Phosphatase (38-126) U/L Total Protein (6.3-8.2) g/dL Albumin (3.5-5.0) g/dL 07/20/19 07/20/1920 Range/Units 23:33 23:35 00:35 RBC (3.80-5.40) m/uL Hgb (11.4-16.0) gm/dL Hct (34.0-46.0) % RDW (11.5-15.5) % Plt Count (150-450) k/uL Lymphocytes # (Manual) (1.0-4.8) k/uL Metamyelocytes # (Man) (0) k/uL Nucleated RBCs (0-0) /100 WBC ABG pH (7.35-7.45) ABG pCO2 (35-45) mmHg ABG pO2 (83-108) mmHg ABG HCO3 (21-25) mmol/L ABG Total CO2 (19-24) mmol/L ABG O2 Saturation (94-97) % Creatinine (0.52-1.04) mg/dL Glucose (74-99) mg/dL POC Glucose (mg/dL) 170 H 184 H (75-99) mg/dL Plasma Lactic Acid Robert 6.2 H* (0.7-2.0) mmol/L Calcium (8.4-10.2) mg/dL Total Bilirubin (0.2-1.3) mg/dL AST (14-36) U/L ALT (4-34) U/L Alkaline Phosphatase (38-126) U/L Total Protein (6.3-8.2) g/dL Albumin (3.5-5.0) g/dL 07/21/19 07/21/19 07/21/19 Range/Units 02:11 03:34 04:22 RBC (3.80-5.40) m/uL Hgb (11.4-16.0) gm/dL Hct (34.0-46.0) % RDW (11.5-15.5) % Plt Count (150-450) k/uL Lymphocytes # (Manual) (1.0-4.8) k/uL Metamyelocytes # (Man) (0) k/uL Nucleated RBCs (0-0) /100 WBC ABG pH (7.35-7.45) ABG pCO2 (35-45) mmHg ABG pO2 (83-108) mmHg ABG HCO3 (21-25) mmol/L ABG Total CO2 (19-24) mmol/L ABG O2 Saturation (94-97) % Creatinine (0.52-1.04) mg/dL Glucose (74-99) mg/dL POC Glucose (mg/dL) 148 H 152 H 138 H (75-99) mg/dL Plasma Lactic Acid Robert (0.7-2.0) mmol/L Calcium (8.4-10.2) mg/dL Total Bilirubin (0.2-1.3) mg/dL AST (14-36) U/L ALT (4-34) U/L Alkaline Phosphatase (38-126) U/L Total Protein (6.3-8.2) g/dL Albumin (3.5-5.0) g/dL 07/21/19 07/21/19 07/21/19 Range/Units 04:25 04:25 04:25 RBC 2.94 L (3.80-5.40) m/uL Hgb 9.3 L (11.4-16.0) gm/dL Hct 27.8 L (34.0-46.0) % RDW 20.3 H (11.5-15.5) % Plt Count 47 L (150-450) k/uL Lymphocytes # (Manual) 0.79 L (1.0-4.8) k/uL Metamyelocytes # (Man) 0.18 H (0) k/uL Nucleated RBCs 1 H (0-0) /100 WBC ABG pH (7.35-7.45) ABG pCO2 (35-45) mmHg ABG pO2 (83-108) mmHg ABG HCO3 (21-25) mmol/L ABG Total CO2 (19-24) mmol/L ABG O2 Saturation (94-97) % Creatinine 4.00 H (0.52-1.04) mg/dL Glucose 127 H (74-99) mg/dL POC Glucose (mg/dL) (75-99) mg/dL Plasma Lactic Acid Robert 5.0 H* (0.7-2.0) mmol/L Calcium 6.5 L (8.4-10.2) mg/dL Total Bilirubin 2.2 H (0.2-1.3) mg/dL AST 541 H (14-36) U/L ALT 75 H (4-34) U/L Alkaline Phosphatase 216 H (38-126) U/L Total Protein 5.8 L (6.3-8.2) g/dL Albumin 2.7 L (3.5-5.0) g/dL 07/21/19 07/21/19 07/21/19 Range/Units 05:31 06:30 07:27 RBC (3.80-5.40) m/uL Hgb (11.4-16.0) gm/dL Hct (34.0-46.0) % RDW (11.5-15.5) % Plt Count (150-450) k/uL Lymphocytes # (Manual) (1.0-4.8) k/uL Metamyelocytes # (Man) (0) k/uL Nucleated RBCs (0-0) /100 WBC ABG pH 7.58 H* (7.35-7.45) ABG pCO2 32 L (35-45) mmHg ABG pO2 117 H (83-108) mmHg ABG HCO3 30 H (21-25) mmol/L ABG Total CO2 31 H (19-24) mmol/L ABG O2 Saturation 99.1 H (94-97) % Creatinine (0.52-1.04) mg/dL Glucose (74-99) mg/dL POC Glucose (mg/dL) 120 H 127 H (75-99) mg/dL Plasma Lactic Acid Robert (0.7-2.0) mmol/L Calcium (8.4-10.2) mg/dL Total Bilirubin (0.2-1.3) mg/dL AST (14-36) U/L ALT (4-34) U/L Alkaline Phosphatase (38-126) U/L Total Protein (6.3-8.2) g/dL Albumin (3.5-5.0) g/dL 07/21/19 07/21/19 Range/Units 08:06 09:05 RBC (3.80-5.40) m/uL Hgb (11.4-16.0) gm/dL Hct (34.0-46.0) % RDW (11.5-15.5) % Plt Count (150-450) k/uL Lymphocytes # (Manual) (1.0-4.8) k/uL Metamyelocytes # (Man) (0) k/uL Nucleated RBCs (0-0) /100 WBC ABG pH (7.35-7.45) ABG pCO2 (35-45) mmHg ABG pO2 (83-108) mmHg ABG HCO3 (21-25) mmol/L ABG Total CO2 (19-24) mmol/L ABG O2 Saturation (94-97) % Creatinine (0.52-1.04) mg/dL Glucose (74-99) mg/dL POC Glucose (mg/dL) 172 H 187 H (75-99) mg/dL Plasma Lactic Acid Robert (0.7-2.0) mmol/L Calcium (8.4-10.2) mg/dL Total Bilirubin (0.2-1.3) mg/dL AST (14-36) U/L ALT (4-34) U/L Alkaline Phosphatase (38-126) U/L Total Protein (6.3-8.2) g/dL Albumin (3.5-5.0) g/dL Microbiology - Last 24 Hours (Table) 07/19/19 15:36 Blood Culture - Preliminary Blood No Growth after 24 hours 07/19/19 20:14 Gram Stain - Preliminary Sputum Sputum Culture - Preliminary 07/19/19 14:22 Urine Culture - Preliminary Urine,Voided Assessment and Plan Assessment: VDRF, Colitis, likely septic shock, UTI, cirrhosis, ADALBERTO Plan: Patient appears to be improved today, lactic acidosis is resolving and she is weaning pressors. Abdomen is soft and nontender at this time. Patient does respond to painful stimuli and abdominal exam does not illicit painful response. She is passing brown stool without gross blood. Overall clinical picture makes ischemic colon less likely as a primary process. No plans for surgical intervention at this time. Patient is still critically ill with poor prognosis overall.
[2019-07-21 09:30] LABS: Lactic Acid, Venous 4.6 mmol/L (0.7-2.0)
[2019-07-21] MEDS ORDERED: FUROSEMIDE 10 MG/ML 10 ML VIAL IV STA (10:22)
--- NOTE | 2019-07-21 10:23 | P.PN ---
Subjective Patient is seen in follow for acute kidney injury. Renal function is worse. Urine output about 40 mL overnight. She is off vasopressin and Levophed is being weaned. Currently intubated on 40% FiO2. Vital signs are stable. On Levophed. General: The patient appeared well nourished and normally developed. HEENT: Head exam is unremarkable. Neck is without jugular venous distension. Intubated. LUNGS: Lungs are clear to auscultation and percussion. Breath sounds decreased. HEART: Rate and Rhythm are regular. ABDOMEN: Soft, nondistended. EXTREMITITES: No edema. Objective - Vital Signs Vital signs: Vital Signs Temp 97.7 F 07/21/19 08:00 Pulse 92 07/21/19 09:00 Resp 20 07/21/19 09:00 BP 113/69 07/21/19 09:00 Pulse Ox 100 07/21/19 09:00 Intake & Output 07/20/19 07/21/19 07/21/19 18:59 06:59 18:59 Intake Total 2338.249 2194.199 294 Output Total 35 45 21 Balance 2303.249 2149.199 273 Weight 90.8 kg Intake: IV 1988 1603 294 0.9 KVO 220 60 Dextrose 5% in Water 1949 1350 225 000 ml @ 75 mls/hr IV . [id number] [facility] with Sodium Bicarb (1 Meq/ml) 150 ml Rx#:[id number] pressure bag 39 33 9 Intake, IV Titration 349.249 591.199 0 Amount Calcium Gluconate 1 gm In 100 Sodium Chloride 0.9% 100 ml @ 100 mls/hr IVPB ONCE ONE Rx#:[id number] Insulin Regular 100 unit 19.560 43.295 0 In Sodium Chloride 0.9% 100 ml @ Per Protocol IV .Q0M [facility] Rx#:[id number] Midazolam HCl 50 mg In 50 Sodium Chloride 0.9% 40 ml @ 1 MG/HR 1 mls/hr IV .Q24H [facility] Rx#:[id number] Norepinephrine 32 mg In 93.874 58.215 Sodium Chloride 0.9% 218 ml @ 0.6 MCG/KG/MIN 23. 766 mls/hr IV .[id number] [facility] Rx#:[id number] Potassium Chloride 10 meq 100 In Water For Injection 1 100ml.bag @ 100 mls/hr IVPB Q1H [facility] Rx#: [id number] Propofol 1,000 mg In 63.925 266.586 Empty Bag 1 bag @ Titrate IV .Q0M [facility] Rx#: [id number] Sodium Chloride 0.9% 150 121.890 23.103 ml @ 0.04 UNITS/MIN 6.12 mls/hr IV .Q24H [facility] with Vasopressin 60 unit Rx#: [id number] Output: Urine 35 45 21 Other: Voiding Method Indwelling Catheter Indwelling Catheter Indwelling Catheter # Voids 0 # Bowel Movements 1 ABP, PAP, CO, CI - Last Documented Arterial Blood Pressure 117/43 - Labs CBC & Chem 7: 07/21/19 04:25 07/21/19 04:25 Labs: Abnormal Lab Results - Last 24 Hours (Table) 07/20/19 07/20/19 07/20/19 Range/Units 11:09 13:15 14:06 RBC 2.79 L (3.80-5.40) m/uL Hgb 9.0 L (11.4-16.0) gm/dL Hct 27.1 L (34.0-46.0) % RDW 20.4 H (11.5-15.5) % Plt Count 71 L (150-450) k/uL Lymphocytes # (Manual) (1.0-4.8) k/uL Metamyelocytes # (Man) (0) k/uL Nucleated RBCs (0-0) /100 WBC ABG pH (7.35-7.45) ABG pCO2 (35-45) mmHg ABG pO2 (83-108) mmHg ABG HCO3 (21-25) mmol/L ABG Total CO2 (19-24) mmol/L ABG O2 Saturation (94-97) % Creatinine (0.52-1.04) mg/dL Glucose (74-99) mg/dL POC Glucose (mg/dL) 264 H 261 H (75-99) mg/dL Plasma Lactic Acid Robert (0.7-2.0) mmol/L Calcium (8.4-10.2) mg/dL Total Bilirubin (0.2-1.3) mg/dL AST (14-36) U/L ALT (4-34) U/L Alkaline Phosphatase (38-126) U/L Ammonia (<30) umol/L Total Protein (6.3-8.2) g/dL Albumin (3.5-5.0) g/dL 07/20/19 07/20/19 07/20/19 Range/Units 14:09 16:28 17:09 RBC (3.80-5.40) m/uL Hgb (11.4-16.0) gm/dL Hct (34.0-46.0) % RDW (11.5-15.5) % Plt Count (150-450) k/uL Lymphocytes # (Manual) (1.0-4.8) k/uL Metamyelocytes # (Man) (0) k/uL Nucleated RBCs (0-0) /100 WBC ABG pH (7.35-7.45) ABG pCO2 (35-45) mmHg ABG pO2 (83-108) mmHg ABG HCO3 (21-25) mmol/L ABG Total CO2 (19-24) mmol/L ABG O2 Saturation (94-97) % Creatinine (0.52-1.04) mg/dL Glucose (74-99) mg/dL POC Glucose (mg/dL) 224 H 200 H (75-99) mg/dL Plasma Lactic Acid Robert 13.7 H* (0.7-2.0) mmol/L Calcium (8.4-10.2) mg/dL Total Bilirubin (0.2-1.3) mg/dL AST (14-36) U/L ALT (4-34) U/L Alkaline Phosphatase (38-126) U/L Ammonia (<30) umol/L Total Protein (6.3-8.2) g/dL Albumin (3.5-5.0) g/dL 07/20/19 07/20/19 07/20/19 Range/Units 17:43 18:38 19:05 RBC (3.80-5.40) m/uL Hgb (11.4-16.0) gm/dL Hct (34.0-46.0) % RDW (11.5-15.5) % Plt Count (150-450) k/uL Lymphocytes # (Manual) (1.0-4.8) k/uL Metamyelocytes # (Man) (0) k/uL Nucleated RBCs (0-0) /100 WBC ABG pH (7.35-7.45) ABG pCO2 32 L (35-45) mmHg ABG pO2 (83-108) mmHg ABG HCO3 (21-25) mmol/L ABG Total CO2 (19-24) mmol/L ABG O2 Saturation 97.1 H (94-97) % Creatinine 3.66 H (0.52-1.04) mg/dL Glucose 163 H (74-99) mg/dL POC Glucose (mg/dL) 183 H (75-99) mg/dL Plasma Lactic Acid Robert (0.7-2.0) mmol/L Calcium 6.2 L* (8.4-10.2) mg/dL Total Bilirubin (0.2-1.3) mg/dL AST (14-36) U/L ALT (4-34) U/L Alkaline Phosphatase (38-126) U/L Ammonia (<30) umol/L Total Protein (6.3-8.2) g/dL Albumin (3.5-5.0) g/dL 07/20/19 07/20/19 07/20/19 Range/Units 20:27 21:24 21:59 RBC (3.80-5.40) m/uL Hgb (11.4-16.0) gm/dL Hct (34.0-46.0) % RDW (11.5-15.5) % Plt Count (150-450) k/uL Lymphocytes # (Manual) (1.0-4.8) k/uL Metamyelocytes # (Man) (0) k/uL Nucleated RBCs (0-0) /100 WBC ABG pH (7.35-7.45) ABG pCO2 (35-45) mmHg ABG pO2 (83-108) mmHg ABG HCO3 (21-25) mmol/L ABG Total CO2 (19-24) mmol/L ABG O2 Saturation (94-97) % Creatinine (0.52-1.04) mg/dL Glucose (74-99) mg/dL POC Glucose (mg/dL) 151 H 168 H 170 H (75-99) mg/dL Plasma Lactic Acid Robert (0.7-2.0) mmol/L Calcium (8.4-10.2) mg/dL Total Bilirubin (0.2-1.3) mg/dL AST (14-36) U/L ALT (4-34) U/L Alkaline Phosphatase (38-126) U/L Ammonia (<30) umol/L Total Protein (6.3-8.2) g/dL Albumin (3.5-5.0) g/dL 07/20/19 07/20/19 07/21/19 Range/Units 23:33 23:35 00:35 RBC (3.80-5.40) m/uL Hgb (11.4-16.0) gm/dL Hct (34.0-46.0) % RDW (11.5-15.5) % Plt Count (150-450) k/uL Lymphocytes # (Manual) (1.0-4.8) k/uL Metamyelocytes # (Man) (0) k/uL Nucleated RBCs (0-0) /100 WBC ABG pH (7.35-7.45) ABG pCO2 (35-45) mmHg ABG pO2 (83-108) mmHg ABG HCO3 (21-25) mmol/L ABG Total CO2 (19-24) mmol/L ABG O2 Saturation (94-97) % Creatinine (0.52-1.04) mg/dL Glucose (74-99) mg/dL POC Glucose (mg/dL) 170 H 184 H (75-99) mg/dL Plasma Lactic Acid Robert 6.2 H* (0.7-2.0) mmol/L Calcium (8.4-10.2) mg/dL Total Bilirubin (0.2-1.3) mg/dL AST (14-36) U/L ALT (4-34) U/L Alkaline Phosphatase (38-126) U/L Ammonia (<30) umol/L Total Protein (6.3-8.2) g/dL Albumin (3.5-5.0) g/dL 07/21/19 07/21/19 07/21/19 Range/Units 02:11 03:34 04:22 RBC (3.80-5.40) m/uL Hgb (11.4-16.0) gm/dL Hct (34.0-46.0) % RDW (11.5-15.5) % Plt Count (150-450) k/uL Lymphocytes # (Manual) (1.0-4.8) k/uL Metamyelocytes # (Man) (0) k/uL Nucleated RBCs (0-0) /100 WBC ABG pH (7.35-7.45) ABG pCO2 (35-45) mmHg ABG pO2 (83-108) mmHg ABG HCO3 (21-25) mmol/L ABG Total CO2 (19-24) mmol/L ABG O2 Saturation (94-97) % Creatinine (0.52-1.04) mg/dL Glucose (74-99) mg/dL POC Glucose (mg/dL) 148 H 152 H 138 H (75-99) mg/dL Plasma Lactic Acid Robert (0.7-2.0) mmol/L Calcium (8.4-10.2) mg/dL Total Bilirubin (0.2-1.3) mg/dL AST (14-36) U/L ALT (4-34) U/L Alkaline Phosphatase (38-126) U/L Ammonia (<30) umol/L Total Protein (6.3-8.2) g/dL Albumin (3.5-5.0) g/dL 07/21/19 07/21/19 07/21/19 Range/Units 04:25 04:25 04:25 RBC 2.94 L (3.80-5.40) m/uL Hgb 9.3 L (11.4-16.0) gm/dL Hct 27.8 L (34.0-46.0) % RDW 20.3 H (11.5-15.5) % Plt Count 47 L (150-450) k/uL Lymphocytes # (Manual) 0.79 L (1.0-4.8) k/uL Metamyelocytes # (Man) 0.18 H (0) k/uL Nucleated RBCs 1 H (0-0) /100 WBC ABG pH (7.35-7.45) ABG pCO2 (35-45) mmHg ABG pO2 (83-108) mmHg ABG HCO3 (21-25) mmol/L ABG Total CO2 (19-24) mmol/L ABG O2 Saturation (94-97) % Creatinine 4.00 H (0.52-1.04) mg/dL Glucose 127 H (74-99) mg/dL POC Glucose (mg/dL) (75-99) mg/dL Plasma Lactic Acid Robert 5.0 H* (0.7-2.0) mmol/L Calcium 6.5 L (8.4-10.2) mg/dL Total Bilirubin 2.2 H (0.2-1.3) mg/dL AST 541 H (14-36) U/L ALT 75 H (4-34) U/L Alkaline Phosphatase 216 H (38-126) U/L Ammonia (<30) umol/L Total Protein 5.8 L (6.3-8.2) g/dL Albumin 2.7 L (3.5-5.0) g/dL 07/21/19 07/21/19 07/21/19 Range/Units 05:31 06:30 07:27 RBC (3.80-5.40) m/uL Hgb (11.4-16.0) gm/dL Hct (34.0-46.0) % RDW (11.5-15.5) % Plt Count (150-450) k/uL Lymphocytes # (Manual) (1.0-4.8) k/uL Metamyelocytes # (Man) (0) k/uL Nucleated RBCs (0-0) /100 WBC ABG pH 7.58 H* (7.35-7.45) ABG pCO2 32 L (35-45) mmHg ABG pO2 117 H (83-108) mmHg ABG HCO3 30 H (21-25) mmol/L ABG Total CO2 31 H (19-24) mmol/L ABG O2 Saturation 99.1 H (94-97) % Creatinine (0.52-1.04) mg/dL Glucose (74-99) mg/dL POC Glucose (mg/dL) 120 H 127 H (75-99) mg/dL Plasma Lactic Acid Robert (0.7-2.0) mmol/L Calcium (8.4-10.2) mg/dL Total Bilirubin (0.2-1.3) mg/dL AST (14-36) U/L ALT (4-34) U/L Alkaline Phosphatase (38-126) U/L Ammonia (<30) umol/L Total Protein (6.3-8.2) g/dL Albumin (3.5-5.0) g/dL 07/21/19 07/21/19 07/21/19 Range/Units 08:06 09:05 09:05 RBC (3.80-5.40) m/uL Hgb (11.4-16.0) gm/dL Hct (34.0-46.0) % RDW (11.5-15.5) % Plt Count (150-450) k/uL Lymphocytes # (Manual) (1.0-4.8) k/uL Metamyelocytes # (Man) (0) k/uL Nucleated RBCs (0-0) /100 WBC ABG pH (7.35-7.45) ABG pCO2 (35-45) mmHg ABG pO2 (83-108) mmHg ABG HCO3 (21-25) mmol/L ABG Total CO2 (19-24) mmol/L ABG O2 Saturation (94-97) % Creatinine (0.52-1.04) mg/dL Glucose (74-99) mg/dL POC Glucose (mg/dL) 172 H 187 H (75-99) mg/dL Plasma Lactic Acid Robert 4.6 H* (0.7-2.0) mmol/L Calcium (8.4-10.2) mg/dL Total Bilirubin (0.2-1.3) mg/dL AST (14-36) U/L ALT (4-34) U/L Alkaline Phosphatase (38-126) U/L Ammonia 44 H (<30) umol/L Total Protein (6.3-8.2) g/dL Albumin (3.5-5.0) g/dL Microbiology - Last 24 Hours (Table) 07/19/19 15:36 Blood Culture - Preliminary Blood No Growth after 24 hours 07/19/19 20:14 Gram Stain - Preliminary Sputum Sputum Culture - Preliminary 07/19/19 14:22 Urine Culture - Preliminary Urine,Voided Assessment and Plan Plan: Assessment: 1. Acute kidney injury secondary to ATN secondary to septic shock. Creatinine 4 today. CAT scan revealed fullness of the collecting systems. No hydroneph rosis noted on renal ultrasound. Unknown baseline renal function. 2. Hyperkalemia secondary to acute kidney injury, metabolic acidosis and GI bleed. Improved with medical management. 3. Severe metabolic acidosis secondary to acute kidney injury and lactic acidosis. Volatile screen negative. Resolved. Now alkalotic. 4. Hypocalcemia secondary to acute kidney injury. 5. Acute GI bleed status post blood transfusion and IV DDAVP. GI following. Hemoglobin better. Plan: Discontinue bicarbonate drip. Start normal saline at 75 mL an hour. Lasix 80 mg IV once today. Wean FiO2 and vasopressors. Follow-up cultures. Due to worsening renal function and oliguria, I will start renal replacement t herapy. Consults vascular surgery for dialysis catheter placement. First treatment of hemodialysis today and second treatment tomorrow.
[2019-07-21 10:47] LABS: Glucose,Whole Blood 177 mg/dL (75-99)
--- NOTE | 2019-07-21 11:18 | PN ---
PROGRESS NOTE DATE OF SERVICE: 07/21/2019 The patient is a 48-year-old white female with history of alcoholic liver disease, admitted to hospital with altered mental status/unresponsive and subsequently had cardiac arrest and presently in the ICU, intubated on the vent. As per the nursing staff, the patient's overall condition is gradually improving. She has been titrated down on the pressors. No bleeding noted. NG-tube has bilious fluid in there. FMS was placed for hepatic encephalopathy and she is receiving lactulose and she had about soft liquid stool through the FMS noted. No acute events were noted overnight. PHYSICAL EXAMINATION: She remains on a vent, sedated. VITAL SIGNS: Blood pressure 111/48, pulse rate 20, temperature 96. HEENT examination unremarkable. Conjunctivae pink. Sclerae icteric. Oral cavity no lesions. CHEST: Clear to auscultation. HEART: Regular rate and rhythm. ABDOMEN: Soft. It was slightly distended, but was very soft. EXTREMITIES no pedal edema. NEURO sedated. LABS: From today WBC 8.8, hemoglobin 9.3, platelets 47,000. ABG, pH are 7.58, pCO2 32, PO2 117, bicarb 31, oxygen saturation 99%, and T-bilirubin is 2.2. AST 541, ALT 75, alkaline phosphatase 216. Leos virus PCR is negative. C diff negative. IMPRESSION: 1. Acute upper gastrointestinal bleed. The patient had small amount of bright red blood from the NG tube after intubation following cardiac arrest yesterday, but since then she did not have any further episodes of bleeding. Hemoglobin remains stable at 9.3 g/dL. Remains on IV Protonix and Sandostatin has been discontinued. 2. Acute respiratory failure. Remains intubated, sedated on the vent on broad- spectrum antibiotics. 3. Hepatic encephalopathy, presently receiving lactulose and Xifaxan and is doing better. 4. Possible ischemic colitis, being watched conservatively by Dr. Hinojosa. 5. Acute kidney injury secondary to prolonged hypertension associated with hyperkalemia. RECOMMENDATIONS: 1. Continue symptomatic and supportive care by the data typist. 2. Monitor LFTs closely. 3. Continue Xifaxan and lactulose. 4. Protonix 40 mg daily. 5. No plans for any endoscopy intervention at the present time. 6. Continue broad-spectrum antibiotics. We will follow with you closely. Thank you for this consultation. MMODL / IJN: [id number] /
[2019-07-21] MEDS ORDERED: HEPARIN SODIUM 1,000 UN/ML (10ML VL) ONE (12:05)
[2019-07-21] MEDS ORDERED: LIDOCAINE 1% INJ 10MG/ML (20 ML MDV) ONE (12:05)
[2019-07-21 12:11] LABS: Glucose,Whole Blood 146 mg/dL (75-99)
[2019-07-21 13:20] LABS: Glucose,Whole Blood 140 mg/dL (75-99)
[2019-07-21] MEDS: SODIUM CHLORIDE 0.9% 1,000 ML IV SCH (13:48)
--- NOTE | 2019-07-21 14:56 | P.PN ---
Subjective Progress Note Date: 07/21/19 Principal diagnosis: Acute hypoxic respiratory failure, cardiac arrest, possible ischemic colitis This is a 48-year-old -[place] female, no available past medical history on this patient, patient was brought into the emergency room by EMS when the patient was noted by a boyfriend unresponsive. Patient is known to have history of alcohol abuse, she is also known to have history of depression, normally takes trazodone. According to the boyfriend, around 8:30 AM, patient was found unresponsive. Upon EMS arrival patient was noted to have low sugars, and she was given an amp of dextrose. She did wake up a bit, however remained lethargic, and on her weight in the ambulance to the ER patient was yelling and getting restless and agitated. Upon arrival to the ER, patient was not follow any instructions. Patient was evaluated, initially she was able to protect her airways, she would open her eyes and look around to tactile stimuli. After IV access, and after basic labs were ordered, patient was noted to 12-lead EKG showed mostly normal sinus rhythm rate of 81/m. She had peak T waves in V2 through V4 and the patient was sent for CT of the brain because of altered mental status. Upon returning from CT to the trauma bay, patient became hypotensive, levo fed was started for hypotension and bradycardia then she went into asystole. CPR was started, epinephrine was given, patient was intubated by the ER physician, and she had one round of chest compressions. In the meantime patient was intubated, and her endotracheal tube was noted to be initially in the right mainstem bronchus, and this was retracted a bit. Orogastric tube was placed, and she was noted to have 75 mL of bright blood in the orogastric tube. Patient continued to require levo fed, and she was given fluid boluses for hypotension. Venous blood gases showed very low pH of 6.8, pCO2 was 25, and bicarb was 4. Sodium bicarb was given. Patient was noted to have elevated potassium, hence 10 units of insulin were given along with 1 amp of dextrose. Patient received 2 L of fluid boluses. And labs came back showing a hemoglobin of 6.3. Platelets were also noted to be low at 48,000. INR was 1.7. Creatinine 3.5. And her liver enzymes were elevated. Ammonia level was also noted to be 199. Her serum alcohol was 274. Patient was placed on a bicarb drip, she was placed empirically on antibiotics, and she was also placed on lactulose. CT of the brain showed no evidence of intracranial hemorrhage or mass effect. CT of the abdomen and pelvis was abnormal showing severe pa ncolitis with mesenteric edema and small volume ascites. The radiologist felt this could be consistent with ischemic bowel. Patient was also noted to have severe degree of hepatic steatosis. And bibasilar airspace disease/atelectasis. Patient remained hypotensive requiring more norepinephrine, and vasopressin was added. Surgical consultation was initiated, however considering the patient's clinical presentation and hypotension requiring significant amount of vasopressin and norepinephrine, and considering the patient was extremely acidotic, her lactic acid was as high as 20. Patient felt to be not a surgical candidate. And she needed to be more resuscitated before surgery could even be considered. Patient was also placed on Sandostatin. Rocephin was given in the ER, and I have recommended Flagyl and Zosyn. I came in to see the patient in the ICU, a left brachial arterial line was placed, and recommended further labs to be ordered including ABG, coagulation profile, and CBC. These are presently pending. In the meantime patient received a total of 2 units of packed RBCs, 2 units of fresh frozen plasma, and 1 unit of platelets. Drug screen was basically negative except she had acetaminophen level of 11.5. Salicylate 1.0, and serum alcohol level was 274. Patient was reevaluated today on 07/20/19. Remains intubated and mechanically ventilated. Her ventilator settings are assist control rate of 20, volume is 400 FiO2 is 40% and PEEP of 5. ABG showed a pO2 of 97 pCO2 of 22 pH of 7.28. Patient remains on sodium bicarb drip. Remains on octreotide, Versed at 5 mg per hour, vasopressin at 0.04 units per hour, norepinephrine at 0.75 mcg/kg/m, is also on bicarb drip at 150 MLS per hour. Patient has no urine output, her liver enzymes remain elevated. Her abdomen remains distended. She was seen by many consultants including surgery, patient remains a very poor candidate for any surgical intervention at this point as she seems to be hemodynamically unstable. Ideally speaking would be worthwhile doing exploratory laparotomy, however the surgeon evaluated the patient, and we both felt that she is a high surgical risk at this point, and her hemodynamic status will not allow surgical intervention safely. Her boyfriend is here today, and I discussed her status with the boyfriend, he told me that the patient is known to be alcoholic, he also told me that the night before she came into the hospital she was having lower back pain and abdominal pain. She had this all night and she was moaning and groaning with pain. The following day she was unresponsive and she had mental status changes, that is when EMS was notified. Patient received so far since admission 2 units of packed RBCs, 2 units of fresh frozen plasma, and bunions of platelets. She is also on Zosyn and Flagyl empirically for abdominal sepsis and septic shock. WBC count today is 6.1 hemoglobin is 8.5. Patient continues to have significant bandemia on her differential. Potassium is a bit high at 5.4 bicarb today is 10 BUN is 12 creatinine is 3.52. Liver enzymes remain elevated. And her blood sugar is 240. Calcium is low, the patient will receive calcium gluconate. Ammonia level is down to 65, patient remains on lactulose. AST is 355 and ALT is 50 with alkaline phosphatase of 221. Chest x- ray showed improved aeration of upper lungs with stand like bibasilar atelectas is. Ultrasound of the abdomen and pelvis showed partially visualized abdominal ascites. No hydronephrosis. And a trace of perihepatic ascites noted. Patient is sedated on Versed Patient was reevaluated today on 07/21/19, remains intubated, and mechanically ventilated. Patient is covid negative. She remains on assist control rate of 20 to volume is 400 FiO2 is 40% and PEEP is 5. ABG showed a pO2 of 117 pCO2 of 32 pH of 7.58. Hence I cut down her rate to 16. Patient is now off vasopressin , off octreotide, remains on a very small dose of norepinephrine at 0.02 mcg/kg/m. Remains on insulin at 2 units per hour. IV fluid is 0.9 normal saline at 75 mL per hour. Patient was seen by nephrology today, and planning hemodialysis. She will have a dialysis catheter placed by vascular surgery, and we'll proceed with hemodialysis this afternoon. Chest x-ray showed mostly atelectasis at the bases and small effusions. Antibiotics march she remains on Zosyn and Flagyl. Her metabolic acidosis corrected quite nicely, and today I plan to discontinue her bicarb drip and this was already discontinued early this morning. Again the patient is scheduled to undergo hemodialysis today. She arpit l be placed on enteral feeding today also. Based on the dramatic improvement and the dramatic change in her severe profound metabolic acidosis and lactic acidosis, I believe this is not a picture of ischemic colitis as suggested on the CT of the abdomen and pelvis upon presentation. Patient continues to have abnormal liver enzymes, and continues to have abnormal renal profile. WBC count is 8.8 hemoglobin is 9.3. Platelets remained low at 47,000 again. Electrolytes are normal BUN is 16 and creatinine is 4.0. Patient continues to have very low urine output. Liver profile was noted, continues to have elevated AST of 541 ALT is 75 and alkaline phosphatase is 216 ammonia level is down to 44 from 199 on admission. Urine culture is showing gram-negative bacilli, patient is presently on Zosyn. Objective - Vital Signs Vital signs: Vital Signs Temp 98 F 07/21/19 12:00 Pulse 92 07/21/19 14:30 Resp 17 07/21/19 14:30 BP 83/49 07/21/19 14:30 Pulse Ox 97 07/21/19 14:30 Intake & Output 07/20/19 07/21/19 07/21/19 18:59 06:59 18:59 Intake Total 2338.249 2194.199 707.996 Output Total 35 45 46 Balance 2303.249 2149.199 661.996 Weight 90.8 kg 90.8 kg Intake: IV 1988 1603 684 0.9 KVO 220 160 Dextrose 5% in Water 1949 1350 300 000 ml @ 75 mls/hr IV . [id number] CI[facility]RA with Sodium Bicarb (1 Meq/ml) 150 ml Rx#:[id number] Sodium Chloride 0.9% 1, 200 000 ml @ 50 mls/hr IV . Q20H CIARRA Rx#:[id number] pressure bag 39 33 24 Intake, IV Titration 349.249 591.199 23.996 Amount Calcium Gluconate 1 gm In 100 Sodium Chloride 0.9% 100 ml @ 100 mls/hr IVPB ONCE ONE Rx#:[id number] Insulin Regular 100 unit 19.560 43.295 10.235 In Sodium Chloride 0.9% 100 ml @ Per Protocol IV .Q0M CIARRA Rx#:[id number] Midazolam HCl 50 mg In 50 Sodium Chloride 0.9% 40 ml @ 1 MG/HR 1 mls/hr IV .Q24H [facility]ARRA Rx#:[id number] Norepinephrine 32 mg In 93.874 58.215 13.761 Sodium Chloride 0.9% 218 ml @ 0.6 MCG/KG/MIN 23. 766 mls/hr IV .[id number] CIARRA Rx#:[id number] Potassium Chloride 10 meq 100 In Water For Injection 1 100ml.bag @ 100 mls/hr IVPB Q1H [facility] Rx#: [id number] Propofol 1,000 mg In 63.925 266.586 Empty Bag 1 bag @ Titrate IV .Q0M CIARRA Rx#: [id number] Sodium Chloride 0.9% 150 121.890 23.103 ml @ 0.04 UNITS/MIN 6.12 mls/hr IV .Q24H [facility]ARRA with Vasopressin 60 unit Rx#: [id number] Output: Urine 35 45 46 Other: Voiding Method Indwelling Catheter Indwelling Catheter Indwelling Catheter # Voids 0 # Bowel Movements 1 ABP, PAP, CO, CI - Last Documented Arterial Blood Pressure 88/45 - Exam Physical Exam: Revealed a 48-year-old -[place] female, intubated, sedated. On propofol. Head: Atraumatic, normocephalic, endotracheal tube and orogastric tube are intact. HEENT:[Neck is supple.] [No neck masses.] [No thyromegaly.] [No JVD.] Moist m ucous membranes. PERRLA, EOMI, no icterus. Chest: [Symmetrical chest expansion, crackles at the bases, no rhonchi and no wheezes..] Cardiac Exam: [Normal S1 and S2, no S3 gallop, no murmur.] Abdomen: [Soft, distended, nontender, no megaly, no rebound, no guarding, positive bowel sounds, and patient is stooling. No evidence of blood in the stools. Extremities: [No clubbing, no edema, no cyanosis.] Neurological Exam: Patient is intubated, sedated, unable to assess. Psychiatric: Could not be assessed. Skin: No rashes. - Labs CBC & Chem 7: 07/21/19 04:25 07/21/19 04:25 Labs: Abnormal Lab Results - Last 24 Hours (Table) 07/20/19 07/20/19 07/20/19 Range/Units 16:28 17:09 17:43 RBC (3.80-5.40) m/uL Hgb (11.4-16.0) gm/dL Hct (34.0-46.0) % RDW (11.5-15.5) % Plt Count (150-450) k/uL Lymphocytes # (Manual) (1.0-4.8) k/uL Metamyelocytes # (Man) (0) k/uL Nucleated RBCs (0-0) /100 WBC ABG pH (7.35-7.45) ABG pCO2 32 L (35-45) mmHg ABG pO2 (83-108) mmHg ABG HCO3 (21-25) mmol/L ABG Total CO2 (19-24) mmol/L ABG O2 Saturation 97.1 H (94-97) % Creatinine (0.52-1.04) mg/dL Glucose (74-99) mg/dL POC Glucose (mg/dL) 224 H 200 H (75-99) mg/dL Plasma Lactic Acid Robert (0.7-2.0) mmol/L Calcium (8.4-10.2) mg/dL Total Bilirubin (0.2-1.3) mg/dL AST (14-36) U/L ALT (4-34) U/L Alkaline Phosphatase (38-126) U/L Ammonia (<30) umol/L Total Protein (6.3-8.2) g/dL Albumin (3.5-5.0) g/dL 07/20/19 07/20/19 07/20/19 Range/Units 18:38 19:05 20:27 RBC (3.80-5.40) m/uL Hgb (11.4-16.0) gm/dL Hct (34.0-46.0) % RDW (11.5-15.5) % Plt Count (150-450) k/uL Lymphocytes # (Manual) (1.0-4.8) k/uL Metamyelocytes # (Man) (0) k/uL Nucleated RBCs (0-0) /100 WBC ABG pH (7.35-7.45) ABG pCO2 (35-45) mmHg ABG pO2 (83-108) mmHg ABG HCO3 (21-25) mmol/L ABG Total CO2 (19-24) mmol/L ABG O2 Saturation (94-97) % Creatinine 3.66 H (0.52-1.04) mg/dL Glucose 163 H (74-99) mg/dL POC Glucose (mg/dL) 183 H 151 H (75-99) mg/dL Plasma Lactic Acid Robert (0.7-2.0) mmol/L Calcium 6.2 L* (8.4-10.2) mg/dL Total Bilirubin (0.2-1.3) mg/dL AST (14-36) U/L ALT (4-34) U/L Alkaline Phosphatase (38-126) U/L Ammonia (<30) umol/L Total Protein (6.3-8.2) g/dL Albumin (3.5-5.0) g/dL 07/20/19 07/20/19 07/20/19 Range/Units 21:24 21:59 23:33 RBC (3.80-5.40) m/uL Hgb (11.4-16.0) gm/dL Hct (34.0-46.0) % RDW (11.5-15.5) % Plt Count (150-450) k/uL Lymphocytes # (Manual) (1.0-4.8) k/uL Metamyelocytes # (Man) (0) k/uL Nucleated RBCs (0-0) /100 WBC ABG pH (7.35-7.45) ABG pCO2 (35-45) mmHg ABG pO2 (83-108) mmHg ABG HCO3 (21-25) mmol/L ABG Total CO2 (19-24) mmol/L ABG O2 Saturation (94-97) % Creatinine (0.52-1.04) mg/dL Glucose (74-99) mg/dL POC Glucose (mg/dL) 168 H 170 H 170 H (75-99) mg/dL Plasma Lactic Acid Robert (0.7-2.0) mmol/L Calcium (8.4-10.2) mg/dL Total Bilirubin (0.2-1.3) mg/dL AST (14-36) U/L ALT (4-34) U/L Alkaline Phosphatase (38-126) U/L Ammonia (<30) umol/L Total Protein (6.3-8.2) g/dL Albumin (3.5-5.0) g/dL 07/20/19 07/21/19 07/21/19 Range/Units 23:35 00:35 02:11 RBC (3.80-5.40) m/uL Hgb (11.4-16.0) gm/dL Hct (34.0-46.0) % RDW (11.5-15.5) % Plt Count (150-450) k/uL Lymphocytes # (Manual) (1.0-4.8) k/uL Metamyelocytes # (Man) (0) k/uL Nucleated RBCs (0-0) /100 WBC ABG pH (7.35-7.45) ABG pCO2 (35-45) mmHg ABG pO2 (83-108) mmHg ABG HCO3 (21-25) mmol/L ABG Total CO2 (19-24) mmol/L ABG O2 Saturation (94-97) % Creatinine (0.52-1.04) mg/dL Glucose (74-99) mg/dL POC Glucose (mg/dL) 184 H 148 H (75-99) mg/dL Plasma Lactic Acid Robert 6.2 H* (0.7-2.0) mmol/L Calcium (8.4-10.2) mg/dL Total Bilirubin (0.2-1.3) mg/dL AST (14-36) U/L ALT (4-34) U/L Alkaline Phosphatase (38-126) U/L Ammonia (<30) umol/L Total Protein (6.3-8.2) g/dL Albumin (3.5-5.0) g/dL 07/21/19 07/21/19 07/21/19 Range/Units 03:34 04:22 04:25 RBC (3.80-5.40) m/uL Hgb (11.4-16.0) gm/dL Hct (34.0-46.0) % RDW (11.5-15.5) % Plt Count (150-450) k/uL Lymphocytes # (Manual) (1.0-4.8) k/uL Metamyelocytes # (Man) (0) k/uL Nucleated RBCs (0-0) /100 WBC ABG pH (7.35-7.45) ABG pCO2 (35-45) mmHg ABG pO2 (83-108) mmHg ABG HCO3 (21-25) mmol/L ABG Total CO2 (19-24) mmol/L ABG O2 Saturation (94-97) % Creatinine (0.52-1.04) mg/dL Glucose (74-99) mg/dL POC Glucose (mg/dL) 152 H 138 H (75-99) mg/dL Plasma Lactic Acid Robert 5.0 H* (0.7-2.0) mmol/L Calcium (8.4-10.2) mg/dL Total Bilirubin (0.2-1.3) mg/dL AST (14-36) U/L ALT (4-34) U/L Alkaline Phosphatase (38-126) U/L Ammonia (<30) umol/L Total Protein (6.3-8.2) g/dL Albumin (3.5-5.0) g/dL 07/21/19 07/21/19 07/21/19 Range/Units 04:25 04:25 05:31 RBC 2.94 L (3.80-5.40) m/uL Hgb 9.3 L (11.4-16.0) gm/dL Hct 27.8 L (34.0-46.0) % RDW 20.3 H (11.5-15.5) % Plt Count 47 L (150-450) k/uL Lymphocytes # (Manual) 0.79 L (1.0-4.8) k/uL Metamyelocytes # (Man) 0.18 H (0) k/uL Nucleated RBCs 1 H (0-0) /100 WBC ABG pH (7.35-7.45) ABG pCO2 (35-45) mmHg ABG pO2 (83-108) mmHg ABG HCO3 (21-25) mmol/L ABG Total CO2 (19-24) mmol/L ABG O2 Saturation (94-97) % Creatinine 4.00 H (0.52-1.04) mg/dL Glucose 127 H (74-99) mg/dL POC Glucose (mg/dL) 120 H (75-99) mg/dL Plasma Lactic Acid Robert (0.7-2.0) mmol/L Calcium 6.5 L (8.4-10.2) mg/dL Total Bilirubin 2.2 H (0.2-1.3) mg/dL AST 541 H (14-36) U/L ALT 75 H (4-34) U/L Alkaline Phosphatase 216 H (38-126) U/L Ammonia (<30) umol/L Total Protein 5.8 L (6.3-8.2) g/dL Albumin 2.7 L (3.5-5.0) g/dL 07/21/19 07/21/19 07/21/19 Range/Units 06:30 07:27 08:06 RBC (3.80-5.40) m/uL Hgb (11.4-16.0) gm/dL Hct (34.0-46.0) % RDW (11.5-15.5) % Plt Count (150-450) k/uL Lymphocytes # (Manual) (1.0-4.8) k/uL Metamyelocytes # (Man) (0) k/uL Nucleated RBCs (0-0) /100 WBC ABG pH 7.58 H* (7.35-7.45) ABG pCO2 32 L (35-45) mmHg ABG pO2 117 H (83-108) mmHg ABG HCO3 30 H (21-25) mmol/L ABG Total CO2 31 H (19-24) mmol/L ABG O2 Saturation 99.1 H (94-97) % Creatinine (0.52-1.04) mg/dL Glucose (74-99) mg/dL POC Glucose (mg/dL) 127 H 172 H (75-99) mg/dL Plasma Lactic Acid Robert (0.7-2.0) mmol/L Calcium (8.4-10.2) mg/dL Total Bilirubin (0.2-1.3) mg/dL AST (14-36) U/L ALT (4-34) U/L Alkaline Phosphatase (38-126) U/L Ammonia (<30) umol/L Total Protein (6.3-8.2) g/dL Albumin (3.5-5.0) g/dL 0507/21/19 07/21/19 Range/Units 09:05 09:05 10:46 RBC (3.80-5.40) m/uL Hgb (11.4-16.0) gm/dL Hct (34.0-46.0) % RDW (11.5-15.5) % Plt Count (150-450) k/uL Lymphocytes # (Manual) (1.0-4.8) k/uL Metamyelocytes # (Man) (0) k/uL Nucleated RBCs (0-0) /100 WBC ABG pH (7.35-7.45) ABG pCO2 (35-45) mmHg ABG pO2 (83-108) mmHg ABG HCO3 (21-25) mmol/L ABG Total CO2 (19-24) mmol/L ABG O2 Saturation (94-97) % Creatinine (0.52-1.04) mg/dL Glucose (74-99) mg/dL POC Glucose (mg/dL) 187 H 177 H (75-99) mg/dL Plasma Lactic Acid Robert 4.6 H* (0.7-2.0) mmol/L Calcium (8.4-10.2) mg/dL Total Bilirubin (0.2-1.3) mg/dL AST (14-36) U/L ALT (4-34) U/L Alkaline Phosphatase (38-126) U/L Ammonia 44 H (<30) umol/L Total Protein (6.3-8.2) g/dL Albumin (3.5-5.0) g/dL 07/21/19 07/21/19 07/21/19 Range/Units 12:09 13:19 13:25 RBC (3.80-5.40) m/uL Hgb (11.4-16.0) gm/dL Hct (34.0-46.0) % RDW (11.5-15.5) % Plt Count (150-450) k/uL Lymphocytes # (Manual) (1.0-4.8) k/uL Metamyelocytes # (Man) (0) k/uL Nucleated RBCs (0-0) /100 WBC ABG pH (7.35-7.45) ABG pCO2 (35-45) mmHg ABG pO2 (83-108) mmHg ABG HCO3 (21-25) mmol/L ABG Total CO2 (19-24) mmol/L ABG O2 Saturation (94-97) % Creatinine (0.52-1.04) mg/dL Glucose (74-99) mg/dL POC Glucose (mg/dL) 146 H 140 H (75-99) mg/dL Plasma Lactic Acid Robert 4.5 H* (0.7-2.0) mmol/L Calcium (8.4-10.2) mg/dL Total Bilirubin (0.2-1.3) mg/dL AST (14-36) U/L ALT (4-34) U/L Alkaline Phosphatase (38-126) U/L Ammonia (<30) umol/L Total Protein (6.3-8.2) g/dL Albumin (3.5-5.0) g/dL Microbiology - Last 24 Hours (Table) 07/19/19 14:22 Urine Culture - Preliminary Urine,Voided Gram Neg Bacilli 07/19/19 15:36 Blood Culture - Preliminary Blood No Growth after 24 hours 07/19/19 20:14 Gram Stain - Preliminary Sputum Sputum Culture - Preliminary Assessment and Plan Assessment: Impression: Acute hypoxic respiratory failure, suspect abdominal sepsis. And septic shock. Doubt ischemic colitis considering the dramatic improvement in the last 24 hours. Acute blood loss anemia with upper GI bleeding noted after placement of nasogastric tube. Acute thrombocytopenia secondary to sepsis. Persists. We will have to monitor her platelets closely. Shock liver secondary to hypotension and could also be related to history of alcohol abuse. Acute alcoholic hepatitis is suspected. Mental status change, suspect hepatic encephalopathy with elevated ammonia level. Acute kidney injury secondary to acute tubular necrosis and hypotension. Severe anion gap metabolic acidosis, secondary to sepsis and acute kidney injury. Upon presentation however this has resolved. Acute lactic acidosis, multifactorial, could be related to sepsis and septic shock, improving. Possible urinary tract infection. Urine is showing gram-negative bacilli, we'll continue Zosyn for now Acute alcohol intoxication based on her alcohol level on presentation. Recommendation: Continue present supportive care measures including Ventilatory support. Patient is not yet ready for weaning. However that will be considered in the next 24 hours. Taper and discontinue norepinephrine if possible. GI and DVT prophylaxis. Avoid anticoagulation therapy. Patient continues to have low platelets. Hemodialysis as recommended by nephrology today. Patient will have a dialysis catheter placed. Continue Flagyl and Zosyn. Continue to monitor hemoglobin and platelets. Discontinue bicarb early this morning. Discontinue octreotide. Overall prognosis is extremely poor and guarded. Overall, the patient has made a significant improvement We'll continue to follow. Critical care time is 33 minutes. Time with Patient: Greater than 30
[2019-07-21 15:34] LABS: Glucose,Whole Blood 125 mg/dL (75-99)
[2019-07-21] MEDS ORDERED: HEPARIN SODIUM,PORCINE 5,000 UNIT/ML 1 ML VIAL ONE (16:00)
[2019-07-21 16:23] LABS: Glucose,Whole Blood 112 mg/dL (75-99)
--- NOTE | 2019-07-21 17:15 | PN ---
PROGRESS NOTE DATE OF SERVICE: 07/21/2019. CHIEF COMPLAINT: Cardiorespiratory arrest. HISTORY OF PRESENT ILLNESS: This lady is a little bit more stable. She is still sedated. However, pressures are being weaned. She is also going to be dialyzed today. PHYSICAL EXAM: At the present time vital signs are normal and she does not have a temperature. Chest is clear and cardiac exam is normal and she is in sinus rhythm. The abdomen is slightly distended and does not seem particularly firm and there is no involuntary response to palpation. IMPRESSION: 1. Cardiorespiratory arrest, etiology unknown. 2. Hypotension. 3. Renal failure. PLAN: She is to be dialyzed today and she continues on ventilator support. MMODL / IJN: [id number] /
--- NOTE | 2019-07-21 18:06 | PN ---
PROGRESS NOTE DATE OF SERVICE: 07/21/2019 REASON FOR FOLLOWUP: Sepsis and ischemic colitis. INTERVAL HISTORY: The patient is currently afebrile. The patient has been requiring less pressor support per the RN. She did develop diarrhea last night for which a fecal management system has been placed, she had culture which came back negative. The patient remains to be sedated on the vent. FiO2 is currently down to 40%. No significant purulent secretions through the ET. PHYSICAL EXAMINATION: Blood pressure 102/66, pulse of 90, temperature is 98 degrees Fahrenheit. She is 97% on 40% FiO2. General description is a middle-aged female intubated on the vent. Respiratory system: Unlabored breathing. Clear to auscultation anteriorly. HEART: S1, S2. Regular rate and rhythm. ABDOMEN: Soft, mildly tender, no guarding or rigidity. EXTREMITIES are no edema of the feet. LABS: Hemoglobin 9.8, white count 8.8. BUN of 16, creatinine 4.0. Urine showing gram- negative. Sputum is currently pending. Blood culture negative. DIAGNOSTIC IMPRESSION AND PLAN: Patient with sepsis with diffuse thickening of the bowel and concern for possible ischemic colitis in this patient who in the ER. The patient is currently covered with Zosyn to continue. Some clinical improvement. Stool culture has been requested and continue supportive care. MMODL / IJN: [id number] /
[2019-07-21 18:15] LABS: Glucose,Whole Blood 130 mg/dL (75-99)
--- NOTE | 2019-07-21 18:45 | CONS ---
DATE OF CONSULTATION: 07/21/2019 This is a 48-year-old -[place] female who was seen on consult for placement of urgent dialysis catheter. The patient came to the ER in the past. She was intubated because of respiratory insufficiency and hypoglycemia. The patient was seen in the intensive care unit. The patient has been intubated. Neck is supple. Chest is clear. Breath sounds are diminished. First and second sounds are normal. Abdomen is soft, nontender. Vascular examination: Femorals are 1+ bilateral. IMPRESSION: Acute on chronic renal failure with liver failure. PLAN: Placement of the dialysis catheter. Risks and complications discussed. MMODL / IJN: [id number] / [email or web address]
[2019-07-21 19:14] LABS: Glucose,Whole Blood 134 mg/dL (75-99)
--- NOTE | 2019-07-21 19:33 | PCN ---
PROCEDURE NOTE PREOPERATIVE DIAGNOSIS: Acute on chronic renal failure with liver failure. POSTOPERATIVE DIAGNOSIS: Acute on chronic renal failure with liver failure. PROCEDURE: Ultrasound-guided micropuncture into the left femoral vein. Micropuncture guidewire was passed and after that a dilator was advanced on the top of the guidewire, then we passed the regular guidewire and then the dialysis catheter was advanced on the top of the guidewire, flushed with heparin saline and hep-locked and secured with 3-0 nylon. Dressing applied. Patient tolerated the procedure well. MMODL / IJN: [id number] /
[2019-07-21 19:50] LABS: Glucose,Whole Blood 144 mg/dL (75-99)
[2019-07-21 21:13] LABS: Glucose,Whole Blood 125 mg/dL (75-99)
[2019-07-21] MEDS: SODIUM CHLORIDE 0.9% 150 ML with VASOPRESSIN 60 UNIT IV SCH ×2 (21:14)
[2019-07-21 22:05] LABS: Glucose,Whole Blood 117 mg/dL (75-99)
[2019-07-21 23:02] LABS: Glucose,Whole Blood 132 mg/dL (75-99)
[2019-07-22 00:13] LABS: Glucose,Whole Blood 128 mg/dL (75-99)
[2019-07-22] MEDS: SODIUM CHLORIDE 0.9% 1,000 ML IV SCH ×2 (00:28→19:46)
[2019-07-22] MEDS: PROPOFOL 1,000 MG in EMPTY BAG 1 BAG IV SCH (00:28)
[2019-07-22] MEDS: NOREPINEPHRINE 32 MG in SODIUM CHLORIDE 0.9% 218 ML IV SCH ×3 (00:29→19:43)
[2019-07-22 00:58] LABS: Glucose,Whole Blood 124 mg/dL (75-99)
[2019-07-22 01:56] LABS: Glucose,Whole Blood 144 mg/dL (75-99)
[2019-07-22 02:56] LABS: Glucose,Whole Blood 127 mg/dL (75-99)
[2019-07-22 04:00] LABS: Glucose,Whole Blood 138 mg/dL (75-99)
[2019-07-22 04:10] LABS: Anisocytosis Slight; Basophils % (A) 0 %; Eosinophils # (A) 0.3 k/uL (0-0.7); Eosinophils % (A) 3 %; HCT 28.7 % (34.0-46.0); HGB 9.1 gm/dL (11.4-16.0); Lymphocytes % (A) 10 %; MCH 29.8 pg (25.0-35.0); MCHC 31.7 g/dL (31.0-37.0); MCV 94.1 fL (80.0-100.0); Macrocytosis Slight; Mean Platelet Volume 10.5; Monocytes # (A) 0.4 k/uL (0-1.0); Monocytes % (A) 5 %; Neutrophils # (A) 7.6 k/uL (1.3-7.7); Neutrophils % (A) 81 %; RBC 3.05 m/uL (3.80-5.40); RDW 19.7 % (11.5-15.5); WBC 9.4 k/uL (3.8-10.6)
[2019-07-22 04:13] LABS: Platelet Count 40 k/uL (150-450)
[2019-07-22 04:15] LABS: Lactic Acid, Venous 1.7 mmol/L (0.7-2.0)
[2019-07-22 04:22] LABS: Albumin 2.2 g/dL (3.5-5.0); Calcium 6.6 mg/dL (8.4-10.2); Potassium 3.8 mmol/L (3.5-5.1); Total Bilirubin 2.3 mg/dL (0.2-1.3)
[2019-07-22] MEDS: PIPERACILLIN-TAZOBACTAM 3.375 GM in SODIUM CHLORIDE 0.9% 100 ML IVPB SCH ×2 (04:53→18:30)
[2019-07-22 05:06] LABS: ABG Base Excess 8.9 mmol/L; ABG HCO3 32 mmol/L (21-25); ABG Oxygen Saturation 98.7 % (94-97); ABG PCO2 42 mmHg (35-45); ABG PO2 146 mmHg (83-108); ABG TCO2 33 mmol/L (19-24); Allen Test Performed? Yes
[2019-07-22 05:56] LABS: Glucose,Whole Blood 167 mg/dL (75-99)
[2019-07-22 06:53] LABS: Glucose,Whole Blood 140 mg/dL (75-99)
--- NOTE | 2019-07-22 07:13 | XR ---
EXAMINATION TYPE: XR chest 1V portable DATE OF EXAM: 07/22/2019 COMPARISON: Prior chest x-ray 07/21/2019 HISTORY: Intubated TECHNIQUE: Single frontal view of the chest is obtained. FINDINGS: Endotracheal tube and NG tube are overlying appropriate positions. There are overlying car diac leads. No evident pneumothorax. Heart size is stable. Patchy basilar areas of increased attenuat ion are again noted. Right hemidiaphragm is obscured. IMPRESSION: Correlate for pneumonia, possible associated effusion
[2019-07-22 08:34] LABS: Glucose,Whole Blood 119 mg/dL (75-99)
[2019-07-22] MEDS: LACTULOSE 20 GM/30 ML CUP PO SCH ×2 (08:37→20:40)
[2019-07-22] MEDS: CHLORHEXIDINE GLUCONATE 15 ML CUP MUCOUS MEM SCH ×2 (08:41→20:44)
[2019-07-22] MEDS: PANTOPRAZOLE 40 MG/10 ML VIAL IV SCH (08:42)
[2019-07-22] MEDS: metroNIDAZOLE-NS PMX 500 MG in SALINE 1 100ML.BAG IVPB SCH ×3 (08:46→20:44)
[2019-07-22] MEDS: RIFAXIMIN 550 MG TABLET PO SCH ×2 (08:47→20:44)
[2019-07-22] MEDS ORDERED: HYDROCORTISONE SUCCINATE 100 MG/2 ML VIAL IV SCH (09:00)
[2019-07-22 10:22] LABS: Glucose,Whole Blood 111 mg/dL (75-99)
[2019-07-22] MEDS ORDERED: POTASSIUM CHLORIDE 20 MEQ in WATER FOR INJECTION 1 100ML.BAG IVPB STA (11:01)
[2019-07-22] MEDS ORDERED: FUROSEMIDE 10 MG/ML 10 ML VIAL IV STA (11:01)
[2019-07-22 11:40] LABS: Glucose,Whole Blood 126 mg/dL (75-99)
--- NOTE | 2019-07-22 11:56 | P.PN ---
Subjective Patient is seen in follow for acute kidney injury. Started on hemodialysis on July 20. Urine output 10-15 mL an hour. Currently intubated on 30% FiO2. She is maintained on normal saline at 50 mL an hour along with tube feeding. Vital signs are stable. General: The patient appeared well nourished and normally developed. HEENT: Head exam is unremarkable. Neck is without jugular venous distension. Intubated. LUNGS: Lungs are clear to auscultation and percussion. Breath sounds decreased. HEART: Rate and Rhythm are regular. ABDOMEN: Soft, nondistended. EXTREMITITES: 1+ edema. Objective - Vital Signs Vital signs: Vital Signs Temp 97.5 F L 07/22/19 08:00 Pulse 92 07/22/19 10:00 Resp 17 07/22/19 10:00 BP 114/75 07/22/19 08:30 Pulse Ox 100 07/22/19 10:00 Intake & Output 07/21/19 07/22/19 07/22/19 18:59 06:59 18:59 Intake Total 2701.491 5984.782 388.099 Output Total 1091 145 339 Balance 66.200 1055.782 49.099 Weight 90.8 kg 92 kg Intake: IV 976 909 259 0.9 KVO 240 20 Dextrose 5% in Water 1, 300 000 ml @ 75 mls/hr IV . [id number] [facility] with Sodium Bicarb (1 Meq/ml) 150 ml Rx#:[id number] Piperacillin-Tazobactam 3 100 .375 gm In Sodium Chloride 0.9% 100 ml @ 25 mls/hr IVPB Q12H [facility] Rx# :[id number] Sodium Chloride 0.9% 1, 400 650 150 000 ml @ 50 mls/hr IV . Q20H [facility] Rx#:[id number] metroNIDAZOLE-NS PMX 500 100 100 mg In Saline 1 100ml.bag @ 100 mls/hr IVPB TID [facility] Rx#:[id number] pressure bag 36 39 9 Intake, IV Titration 181.200 41.782 69.099 Amount Insulin Regular 100 unit 10.235 10.858 1.7 In Sodium Chloride 0.9% 100 ml @ Per Protocol IV .Q0M [facility] Rx#:[id number] Norepinephrine 32 mg In 13.761 15.397 Sodium Chloride 0.9% 218 ml @ 0.6 MCG/KG/MIN 23. 766 mls/hr IV .[id number] [facility] Rx#:[id number] Propofol 1,000 mg In 157.204 15.527 67.399 Empty Bag 1 bag @ Titrate IV .Q0M [facility] Rx#: [id number] Tube Feeding 160 30 Other 90 30 Output: Urine 91 145 39 Stool 300 Hemodialysis 1000 Other: Voiding Method Indwelling Catheter Indwelling Catheter Indwelling Catheter ABP, PAP, CO, CI - Last Documented Arterial Blood Pressure 131/57 - Labs CBC & Chem 7: 07/22/19 04:00 07/22/19 04:00 Labs: Abnormal Lab Results - Last 24 Hours (Table) 07/21/19 07/21/19 07/21/19 Range/Units 12:09 13:19 13:25 RBC (3.80-5.40) m/uL Hgb (11.4-16.0) gm/dL Hct (34.0-46.0) % RDW (11.5-15.5) % Plt Count (150-450) k/uL ABG pH (7.35-7.45) ABG pO2 (83-108) mmHg ABG HCO3 (21-25) mmol/L ABG Total CO2 (19-24) mmol/L ABG O2 Saturation (94-97) % Carbon Dioxide (22-30) mmol/L Creatinine (0.52-1.04) mg/dL Glucose (74-99) mg/dL POC Glucose (mg/dL) 146 H 140 H (75-99) mg/dL Plasma Lactic Acid Robert 4.5 H* (0.7-2.0) mmol/L Calcium (8.4-10.2) mg/dL Total Bilirubin (0.2-1.3) mg/dL AST (14-36) U/L ALT (4-34) U/L Alkaline Phosphatase (38-126) U/L Total Protein (6.3-8.2) g/dL Albumin (3.5-5.0) g/dL 07/21/19 07/21/19 07/21/19 Range/Units 15:32 16:21 18:13 RBC (3.80-5.40) m/uL Hgb (11.4-16.0) gm/dL Hct (34.0-46.0) % RDW (11.5-15.5) % Plt Count (150-450) k/uL ABG pH (7.35-7.45) ABG pO2 (83-108) mmHg ABG HCO3 (21-25) mmol/L ABG Total CO2 (19-24) mmol/L ABG O2 Saturation (94-97) % Carbon Dioxide (22-30) mmol/L Creatinine (0.52-1.04) mg/dL Glucose (74-99) mg/dL POC Glucose (mg/dL) 125 H 112 H 130 H (75-99) mg/dL Plasma Lactic Acid Robert (0.7-2.0) mmol/L Calcium (8.4-10.2) mg/dL Total Bilirubin (0.2-1.3) mg/dL AST (14-36) U/L ALT (4-34) U/L Alkaline Phosphatase (38-126) U/L Total Protein (6.3-8.2) g/dL Albumin (3.5-5.0) g/dL 07/21/19 07/21/19 07/21/19 Range/Units 19:11 19:48 21:11 RBC (3.80-5.40) m/uL Hgb (11.4-16.0) gm/dL Hct (34.0-46.0) % RDW (11.5-15.5) % Plt Count (150-450) k/uL ABG pH (7.35-7.45) ABG pO2 (83-108) mmHg ABG HCO3 (21-25) mmol/L ABG Total CO2 (19-24) mmol/L ABG O2 Saturation (94-97) % Carbon Dioxide (22-30) mmol/L Creatinine (0.52-1.04) mg/dL Glucose (74-99) mg/dL POC Glucose (mg/dL) 134 H 144 H 125 H (75-99) mg/dL Plasma Lactic Acid Robert (0.7-2.0) mmol/L Calcium (8.4-10.2) mg/dL Total Bilirubin (0.2-1.3) mg/dL AST (14-36) U/L ALT (4-34) U/L Alkaline Phosphatase (38-126) U/L Total Protein (6.3-8.2) g/dL Albumin (3.5-5.0) g/dL 07/21/19 07/21/19 07/22/19 Range/Units 22:03 23:00 00:12 RBC (3.80-5.40) m/uL Hgb (11.4-16.0) gm/dL Hct (34.0-46.0) % RDW (11.5-15.5) % Plt Count (150-450) k/uL ABG pH (7.35-7.45) ABG pO2 (83-108) mmHg ABG HCO3 (21-25) mmol/L ABG Total CO2 (19-24) mmol/L ABG O2 Saturation (94-97) % Carbon Dioxide (22-30) mmol/L Creatinine (0.52-1.04) mg/dL Glucose (74-99) mg/dL POC Glucose (mg/dL) 117 H 132 H 128 H (75-99) mg/dL Plasma Lactic Acid Robert (0.7-2.0) mmol/L Calcium (8.4-10.2) mg/dL Total Bilirubin (0.2-1.3) mg/dL AST (14-36) U/L ALT (4-34) U/L Alkaline Phosphatase (38-126) U/L Total Protein (6.3-8.2) g/dL Albumin (3.5-5.0) g/dL 07/22/19 07/22/19 07/22/19 Range/Units 00:57 01:55 02:54 RBC (3.80-5.40) m/uL Hgb (11.4-16.0) gm/dL Hct (34.0-46.0) % RDW (11.5-15.5) % Plt Count (150-450) k/uL ABG pH (7.35-7.45) ABG pO2 (83-108) mmHg ABG HCO3 (21-25) mmol/L ABG Total CO2 (19-24) mmol/L ABG O2 Saturation (94-97) % Carbon Dioxide (22-30) mmol/L Creatinine (0.52-1.04) mg/dL Glucose (74-99) mg/dL POC Glucose (mg/dL) 124 H 144 H 127 H (75-99) mg/dL Plasma Lactic Acid Robert (0.7-2.0) mmol/L Calcium (8.4-10.2) mg/dL Total Bilirubin (0.2-1.3) mg/dL AST (14-36) U/L ALT (4-34) U/L Alkaline Phosphatase (38-126) U/L Total Protein (6.3-8.2) g/dL Albumin (3.5-5.0) g/dL 07/22/19 07/22/19 07/22/19 Range/Units 03:58 04:00 04:00 RBC 3.05 L (3.80-5.40) m/uL Hgb 9.1 L (11.4-16.0) gm/dL Hct 28.7 L (34.0-46.0) % RDW 19.7 H (11.5-15.5) % Plt Count 40 L (150-450) k/uL ABG pH (7.35-7.45) ABG pO2 (83-108) mmHg ABG HCO3 (21-25) mmol/L ABG Total CO2 (19-24) mmol/L ABG O2 Saturation (94-97) % Carbon Dioxide 32 H (22-30) mmol/L Creatinine 3.34 H (0.52-1.04) mg/dL Glucose 129 H (74-99) mg/dL POC Glucose (mg/dL) 138 H (75-99) mg/dL Plasma Lactic Acid Robert (0.7-2.0) mmol/L Calcium 6.6 L (8.4-10.2) mg/dL Total Bilirubin 2.3 H (0.2-1.3) mg/dL AST 363 H (14-36) U/L ALT 67 H (4-34) U/L Alkaline Phosphatase 187 H (38-126) U/L Total Protein 5.0 L (6.3-8.2) g/dL Albumin 2.2 L (3.5-5.0) g/dL 07/22/19 07/22/19 07/22/19 Range/Units 05:02 05:55 06:52 RBC (3.80-5.40) m/uL Hgb (11.4-16.0) gm/dL Hct (34.0-46.0) % RDW (11.5-15.5) % Plt Count (150-450) k/uL ABG pH 7.50 H (7.35-7.45) ABG pO2 146 H (83-108) mmHg ABG HCO3 32 H (21-25) mmol/L ABG Total CO2 33 H (19-24) mmol/L ABG O2 Saturation 98.7 H (94-97) % Carbon Dioxide (22-30) mmol/L Creatinine (0.52-1.04) mg/dL Glucose (74-99) mg/dL POC Glucose (mg/dL) 167 H 140 H (75-99) mg/dL Plasma Lactic Acid Robert (0.7-2.0) mmol/L Calcium (8.4-10.2) mg/dL Total Bilirubin (0.2-1.3) mg/dL AST (14-36) U/L ALT (4-34) U/L Alkaline Phosphatase (38-126) U/L Total Protein (6.3-8.2) g/dL Albumin (3.5-5.0) g/dL 07/22/19 07/22/19 07/22/19 Range/Units 08:33 10:21 11:39 RBC (3.80-5.40) m/uL Hgb (11.4-16.0) gm/dL Hct (34.0-46.0) % RDW (11.5-15.5) % Plt Count (150-450) k/uL ABG pH (7.35-7.45) ABG pO2 (83-108) mmHg ABG HCO3 (21-25) mmol/L ABG Total CO2 (19-24) mmol/L ABG O2 Saturation (94-97) % Carbon Dioxide (22-30) mmol/L Creatinine (0.52-1.04) mg/dL Glucose (74-99) mg/dL POC Glucose (mg/dL) 119 H 111 H 126 H (75-99) mg/dL Plasma Lactic Acid Robert (0.7-2.0) mmol/L Calcium (8.4-10.2) mg/dL Total Bilirubin (0.2-1.3) mg/dL AST (14-36) U/L ALT (4-34) U/L Alkaline Phosphatase (38-126) U/L Total Protein (6.3-8.2) g/dL Albumin (3.5-5.0) g/dL Microbiology - Last 24 Hours (Table) 07/19/19 14:22 Urine Culture - Final Urine,Voided Escherichia coli 07/19/19 20:14 Gram Stain - Final Sputum Sputum Culture - Final 07/21/19 15:10 Stool Culture - Preliminary Stool 07/19/19 15:36 Blood Culture - Preliminary Blood No Growth after 48 hours Assessment and Plan Plan: Assessment: 1. Acute kidney injury secondary to ATN secondary to septic shock. Creatinine peaked at 4 this admission. CAT scan revealed fullness of the collecting systems. No hydronephrosis noted on renal ultrasound. Unknown baseline renal function. Started on hemodialysis on July 20. 2. Hyperkalemia secondary to acute kidney injury, metabolic acidosis and GI bleed. Improved with medical management. 3. Severe metabolic acidosis secondary to acute kidney injury and lactic acidosis. Volatile screen negative. Resolved. Now alkalotic. 4. Hypocalcemia secondary to acute kidney injury. Corrected calcium near 8. 5. Acute GI bleed status post blood transfusion and IV DDAVP. GI following. Hemoglobin better. 6. UTI with urine culture positive for E. coli maintain on antibiotics. 7. ? Ischemic colitis. Plan: Maintain normal saline at 50 mL an hour. Maintain tube feeds. Lasix 80 mg IV once today. Wean FiO2. Follow-up cultures. Currently seen while undergoing hemodialysis. Third treatment tomorrow. Goal 1 L UF. Continue to monitor renal function and urine output closely.
--- NOTE | 2019-07-22 12:07 | PN ---
PROGRESS NOTE PULMONARY/CRITICAL CARE PROGRESS NOTE: DATE OF SERVICE: 07/22/2019 CRITICAL CARE TIME: 33 minutes. This is a 48-year-old black female who had an in-hospital cardiac arrest. She was admitted to the hospital on 07/18. The arrest occurred on the same day. She is apparently going for CAT scan or something of the sort. Anyway, the patient was intubated in the emergency room. She has a history of respiratory failure, UTI, sepsis. Again, she was intubated on 07/18. Currently on the volume assist-control mode, rate of 16, tidal volume 400, FiO2 of 40%, which could be turned on the 30% PEEP of 5. Blood gases show pO2 of 146, pCO2 of 42 and a pH of 7.5. The patient is currently on saline at 50 mL an hour, Diprivan at 20 mcg/kg per minute, insulin at 2 units an hour, norepinephrine currently on hold. She is on Vital high-protein at 20 with a goal of 58 mL an hour. Head CT was negative for anything acute. She has not had any EEG or neurology consult. I did tell the nurses that I wanted a daily interruption of sedation on this patient. Apparently when she had one earlier, she was totally unresponsive. She may have sustained significant brain injury from the cardiac arrest. The nurse was unaware of how long the resuscitation period was. Current vital signs are temperature 97.5, heart rate 87, respiratory rate 16, blood pressure 133/59 with a saturation of 99%. Appears in no acute distress. Currently sedated and intubated. HEENT: Examination is grossly unremarkable. There is an orally placed endotracheal tube and NG tube. NECK: Supple. Full range of motion. No adenopathy or thyromegaly. Neck veins are flat. CARDIOVASCULAR: Examination reveals regular rhythm and rate. Heart rate in the mid to high 80s. S1, S2 normal. LUNGS: Reveal a few scattered rhonchi. No wheezes or crackles. ABDOMEN: Soft, bowel sounds are heard. EXTREMITIES: Intact. No edema. SKIN: Without rash. NEUROLOGIC: Examination is difficult to assess given the fact that she is on sedation. LABS: Reviewed. White count 9.4, hemoglobin 9.1, hematocrit 28.7, platelet count 40,000, sodium 139, potassium 3.8, chloride 101, CO2 is 32, anion gap is 6, BUN and creatinine 15 and 3.34. Calcium 6.6, bilirubin 2.3, AST 363, ALT is 67, alkaline phosphatase 187. Current microbiology showing evidence of Escherichia coli in the urine from July 18. Chest x-ray shows evidence of some patchy infiltrates, particularly on the right side and to a lesser extent on the left side. Endotracheal tube is in good position. CURRENT MEDICATIONS: Reviewed. She is on chlorhexidine, hydrocortisone, insulin, lactulose, metronidazole, Narcan, norepinephrine, which is currently on hold, Protonix, Zosyn, propofol, Xifaxan, and vasopressin at 0.04 units/minute. ASSESSMENT: 1. Acute hypoxemic respiratory failure, secondary to septic shock and possible ischemic colitis and/or a suspected intraabdominal source of sepsis. 2. Acute blood loss anemia. 3. Acute thrombocytopenia secondary to sepsis. 4. Shocked liver secondary to hypotension. 5. Mental status changes with suspected hepatic encephalopathy. 6. Acute kidney injury/acute tubular necrosis. 7. Severe anion gap metabolic acidosis, resolved. 8. Acute lactic acidosis. 9. Possible urinary tract infection secondary to Escherichia coli. 10.Acute alcohol intoxication. PLAN: The patient's medications will be reviewed and unnecessary medications will be stopped. The patient will come off the Diprivan. We will do a daily interruption of sedation. Will assess whether or not she is ready for a spontaneous breathing trial. Additional recommendations and suggestions are forthcoming. If she is off sedation and does not respond appropriately, she will need a Neurology consult and an EEG. Additional recommendations and suggestions are forthcoming. Her brain scan/CAT scan of the brain was normal. CRITICAL CARE TIME: 33 minutes. MMODL / IJN: [id number] /
[2019-07-22 12:40] LABS: Glucose,Whole Blood 128 mg/dL (75-99)
[2019-07-22 13:18] LABS: Hepatitis B Surface AB- Quant 3.5 mIU/mL; Hepatitis B Surface Antibody Non-Reactive (Non-Reactive); Hepatitis B Surface Antigen Non-Reactive (Non-Reactive)
--- NOTE | 2019-07-22 13:52 | PN ---
PROGRESS NOTE DATE OF SERVICE: 07/22/2019 Patient is a 48-year-old white female, remains on the vent, intubated, sedated in the intensive care unit. She has been off vasopressors for 24 hours, urine output improving. She had about 300 mL of liquid stool through the . No acute events overnight as per the nursing staff. PHYSICAL EXAMINATION: VITAL SIGNS: Blood pressure 131/57, pulse rate 92 and afebrile. HEENT: Examination unremarkable, conjunctivae are pink, sclerae nonicteric, oral cavity no lesions. CHEST: Clear to auscultation. HEART: Regular rate and rhythm. ABDOMEN: Soft, nontender. Bowel sounds are positive. No organomegaly. EXTREMITIES: No pedal edema. NEURO: She is sedated. LABS: WBC 9.1, hemoglobin 9.1, platelets 40,000, T-bilirubin is 2.3, AST 363, ALT 67, alkaline phosphatase 187. Creatinine is 3.34. IMPRESSION: 1. 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 2. Acute respiratory failure, remains intubated, sedated on the vent. 3. Lactic acidosis, improving. 4. Thrombocytopenia secondary to underlying alcoholic liver disease/alcoholic cirrhosis of the liver. 5. Hepatic encephalopathy on lactulose and Xifaxan. Ammonia level is down to 23. 6. Anemia, gastrointestinal bleed, resolved. Hemoglobin stable. RECOMMENDATIONS: 1. Continue Protonix 40 mg daily. 2. Continue lactulose and Xifaxan. 3. Continue with tube feeds. 4. Management per in store demonstrator. 5. Symptomatic supportive care. 6. No plans on any endoscopy intervention. 7. Will follow with you closely. Thank you for this consultation. MMODL / IJN: [id number] /
[2019-07-22 14:26] LABS: Glucose,Whole Blood 108 mg/dL (75-99)
[2019-07-22 14:58] LABS: Hepatitis A Antibody IgM Non-Reactive (Non-Reactive); Hepatitis B Core IgM Non-Reactive (Non-Reactive); Hepatitis B Surface Antigen Non-Reactive (Non-Reactive); Hepatitis C IgG Antibody Non-Reactive (Non-Reactive)
[2019-07-22 15:12] LABS: Glucose,Whole Blood 135 mg/dL (75-99)
[2019-07-22 16:58] LABS: Glucose,Whole Blood 153 mg/dL (75-99)
[2019-07-22 18:38] LABS: Glucose,Whole Blood 159 mg/dL (75-99)
[2019-07-22 19:59] LABS: Glucose,Whole Blood 160 mg/dL (75-99)
[2019-07-22 21:10] LABS: Glucose,Whole Blood 157 mg/dL (75-99)
--- NOTE | 2019-07-22 21:11 | PN ---
PROGRESS NOTE DATE OF SERVICE: 07/22/2019 CHIEF COMPLAINT: Cardiorespiratory arrest with renal failure. HISTORY OF PRESENT ILLNESS: This lady has been stable over the last 24 hours. Vital signs are normal. She continues on the ventilator. PHYSICAL EXAMINATION: Pupils are mid range and dysconjugate. Breath sounds are heard bilaterally and there are no rales or rhonchi. Cardiac exam is normal. The abdomen is slightly protuberant and soft. IMPRESSION: 1. Cardiorespiratory arrest, etiology unknown. 2. Hypertension. 3. ? sepsis. 4. Acute renal failure. 5. Gastrointestinal blood loss anemia. PLAN: Continue with current supportive measures until she recovers enough that she can be moved out of ICU. MMODL / IJN: [id number] /
[2019-07-22 22:03] LABS: Glucose,Whole Blood 204 mg/dL (75-99)
[2019-07-22 23:00] LABS: Glucose,Whole Blood 162 mg/dL (75-99)
[2019-07-22 23:54] LABS: Glucose,Whole Blood 177 mg/dL (75-99)
[2019-07-23 00:56] LABS: Glucose,Whole Blood 196 mg/dL (75-99)
[2019-07-23] MEDS: NOREPINEPHRINE 32 MG in SODIUM CHLORIDE 0.9% 218 ML IV SCH ×2 (01:54→14:31)
[2019-07-23 01:55] LABS: Glucose,Whole Blood 184 mg/dL (75-99)
[2019-07-23 03:03] LABS: Glucose,Whole Blood 167 mg/dL (75-99)
--- NOTE | 2019-07-23 03:09 | PN ---
PROGRESS NOTE DATE OF SERVICE: 07/22/2019 REASON FOR FOLLOWUP: Sepsis possible ischemic colitis. INTERVAL HISTORY: The patient is currently afebrile. The patient is hemodynamically stable. FiO2 is currently at 30%. No significant purulent secretion through the ET has been reported by the nursing staff and the diarrhea seemed to have slightly slowed. PHYSICAL EXAMINATION: Blood pressure 149/70 with a pulse of 76, temperature 98. She is 100% on 30% FiO2. General description is a middle-aged female intubated on the vent. RESPIRATORY SYSTEM: Unlabored breathing, clear to auscultation anteriorly. HEART: S1, S2. Regular rate and rhythm. ABDOMEN: Soft, no tenderness. LABS: Hemoglobin 9.1, white count 9.4, BUN of 15, creatinine 3.34. DIAGNOSTIC IMPRESSION AND PLAN: Patient with sepsis, source is likely multifactorial in this patient who did have a possible ischemic colitis and did have cardiac arrest. So far culture has been negative for resistant pathogen. Urinary tract infection shows Escherichia coli which is sensitive pathogen. Patient is covered with Zosyn to continue and will monitor clinical course closely. MMODL / IJN: [id number] /
[2019-07-23 04:02] LABS: Glucose,Whole Blood 169 mg/dL (75-99)
[2019-07-23 04:18] LABS: Anisocytosis Slight; Basophils % (A) 0 %; Eosinophils # (A) 0.3 k/uL (0-0.7); Eosinophils % (A) 2 %; HCT 30.1 % (34.0-46.0); HGB 9.7 gm/dL (11.4-16.0); Lymphocytes # (A) 1.2 k/uL (1.0-4.8); Lymphocytes % (A) 12 %; MCH 30.7 pg (25.0-35.0); MCHC 32.1 g/dL (31.0-37.0); MCV 95.4 fL (80.0-100.0); Macrocytosis Slight; Monocytes # (A) 0.5 k/uL (0-1.0); Monocytes % (A) 5 %; Neutrophils # (A) 8.2 k/uL (1.3-7.7); Neutrophils % (A) 78 %; RBC 3.15 m/uL (3.80-5.40); RDW 19.7 % (11.5-15.5); WBC 10.5 k/uL (3.8-10.6)
[2019-07-23 04:23] LABS: Platelet Count 39 k/uL (150-450)
[2019-07-23 04:33] LABS: Albumin 2.2 g/dL (3.5-5.0); Potassium 3.4 mmol/L (3.5-5.1); Total Protein 5.1 g/dL (6.3-8.2)
[2019-07-23 04:56] LABS: Glucose,Whole Blood 155 mg/dL (75-99)
[2019-07-23 05:11] LABS: ABG Base Excess 7.5 mmol/L; ABG HCO3 31 mmol/L (21-25); ABG Oxygen Saturation 98.1 % (94-97); ABG PCO2 42 mmHg (35-45); ABG PH 7.48 (7.35-7.45); ABG PO2 112 mmHg (83-108); ABG TCO2 32 mmol/L (19-24); Allen Test Performed? Yes
[2019-07-23] MEDS ORDERED: Potassium Replacement Protocol 1 EACH MISC MISCELLANE PRN (05:20)
[2019-07-23] MEDS: PIPERACILLIN-TAZOBACTAM 3.375 GM in SODIUM CHLORIDE 0.9% 100 ML IVPB SCH ×3 (05:32→23:22)
[2019-07-23] MEDS: POTASSIUM BICARBONATE/CIT AC 20 MEQ TABLET.EFF NG-TUBE SCH ×2 (05:32→06:24)
[2019-07-23 05:58] LABS: Glucose,Whole Blood 184 mg/dL (75-99)
[2019-07-23 07:00] LABS: Glucose,Whole Blood 157 mg/dL (75-99)
--- NOTE | 2019-07-23 07:13 | XR ---
EXAMINATION TYPE: XR chest 1V portable DATE OF EXAM: 07/23/2019 CLINICAL HISTORY: Difficulty breathing progress study. TECHNIQUE: Single AP portable upright view of the chest is obtained. COMPARISON: Chest x-ray from one day earlier and older studies. FINDINGS: Stable endotracheal and orogastric tubes. Increasing gas distention of stomach noted. Pers istent right basilar opacity. New peripheral left mid to lower lung opacity. Upper lungs remain clear without pneumothorax. Cardiac silhouette size stable and enlarged. Background low lung volumes redem onstrated. Osseous structures are intact. IMPRESSION: 1. Low lung volumes and cardiomegaly with small right pleural effusion and associated right basilar a telectasis and/or infiltrate are all redemonstrated and felt stable. New peripheral left midlung acut e infiltrate, correlate clinically for developing Covid-19 pneumonia in current state. 2. Stable positioning of nasogastric tube with increasing gas distention of stomach noted. Correlate clinically. A Yellow level critical message alert has been initiated for Jeet Ruiz MD~[id number] via the [employer] Critical Results System on 07/23/2019 7:11 AM. This message alert has been sent to Jeet Ruiz MD~[id number] via the preferences provided by the clinician for the receipt of Radiology Critical Finding s. Message ID [id number].
[2019-07-23] MEDS ORDERED: ARTIFICIAL TEARS OINTMENT 3.5 GM TUBE BOTH EYES PRN (08:57)
[2019-07-23 09:15] LABS: Glucose,Whole Blood 136 mg/dL (75-99)
[2019-07-23] MEDS: LACTULOSE 20 GM/30 ML CUP PO SCH ×2 (09:26→20:55)
[2019-07-23] MEDS: metroNIDAZOLE-NS PMX 500 MG in SALINE 1 100ML.BAG IVPB SCH ×3 (09:28→20:58)
[2019-07-23] MEDS: RIFAXIMIN 550 MG TABLET PO SCH ×2 (09:28→20:58)
[2019-07-23] MEDS: CHLORHEXIDINE GLUCONATE 15 ML CUP MUCOUS MEM SCH ×2 (09:28→20:58)
[2019-07-23] MEDS: PANTOPRAZOLE 40 MG/10 ML VIAL IV SCH (09:28)
[2019-07-23 09:40] LABS: ABG Base Excess 8.1 mmol/L; ABG HCO3 31 mmol/L (21-25); ABG Oxygen Saturation 95.9 % (94-97); ABG PCO2 41 mmHg (35-45); ABG PO2 77 mmHg (83-108); ABG TCO2 33 mmol/L (19-24); Allen Test Performed? Yes
--- NOTE | 2019-07-23 10:32 | PN ---
PROGRESS NOTE PULMONARY/CRITICAL CARE PROGRESS NOTE: DATE OF SERVICE: 07/23/2019 CRITICAL CARE TIME: 32 minutes. This is a 48-year-old black female who had an in-hospital cardiac arrest. She was admitted on July 18. The arrest occurred on the same day and apparently according to the respiratory therapist, was brief. She apparently was going for a CAT scan procedure. Anyway, the patient has a history of respiratory failure, urinary tract infection, and sepsis. She was intubated on 07/18. She remains on the mechanical ventilator. Her vent settings include the volume assist-control mode rate of 16, tidal volume 400, FiO2 30% to be dropped to 25%, and PEEP of 5. Arterial blood gases show pO2 of 112, pCO2 of 42, and pH of 7.48. This is consistent with a metabolic alkalosis. She is getting saline at 10 mL an hour, insulin at 1 unit an hour and tube feeds with Vital AF at 50 with a goal of 58 mL an hour. Her urine was positive for Escherichia coli. Neuro has yet to see her. EEG has not yet been done. Today, we are going to do a daily interruption of sedation. She has been off the propofol since yesterday. We are going to place her on PSV 10, CPAP of 5 for spontaneous breathing trial. The FiO2 was dropped down to 25%. Current vital signs are reviewed. Temperature is 97.6, heart rate 90, respiratory rate 16, blood pressure 111/69 mean 83 and saturations are 100%. Appears in no acute distress. HEENT: Examination is grossly unremarkable. There is no orally placed endotracheal tube and NG tube. NECK: Supple. Full range of motion. CARDIOVASCULAR: Examination reveals regular rhythm and rate. Heart rate 90 beats per minute. S1, S2 normal. LUNGS: Reveal some coarse bilateral rhonchi. No wheezes. No crackles. ABDOMEN: Soft, bowel sounds are noted. EXTREMITIES: Intact. Slight edema. SKIN: Without rash. NEUROLOGIC: Examination is difficult to assess as she is poorly responsive. This may indicate some anoxic brain injury. LABS: Reviewed. Her white count 7.5, hemoglobin 9.7, hematocrit 30.1, platelet count is 39,000, blood gases have been noted. Sodium 137, potassium 3.4, chloride is 101, CO2 is 33, anion gap is 3. BUN and creatinine were 13 and 2.53. Her urine was positive for urinary tract infection. She does have E. coli in her urine. Her initial serum alcohol was 274 and her ethanol level was 191. Tylenol level was 11.5, salicylate level was 1.0. Drug screen was otherwise negative. COVID testing was negative. Again, urine was positive for E coli on July 18. Chest x-ray shows low lung volumes with cardiomegaly and a small right pleural effusion. The radiologist also mentioned the possibility of peripheral left mid lung infiltrate. Medications were reviewed yesterday as they were today. Unnecessary medications were discontinued. The patient remains on Zosyn as an antibiotic. ASSESSMENT: 1. Acute hypoxemic respiratory failure, secondary to septic shock and possible ischemic colitis and/or a suspected intraabdominal source of sepsis. 2. Escherichia coli urinary tract infection with sepsis. 3. Acute blood loss anemia. 4. Acute thrombocytopenia secondary to sepsis. 5. Shocked liver secondary to hypotension and sepsis. 6. Mental status changes with suspected hepatic encephalopathy. 7. Acute kidney injury/acute tubular necrosis. 8. Severe anion gap metabolic acidosis, resolved. 9. Acute lactic acidemia. 10.Acute alcohol intoxication. 11.Rule out anoxic brain injury. 12.Status post cardiopulmonary arrest on July 18. PLAN: The patient will be given a trial of PSV and CPAP. Neurology is yet to see the patient. FiO2 was dropped to 25%. She has been off propofol. This happened yesterday. Her red mental status is not particularly good. Additional recommendations and suggestions are forthcoming. She is getting nourished. Will increase tube feeds to goal. Prognosis is poor. CRITICAL CARE TIME: 32 minutes. MMCAROLINL / ESHAN: [id number] /
--- NOTE | 2019-07-23 10:49 | P.PN ---
Subjective Progress Note Date: 07/23/19 Patient has significantly improved. Lactic acidosis is resolved. Abdomen is soft. Still intubated on Vent. Liquid brown stool Objective - Vital Signs Vital signs: Vital Signs Temp 97.6 F 07/23/19 04:00 Pulse 90 07/23/19 09:00 Resp 13 07/23/19 09:00 BP 111/69 07/23/19 09:00 Pulse Ox 100 07/23/19 09:00 Intake & Output 07/22/19 07/23/19 07/23/19 18:59 06:59 18:59 Intake Total 6254.876 3334.580 345.784 Output Total 1695 185 132 Balance -534.445 6236.580 213.784 Weight 91.1 kg Intake: IV 783 936 159 Piperacillin-Tazobactam 3 200 .375 gm In Sodium Chloride 0.9% 100 ml @ 25 mls/hr IVPB Q12H [facility] Rx# :[id number] Potassium Chloride 20 meq 100 In Water For Injection 1 100ml.bag @ 50 mls/hr IVPB ONCE [facility] Rx#: [id number] Sodium Chloride 0.9% 1, 550 600 150 000 ml @ 50 mls/hr IV . Q20H [facility] Rx#:[id number] metroNIDAZOLE-NS PMX 500 100 100 mg In Saline 1 100ml.bag @ 100 mls/hr IVPB TID [facility] Rx#:[id number] pressure bag 33 36 9 Intake, IV Titration 69.099 21.580 6.784 Amount Insulin Regular 100 unit 1.7 21.580 6.784 In Sodium Chloride 0.9% 100 ml @ Per Protocol IV .Q0M [facility] Rx#:[id number] Propofol 1,000 mg In 67.399 Empty Bag 1 bag @ Titrate IV .Q0M [facility] Rx#: [id number] Tube Feeding 280 490 150 Other 60 60 30 Output: Urine 95 185 32 Stool 600 100 Hemodialysis 1000 Other: Voiding Method Indwelling Catheter Indwelling Catheter Indwelling Catheter # Voids 0 ABP, PAP, CO, CI - Last Documented Arterial Blood Pressure 128/68 - Constitutional General appearance: Present: cooperative - Respiratory Details: Intubated on vent - Cardiovascular Rhythm: regular - Gastrointestinal Gastrointestinal Comment(s): S/ND/NT - Labs CBC & Chem 7: 07/23/19 04:00 07/23/19 09:21 Labs: Abnormal Lab Results - Last 24 Hours (Table) 07/20/19 07/22/19 07/22/19 Range/Units 02:35 11:39 12:39 RBC (3.80-5.40) m/uL Hgb (11.4-16.0) gm/dL Hct (34.0-46.0) % RDW (11.5-15.5) % Plt Count (150-450) k/uL Neutrophils # (1.3-7.7) k/uL ABG pH (7.35-7.45) ABG pO2 (83-108) mmHg ABG HCO3 (21-25) mmol/L ABG Total CO2 (19-24) mmol/L ABG O2 Saturation (94-97) % Potassium (3.5-5.1) mmol/L Carbon Dioxide (22-30) mmol/L Creatinine (0.52-1.04) mg/dL Glucose (74-99) mg/dL POC Glucose (mg/dL) 126 H 128 H (75-99) mg/dL Calcium (8.4-10.2) mg/dL Total Bilirubin (0.2-1.3) mg/dL AST (14-36) U/L ALT (4-34) U/L Alkaline Phosphatase (38-126) U/L Total Protein (6.3-8.2) g/dL Albumin (3.5-5.0) g/dL Hep B Core Total Ab Equivocal H (Non-Reactive) 07/22/19 07/22/19 07/22/19 Range/Units 14:24 15:10 16:57 RBC (3.80-5.40) m/uL Hgb (11.4-16.0) gm/dL Hct (34.0-46.0) % RDW (11.5-15.5) % Plt Count (150-450) k/uL Neutrophils # (1.3-7.7) k/uL ABG pH (7.35-7.45) ABG pO2 (83-108) mmHg ABG HCO3 (21-25) mmol/L ABG Total CO2 (19-24) mmol/L ABG O2 Saturation (94-97) % Potassium (3.5-5.1) mmol/L Carbon Dioxide (22-30) mmol/L Creatinine (0.52-1.04) mg/dL Glucose (74-99) mg/dL POC Glucose (mg/dL) 108 H 135 H 153 H (75-99) mg/dL Calcium (8.4-10.2) mg/dL Total Bilirubin (0.2-1.3) mg/dL AST (14-36) U/L ALT (4-34) U/L Alkaline Phosphatase (38-126) U/L Total Protein (6.3-8.2) g/dL Albumin (3.5-5.0) g/dL Hep B Core Total Ab (Non-Reactive) 07/22/19 07/22/19 07/22/19 Range/Units 18:37 19:57 21:09 RBC (3.80-5.40) m/uL Hgb (11.4-16.0) gm/dL Hct (34.0-46.0) % RDW (11.5-15.5) % Plt Count (150-450) k/uL Neutrophils # (1.3-7.7) k/uL ABG pH (7.35-7.45) ABG pO2 (83-108) mmHg ABG HCO3 (21-25) mmol/L ABG Total CO2 (19-24) mmol/L ABG O2 Saturation (94-97) % Potassium (3.5-5.1) mmol/L Carbon Dioxide (22-30) mmol/L Creatinine (0.52-1.04) mg/dL Glucose (74-99) mg/dL POC Glucose (mg/dL) 159 H 160 H 157 H (75-99) mg/dL Calcium (8.4-10.2) mg/dL Total Bilirubin (0.2-1.3) mg/dL AST (14-36) U/L ALT (4-34) U/L Alkaline Phosphatase (38-126) U/L Total Protein (6.3-8.2) g/dL Albumin (3.5-5.0) g/dL Hep B Core Total Ab (Non-Reactive) 07/22/19 07/22/19 07/22/19 Range/Units 22:03 22:59 23:53 RBC (3.80-5.40) m/uL Hgb (11.4-16.0) gm/dL Hct (34.0-46.0) % RDW (11.5-15.5) % Plt Count (150-450) k/uL Neutrophils # (1.3-7.7) k/uL ABG pH (7.35-7.45) ABG pO2 (83-108) mmHg ABG HCO3 (21-25) mmol/L ABG Total CO2 (19-24) mmol/L ABG O2 Saturation (94-97) % Potassium (3.5-5.1) mmol/L Carbon Dioxide (22-30) mmol/L Creatinine (0.52-1.04) mg/dL Glucose (74-99) mg/dL POC Glucose (mg/dL) 204 H 162 H 177 H (75-99) mg/dL Calcium (8.4-10.2) mg/dL Total Bilirubin (0.2-1.3) mg/dL AST (14-36) U/L ALT (4-34) U/L Alkaline Phosphatase (38-126) U/L Total Protein (6.3-8.2) g/dL Albumin (3.5-5.0) g/dL Hep B Core Total Ab (Non-Reactive) 07/23/19 07/23/19 07/23/19 Range/Units 00:54 01:54 03:02 RBC (3.80-5.40) m/uL Hgb (11.4-16.0) gm/dL Hct (34.0-46.0) % RDW (11.5-15.5) % Plt Count (150-450) k/uL Neutrophils # (1.3-7.7) k/uL ABG pH (7.35-7.45) ABG pO2 (83-108) mmHg ABG HCO3 (21-25) mmol/L ABG Total CO2 (19-24) mmol/L ABG O2 Saturation (94-97) % Potassium (3.5-5.1) mmol/L Carbon Dioxide (22-30) mmol/L Creatinine (0.52-1.04) mg/dL Glucose (74-99) mg/dL POC Glucose (mg/dL) 196 H 184 H 167 H (75-99) mg/dL Calcium (8.4-10.2) mg/dL Total Bilirubin (0.2-1.3) mg/dL AST (14-36) U/L ALT (4-34) U/L Alkaline Phosphatase (38-126) U/L Total Protein (6.3-8.2) g/dL Albumin (3.5-5.0) g/dL Hep B Core Total Ab (Non-Reactive) 07/23/19 07/23/19 07/23/19 Range/Units 04:00 04:00 04:00 RBC 3.15 L (3.80-5.40) m/uL Hgb 9.7 L (11.4-16.0) gm/dL Hct 30.1 L (34.0-46.0) % RDW 19.7 H (11.5-15.5) % Plt Count 39 L (150-450) k/uL Neutrophils # 8.2 H (1.3-7.7) k/uL ABG pH (7.35-7.45) ABG pO2 (83-108) mmHg ABG HCO3 (21-25) mmol/L ABG Total CO2 (19-24) mmol/L ABG O2 Saturation (94-97) % Potassium 3.4 L (3.5-5.1) mmol/L Carbon Dioxide 33 H (22-30) mmol/L Creatinine 2.53 H (0.52-1.04) mg/dL Glucose 160 H (74-99) mg/dL POC Glucose (mg/dL) 169 H (75-99) mg/dL Calcium 7.0 L (8.4-10.2) mg/dL Total Bilirubin 2.0 H (0.2-1.3) mg/dL AST 261 H (14-36) U/L ALT 67 H (4-34) U/L Alkaline Phosphatase 189 H (38-126) U/L Total Protein 5.1 L (6.3-8.2) g/dL Albumin 2.2 L (3.5-5.0) g/dL Hep B Core Total Ab (Non-Reactive) 07/23/19 07/23/19 07/23/19 Range/Units 04:54 05:06 05:56 RBC (3.80-5.40) m/uL Hgb (11.4-16.0) gm/dL Hct (34.0-46.0) % RDW (11.5-15.5) % Plt Count (150-450) k/uL Neutrophils # (1.3-7.7) k/uL ABG pH 7.48 H (7.35-7.45) ABG pO2 112 H (83-108) mmHg ABG HCO3 31 H (21-25) mmol/L ABG Total CO2 32 H (19-24) mmol/L ABG O2 Saturation 98.1 H (94-97) % Potassium (3.5-5.1) mmol/L Carbon Dioxide (22-30) mmol/L Creatinine (0.52-1.04) mg/dL Glucose (74-99) mg/dL POC Glucose (mg/dL) 155 H 184 H (75-99) mg/dL Calcium (8.4-10.2) mg/dL Total Bilirubin (0.2-1.3) mg/dL AST (14-36) U/L ALT (4-34) U/L Alkaline Phosphatase (38-126) U/L Total Protein (6.3-8.2) g/dL Albumin (3.5-5.0) g/dL Hep B Core Total Ab (Non-Reactive) 07/23/19 07/23/19 07/23/19 Range/Units 06:59 09:14 09:38 RBC (3.80-5.40) m/uL Hgb (11.4-16.0) gm/dL Hct (34.0-46.0) % RDW (11.5-15.5) % Plt Count (150-450) k/uL Neutrophils # (1.3-7.7) k/uL ABG pH 7.50 H (7.35-7.45) ABG pO2 77 L (83-108) mmHg ABG HCO3 31 H (21-25) mmol/L ABG Total CO2 33 H (19-24) mmol/L ABG O2 Saturation (94-97) % Potassium (3.5-5.1) mmol/L Carbon Dioxide (22-30) mmol/L Creatinine (0.52-1.04) mg/dL Glucose (74-99) mg/dL POC Glucose (mg/dL) 157 H 136 H (75-99) mg/dL Calcium (8.4-10.2) mg/dL Total Bilirubin (0.2-1.3) mg/dL AST (14-36) U/L ALT (4-34) U/L Alkaline Phosphatase (38-126) U/L Total Protein (6.3-8.2) g/dL Albumin (3.5-5.0) g/dL Hep B Core Total Ab (Non-Reactive) Microbiology - Last 24 Hours (Table) 07/19/19 15:36 Blood Culture - Preliminary Blood No Growth after 72 hours 07/19/19 14:22 Urine Culture - Final Urine,Voided Escherichia coli 07/19/19 20:14 Gram Stain - Final Sputum Sputum Culture - Final Assessment and Plan Assessment: VDRF, Colitis, likely septic shock, UTI, cirrhosis, ADALBERTO Plan: Patient has resolved lactic acidosis, abdomen is soft and nontender today. Liquid brown stool. She is off pressors and tolerating tube feeds at this time. There is no surgical management recommended. Based on overall clinical picture I do not believe patient has ischemic colitis that requires surgical intervention. Please contact me directly with any further concerns or questions regarding patient.
--- NOTE | 2019-07-23 10:52 | P.PN ---
Subjective Patient is seen in follow for acute kidney injury. Started on hemodialysis on July 20. Urine output 10-15 mL an hour. Currently intubated on 25% FiO2. She is maintained on normal saline at 50 mL an hour along with tube feeding. Tolerated dialysis well yesterday with 1 L ultrafiltration. Vital signs are stable. General: The patient appeared well nourished and normally developed. HEENT: Head exam is unremarkable. Neck is without jugular venous distension. Intubated. LUNGS: Lungs are clear to auscultation and percussion. Breath sounds decreased. HEART: Rate and Rhythm are regular. ABDOMEN: Soft, nondistended. EXTREMITITES: 1+ edema. Objective - Vital Signs Vital signs: Vital Signs Temp 97.6 F 07/23/19 04:00 Pulse 90 07/23/19 09:00 Resp 13 07/23/19 09:00 BP 111/69 07/23/19 09:00 Pulse Ox 100 07/23/19 09:00 Intake & Output 07/22/19 07/23/19 07/23/19 18:59 06:59 18:59 Intake Total 5513.881 7760.580 345.784 Output Total 1695 185 132 Balance -433.559 8925.580 213.784 Weight 91.1 kg Intake: IV 783 936 159 Piperacillin-Tazobactam 3 200 .375 gm In Sodium Chloride 0.9% 100 ml @ 25 mls/hr IVPB Q12H [facility] Rx# :[id number] Potassium Chloride 20 meq 100 In Water For Injection 1 100ml.bag @ 50 mls/hr IVPB ONCE [facility] Rx#: [id number] Sodium Chloride 0.9% 1, 550 600 150 000 ml @ 50 mls/hr IV . Q20H [facility] Rx#:[id number] metroNIDAZOLE-NS PMX 500 100 100 mg In Saline 1 100ml.bag @ 100 mls/hr IVPB TID [facility] Rx#:[id number] pressure bag 33 36 9 Intake, IV Titration 69.099 21.580 6.784 Amount Insulin Regular 100 unit 1.7 21.580 6.784 In Sodium Chloride 0.9% 100 ml @ Per Protocol IV .Q0M [facility] Rx#:[id number] Propofol 1,000 mg In 67.399 Empty Bag 1 bag @ Titrate IV .Q0M [facility] Rx#: [id number] Tube Feeding 280 490 150 Other 60 60 30 Output: Urine 95 185 32 Stool 600 100 Hemodialysis 1000 Other: Voiding Method Indwelling Catheter Indwelling Catheter Indwelling Catheter # Voids 0 ABP, PAP, CO, CI - Last Documented Arterial Blood Pressure 128/68 - Labs CBC & Chem 7: 07/23/19 04:00 07/23/19 09:21 Labs: Abnormal Lab Results - Last 24 Hours (Table) 07/20/19 07/22/19 07/22/19 Range/Units 02:35 11:39 12:39 RBC (3.80-5.40) m/uL Hgb (11.4-16.0) gm/dL Hct (34.0-46.0) % RDW (11.5-15.5) % Plt Count (150-450) k/uL Neutrophils # (1.3-7.7) k/uL ABG pH (7.35-7.45) ABG pO2 (83-108) mmHg ABG HCO3 (21-25) mmol/L ABG Total CO2 (19-24) mmol/L ABG O2 Saturation (94-97) % Potassium (3.5-5.1) mmol/L Carbon Dioxide (22-30) mmol/L Creatinine (0.52-1.04) mg/dL Glucose (74-99) mg/dL POC Glucose (mg/dL) 126 H 128 H (75-99) mg/dL Calcium (8.4-10.2) mg/dL Total Bilirubin (0.2-1.3) mg/dL AST (14-36) U/L ALT (4-34) U/L Alkaline Phosphatase (38-126) U/L Total Protein (6.3-8.2) g/dL Albumin (3.5-5.0) g/dL Hep B Core Total Ab Equivocal H (Non-Reactive) 07/22/19 07/22/19 07/22/19 Range/Units 14:24 15:10 16:57 RBC (3.80-5.40) m/uL Hgb (11.4-16.0) gm/dL Hct (34.0-46.0) % RDW (11.5-15.5) % Plt Count (150-450) k/uL Neutrophils # (1.3-7.7) k/uL ABG pH (7.35-7.45) ABG pO2 (83-108) mmHg ABG HCO3 (21-25) mmol/L ABG Total CO2 (19-24) mmol/L ABG O2 Saturation (94-97) % Potassium (3.5-5.1) mmol/L Carbon Dioxide (22-30) mmol/L Creatinine (0.52-1.04) mg/dL Glucose (74-99) mg/dL POC Glucose (mg/dL) 108 H 135 H 153 H (75-99) mg/dL Calcium (8.4-10.2) mg/dL Total Bilirubin (0.2-1.3) mg/dL AST (14-36) U/L ALT (4-34) U/L Alkaline Phosphatase (38-126) U/L Total Protein (6.3-8.2) g/dL Albumin (3.5-5.0) g/dL Hep B Core Total Ab (Non-Reactive) 07/22/19 07/22/19 07/22/19 Range/Units 18:37 19:57 21:09 RBC (3.80-5.40) m/uL Hgb (11.4-16.0) gm/dL Hct (34.0-46.0) % RDW (11.5-15.5) % Plt Count (150-450) k/uL Neutrophils # (1.3-7.7) k/uL ABG pH (7.35-7.45) ABG pO2 (83-108) mmHg ABG HCO3 (21-25) mmol/L ABG Total CO2 (19-24) mmol/L ABG O2 Saturation (94-97) % Potassium (3.5-5.1) mmol/L Carbon Dioxide (22-30) mmol/L Creatinine (0.52-1.04) mg/dL Glucose (74-99) mg/dL POC Glucose (mg/dL) 159 H 160 H 157 H (75-99) mg/dL Calcium (8.4-10.2) mg/dL Total Bilirubin (0.2-1.3) mg/dL AST (14-36) U/L ALT (4-34) U/L Alkaline Phosphatase (38-126) U/L Total Protein (6.3-8.2) g/dL Albumin (3.5-5.0) g/dL Hep B Core Total Ab (Non-Reactive) 07/22/19 07/22/19 07/22/19 Range/Units 22:03 22:59 23:53 RBC (3.80-5.40) m/uL Hgb (11.4-16.0) gm/dL Hct (34.0-46.0) % RDW (11.5-15.5) % Plt Count (150-450) k/uL Neutrophils # (1.3-7.7) k/uL ABG pH (7.35-7.45) ABG pO2 (83-108) mmHg ABG HCO3 (21-25) mmol/L ABG Total CO2 (19-24) mmol/L ABG O2 Saturation (94-97) % Potassium (3.5-5.1) mmol/L Carbon Dioxide (22-30) mmol/L Creatinine (0.52-1.04) mg/dL Glucose (74-99) mg/dL POC Glucose (mg/dL) 204 H 162 H 177 H (75-99) mg/dL Calcium (8.4-10.2) mg/dL Total Bilirubin (0.2-1.3) mg/dL AST (14-36) U/L ALT (4-34) U/L Alkaline Phosphatase (38-126) U/L Total Protein (6.3-8.2) g/dL Albumin (3.5-5.0) g/dL Hep B Core Total Ab (Non-Reactive) 07/23/19 07/23/19 07/23/19 Range/Units 00:54 01:54 03:02 RBC (3.80-5.40) m/uL Hgb (11.4-16.0) gm/dL Hct (34.0-46.0) % RDW (11.5-15.5) % Plt Count (150-450) k/uL Neutrophils # (1.3-7.7) k/uL ABG pH (7.35-7.45) ABG pO2 (83-108) mmHg ABG HCO3 (21-25) mmol/L ABG Total CO2 (19-24) mmol/L ABG O2 Saturation (94-97) % Potassium (3.5-5.1) mmol/L Carbon Dioxide (22-30) mmol/L Creatinine (0.52-1.04) mg/dL Glucose (74-99) mg/dL POC Glucose (mg/dL) 196 H 184 H 167 H (75-99) mg/dL Calcium (8.4-10.2) mg/dL Total Bilirubin (0.2-1.3) mg/dL AST (14-36) U/L ALT (4-34) U/L Alkaline Phosphatase (38-126) U/L Total Protein (6.3-8.2) g/dL Albumin (3.5-5.0) g/dL Hep B Core Total Ab (Non-Reactive) 07/23/19 07/23/19 07/23/19 Range/Units 04:00 04:00 04:00 RBC 3.15 L (3.80-5.40) m/uL Hgb 9.7 L (11.4-16.0) gm/dL Hct 30.1 L (34.0-46.0) % RDW 19.7 H (11.5-15.5) % Plt Count 39 L (150-450) k/uL Neutrophils # 8.2 H (1.3-7.7) k/uL ABG pH (7.35-7.45) ABG pO2 (83-108) mmHg ABG HCO3 (21-25) mmol/L ABG Total CO2 (19-24) mmol/L ABG O2 Saturation (94-97) % Potassium 3.4 L (3.5-5.1) mmol/L Carbon Dioxide 33 H (22-30) mmol/L Creatinine 2.53 H (0.52-1.04) mg/dL Glucose 160 H (74-99) mg/dL POC Glucose (mg/dL) 169 H (75-99) mg/dL Calcium 7.0 L (8.4-10.2) mg/dL Total Bilirubin 2.0 H (0.2-1.3) mg/dL AST 261 H (14-36) U/L ALT 67 H (4-34) U/L Alkaline Phosphatase 189 H (38-126) U/L Total Protein 5.1 L (6.3-8.2) g/dL Albumin 2.2 L (3.5-5.0) g/dL Hep B Core Total Ab (Non-Reactive) 07/23/19 07/23/19 07/23/19 Range/Units 04:54 05:06 05:56 RBC (3.80-5.40) m/uL Hgb (11.4-16.0) gm/dL Hct (34.0-46.0) % RDW (11.5-15.5) % Plt Count (150-450) k/uL Neutrophils # (1.3-7.7) k/uL ABG pH 7.48 H (7.35-7.45) ABG pO2 112 H (83-108) mmHg ABG HCO3 31 H (21-25) mmol/L ABG Total CO2 32 H (19-24) mmol/L ABG O2 Saturation 98.1 H (94-97) % Potassium (3.5-5.1) mmol/L Carbon Dioxide (22-30) mmol/L Creatinine (0.52-1.04) mg/dL Glucose (74-99) mg/dL POC Glucose (mg/dL) 155 H 184 H (75-99) mg/dL Calcium (8.4-10.2) mg/dL Total Bilirubin (0.2-1.3) mg/dL AST (14-36) U/L ALT (4-34) U/L Alkaline Phosphatase (38-126) U/L Total Protein (6.3-8.2) g/dL Albumin (3.5-5.0) g/dL Hep B Core Total Ab (Non-Reactive) 07/23/19 07/23/19 07/23/19 Range/Units 06:59 09:14 09:38 RBC (3.80-5.40) m/uL Hgb (11.4-16.0) gm/dL Hct (34.0-46.0) % RDW (11.5-15.5) % Plt Count (150-450) k/uL Neutrophils # (1.3-7.7) k/uL ABG pH 7.50 H (7.35-7.45) ABG pO2 77 L (83-108) mmHg ABG HCO3 31 H (21-25) mmol/L ABG Total CO2 33 H (19-24) mmol/L ABG O2 Saturation (94-97) % Potassium (3.5-5.1) mmol/L Carbon Dioxide (22-30) mmol/L Creatinine (0.52-1.04) mg/dL Glucose (74-99) mg/dL POC Glucose (mg/dL) 157 H 136 H (75-99) mg/dL Calcium (8.4-10.2) mg/dL Total Bilirubin (0.2-1.3) mg/dL AST (14-36) U/L ALT (4-34) U/L Alkaline Phosphatase (38-126) U/L Total Protein (6.3-8.2) g/dL Albumin (3.5-5.0) g/dL Hep B Core Total Ab (Non-Reactive) Microbiology - Last 24 Hours (Table) 07/19/19 15:36 Blood Culture - Preliminary Blood No Growth after 72 hours 07/19/19 14:22 Urine Culture - Final Urine,Voided Escherichia coli 07/19/19 20:14 Gram Stain - Final Sputum Sputum Culture - Final Assessment and Plan Plan: Assessment: 1. Acute kidney injury secondary to ATN secondary to septic shock. Creatinine peaked at 4 this admission. CAT scan revealed fullness of the collecting systems. No hydronephrosis noted on renal ultrasound. Unknown baseline renal function. Started on hemodialysis on July 20. 2. Hyperkalemia secondary to acute kidney injury, metabolic acidosis and GI bleed. Improved with medical management. 3. Severe metabolic acidosis secondary to acute kidney injury and lactic acidosis. Volatile screen negative. Resolved. Now alkalotic. 4. Hypocalcemia secondary to acute kidney injury. Corrected calcium near 8.5. 5. Acute GI bleed status post blood transfusion and IV DDAVP. GI following. Hemoglobin better. 6. UTI with urine culture positive for E. coli maintain on antibiotics. 7. ? Ischemic colitis. 8. Alcohol-induced liver cirrhosis. Plan: Hep-Lock IV fluids. Maintain tube feeds. Status post IV Lasix on July 21 with no significant response in urine output. Wean FiO2. Follow-up cultures. Hemodialysis today with goal 1.5 L ultrafiltration. Continue to monitor renal function and urine output closely. Continue to assess daily for need for renal replacement therapy.
[2019-07-23 11:14] LABS: Glucose,Whole Blood 155 mg/dL (75-99)
[2019-07-23 12:06] LABS: Glucose,Whole Blood 165 mg/dL (75-99)
[2019-07-23] MEDS: ONDANSETRON 4 MG/2 ML VIAL IVP PRN (12:19)
[2019-07-23 14:31] LABS: Glucose,Whole Blood 107 mg/dL (75-99)
[2019-07-23 16:19] LABS: Glucose,Whole Blood 102 mg/dL (75-99)
[2019-07-23] MEDS: DEXMEDETOMIDINE/0.9% NACL(PMX) 400 MCG in EMPTY BAG 1 BAG IV SCH (16:39)
--- NOTE | 2019-07-23 17:14 | PN ---
PROGRESS NOTE DATE OF SERVICE: 07/23/2019 REASON FOR FOLLOWUP: Sepsis, ischemic colitis and possible aspiration pneumonitis. INTERVAL HISTORY: The patient is currently afebrile. The patient is hemodynamically stable, not on pressor support. Undergoing dialysis. No worsening diarrhea has been reported. She did have one episode of vomiting this morning per the nursing staff. The patient is on the vent, unable to provide any history. PHYSICAL EXAMINATION: Blood pressure 104/71 with a pulse of 97, temperature 97.8. She is 99% on 30% FiO2. General description is a middle-aged female intubated on the vent. RESPIRATORY SYSTEM: Unlabored breathing. Clear to auscultation anteriorly. HEART: S1, S2. Regular rate and rhythm. ABDOMEN: Soft. No tenderness. No guarding or rigidity. LABS: Hemoglobin 9.7, white count 10.5, BUN of 13, creatinine is 2.53. Urine with E coli. Stool culture pending. Sputum is usual respiratory gwendolyn. DIAGNOSTIC IMPRESSION AND PLAN: Patient admitted to hospital with sepsis with concern for possible ischemic in this patient who did have cardiac arrest and a question of pneumonitis. The patient is currently covered with Zosyn; to continue and we will monitor her clinical course closely. MMODL / IJN: [id number] /
[2019-07-23 18:25] LABS: Glucose,Whole Blood 98 mg/dL (75-99)
--- NOTE | 2019-07-23 18:59 | PN ---
PROGRESS NOTE DATE OF SERVICE: 07/23/2019 CHIEF COMPLAINT: Cardiac arrest. HISTORY OF PRESENT ILLNESS: This lady is becoming more responsive and is starting to wake up. The plan is to extubate her today. She continues on dialysis. PHYSICAL EXAMINATION: Her vital signs are normal off of pressors. She is slightly agitated at this time. There are bilateral clear breath sounds on both sides. Cardiac exam reveals her sinus rhythm. Blood pressure is normal. Abdomen is soft and nontender. IMPRESSION: 1. Cardiorespiratory arrest. 2. Possible anoxic brain injury. 3. Acute tubular necrosis. PLAN: She will be extubated today and continue to be monitored in ICU while dialysis continues. MMODL / IJN: [id number] /
[2019-07-23] MEDS ORDERED: NOREPINEPHRINE 32 MG in SODIUM CHLORIDE 0.9% 218 ML IV SCH (19:00)
[2019-07-23] MEDS ORDERED: SODIUM CHLORIDE 0.9% 1,000 ML IV ONE (19:15)
[2019-07-23 20:01] LABS: Glucose,Whole Blood 118 mg/dL (75-99)
[2019-07-23] MEDS: SODIUM CHLORIDE 0.9% 1,000 ML IV SCH (20:32)
--- NOTE | 2019-07-23 22:14 | P.CNNES ---
History of Present Illness Consult date: 07/23/19 Reason for Consult: Poor response to removal off sedation History of Present Illness: This is a new neurology consult requested for further advice and recommendations for a 48-year-old female who presented the ER on July 18. She apparently had an alcohol level of 274, went on to take her scheduled dose of trazodone that evening 150 mg. Patient was found unresponsive and required 2 rounds of CPR was PEA in the ER. Her UA was positive for E. coli. The CT head on admission was negative for any acute intracranial pathology. Neurology has been requested for further advice and recommendations for her lack of responsiveness with sedation removal. Yesterday at 9:30 AM she was taken off sedation for approximately 24 hours this morning she was able to follow a few simple commands she was able to nod her head, open her eyes and moved her feet spontaneously. She is not currently breathing on her own over the ventilator. Currently she is now only on Precedex 0.3 mcg/h. Review of her labs indicates that her creatinine has been elevated and she is requiring hemodialysis. On the evaluation tonight the patient was taken off Precedex at 8:50 PM she is been off Precedex for an hour with still very minimal response to tactile stimulation. She has some minimum grimacing, cough reflex is strong but no overt spontaneous movements or eye opening at this time. FOUR SCORE SCALE (8) Neurology will reevaluate tomorrow and with the team discuss whether or not we need to move forward with an EEG or further neuroimaging studies. Thank you for this consultation neurology will follow closely and reevaluate in the morning. Carolina Perez M.D. Board Certified in Neurology and Sleep Medicine Past Medical History Past Medical History: Unable to Obtain Additional Past Medical History / Comment(s): breast cancer, drug abuse, suicide attempt History of Any Multi-Drug Resistant Organisms: Unobtainable Past Surgical History: Unable to Obtain Additional Past Surgical History / Comment(s): implantable child monitor Past Anesthesia/Blood Transfusion Reactions: No Reported Reaction Past Psychological History: Unable to Obtain Smoking Status: Unknown if ever smoked Past Alcohol Use History: Unable to Obtain Past Drug Use History: Unable to Obtain Medications and Allergies Home Medications Medication Instructions Recorded Confirmed Type Acetaminophen [Tylenol 8 Hour] 650 mg PO DAILY 07/22/19 07/22/19 History Citalopram Hydrobromide 20 mg PO DAILY PRN 07/22/19 07/22/19 History [Citalopram HBr] Famotidine 20 mg PO HS 07/22/19 07/22/19 History Ferrous Sulfate [Feosol] 325 mg PO DAILY 07/22/19 07/22/19 History Lisinopril [Prinivil] 10 mg PO DAILY 07/22/19 07/22/19 History Loratadine 10 mg PO DAILY 07/22/19 07/22/19 History Metoprolol Tartrate [Lopressor] 50 mg PO BID 07/22/19 07/22/19 History Omeprazole 20 mg PO DAILY 07/22/19 07/22/19 History risperiDONE [RisperDAL] 4 mg PO HS 07/22/19 07/22/19 History traZODone HCL 150 mg PO DAILY 07/22/19 07/22/19 History Allergies Allergy/AdvReac Type Severity Reaction Status Date / Time No Known Allergies Allergy Verified 07/22/19 19:45 Physical Examination - Vital Signs Vital Signs: Vital Signs Temp Pulse Pulse Resp BP BP Pulse Ox 07/23/19 21:00 61 21 102/62 98 07/23/19 20:45 65 22 102/62 98 07/23/19 20:30 65 22 102/62 98 07/23/19 20:15 64 16 102/62 98 07/23/19 20:00 97.6 F 66 16 107/64 98 07/23/19 19:58 97.9 F 103 H 126/58 07/23/19 19:45 66 16 107/64 98 07/23/19 19:30 64 20 107/64 98 07/23/19 19:15 57 L 16 100 07/23/19 19:00 70 16 97 07/23/19 18:45 70 16 97 07/23/19 18:30 72 16 98 07/23/19 18:15 69 16 98 07/23/19 18:00 64 16 99 07/23/19 17:45 76 16 97 07/23/19 17:30 81 16 97 07/23/19 17:15 89 16 97 07/23/19 17:00 87 16 99 07/23/19 16:00 98 F 101 H 19 105/92 98 07/23/19 15:00 97 20 104/71 99 07/23/19 14:00 100 16 107/56 99 07/23/19 13:00 105 H 15 107/71 96 07/23/19 12:00 97.8 F 101 H 15 97 07/23/19 11:55 15 96 07/23/19 11:00 90 10 L 106/68 95 07/23/19 10:00 89 13 95 07/23/19 09:00 90 13 111/69 100 07/23/19 08:00 85 16 104/66 99 07/23/19 07:50 13 07/23/19 07:45 97 07/23/19 07:00 94 17 110/75 99 07/23/19 06:00 90 19 114/82 100 07/23/19 05:00 81 16 117/83 100 07/23/19 04:00 97.6 F 83 16 120/83 100 07/23/19 03:00 82 16 115/80 99 07/23/19 02:00 84 16 123/81 100 07/23/19 01:00 87 16 123/89 100 07/23/19 00:14 79 21 123/89 99 07/23/19 00:00 97.6 F 76 16 121/85 100 07/22/19 23:00 72 16 122/80 100 07/22/19 22:00 82 16 113/71 99 Intake and Output 07/23/19 07/23/19 07/23/19 06:59 14:59 22:59 Intake Total 913.762 714.989 643.334 Output Total 237 589 7110 Balance 773.762 17.989 -1526.666 Intake: IV 524 264 641 Piperacillin-Tazobactam 3 100 100 .375 gm In Sodium Chloride 0.9% 100 ml @ 25 mls/hr IVPB Q12H [facility] Rx# :[id number] Sodium Chloride 0.9% 1, 400 240 320 000 ml @ 10 mls/hr IV . Q24H [facility] Rx#:[id number] metroNIDAZOLE-NS PMX 500 200 mg In Saline 1 100ml.bag @ 100 mls/hr IVPB TID [facility] Rx#:[id number] pressure bag 24 24 21 Intake, IV Titration 19.762 8.989 2.334 Amount Insulin Regular 100 unit 19.762 8.989 In Sodium Chloride 0.9% 100 ml @ Per Protocol IV .Q0M [facility] Rx#:[id number] Norepinephrine 32 mg In 2.334 Sodium Chloride 0.9% 218 ml @ 0.02 MCG/KG/MIN 0. 854 mls/hr IV .Q24H [facility] Rx#:[id number] Tube Feeding 340 382 0 Other 30 60 Output: Urine 140 97 70 Stool 300 Emesis 300 100 Hemodialysis 2000 Other: Voiding Method Indwelling Catheter Indwelling Catheter Indwelling Catheter # Voids 0 Weight 91.1 kg 91.1 kg ABP, PAP, CO, CI - Last 8 Hours Arterial Blood Pressure 116/63 Arterial Blood Pressure 115/62 Arterial Blood Pressure 112/60 Arterial Blood Pressure 112/61 Arterial Blood Pressure 113/59 Arterial Blood Pressure 114/59 Arterial Blood Pressure 127/68 Arterial Blood Pressure 106/56 Arterial Blood Pressure 108/55 Arterial Blood Pressure 119/60 Arterial Blood Pressure 127/64 Arterial Blood Pressure 119/61 Arterial Blood Pressure 77/37 Arterial Blood Pressure 72/35 Arterial Blood Pressure 88/40 Arterial Blood Pressure 123/47 Arterial Blood Pressure 120/51 Arterial Blood Pressure 127/62 Arterial Blood Pressure 105/64 Results - Laboratory Findings CBC and BMP: 07/23/19 04:00 07/23/19 09:21 Abnormal Lab Findings: Abnormal Labs 07/19/19 07/19/19 07/19/19 08:18 08:18 12:14 RBC Hgb Hct MCV MCHC RDW Plt Count Neutrophils # Lymphocytes # (Manual) Metamyelocytes # (Man) Nucleated RBCs Macrocytosis PT INR APTT ABG pH ABG pCO2 ABG pO2 ABG HCO3 ABG Total CO2 ABG O2 Saturation ABG Lactic Acid VBG pH VBG pCO2 VBG HCO3 Potassium Chloride Carbon Dioxide Creatinine Glucose POC Glucose (mg/dL) 174 H Osmolality 382 H* Plasma Lactic Acid Robert Calcium Total Bilirubin AST ALT Alkaline Phosphatase Ammonia Creatine Kinase Total Protein Albumin Urine Appearance Urine Protein Urine Glucose (UA) Urine Blood Ur Leukocyte Esterase Urine RBC Urine WBC Urine WBC Clumps Amorphous Sediment Urine Bacteria Hyaline Casts Urine Mucus Serum Alcohol Ethyl Alcohol Screen 191 H Hep B Core Total Ab Crossmatch 07/19/19 07/19/19 07/19/19 12:15 12:15 12:15 RBC 2.05 L Hgb 6.3 L* Hct 23.7 L MCV 115.7 H MCHC 26.5 L RDW 19.9 H Plt Count 48 L Neutrophils # Lymphocytes # (Manual) Metamyelocytes # (Man) Nucleated RBCs Macrocytosis Marked A PT 16.9 H INR 1.7 H APTT 42.3 H ABG pH ABG pCO2 ABG pO2 ABG HCO3 ABG Total CO2 ABG O2 Saturation ABG Lactic Acid VBG pH 6.84 L* VBG pCO2 25 L VBG HCO3 4 L* Potassium Chloride Carbon Dioxide Creatinine Glucose POC Glucose (mg/dL) Osmolality Plasma Lactic Acid Robert Calcium Total Bilirubin AST ALT Alkaline Phosphatase Ammonia Creatine Kinase Total Protein Albumin Urine Appearance Urine Protein Urine Glucose (UA) Urine Blood Ur Leukocyte Esterase Urine RBC Urine WBC Urine WBC Clumps Amorphous Sediment Urine Bacteria Hyaline Casts Urine Mucus Serum Alcohol Ethyl Alcohol Screen Hep B Core Total Ab Crossmatch 07/19/19 07/19/19 07/19/19 12:15 12:15 12:15 RBC Hgb Hct MCV MCHC RDW Plt Count Neutrophils # Lymphocytes # (Manual) Metamyelocytes # (Man) Nucleated RBCs Macrocytosis PT INR APTT ABG pH ABG pCO2 ABG pO2 ABG HCO3 ABG Total CO2 ABG O2 Saturation ABG Lactic Acid VBG pH VBG pCO2 VBG HCO3 Potassium 6.6 H* Chloride 111 H Carbon Dioxide <5 L* Creatinine 3.55 H Glucose 167 H POC Glucose (mg/dL) Osmolality Plasma Lactic Acid Robert 20.4 H* Calcium 7.5 L Total Bilirubin AST 178 H ALT 43 H Alkaline Phosphatase 215 H Ammonia 199 H Creatine Kinase 374 H Total Protein 5.3 L Albumin 2.5 L Urine Appearance Urine Protein Urine Glucose (UA) Urine Blood Ur Leukocyte Esterase Urine RBC Urine WBC Urine WBC Clumps Amorphous Sediment Urine Bacteria Hyaline Casts Urine Mucus Serum Alcohol 274 H* Ethyl Alcohol Screen Hep B Core Total Ab Crossmatch See Detail 07/19/19 07/19/19 07/19/19 13:25 14:22 14:29 RBC Hgb Hct MCV MCHC RDW Plt Count Neutrophils # Lymphocytes # (Manual) Metamyelocytes # (Man) Nucleated RBCs Macrocytosis PT INR APTT ABG pH 6.81 L* ABG pCO2 22 L ABG pO2 >400 H ABG HCO3 4 L* ABG Total CO2 4 L ABG O2 Saturation 99.3 H ABG Lactic Acid VBG pH VBG pCO2 VBG HCO3 Potassium Chloride Carbon Dioxide Creatinine Glucose POC Glucose (mg/dL) 210 H Osmolality Plasma Lactic Acid Robert Calcium Total Bilirubin AST ALT Alkaline Phosphatase Ammonia Creatine Kinase Total Protein Albumin Urine Appearance Turbid H Urine Protein 2+ H Urine Glucose (UA) Trace H Urine Blood Moderate H Ur Leukocyte Esterase Large H Urine RBC 82 H Urine WBC >182 H Urine WBC Clumps Many H Amorphous Sediment Rare H Urine Bacteria Many H Hyaline Casts 73 H Urine Mucus Many H Serum Alcohol Ethyl Alcohol Screen Hep B Core Total Ab Crossmatch 07/19/19 07/19/19 07/19/19 16:26 17:57 20:00 RBC Hgb Hct MCV MCHC RDW Plt Count Neutrophils # Lymphocytes # (Manual) Metamyelocytes # (Man) Nucleated RBCs Macrocytosis PT INR APTT ABG pH 6.89 L* ABG pCO2 19 L* ABG pO2 165 H ABG HCO3 4 L* ABG Total CO2 4 L ABG O2 Saturation 98.1 H ABG Lactic Acid VBG pH VBG pCO2 VBG HCO3 Potassium Chloride Carbon Dioxide Creatinine Glucose POC Glucose (mg/dL) 135 H Osmolality Plasma Lactic Acid Robert 18.1 H* Calcium Total Bilirubin AST ALT Alkaline Phosphatase Ammonia Creatine Kinase Total Protein Albumin Urine Appearance Urine Protein Urine Glucose (UA) Urine Blood Ur Leukocyte Esterase Urine RBC Urine WBC Urine WBC Clumps Amorphous Sediment Urine Bacteria Hyaline Casts Urine Mucus Serum Alcohol Ethyl Alcohol Screen [facility] B Core Total Ab Crossmatch 07/19/19 07/19/19 07/19/19 20:46 22:25 22:25 RBC 2.82 L Hgb 8.5 L D Hct 28.8 L MCV 102.2 H D MCHC 29.5 L RDW 19.9 H Plt Count 81 L D Neutrophils # Lymphocytes # (Manual) Metamyelocytes # (Man) Nucleated RBCs Macrocytosis PT INR APTT ABG pH 7.12 L* ABG pCO2 22 L ABG pO2 122 H ABG HCO3 7 L* ABG Total CO2 8 L ABG O2 Saturation 98.1 H ABG Lactic Acid VBG pH VBG pCO2 VBG HCO3 Potassium 5.4 H Chloride 109 H Carbon Dioxide 7 L* Creatinine 3.03 H Glucose 174 H POC Glucose (mg/dL) Osmolality Plasma Lactic Acid Robert Calcium 6.6 L Total Bilirubin 1.4 H AST 289 H ALT 53 H Alkaline Phosphatase 241 H Ammonia Creatine Kinase Total Protein 6.1 L Albumin 3.0 L Urine Appearance Urine Protein Urine Glucose (UA) Urine Blood Ur Leukocyte Esterase Urine RBC Urine WBC Urine WBC Clumps Amorphous Sediment Urine Bacteria Hyaline Casts Urine Mucus Serum Alcohol Ethyl Alcohol Screen Hep B Core Total Ab Crossmatch 07/19/19 07/19/19 07/19/19 22:25 22:26 22:50 RBC Hgb Hct MCV MCHC RDW Plt Count Neutrophils # Lymphocytes # (Manual) Metamyelocytes # (Man) Nucleated RBCs Macrocytosis PT 14.5 H INR 1.5 H APTT 30.6 H ABG pH 7.17 L* ABG pCO2 23 L ABG pO2 116 H ABG HCO3 8 L* ABG Total CO2 9 L ABG O2 Saturation 97.9 H ABG Lactic Acid VBG pH VBG pCO2 VBG HCO3 Potassium Chloride Carbon Dioxide Creatinine Glucose POC Glucose (mg/dL) 186 H Osmolality Plasma Lactic Acid Robert Calcium Total Bilirubin AST ALT Alkaline Phosphatase Ammonia Creatine Kinase Total Protein Albumin Urine Appearance Urine Protein Urine Glucose (UA) Urine Blood Ur Leukocyte Esterase Urine RBC Urine WBC Urine WBC Clumps Amorphous Sediment Urine Bacteria Hyaline Casts Urine Mucus Serum Alcohol Ethyl Alcohol Screen Hep B Core Total Ab Crossmatch 07/20/19 07/20/19 07/20/19 02:32 02:35 02:35 RBC 2.79 L Hgb 8.5 L Hct 28.1 L MCV 100.7 H MCHC 30.4 L RDW 20.1 H Plt Count 97 L Neutrophils # Lymphocytes # (Manual) Metamyelocytes # (Man) Nucleated RBCs Macrocytosis PT INR APTT ABG pH ABG pCO2 ABG pO2 ABG HCO3 ABG Total CO2 ABG O2 Saturation ABG Lactic Acid VBG pH VBG pCO2 VBG HCO3 Potassium 5.7 H Chloride Carbon Dioxide 9 L* Creatinine Glucose POC Glucose (mg/dL) 229 H Osmolality Plasma Lactic Acid Robert Calcium Total Bilirubin AST ALT Alkaline Phosphatase Ammonia Creatine Kinase Total Protein Albumin Urine Appearance Urine Protein Urine Glucose (UA) Urine Blood Ur Leukocyte Esterase Urine RBC Urine WBC Urine WBC Clumps Amorphous Sediment Urine Bacteria Hyaline Casts Urine Mucus Serum Alcohol Ethyl Alcohol Screen Hep B Core Total Ab Crossmatch 07/20/19 07/20/19 07/20/19 02:35 06:45 06:45 RBC 2.76 L Hgb 8.5 L Hct 27.4 L MCV MCHC 30.9 L RDW 20.0 H Plt Count 84 L Neutrophils # Lymphocytes # (Manual) 0.98 L Metamyelocytes # (Man) Nucleated RBCs Macrocytosis PT INR APTT ABG pH ABG pCO2 ABG pO2 ABG HCO3 ABG Total CO2 ABG O2 Saturation ABG Lactic Acid VBG pH VBG pCO2 VBG HCO3 Potassium 5.4 H Chloride Carbon Dioxide 10 L Creatinine 3.52 H Glucose 231 H POC Glucose (mg/dL) Osmolality Plasma Lactic Acid Robert Calcium 6.2 L* Total Bilirubin 1.5 H AST 355 H ALT 50 H Alkaline Phosphatase 221 H Ammonia Creatine Kinase Total Protein 6.0 L Albumin 2.9 L Urine Appearance Urine Protein Urine Glucose (UA) Urine Blood Ur Leukocyte Esterase Urine RBC Urine WBC Urine WBC Clumps Amorphous Sediment Urine Bacteria Hyaline Casts Urine Mucus Serum Alcohol Ethyl Alcohol Screen Hep B Core Total Ab Equivocal H Crossmatch 07/20/19 07/20/19 07/20/19 06:45 06:45 06:47 RBC Hgb Hct MCV MCHC RDW Plt Count Neutrophils # Lymphocytes # (Manual) Metamyelocytes # (Man) Nucleated RBCs Macrocytosis PT INR APTT ABG pH ABG pCO2 ABG pO2 ABG HCO3 ABG Total CO2 ABG O2 Saturation ABG Lactic Acid 17.5 H* VBG pH VBG pCO2 VBG HCO3 Potassium Chloride Carbon Dioxide Creatinine Glucose POC Glucose (mg/dL) 240 H Osmolality Plasma Lactic Acid Robert Calcium Total Bilirubin AST ALT Alkaline Phosphatase Ammonia 65 H Creatine Kinase Total Protein Albumin Urine Appearance Urine Protein Urine Glucose (UA) Urine Blood Ur Leukocyte Esterase Urine RBC Urine WBC Urine WBC Clumps Amorphous Sediment Urine Bacteria Hyaline Casts Urine Mucus Serum Alcohol Ethyl Alcohol Screen Hep B Core Total Ab Crossmatch 07/20/19 07/20/19 07/20/19 07:48 11:09 13:15 RBC 2.79 L Hgb 9.0 L Hct 27.1 L MCV MCHC RDW 20.4 H Plt Count 71 L Neutrophils # Lymphocytes # (Manual) Metamyelocytes # (Man) Nucleated RBCs Macrocytosis PT INR APTT ABG pH 7.28 L ABG pCO2 22 L ABG pO2 ABG HCO3 10 L* ABG Total CO2 11 L ABG O2 Saturation 97.1 H ABG Lactic Acid VBG pH VBG pCO2 VBG HCO3 Potassium Chloride Carbon Dioxide Creatinine Glucose POC Glucose (mg/dL) 264 H Osmolality Plasma Lactic Acid Robert Calcium Total Bilirubin AST ALT Alkaline Phosphatase Ammonia Creatine Kinase Total Protein Albumin Urine Appearance Urine Protein Urine Glucose (UA) Urine Blood Ur Leukocyte Esterase Urine RBC Urine WBC Urine WBC Clumps Amorphous Sediment Urine Bacteria Hyaline Casts Urine Mucus Serum Alcohol Ethyl Alcohol Screen Hep B Core Total Ab Crossmatch 07/20/19 07/20/19 07/20/19 14:06 14:09 16:28 RBC Hgb Hct MCV MCHC RDW Plt Count Neutrophils # Lymphocytes # (Manual) Metamyelocytes # (Man) Nucleated RBCs Macrocytosis PT INR APTT ABG pH ABG pCO2 ABG pO2 ABG HCO3 ABG Total CO2 ABG O2 Saturation ABG Lactic Acid VBG pH VBG pCO2 VBG HCO3 Potassium Chloride Carbon Dioxide Creatinine Glucose POC Glucose (mg/dL) 261 H 224 H Osmolality Plasma Lactic Acid Robert 13.7 H* Calcium Total Bilirubin AST ALT Alkaline Phosphatase Ammonia Creatine Kinase Total Protein Albumin Urine Appearance Urine Protein Urine Glucose (UA) Urine Blood Ur Leukocyte Esterase Urine RBC Urine WBC Urine WBC Clumps Amorphous Sediment Urine Bacteria Hyaline Casts Urine Mucus Serum Alcohol Ethyl Alcohol Screen Hep B Core Total Ab Crossmatch 07/20/19 07/20/19 07/20/19 17:09 17:43 18:38 RBC Hgb Hct MCV MCHC RDW Plt Count Neutrophils # Lymphocytes # (Manual) Metamyelocytes # (Man) Nucleated RBCs Macrocytosis PT INR APTT ABG pH ABG pCO2 32 L ABG pO2 ABG HCO3 ABG Total CO2 ABG O2 Saturation 97.1 H ABG Lactic Acid VBG pH VBG pCO2 VBG HCO3 Potassium Chloride Carbon Dioxide Creatinine Glucose POC Glucose (mg/dL) 200 H 183 H Osmolality Plasma Lactic Acid Robert Calcium Total Bilirubin AST ALT Alkaline Phosphatase Ammonia Creatine Kinase Total Protein Albumin Urine Appearance Urine Protein Urine Glucose (UA) Urine Blood Ur Leukocyte Esterase Urine RBC Urine WBC Urine WBC Clumps Amorphous Sediment Urine Bacteria Hyaline Casts Urine Mucus Serum Alcohol Ethyl Alcohol Screen Hep B Core Total Ab Crossmatch 07/20/19 07/20/19 07/20/19 19:05 20:27 21:24 RBC Hgb Hct MCV MCHC RDW Plt Count Neutrophils # Lymphocytes # (Manual) Metamyelocytes # (Man) Nucleated RBCs Macrocytosis PT INR APTT ABG pH ABG pCO2 ABG pO2 ABG HCO3 ABG Total CO2 ABG O2 Saturation ABG Lactic Acid VBG pH VBG pCO2 VBG HCO3 Potassium Chloride Carbon Dioxide Creatinine 3.66 H Glucose 163 H POC Glucose (mg/dL) 151 H 168 H Osmolality Plasma Lactic Acid Robert Calcium 6.2 L* Total Bilirubin AST ALT Alkaline Phosphatase Ammonia Creatine Kinase Total Protein Albumin Urine Appearance Urine Protein Urine Glucose (UA) Urine Blood Ur Leukocyte Esterase Urine RBC Urine WBC Urine WBC Clumps Amorphous Sediment Urine Bacteria Hyaline Casts Urine Mucus Serum Alcohol Ethyl Alcohol Screen Hep B Core Total Ab Crossmatch 07/20/19 07/20/19 07/20/19 21:59 23:33 23:35 RBC Hgb Hct MCV MCHC RDW Plt Count Neutrophils # Lymphocytes # (Manual) Metamyelocytes # (Man) Nucleated RBCs Macrocytosis PT INR APTT ABG pH ABG pCO2 ABG pO2 ABG HCO3 ABG Total CO2 ABG O2 Saturation ABG Lactic Acid VBG pH VBG pCO2 VBG HCO3 Potassium Chloride Carbon Dioxide Creatinine Glucose POC Glucose (mg/dL) 170 H 170 H Osmolality Plasma Lactic Acid Robert 6.2 H* Calcium Total Bilirubin AST ALT Alkaline Phosphatase Ammonia Creatine Kinase Total Protein Albumin Urine Appearance Urine Protein Urine Glucose (UA) Urine Blood Ur Leukocyte Esterase Urine RBC Urine WBC Urine WBC Clumps Amorphous Sediment Urine Bacteria Hyaline Casts Urine Mucus Serum Alcohol Ethyl Alcohol Screen Hep B Core Total Ab Crossmatch 07/21/19 07/21/19 07/21/19 00:35 02:11 03:34 RBC Hgb Hct MCV MCHC RDW Plt Count Neutrophils # Lymphocytes # (Manual) Metamyelocytes # (Man) Nucleated RBCs Macrocytosis PT INR APTT ABG pH ABG pCO2 ABG pO2 ABG HCO3 ABG Total CO2 ABG O2 Saturation ABG Lactic Acid VBG pH VBG pCO2 VBG HCO3 Potassium Chloride Carbon Dioxide Creatinine Glucose POC Glucose (mg/dL) 184 H 148 H 152 H Osmolality Plasma Lactic Acid Robert Calcium Total Bilirubin AST ALT Alkaline Phosphatase Ammonia Creatine Kinase Total Protein Albumin Urine Appearance Urine Protein Urine Glucose (UA) Urine Blood Ur Leukocyte Esterase Urine RBC Urine WBC Urine WBC Clumps Amorphous Sediment Urine Bacteria Hyaline Casts Urine Mucus Serum Alcohol Ethyl Alcohol Screen Hep B Core Total Ab Crossmatch 07/21/19 07/21/19 07/21/19 04:22 04:25 04:25 RBC 2.94 L Hgb 9.3 L Hct 27.8 L MCV MCHC RDW 20.3 H Plt Count 47 L Neutrophils # Lymphocytes # (Manual) 0.79 L Metamyelocytes # (Man) 0.18 H Nucleated RBCs 1 H Macrocytosis PT INR APTT ABG pH ABG pCO2 ABG pO2 ABG HCO3 ABG Total CO2 ABG O2 Saturation ABG Lactic Acid VBG pH VBG pCO2 VBG HCO3 Potassium Chloride Carbon Dioxide Creatinine Glucose POC Glucose (mg/dL) 138 H Osmolality Plasma Lactic Acid Robert 5.0 H* Calcium Total Bilirubin AST ALT Alkaline Phosphatase Ammonia Creatine Kinase Total Protein Albumin Urine Appearance Urine Protein Urine Glucose (UA) Urine Blood Ur Leukocyte Esterase Urine RBC Urine WBC Urine WBC Clumps Amorphous Sediment Urine Bacteria Hyaline Casts Urine Mucus Serum Alcohol Ethyl Alcohol Screen Hep B Core Total Ab Crossmatch 07/21/19 07/21/19 07/21/19 04:25 05:31 06:30 RBC Hgb Hct MCV MCHC RDW Plt Count Neutrophils # Lymphocytes # (Manual) Metamyelocytes # (Man) Nucleated RBCs Macrocytosis PT INR APTT ABG pH ABG pCO2 ABG pO2 ABG HCO3 ABG Total CO2 ABG O2 Saturation ABG Lactic Acid VBG pH VBG pCO2 VBG HCO3 Potassium Chloride Carbon Dioxide Creatinine 4.00 H Glucose 127 H POC Glucose (mg/dL) 120 H 127 H Osmolality Plasma Lactic Acid Robert Calcium 6.5 L Total Bilirubin 2.2 H AST 541 H ALT 75 H Alkaline Phosphatase 216 H Ammonia Creatine Kinase Total Protein 5.8 L Albumin 2.7 L Urine Appearance Urine Protein Urine Glucose (UA) Urine Blood Ur Leukocyte Esterase Urine RBC Urine WBC Urine WBC Clumps Amorphous Sediment Urine Bacteria Hyaline Casts Urine Mucus Serum Alcohol Ethyl Alcohol Screen [facility] B Core Total Ab Crossmatch 07/21/19 07/21/19 07/21/19 07:27 08:06 09:05 RBC Hgb Hct MCV MCHC RDW Plt Count Neutrophils # Lymphocytes # (Manual) Metamyelocytes # (Man) Nucleated RBCs Macrocytosis PT INR APTT ABG pH 7.58 H* ABG pCO2 32 L ABG pO2 117 H ABG HCO3 30 H ABG Total CO2 31 H ABG O2 Saturation 99.1 H ABG Lactic Acid VBG pH VBG pCO2 VBG HCO3 Potassium Chloride Carbon Dioxide Creatinine Glucose POC Glucose (mg/dL) 172 H Osmolality Plasma Lactic Acid Robert 4.6 H* Calcium Total Bilirubin AST ALT Alkaline Phosphatase Ammonia 44 H Creatine Kinase Total Protein Albumin Urine Appearance Urine Protein Urine Glucose (UA) Urine Blood Ur Leukocyte Esterase Urine RBC Urine WBC Urine WBC Clumps Amorphous Sediment Urine Bacteria Hyaline Casts Urine Mucus Serum Alcohol Ethyl Alcohol Screen Hep B Core Total Ab Crossmatch 07/21/19 07/21/19 07/21/19 09:05 10:46 12:09 RBC Hgb Hct MCV MCHC RDW Plt Count Neutrophils # Lymphocytes # (Manual) Metamyelocytes # (Man) Nucleated RBCs Macrocytosis PT INR APTT ABG pH ABG pCO2 ABG pO2 ABG HCO3 ABG Total CO2 ABG O2 Saturation ABG Lactic Acid VBG pH VBG pCO2 VBG HCO3 Potassium Chloride Carbon Dioxide Creatinine Glucose POC Glucose (mg/dL) 187 H 177 H 146 H Osmolality Plasma Lactic Acid Robert Calcium Total Bilirubin AST ALT Alkaline Phosphatase Ammonia Creatine Kinase Total Protein Albumin Urine Appearance Urine Protein Urine Glucose (UA) Urine Blood Ur Leukocyte Esterase Urine RBC Urine WBC Urine WBC Clumps Amorphous Sediment Urine Bacteria Hyaline Casts Urine Mucus Serum Alcohol Ethyl Alcohol Screen Hep B Core Total Ab Crossmatch 07/21/19 07/21/19 07/21/19 13:19 13:25 15:32 RBC Hgb Hct MCV MCHC RDW Plt Count Neutrophils # Lymphocytes # (Manual) Metamyelocytes # (Man) Nucleated RBCs Macrocytosis PT INR APTT ABG pH ABG pCO2 ABG pO2 ABG HCO3 ABG Total CO2 ABG O2 Saturation ABG Lactic Acid VBG pH VBG pCO2 VBG HCO3 Potassium Chloride Carbon Dioxide Creatinine Glucose POC Glucose (mg/dL) 140 H 125 H Osmolality Plasma Lactic Acid Robert 4.5 H* Calcium Total Bilirubin AST ALT Alkaline Phosphatase Ammonia Creatine Kinase Total Protein Albumin Urine Appearance Urine Protein Urine Glucose (UA) Urine Blood Ur Leukocyte Esterase Urine RBC Urine WBC Urine WBC Clumps Amorphous Sediment Urine Bacteria Hyaline Casts Urine Mucus Serum Alcohol Ethyl Alcohol Screen Hep B Core Total Ab Crossmatch 07/21/19 07/21/19 07/21/19 16:21 18:13 19:11 RBC Hgb Hct MCV MCHC RDW Plt Count Neutrophils # Lymphocytes # (Manual) Metamyelocytes # (Man) Nucleated RBCs Macrocytosis PT INR APTT ABG pH ABG pCO2 ABG pO2 ABG HCO3 ABG Total CO2 ABG O2 Saturation ABG Lactic Acid VBG pH VBG pCO2 VBG HCO3 Potassium Chloride Carbon Dioxide Creatinine Glucose POC Glucose (mg/dL) 112 H 130 H 134 H Osmolality Plasma Lactic Acid Robert Calcium Total Bilirubin AST ALT Alkaline Phosphatase Ammonia Creatine Kinase Total Protein Albumin Urine Appearance Urine Protein Urine Glucose (UA) Urine Blood Ur Leukocyte Esterase Urine RBC Urine WBC Urine WBC Clumps Amorphous Sediment Urine Bacteria Hyaline Casts Urine Mucus Serum Alcohol Ethyl Alcohol Screen Hep B Core Total Ab Crossmatch 07/21/19 07/21/19 07/21/19 19:48 21:11 22:03 RBC Hgb Hct MCV MCHC RDW Plt Count Neutrophils # Lymphocytes # (Manual) Metamyelocytes # (Man) Nucleated RBCs Macrocytosis PT INR APTT ABG pH ABG pCO2 ABG pO2 ABG HCO3 ABG Total CO2 ABG O2 Saturation ABG Lactic Acid VBG pH VBG pCO2 VBG HCO3 Potassium Chloride Carbon Dioxide Creatinine Glucose POC Glucose (mg/dL) 144 H 125 H 117 H Osmolality Plasma Lactic Acid Robert Calcium Total Bilirubin AST ALT Alkaline Phosphatase Ammonia Creatine Kinase Total Protein Albumin Urine Appearance Urine Protein Urine Glucose (UA) Urine Blood Ur Leukocyte Esterase Urine RBC Urine WBC Urine WBC Clumps Amorphous Sediment Urine Bacteria Hyaline Casts Urine Mucus Serum Alcohol Ethyl Alcohol Screen Hep B Core Total Ab Crossmatch 07/21/19 07/22/19 07/22/19 23:00 00:12 00:57 RBC Hgb Hct MCV MCHC RDW Plt Count Neutrophils # Lymphocytes # (Manual) Metamyelocytes # (Man) Nucleated RBCs Macrocytosis PT INR APTT ABG pH ABG pCO2 ABG pO2 ABG HCO3 ABG Total CO2 ABG O2 Saturation ABG Lactic Acid VBG pH VBG pCO2 VBG HCO3 Potassium Chloride Carbon Dioxide Creatinine Glucose POC Glucose (mg/dL) 132 H 128 H 124 H Osmolality Plasma Lactic Acid Robert Calcium Total Bilirubin AST ALT Alkaline Phosphatase Ammonia Creatine Kinase Total Protein Albumin Urine Appearance Urine Protein Urine Glucose (UA) Urine Blood Ur Leukocyte Esterase Urine RBC Urine WBC Urine WBC Clumps Amorphous Sediment Urine Bacteria Hyaline Casts Urine Mucus Serum Alcohol Ethyl Alcohol Screen Hep B Core Total Ab Crossmatch 07/22/19 07/22/19 07/22/19 01:55 02:54 03:58 RBC Hgb Hct MCV MCHC RDW Plt Count Neutrophils # Lymphocytes # (Manual) Metamyelocytes # (Man) Nucleated RBCs Macrocytosis PT INR APTT ABG pH ABG pCO2 ABG pO2 ABG HCO3 ABG Total CO2 ABG O2 Saturation ABG Lactic Acid VBG pH VBG pCO2 VBG HCO3 Potassium Chloride Carbon Dioxide Creatinine Glucose POC Glucose (mg/dL) 144 H 127 H 138 H Osmolality Plasma Lactic Acid Robert Calcium Total Bilirubin AST ALT Alkaline Phosphatase Ammonia Creatine Kinase Total Protein Albumin Urine Appearance Urine Protein Urine Glucose (UA) Urine Blood Ur Leukocyte Esterase Urine RBC Urine WBC Urine WBC Clumps Amorphous Sediment Urine Bacteria Hyaline Casts Urine Mucus Serum Alcohol Ethyl Alcohol Screen Hep B Core Total Ab Crossmatch 07/22/19 07/22/19 07/22/19 04:00 04:00 05:02 RBC 3.05 L Hgb 9.1 L Hct 28.7 L MCV MCHC RDW 19.7 H Plt Count 40 L Neutrophils # Lymphocytes # (Manual) Metamyelocytes # (Man) Nucleated RBCs Macrocytosis PT INR APTT ABG pH 7.50 H ABG pCO2 ABG pO2 146 H ABG HCO3 32 H ABG Total CO2 33 H ABG O2 Saturation 98.7 H ABG Lactic Acid VBG pH VBG pCO2 VBG HCO3 Potassium Chloride Carbon Dioxide 32 H Creatinine 3.34 H Glucose 129 H POC Glucose (mg/dL) Osmolality Plasma Lactic Acid Robert Calcium 6.6 L Total Bilirubin 2.3 H AST 363 H ALT 67 H Alkaline Phosphatase 187 H Ammonia Creatine Kinase Total Protein 5.0 L Albumin 2.2 L Urine Appearance Urine Protein Urine Glucose (UA) Urine Blood Ur Leukocyte Esterase Urine RBC Urine WBC Urine WBC Clumps Amorphous Sediment Urine Bacteria Hyaline Casts Urine Mucus Serum Alcohol Ethyl Alcohol Screen Hep B Core Total Ab Crossmatch 07/22/19 07/22/19 07/22/19 05:55 06:52 08:33 RBC Hgb Hct MCV MCHC RDW Plt Count Neutrophils # Lymphocytes # (Manual) Metamyelocytes # (Man) Nucleated RBCs Macrocytosis PT INR APTT ABG pH ABG pCO2 ABG pO2 ABG HCO3 ABG Total CO2 ABG O2 Saturation ABG Lactic Acid VBG pH VBG pCO2 VBG HCO3 Potassium Chloride Carbon Dioxide Creatinine Glucose POC Glucose (mg/dL) 167 H 140 H 119 H Osmolality Plasma Lactic Acid Robert Calcium Total Bilirubin AST ALT Alkaline Phosphatase Ammonia Creatine Kinase Total Protein Albumin Urine Appearance Urine Protein Urine Glucose (UA) Urine Blood Ur Leukocyte Esterase Urine RBC Urine WBC Urine WBC Clumps Amorphous Sediment Urine Bacteria Hyaline Casts Urine Mucus Serum Alcohol Ethyl Alcohol Screen Hep B Core Total Ab Crossmatch 07/22/19 07/22/19 07/22/19 10:21 11:39 12:39 RBC Hgb Hct MCV MCHC RDW Plt Count Neutrophils # Lymphocytes # (Manual) Metamyelocytes # (Man) Nucleated RBCs Macrocytosis PT INR APTT ABG pH ABG pCO2 ABG pO2 ABG HCO3 ABG Total CO2 ABG O2 Saturation ABG Lactic Acid VBG pH VBG pCO2 VBG HCO3 Potassium Chloride Carbon Dioxide Creatinine Glucose POC Glucose (mg/dL) 111 H 126 H 128 H Osmolality Plasma Lactic Acid Robert Calcium Total Bilirubin AST ALT Alkaline Phosphatase Ammonia Creatine Kinase Total Protein Albumin Urine Appearance Urine Protein Urine Glucose (UA) Urine Blood Ur Leukocyte Esterase Urine RBC Urine WBC Urine WBC Clumps Amorphous Sediment Urine Bacteria Hyaline Casts Urine Mucus Serum Alcohol Ethyl Alcohol Screen Hep B Core Total Ab Crossmatch 07/22/19 07/22/19 07/22/19 14:24 15:10 16:57 RBC Hgb Hct MCV MCHC RDW Plt Count Neutrophils # Lymphocytes # (Manual) Metamyelocytes # (Man) Nucleated RBCs Macrocytosis PT INR APTT ABG pH ABG pCO2 ABG pO2 ABG HCO3 ABG Total CO2 ABG O2 Saturation ABG Lactic Acid VBG pH VBG pCO2 VBG HCO3 Potassium Chloride Carbon Dioxide Creatinine Glucose POC Glucose (mg/dL) 108 H 135 H 153 H Osmolality Plasma Lactic Acid Robert Calcium Total Bilirubin AST ALT Alkaline Phosphatase Ammonia Creatine Kinase Total Protein Albumin Urine Appearance Urine Protein Urine Glucose (UA) Urine Blood Ur Leukocyte Esterase Urine RBC Urine WBC Urine WBC Clumps Amorphous Sediment Urine Bacteria Hyaline Casts Urine Mucus Serum Alcohol Ethyl Alcohol Screen Hep B Core Total Ab Crossmatch 07/22/19 07/22/19 07/22/19 18:37 19:57 21:09 RBC Hgb Hct MCV MCHC RDW Plt Count Neutrophils # Lymphocytes # (Manual) Metamyelocytes # (Man) Nucleated RBCs Macrocytosis PT INR APTT ABG pH ABG pCO2 ABG pO2 ABG HCO3 ABG Total CO2 ABG O2 Saturation ABG Lactic Acid VBG pH VBG pCO2 VBG HCO3 Potassium Chloride Carbon Dioxide Creatinine Glucose POC Glucose (mg/dL) 159 H 160 H 157 H Osmolality Plasma Lactic Acid Robert Calcium Total Bilirubin AST ALT Alkaline Phosphatase Ammonia Creatine Kinase Total Protein Albumin Urine Appearance Urine Protein Urine Glucose (UA) Urine Blood Ur Leukocyte Esterase Urine RBC Urine WBC Urine WBC Clumps Amorphous Sediment Urine Bacteria Hyaline Casts Urine Mucus Serum Alcohol Ethyl Alcohol Screen Hep B Core Total Ab Crossmatch 07/22/19 07/22/19 07/22/19 22:03 22:59 23:53 RBC Hgb Hct MCV MCHC RDW Plt Count Neutrophils # Lymphocytes # (Manual) Metamyelocytes # (Man) Nucleated RBCs Macrocytosis PT INR APTT ABG pH ABG pCO2 ABG pO2 ABG HCO3 ABG Total CO2 ABG O2 Saturation ABG Lactic Acid VBG pH VBG pCO2 VBG HCO3 Potassium Chloride Carbon Dioxide Creatinine Glucose POC Glucose (mg/dL) 204 H 162 H 177 H Osmolality Plasma Lactic Acid Robert Calcium Total Bilirubin AST ALT Alkaline Phosphatase Ammonia Creatine Kinase Total Protein Albumin Urine Appearance Urine Protein Urine Glucose (UA) Urine Blood Ur Leukocyte Esterase Urine RBC Urine WBC Urine WBC Clumps Amorphous Sediment Urine Bacteria Hyaline Casts Urine Mucus Serum Alcohol Ethyl Alcohol Screen Hep B Core Total Ab Crossmatch 07/23/19 07/23/19 07/23/19 00:54 01:54 03:02 RBC Hgb Hct MCV MCHC RDW Plt Count Neutrophils # Lymphocytes # (Manual) Metamyelocytes # (Man) Nucleated RBCs Macrocytosis PT INR APTT ABG pH ABG pCO2 ABG pO2 ABG HCO3 ABG Total CO2 ABG O2 Saturation ABG Lactic Acid VBG pH VBG pCO2 VBG HCO3 Potassium Chloride Carbon Dioxide Creatinine Glucose POC Glucose (mg/dL) 196 H 184 H 167 H Osmolality Plasma Lactic Acid Robert Calcium Total Bilirubin AST ALT Alkaline Phosphatase Ammonia Creatine Kinase Total Protein Albumin Urine Appearance Urine Protein Urine Glucose (UA) Urine Blood Ur Leukocyte Esterase Urine RBC Urine WBC Urine WBC Clumps Amorphous Sediment Urine Bacteria Hyaline Casts Urine Mucus Serum Alcohol Ethyl Alcohol Screen Hep B Core Total Ab Crossmatch 07/23/19 07/23/19 07/23/19 04:00 04:00 04:00 RBC 3.15 L Hgb 9.7 L Hct 30.1 L MCV MCHC RDW 19.7 H Plt Count 39 L Neutrophils # 8.2 H Lymphocytes # (Manual) Metamyelocytes # (Man) Nucleated RBCs Macrocytosis PT INR APTT ABG pH ABG pCO2 ABG pO2 ABG HCO3 ABG Total CO2 ABG O2 Saturation ABG Lactic Acid VBG pH VBG pCO2 VBG HCO3 Potassium 3.4 L Chloride Carbon Dioxide 33 H Creatinine 2.53 H Glucose 160 H POC Glucose (mg/dL) 169 H Osmolality Plasma Lactic Acid Robert Calcium 7.0 L Total Bilirubin 2.0 H AST 261 H ALT 67 H Alkaline Phosphatase 189 H Ammonia Creatine Kinase Total Protein 5.1 L Albumin 2.2 L Urine Appearance Urine Protein Urine Glucose (UA) Urine Blood Ur Leukocyte Esterase Urine RBC Urine WBC Urine WBC Clumps Amorphous Sediment Urine Bacteria Hyaline Casts Urine Mucus Serum Alcohol Ethyl Alcohol Screen Hep B Core Total Ab Crossmatch 07/23/19 07/23/19 07/23/19 04:54 05:06 05:56 RBC Hgb Hct MCV MCHC RDW Plt Count Neutrophils # Lymphocytes # (Manual) Metamyelocytes # (Man) Nucleated RBCs Macrocytosis PT INR APTT ABG pH 7.48 H ABG pCO2 ABG pO2 112 H ABG HCO3 31 H ABG Total CO2 32 H ABG O2 Saturation 98.1 H ABG Lactic Acid VBG pH VBG pCO2 VBG HCO3 Potassium Chloride Carbon Dioxide Creatinine Glucose POC Glucose (mg/dL) 155 H 184 H Osmolality Plasma Lactic Acid Robert Calcium Total Bilirubin AST ALT Alkaline Phosphatase Ammonia Creatine Kinase Total Protein Albumin Urine Appearance Urine Protein Urine Glucose (UA) Urine Blood Ur Leukocyte Esterase Urine RBC Urine WBC Urine WBC Clumps Amorphous Sediment Urine Bacteria Hyaline Casts Urine Mucus Serum Alcohol Ethyl Alcohol Screen Hep B Core Total Ab Crossmatch 07/23/19 07/23/19 07/23/19 06:59 09:14 09:38 RBC Hgb Hct MCV MCHC RDW Plt Count Neutrophils # Lymphocytes # (Manual) Metamyelocytes # (Man) Nucleated RBCs Macrocytosis PT INR APTT ABG pH 7.50 H ABG pCO2 ABG pO2 77 L ABG HCO3 31 H ABG Total CO2 33 H ABG O2 Saturation ABG Lactic Acid VBG pH VBG pCO2 VBG HCO3 Potassium Chloride Carbon Dioxide Creatinine Glucose POC Glucose (mg/dL) 157 H 136 H Osmolality Plasma Lactic Acid Robert Calcium Total Bilirubin AST ALT Alkaline Phosphatase Ammonia Creatine Kinase Total Protein Albumin Urine Appearance Urine Protein Urine Glucose (UA) Urine Blood Ur Leukocyte Esterase Urine RBC Urine WBC Urine WBC Clumps Amorphous Sediment Urine Bacteria Hyaline Casts Urine Mucus Serum Alcohol Ethyl Alcohol Screen Hep B Core Total Ab Crossmatch 07/23/19 07/23/19 07/23/19 11:13 12:04 14:28 RBC Hgb Hct MCV MCHC RDW Plt Count Neutrophils # Lymphocytes # (Manual) Metamyelocytes # (Man) Nucleated RBCs Macrocytosis PT INR APTT ABG pH ABG pCO2 ABG pO2 ABG HCO3 ABG Total CO2 ABG O2 Saturation ABG Lactic Acid VBG pH VBG pCO2 VBG HCO3 Potassium Chloride Carbon Dioxide Creatinine Glucose POC Glucose (mg/dL) 155 H 165 H 107 H Osmolality Plasma Lactic Acid Robert Calcium Total Bilirubin AST ALT Alkaline Phosphatase Ammonia Creatine Kinase Total Protein Albumin Urine Appearance Urine Protein Urine Glucose (UA) Urine Blood Ur Leukocyte Esterase Urine RBC Urine WBC Urine WBC Clumps Amorphous Sediment Urine Bacteria Hyaline Casts Urine Mucus Serum Alcohol Ethyl Alcohol Screen Hep B Core Total Ab Crossmatch 07/23/19 07/23/19 16:16 20:00 RBC Hgb Hct MCV MCHC RDW Plt Count Neutrophils # Lymphocytes # (Manual) Metamyelocytes # (Man) Nucleated RBCs Macrocytosis PT INR APTT ABG pH ABG pCO2 ABG pO2 ABG HCO3 ABG Total CO2 ABG O2 Saturation ABG Lactic Acid VBG pH VBG pCO2 VBG HCO3 Potassium Chloride Carbon Dioxide Creatinine Glucose POC Glucose (mg/dL) 102 H 118 H Osmolality Plasma Lactic Acid Robert Calcium Total Bilirubin AST ALT Alkaline Phosphatase Ammonia Creatine Kinase Total Protein Albumin Urine Appearance Urine Protein Urine Glucose (UA) Urine Blood Ur Leukocyte Esterase Urine RBC Urine WBC Urine WBC Clumps Amorphous Sediment Urine Bacteria Hyaline Casts Urine Mucus Serum Alcohol Ethyl Alcohol Screen Hep B Core Total Ab Crossmatch
[2019-07-23 23:26] LABS: Glucose,Whole Blood 116 mg/dL (75-99)
--- NOTE | 2019-07-24 00:48 | PN ---
PROGRESS NOTE DATE OF DICTATION: 07/23/2019 This patient is a 48-year-old white female with history of heavy alcoholism admitted to the hospital with acute respiratory failure and altered mental status. She was noted to have severe hepatic encephalopathy and has been on oral lactulose and Xifaxan since then. She is doing much better over the last 2 days on lactulose and through the FMS has about 300 mL of stool. Remains intubated and on the vent but off pressors. She is opening to eyes for simple commands. PHYSICAL EXAMINATION: On physical examination, appears comfortable, no apparent distress. Vital signs are stable. Blood pressure 107/64, pulse rate is 69, temperature 97.6. HEENT: Examination unremarkable. Conjunctivae pink. Sclerae anicteric. Oral cavity, no lesions. NECK: No JVD or lymph node enlargement. CHEST: Clear to auscultation. HEART: Regular rate and rhythm. ABDOMEN: Soft, nontender, nondistended. Bowel sounds are positive. No organomegaly. EXTREMITIES: No pedal edema. NEURO: Sedated and remains on the vent. LABS: Labs from today: WBC is 10.5, hemoglobin 9.7, platelets 39,000. T-bilirubin 2.0, AST 261, ALT 67, alkaline phosphatase 189. Ammonia level yesterday was 23. IMPRESSION: 1. Acute respiratory failure, remains on the vent and sedated. 2. Hypotension, resolved, off pressors for 2 days. 3. Hepatic encephalopathy, remains on Xifaxan and oral lactulose. Ammonia level is normal. 4. Alcoholic liver disease with a component of acute alcoholic hepatitis, gradually improving. 5. Lactic acidosis, resolved. 6. Elevated BUN and creatinine, questionable chronic kidney injury versus acute kidney injury. Nephrology following the patient. 7. Acute gastrointestinal bleed, resolved. No further bleeding noted. RECOMMENDATIONS: 1. Continue symptomatic and supportive care. 2. Continue Protonix 40 mg daily. 3. Monitor LFTs closely. 4. Continue Xifaxan as well as lactulose and titrate so that she has 3 soft bowel movements daily. 5. We will follow with you closely. Thank you for this consultation. MMODL / IJN: [id number] /
[2019-07-24] MEDS: DEXMEDETOMIDINE/0.9% NACL(PMX) 400 MCG in EMPTY BAG 1 BAG IV SCH (03:04)
[2019-07-24 03:46] LABS: Glucose,Whole Blood 113 mg/dL (75-99)
[2019-07-24 04:12] LABS: Anisocytosis Slight; Basophils % (A) 0 %; Eosinophils # (A) 0.2 k/uL (0-0.7); Eosinophils % (A) 3 %; HCT 30.9 % (34.0-46.0); HGB 9.6 gm/dL (11.4-16.0); Hypochromasia Slight; Lymphocytes # (A) 1.9 k/uL (1.0-4.8); Lymphocytes % (A) 30 %; MCH 29.9 pg (25.0-35.0); MCV 96.6 fL (80.0-100.0); Macrocytosis Slight; Mean Platelet Volume 11.5; Monocytes # (A) 0.5 k/uL (0-1.0); Monocytes % (A) 9 %; Neutrophils # (A) 3.4 k/uL (1.3-7.7); Neutrophils % (A) 54 %; RDW 19.8 % (11.5-15.5); WBC 6.2 k/uL (3.8-10.6)
[2019-07-24 04:16] LABS: Platelet Count 32 k/uL (150-450)
[2019-07-24 04:21] LABS: Albumin 2.1 g/dL (3.5-5.0); Calcium 7.6 mg/dL (8.4-10.2); Total Bilirubin 2.2 mg/dL (0.2-1.3); Total Protein 5.1 g/dL (6.3-8.2)
[2019-07-24 04:32] LABS: Potassium 2.7 mmol/L (3.5-5.1)
[2019-07-24 04:43] LABS: ABG Base Excess 0.7 mmol/L; ABG HCO3 24 mmol/L (21-25); ABG Oxygen Saturation 97.6 % (94-97); ABG PCO2 33 mmHg (35-45); ABG PH 7.47 (7.35-7.45); ABG PO2 99 mmHg (83-108); ABG TCO2 25 mmol/L (19-24)
[2019-07-24] MEDS: POTASSIUM BICARBONATE/CIT AC 20 MEQ TABLET.EFF NG-TUBE SCH ×2 (05:27→05:53)
--- NOTE | 2019-07-24 07:16 | XR ---
EXAMINATION TYPE: XR chest 1V portable DATE OF EXAM: 07/24/2019 COMPARISON: 07/23/2019 HISTORY: Ventilatory dependent respiratory failure. TECHNIQUE: Single frontal view of the chest is obtained. FINDINGS: Endotracheal tube and external tubing overlapping. Distal tip of the endotracheal tube wit hin the trachea appears that the distal tip of the clavicles unchanged from the prior. Enteric tube c ourses off the distal [id number]. Peripheral patchy opacities are similar to the prior. Trace righ t pleural effusion. Cardiac loop recorder seen. No new pneumothorax. Stable cardiomediastinal silhoue tte size. IMPRESSION: Stable patchy peripheral opacities of the lower lungs and trace right pleural effusion. Multifocal pneumonia is of primary consideration.
[2019-07-24 07:36] LABS: Glucose,Whole Blood 127 mg/dL (75-99)
[2019-07-24] MEDS ORDERED: Potassium Replacement Protocol 1 EACH MISC MISCELLANE PRN (09:13)
[2019-07-24] MEDS ORDERED: FUROSEMIDE 10 MG/ML 10 ML VIAL IV STA (09:28)
--- NOTE | 2019-07-24 09:29 | P.PN ---
Subjective Patient is seen in follow for acute kidney injury. Started on hemodialysis on July 20. Urine output has improved a little. She is now making 20-40 mL an hour of urine. Currently intubated on 25% FiO2. She is maintained on tube feeding. Tolerated dialysis well yesterday with 2 L ultrafiltration. Vital signs are stable. General: The patient appeared well nourished and normally developed. HEENT: Head exam is unremarkable. Neck is without jugular venous distension. Intubated. LUNGS: Lungs are clear to auscultation and percussion. Breath sounds decreased. HEART: Rate and Rhythm are regular. ABDOMEN: Soft, nondistended. EXTREMITITES: Trace edema. Objective - Vital Signs Vital signs: Vital Signs Temp 95.5 F L 07/24/19 08:30 Pulse 46 L 07/24/19 08:30 Resp 16 07/24/19 08:30 BP 120/83 07/24/19 08:30 Pulse Ox 99 07/24/19 08:30 Intake & Output 07/23/19 07/24/19 07/24/19 18:59 06:59 18:59 Intake Total 1217.345 518.865 94.843 Output Total 1032 2690 140 Balance 185.345 -2171.135 -45.157 Weight 91.1 kg 91.2 kg Intake: IV 766 369 36 Piperacillin-Tazobactam 3 100 100 .375 gm In Sodium Chloride 0.9% 100 ml @ 25 mls/hr IVPB Q12H [facility] Rx# :[id number] Sodium Chloride 0.9% 1, 530 130 30 000 ml @ 10 mls/hr IV . Q24H [facility] Rx#:[id number] metroNIDAZOLE-NS PMX 500 100 100 mg In Saline 1 100ml.bag @ 100 mls/hr IVPB TID [facility] Rx#:[id number] pressure bag 36 39 6 Intake, IV Titration 9.345 79.865 58.843 Amount Dexmedetomidine/0.9% NaCl 75.731 58.843 (Pmx) 400 mcg In Empty Bag 1 bag @ Titrate IV . Q0M [facility] Rx#:[id number] Insulin Regular 100 unit 8.989 In Sodium Chloride 0.9% 100 ml @ Per Protocol IV .Q0M [facility] Rx#:[id number] Norepinephrine 32 mg In 0.356 4.134 Sodium Chloride 0.9% 218 ml @ 0.02 MCG/KG/MIN 0. 854 mls/hr IV .Q24H [facility] Rx#:[id number] Tube Feeding 382 70 Other 60 Output: Gastric Drainage 150 Urine 132 340 40 Stool 500 200 100 Emesis 400 Hemodialysis 2000 Other: Voiding Method Indwelling Catheter Indwelling Catheter Indwelling Catheter # Voids 0 0 ABP, PAP, CO, CI - Last Documented Arterial Blood Pressure 127/69 - Labs CBC & Chem 7: 07/24/19 04:00 07/24/19 07:35 Labs: Abnormal Lab Results - Last 24 Hours (Table) 07/23/19 07/23/19 07/23/19 Range/Units 09:38 11:13 12:04 RBC (3.80-5.40) m/uL Hgb (11.4-16.0) gm/dL Hct (34.0-46.0) % RDW (11.5-15.5) % Plt Count (150-450) k/uL ABG pH 7.50 H (7.35-7.45) ABG pCO2 (35-45) mmHg ABG pO2 77 L (83-108) mmHg ABG HCO3 31 H (21-25) mmol/L ABG Total CO2 33 H (19-24) mmol/L ABG O2 Saturation (94-97) % Potassium (3.5-5.1) mmol/L Creatinine (0.52-1.04) mg/dL Glucose (74-99) mg/dL POC Glucose (mg/dL) 155 H 165 H (75-99) mg/dL Calcium (8.4-10.2) mg/dL Total Bilirubin (0.2-1.3) mg/dL AST (14-36) U/L ALT (4-34) U/L Alkaline Phosphatase (38-126) U/L Total Protein (6.3-8.2) g/dL Albumin (3.5-5.0) g/dL 07/23/19 07/23/19 07/23/19 Range/Units 14:28 16:16 20:00 RBC (3.80-5.40) m/uL Hgb (11.4-16.0) gm/dL Hct (34.0-46.0) % RDW (11.5-15.5) % Plt Count (150-450) k/uL ABG pH (7.35-7.45) ABG pCO2 (35-45) mmHg ABG pO2 (83-108) mmHg ABG HCO3 (21-25) mmol/L ABG Total CO2 (19-24) mmol/L ABG O2 Saturation (94-97) % Potassium (3.5-5.1) mmol/L Creatinine (0.52-1.04) mg/dL Glucose (74-99) mg/dL POC Glucose (mg/dL) 107 H 102 H 118 H (75-99) mg/dL Calcium (8.4-10.2) mg/dL Total Bilirubin (0.2-1.3) mg/dL AST (14-36) U/L ALT (4-34) U/L Alkaline Phosphatase (38-126) U/L Total Protein (6.3-8.2) g/dL Albumin (3.5-5.0) g/dL 07/23/19 07/24/19 07/24/19 Range/Units 23:25 03:44 04:00 RBC 3.20 L (3.80-5.40) m/uL Hgb 9.6 L (11.4-16.0) gm/dL Hct 30.9 L (34.0-46.0) % RDW 19.8 H (11.5-15.5) % Plt Count 32 L (150-450) k/uL ABG pH (7.35-7.45) ABG pCO2 (35-45) mmHg ABG pO2 (83-108) mmHg ABG HCO3 (21-25) mmol/L ABG Total CO2 (19-24) mmol/L ABG O2 Saturation (94-97) % Potassium (3.5-5.1) mmol/L Creatinine (0.52-1.04) mg/dL Glucose (74-99) mg/dL POC Glucose (mg/dL) 116 H 113 H (75-99) mg/dL Calcium (8.4-10.2) mg/dL Total Bilirubin (0.2-1.3) mg/dL AST (14-36) U/L ALT (4-34) U/L Alkaline Phosphatase (38-126) U/L Total Protein (6.3-8.2) g/dL Albumin (3.5-5.0) g/dL 07/24/19 07/24/19 07/24/19 Range/Units 04:00 04:40 07:34 RBC (3.80-5.40) m/uL Hgb (11.4-16.0) gm/dL Hct (34.0-46.0) % RDW (11.5-15.5) % Plt Count (150-450) k/uL ABG pH 7.47 H (7.35-7.45) ABG pCO2 33 L (35-45) mmHg ABG pO2 (83-108) mmHg ABG HCO3 (21-25) mmol/L ABG Total CO2 25 H (19-24) mmol/L ABG O2 Saturation 97.6 H (94-97) % Potassium 2.7 L* (3.5-5.1) mmol/L Creatinine 2.07 H (0.52-1.04) mg/dL Glucose 118 H (74-99) mg/dL POC Glucose (mg/dL) 127 H (75-99) mg/dL Calcium 7.6 L (8.4-10.2) mg/dL Total Bilirubin 2.2 H (0.2-1.3) mg/dL AST 210 H (14-36) U/L ALT 73 H (4-34) U/L Alkaline Phosphatase 209 H (38-126) U/L Total Protein 5.1 L (6.3-8.2) g/dL Albumin 2.1 L (3.5-5.0) g/dL 07/24/19 Range/Units 07:35 RBC (3.80-5.40) m/uL Hgb (11.4-16.0) gm/dL Hct (34.0-46.0) % RDW (11.5-15.5) % Plt Count (150-450) k/uL ABG pH (7.35-7.45) ABG pCO2 (35-45) mmHg ABG pO2 (83-108) mmHg ABG HCO3 (21-25) mmol/L ABG Total CO2 (19-24) mmol/L ABG O2 Saturation (94-97) % Potassium 3.0 L (3.5-5.1) mmol/L Creatinine (0.52-1.04) mg/dL Glucose (74-99) mg/dL POC Glucose (mg/dL) (75-99) mg/dL Calcium (8.4-10.2) mg/dL Total Bilirubin (0.2-1.3) mg/dL AST (14-36) U/L ALT (4-34) U/L Alkaline Phosphatase (38-126) U/L Total Protein (6.3-8.2) g/dL Albumin (3.5-5.0) g/dL Microbiology - Last 24 Hours (Table) 07/19/19 15:36 Blood Culture - Preliminary Blood No Growth after 96 hours Assessment and Plan Plan: Assessment: 1. Acute kidney injury secondary to ATN secondary to septic shock. Creatinine peaked at 4 this admission. CAT scan revealed fullness of the collecting systems. No hydronephrosis noted on renal ultrasound. Unknown baseline renal function. Started on hemodialysis on July 20. 2. Hyperkalemia secondary to acute kidney injury, metabolic acidosis and GI bleed. Improved with medical management. Now hypokalemic, being replaced. 3. Severe metabolic acidosis secondary to acute kidney injury and lactic acidosis. Volatile screen negative. Resolved. 4. Hypocalcemia secondary to acute kidney injury. Corrected calcium normal. 5. Acute GI bleed status post blood transfusion and IV DDAVP. GI following. 6. UTI with urine culture positive for E. coli maintain on antibiotics. 7. ? Ischemic colitis. 8. Alcohol-induced liver cirrhosis. Plan: Maintain tube feeds. Lasix 80 mg IV once today. Wean FiO2. Follow-up cultures. Continue to monitor renal function and urine output closely. She has undergone dialysis last 3 days in a row. I will hold today and reassess again tomorrow.
[2019-07-24] MEDS: CHLORHEXIDINE GLUCONATE 15 ML CUP MUCOUS MEM SCH (10:10)
[2019-07-24] MEDS: PANTOPRAZOLE 40 MG/10 ML VIAL IV SCH (10:15)
[2019-07-24] MEDS: metroNIDAZOLE-NS PMX 500 MG in SALINE 1 100ML.BAG IVPB SCH (10:15)
[2019-07-24] MEDS: PIPERACILLIN-TAZOBACTAM 3.375 GM in SODIUM CHLORIDE 0.9% 100 ML IVPB SCH ×2 (10:15→17:51)
[2019-07-24] MEDS: LACTULOSE 20 GM/30 ML CUP PO SCH ×3 (10:15→20:27)
[2019-07-24] MEDS: POTASSIUM CHLORIDE 20 MEQ in WATER FOR INJECTION 1 100ML.BAG IVPB SCH ×2 (10:19→12:31)
[2019-07-24] MEDS: RIFAXIMIN 550 MG TABLET PO SCH ×2 (11:20→20:27)
--- NOTE | 2019-07-24 11:37 | PN ---
PROGRESS NOTE DATE OF SERVICE: 07/24/2019 CRITICAL CARE TIME: 33 minutes. This is a 48-year-old black female who had an in-hospital cardiac arrest. She was admitted on 07/18. She apparently was going for procedure or a scan and had a cardiac arrest. Apparently according to the respiratory therapist, it was relatively brief. The patient does have a history of respiratory failure, urinary tract infection and sepsis. She was intubated on July 18. Her vent settings include the volume assist- control mode rate of 16, tidal volume 400, FiO2 25%, PEEP of 5. Blood gases are reasonable with a pO2 of 93, pCO2 of 33, and pH of 7.47. She is getting saline at 10 mL an hour and Precedex has been turned off. Tube feeds are on hold. We are going to trial her on PSV 5, CPAP of 5. Obviously, we will do a daily interruption of sedation, which is why the Precedex is off and a spontaneous breathing trial. We hope to get her extubated. She was seen by Neurology. Current vital signs are reviewed. Temperature is 95.5, heart rate 60, respiratory rate 12, blood pressure 96/49 mean 64, saturations are 99%. Appears in no acute distress. HEENT: Examination is grossly unremarkable. Mucous membranes are moist. There is no orally placed endotracheal tube and NG tube. NECK: Supple. Full range of motion. No adenopathy. Neck veins are flat. CARDIOVASCULAR: Examination reveals regular rhythm rate. Heart rate 60. S1, S2 normal. LUNGS: A few scattered rhonchi. Breath sounds equal. No crackles. ABDOMEN: Soft. Bowel sounds are noted. EXTREMITIES: Intact. No cyanosis, clubbing, or significant edema. SKIN: Without rash. NEUROLOGIC: Examination is difficult to assess as she is just currently still on Precedex. She is still sleepy. LABS: Reviewed. White count 6.2, hemoglobin 9.6, hematocrit 30.9, platelet count 32,000. Blood gases show a pO2 of 99, pCO2 of 33, pH of 7.47. Sodium 137, potassium 2.7 up to 3 on recheck, chloride 106, CO2 is 24, anion gap is 7. BUN and creatinine were 14 and 2.07, albumin 2.1, alkaline phosphatase 209, AST 210, ALT 73. Microbiology showing urine culture positive for Escherichia coli. The most recent chest x-ray on Ms. Lomeli shows some patchy lower lung infiltrates or atelectasis. CURRENT MEDICATIONS: Reviewed. ASSESSMENT: 1. Acute hypoxemic respiratory failure, secondary to septic shock and possible ischemic colitis and/or suspected intraabdominal source of sepsis. 2. History of E coli urinary tract infection with sepsis. 3. Acute blood loss anemia. 4. Status post cardiopulmonary arrest with brief resuscitation, and intubation on July 18. 5. Acute thrombocytopenia secondary to sepsis. 6. Shock liver secondary to hypotension and sepsis. 7. Mental status changes with suspected hepatic encephalopathy. 8. Acute kidney injury/acute tubular necrosis. 9. Severe anion gap metabolic acidosis, resolved. 10.Chronic kidney disease. 11.Acute lactic acidemia. 12.Acute alcohol intoxication. 13.Rule out anoxic brain injury. 14.Status post cardiopulmonary arrest on July 18, which required intubation. PLAN: The patient's Precedex will be turned off. Will do a daily interruption of sedation and spontaneous breathing trial. If she has a good cuff leak and adequate weaning parameters, will plan on extubating the patient. Currently, her tube feeds are on hold because of emesis yesterday. The patient's blood gases are excellent. Will continue to follow closely. Appreciate neurology input. Prognosis is guarded. CRITICAL CARE TIME: 33 minutes. MMODL / IJN: [id number] /
[2019-07-24 16:29] LABS: Glucose,Whole Blood 126 mg/dL (75-99)
[2019-07-24] MEDS ORDERED: SODIUM CHLORIDE 0.9% 500 ML 500 ML IV ONE (16:35)
--- NOTE | 2019-07-24 17:34 | PN ---
PROGRESS NOTE DATE OF SERVICE: 07/24/2019 Patient is a 48-year-old pleasant white female admitted to hospital with altered mental status/acute respiratory failure. She was intubated on the vent and she was just extubated this morning. Following extubation, she had a large amount of bilious emesis and subsequently the tube feeds have been on hold. She still has an NG tube in place. She still is somewhat lethargic, but is opening eyes and responding to simple questions appropriately. She states that she is feeling very thirsty. Complains of some abdominal pain. PHYSICAL EXAMINATION: Appears comfortable, lying in the bed. VITAL SIGNS: Stable. Blood pressure is 86/50, pulse rate 68, and afebrile. HEENT: Examination unremarkable, conjunctivae are pink, sclerae nonicteric, oral cavity no lesions. NECK: No JVD or lymph node enlargement. CHEST: Clear to auscultation. ABDOMEN: Soft, it was nontender. Bowel sounds are positive. EXTREMITIES: No pedal edema. SKIN: No rashes. NEUROLOGIC: Awake, oriented to name, not to place and time. NG tube in place which is clamped, has about 200 mL of loose stool. LABS: WBC 6.2, hemoglobin 9.6, platelets 32,000. The T bilirubin is 2.2, AST of 20, ALT 73, alkaline phosphatase 209. IMPRESSION: 1. Acute respiratory failure, status post extubation today. 2. Altered mental status secondary to hepatic encephalopathy. The patient remains on lactulose and Xifaxan and doing better. 3. Nausea, vomiting, and hematemesis, which resolved. She had one episode of hematemesis at the time of admission to hospital, hemoglobin has been stable, around 9.6 g/dL. 4. Elevated LFTs and jaundice probably related to acute alcoholic hepatitis. She had a component of acute ischemic hepatitis too because of prolonged hypertension. At the time of admission to the hospital, LFTs are gradually improving. RECOMMENDATION: 1. Continue to clamp the NG tube for today and start her with clear liquid diet tomorrow morning and see how she does. 2. Continue oral Xifaxan as well as oral lactulose and maintain and titrate to 3-4 soft bowel movements daily. 3. Continue with Protonix 40 mg twice daily. 4. No plans on any endoscopy intervention. 5. Will follow with you closely. Thank you for this consultation. MMODL / IJN: [id number] /
--- NOTE | 2019-07-24 17:49 | PN ---
PROGRESS NOTE DATE OF SERVICE: 07/24/2019 CHIEF COMPLAINT: Cardiorespiratory arrest with anoxic brain injury and renal failure. HISTORY OF PRESENT ILLNESS: This lady was not able to be extubated yesterday. She still remains fairly obtunded. PHYSICAL EXAMINATION: Her blood pressure is normal. She is moving about somewhat, but not purposefully. The chest is clear. The cardiac exam is normal. Abdomen is soft. There are no masses. Extremities are normal. IMPRESSION: 1. Cardiorespiratory arrest. 2. Anoxic encephalopathy. 3. Renal failure. PLAN: Continue to follow with Intensive Medicine, Neurology and Med/Renal. MMODL / IJN: [id number] /
--- NOTE | 2019-07-24 19:25 | P.PN ---
Subjective Progress Note Date: 07/24/19 Principal diagnosis: Difficulty weaning off sedation Subjective: This is a follow-up note from the for a 48-year-old female who presented in PE a in the emergency room on July 18 and underwent 2 rounds of CPR. The patient was found to have alcohol toxicity and had taken trazodone 150 mg in conjunction. Over the interim the patient has had a good response to being weaned off and is now extubated. She is oriented to time place person. Her speech is fluent. Her discussion with nursing there are no concerns neurologically at this time. Objective - Vital Signs Vital signs: Vital Signs Temp 96.5 F L 07/24/19 12:00 Pulse 65 07/24/19 19:00 Resp 16 07/24/19 19:00 BP 82/49 07/24/19 18:30 Pulse Ox 97 07/24/19 19:00 Intake & Output 07/24/19 07/24/19 07/25/19 06:59 18:59 06:59 Intake Total 353.974 4149.843 13 Output Total 2690 665 12 Balance -2171.135 546.843 1 Weight 91.2 kg Intake: IV 369 1153 13 Piperacillin-Tazobactam 3 100 100 .375 gm In Sodium Chloride 0.9% 100 ml @ 25 mls/hr IVPB Q12H [facility] Rx# :[id number] Piperacillin-Tazobactam 3 200 .375 gm In Sodium Chloride 0.9% 100 ml @ 25 mls/hr IVPB Q8HR [facility] Rx# :[id number] Potassium Chloride 20 meq 100 In Water For Injection 1 100ml.bag @ 50 mls/hr IVPB Q2H [facility] Rx#: [id number] Sodium Chloride 0.9% 1, 130 120 10 000 ml @ 10 mls/hr IV . Q24H [facility] Rx#:[id number] Sodium Chloride 0.9% 500 500 ml 500 ml @ 999 mls/hr IV .Q31M [facility] Rx#:[id number] metroNIDAZOLE-NS PMX 500 100 100 mg In Saline 1 100ml.bag @ 100 mls/hr IVPB TID [facility] Rx#:[id number] pressure bag 39 33 3 Intake, IV Titration 79.865 58.843 Amount Dexmedetomidine/0.9% NaCl 75.731 58.843 (Pmx) 400 mcg In Empty Bag 1 bag @ Titrate IV . Q0M [facility] Rx#:[id number] Norepinephrine 32 mg In 4.134 Sodium Chloride 0.9% 218 ml @ 0.02 MCG/KG/MIN 0. 854 mls/hr IV .Q24H [facility] Rx#:[id number] Tube Feeding 70 Output: Gastric Drainage 150 150 Urine 340 215 12 Stool 200 300 Hemodialysis 2000 Other: Voiding Method Indwelling Catheter Indwelling Catheter # Voids 0 ABP, PAP, CO, CI - Last Documented Arterial Blood Pressure 97/45 - Exam Examination: Next line mental status: Patient drowsy but able to respond appropriately answer questions appropriate. Her speech is slow but fluent. Next line pupils: 2 mm equally reactive to light and accommodation. Next line cranial nerves: Patient tracks well there is no nystagmus noted on vertical horizontal gaze. Her face appears symmetric. Tongue appears midline without fa sciculations deviation. Motor examination patient has generalized weakness and hypotonia throughout. She is able to move all 4 extremities equally. Strength testing was difficulty due to patient's fatigue. Coordination testing deferred Deep tendon reflexes deferred Sensory examination grossly intact to light touch throughout. - Labs CBC & Chem 7: 07/24/19 04:00 07/24/19 16:29 Labs: Abnormal Lab Results - Last 24 Hours (Table) 07/23/19 07/23/19 07/24/19 Range/Units 20:00 23:25 03:44 RBC (3.80-5.40) m/uL Hgb (11.4-16.0) gm/dL Hct (34.0-46.0) % RDW (11.5-15.5) % Plt Count (150-450) k/uL ABG pH (7.35-7.45) ABG pCO2 (35-45) mmHg ABG Total CO2 (19-24) mmol/L ABG O2 Saturation (94-97) % Potassium (3.5-5.1) mmol/L Creatinine (0.52-1.04) mg/dL Glucose (74-99) mg/dL POC Glucose (mg/dL) 118 H 116 H 113 H (75-99) mg/dL Calcium (8.4-10.2) mg/dL Total Bilirubin (0.2-1.3) mg/dL AST (14-36) U/L ALT (4-34) U/L Alkaline Phosphatase (38-126) U/L Ammonia (<30) umol/L Total Protein (6.3-8.2) g/dL Albumin (3.5-5.0) g/dL 07/24/19 07/24/19 07/24/19 Range/Units 04:00 04:00 04:40 RBC 3.20 L (3.80-5.40) m/uL Hgb 9.6 L (11.4-16.0) gm/dL Hct 30.9 L (34.0-46.0) % RDW 19.8 H (11.5-15.5) % Plt Count 32 L (150-450) k/uL ABG pH 7.47 H (7.35-7.45) ABG pCO2 33 L (35-45) mmHg ABG Total CO2 25 H (19-24) mmol/L ABG O2 Saturation 97.6 H (94-97) % Potassium 2.7 L* (3.5-5.1) mmol/L Creatinine 2.07 H (0.52-1.04) mg/dL Glucose 118 H (74-99) mg/dL POC Glucose (mg/dL) (75-99) mg/dL Calcium 7.6 L (8.4-10.2) mg/dL Total Bilirubin 2.2 H (0.2-1.3) mg/dL AST 210 H (14-36) U/L ALT 73 H (4-34) U/L Alkaline Phosphatase 209 H (38-126) U/L Ammonia (<30) umol/L Total Protein 5.1 L (6.3-8.2) g/dL Albumin 2.1 L (3.5-5.0) g/dL 07/24/19 07/24/19 07/24/19 Range/Units 07:34 07:35 09:15 RBC (3.80-5.40) m/uL Hgb (11.4-16.0) gm/dL Hct (34.0-46.0) % RDW (11.5-15.5) % Plt Count (150-450) k/uL ABG pH (7.35-7.45) ABG pCO2 (35-45) mmHg ABG Total CO2 (19-24) mmol/L ABG O2 Saturation (94-97) % Potassium 3.0 L (3.5-5.1) mmol/L Creatinine (0.52-1.04) mg/dL Glucose (74-99) mg/dL POC Glucose (mg/dL) 127 H (75-99) mg/dL Calcium (8.4-10.2) mg/dL Total Bilirubin (0.2-1.3) mg/dL AST (14-36) U/L ALT (4-34) U/L Alkaline Phosphatase (38-126) U/L Ammonia 64 H (<30) umol/L Total Protein (6.3-8.2) g/dL Albumin (3.5-5.0) g/dL 07/24/19 Range/Units 16:28 RBC (3.80-5.40) m/uL Hgb (11.4-16.0) gm/dL Hct (34.0-46.0) % RDW (11.5-15.5) % Plt Count (150-450) k/uL ABG pH (7.35-7.45) ABG pCO2 (35-45) mmHg ABG Total CO2 (19-24) mmol/L ABG O2 Saturation (94-97) % Potassium (3.5-5.1) mmol/L Creatinine (0.52-1.04) mg/dL Glucose (74-99) mg/dL POC Glucose (mg/dL) 126 H (75-99) mg/dL Calcium (8.4-10.2) mg/dL Total Bilirubin (0.2-1.3) mg/dL AST (14-36) U/L ALT (4-34) U/L Alkaline Phosphatase (38-126) U/L Ammonia (<30) umol/L Total Protein (6.3-8.2) g/dL Albumin (3.5-5.0) g/dL Microbiology - Last 24 Hours (Table) 07/19/19 15:36 Blood Culture - Preliminary Blood No Growth after 120 hours Assessment and Plan Assessment: This is a 48-year-old female who underwent acute respiratory failure requiring 2 rounds of CPR. Etiology for this was due to alcohol intoxication. The patient is now been successfully extubated and she was able to respond appropriately during examination. Her overall neurological exam was limited due to her fatigue. No other concerns for nursing for possible seizure activity or other concerns. At this time neurology will sign off until further notice. This patient should improve daily with her strength in mentation. Would strongly recommend a PT OT and speech evaluation along with psychiatry evaluation for alcohol addiction. It is now 5 days since admission and unlikely this time patient would undergo alcohol withdrawal. Would recommend however thiamine level and close monitoring. Thank you for this consultation. If very further questions or concerns please reconsult neurology. I believe overall this patient's prognosis is good providing she gets supportive care with psychiatry for alcohol recovery period Carolina Perez M.D. Board Certified in Neurology and Sleep Medicine
[2019-07-24 19:57] LABS: Glucose,Whole Blood 119 mg/dL (75-99)
[2019-07-24] MEDS: SODIUM CHLORIDE 0.9% 1,000 ML IV SCH (20:28)
[2019-07-24] MEDS: MIDODRINE 5 MG TAB PO SCH (21:19)
--- NOTE | 2019-07-24 23:19 | PN ---
PROGRESS NOTE DATE OF SERVICE: 07/24/2019 REASON FOR FOLLOWUP: Possible ischemic colitis/aspiration pneumonia and UTI. INTERVAL HISTORY: The patient is currently afebrile. The patient is off the pressor support. The patient has been extubated and is currently breathing comfortably on nasal cannula oxygen. The patient remains lethargic and no history was provided. No worsening diarrhea has been reported by the nursing staff. PHYSICAL EXAMINATION: Her blood pressure is 99/45 with a pulse of 70, temperature 97.9. She is 95% on room air. General description is a middle-aged female lying in bed in no distress. RESPIRATORY SYSTEM: Unlabored breathing. Clear to auscultation anteriorly. HEART: S1, S2. Regular rate and rhythm. ABDOMEN: Soft. No distention. LABS: Hemoglobin 9.6, white count 6.2, BUN of 14, creatinine 2.07. DIAGNOSTIC IMPRESSION AND PLAN: Patient admitted to hospital with unresponsiveness. Subsequently did have a cardiac arrest with a CT suspicious for an ischemic colitis and possible aspiration pneumonitis. The patient did have E coli UTI as well. The patient is covered with Zosyn; to continue. Monitor her clinical course closely. Continue with supportive care. MMODL / IJN: [id number] /
[2019-07-25 00:10] LABS: Glucose,Whole Blood 111 mg/dL (75-99)
[2019-07-25] MEDS: PIPERACILLIN-TAZOBACTAM 3.375 GM in SODIUM CHLORIDE 0.9% 100 ML IVPB SCH ×4 (00:37→23:58)
[2019-07-25 05:27] LABS: Anisocytosis Moderate; HCT 28.3 % (34.0-46.0); HGB 8.9 gm/dL (11.4-16.0); Hypochromasia Moderate; MCH 30.8 pg (25.0-35.0); MCHC 31.5 g/dL (31.0-37.0); MCV 97.8 fL (80.0-100.0); Macrocytosis Moderate; RBC 2.89 m/uL (3.80-5.40); RDW 20.1 % (11.5-15.5); WBC 4.9 k/uL (3.8-10.6)
[2019-07-25 05:28] LABS: Calcium 7.7 mg/dL (8.4-10.2); Magnesium 1.7 mg/dL (1.6-2.3); Potassium 3.2 mmol/L (3.5-5.1); Total Bilirubin 2.5 mg/dL (0.2-1.3); Total Protein 4.8 g/dL (6.3-8.2)
[2019-07-25 05:56] LABS: Platelet Count 56 k/uL (150-450)
--- NOTE | 2019-07-25 07:40 | XR ---
EXAMINATION TYPE: XR chest 1V portable DATE OF EXAM: 07/25/2019 Comparison: 07/24/2019 Clinical History: 48-year-old male Tube placement Findings: Interval extubation. NG tube remains in place. Heart is upper limits of normal in size. Patchy and co nfluent bilateral airspace opacities especially in the periphery and lower lungs, right greater than left have increased in the interval. Suspect small right pleural effusion. Loop recorder device. Impression: Interval extubation but now with worsening peripheral and bibasilar infiltrates, right greater left. Possible small right effusion.
[2019-07-25 08:00] LABS: Lymphocytes # (M) 1.86 k/uL (1.0-4.8); Monocytes # (M) 1.18 k/uL (0-1.0); Neutrophils # (M) 1.91 k/uL (1.3-7.7); Neutrophils % (M) 39 %; Nucleated Red Blood Cells 0 /100 WBC (0-0); Total Cells Counted 200
[2019-07-25 08:01] LABS: Crenated RBC Present; Poikilocytosis (M) Present; Target Cells Present
[2019-07-25] MEDS: PANTOPRAZOLE 40 MG/10 ML VIAL IV SCH (09:13)
[2019-07-25] MEDS: MIDODRINE 5 MG TAB PO SCH ×3 (09:14→18:18)
[2019-07-25] MEDS: POTASSIUM BICARBONATE/CIT AC 20 MEQ TABLET.EFF NG-TUBE SCH ×2 (09:14→12:28)
[2019-07-25] MEDS: LACTULOSE 20 GM/30 ML CUP PO SCH (09:14)
--- NOTE | 2019-07-25 10:22 | P.PN ---
Subjective Progress Note Date: 07/25/19 Principal diagnosis: Cardiac arrest The patient is seen today 07/25/2019 in follow-up in the intensive care unit. This is a 48-year-old female who suffered a cardiac arrest on 07/19/2019. She required mechanical ventilation and was subsequently extubated yesterday 07/24/2019. She is currently awake and alert in no acute distress. She is maintaining good O2 saturations in the 90s on 2 L/m per nasal cannula. No current IV fluids required. No drips. This x-ray does show bibasilar infiltrates right greater than left. He had required 2 units of packed red blood cells, 2 fresh frozen plasma and 1 platelet this admission. Urine culture was positive for E. coli. Sputum culture negative. Blood cultures reveal no growth. White count 4.9. Hemoglobin 8.9. Platelets 56,000. Sodium 137. Potassium 3.2. Creatinine 2.17. AST 254. ALT 83. She remains on Zosyn. Objective - Vital Signs Vital signs: Vital Signs Temp 98.5 F 07/25/19 08:00 Pulse 89 07/25/19 09:00 Resp 18 07/25/19 09:00 BP 84/47 07/25/19 07:00 Pulse Ox 98 07/25/19 09:00 Intake & Output 07/24/19 07/25/19 07/25/19 18:59 06:59 18:59 Intake Total 1211.843 721 109 Output Total 665 167 90 Balance 546.843 554 19 Weight 89.2 kg Intake: IV 1153 721 109 Piperacillin-Tazobactam 3 100 .375 gm In Sodium Chloride 0.9% 100 ml @ 25 mls/hr IVPB Q12H [facility] Rx# :[id number] Piperacillin-Tazobactam 3 200 125 100 .375 gm In Sodium Chloride 0.9% 100 ml @ 25 mls/hr IVPB Q8HR [facility] Rx# :[id number] Potassium Chloride 20 meq 100 In Water For Injection 1 100ml.bag @ 50 mls/hr IVPB Q2H [facility] Rx#: [id number] Sodium Chloride 0.9% 1, 120 60 000 ml @ 10 mls/hr IV . Q24H [facility] Rx#:[id number] Sodium Chloride 0.9% 500 500 500 ml 500 ml @ 999 mls/hr IV .Q31M [facility] Rx#:[id number] metroNIDAZOLE-NS PMX 500 100 mg In Saline 1 100ml.bag @ 100 mls/hr IVPB TID [facility] Rx#:[id number] pressure bag 33 36 9 Intake, IV Titration 58.843 Amount Dexmedetomidine/0.9% NaCl 58.843 (Pmx) 400 mcg In Empty Bag 1 bag @ Titrate IV . Q0M [facility] Rx#:[id number] Output: Gastric Drainage 150 Urine 215 167 90 Stool 300 Other: Voiding Method Indwelling Catheter Indwelling Catheter # Voids 0 ABP, PAP, CO, CI - Last Documented Arterial Blood Pressure 112/48 - Exam GENERAL EXAM: Alert, pleasant 48 year old female patient, on 2 L nasal cannula, comfortable in no apparent distress. HEAD: Normocephalic. EYES: Normal reaction of pupils, equal size. NOSE: Clear with pink turbinates. THROAT: No erythema or exudates. NECK: No masses, no JVD. CHEST: No chest wall deformity. LUNGS: Equal air entry with crackles in the bilateral posterior bases CVS: S1 and S2 normal with no audible murmur, regular rhythm. ABDOMEN: No hepatosplenomegaly, normal bowel sounds, no guarding or rigidity. SPINE: No scoliosis or deformity SKIN: No rashes CENTRAL NERVOUS SYSTEM: No focal deficits, tone is normal in all 4 extremities. EXTREMITIES: There is no peripheral edema. No clubbing, no cyanosis. Peripheral pulses are intact. - Labs CBC & Chem 7: 07/25/19 04:50 07/25/19 04:50 Labs: Abnormal Lab Results - Last 24 Hours (Table) 07/24/19 07/24/19 07/25/19 Range/Units 16:28 19:56 00:09 RBC (3.80-5.40) m/uL Hgb (11.4-16.0) gm/dL Hct (34.0-46.0) % RDW (11.5-15.5) % Plt Count (150-450) k/uL Monocytes # (Manual) (0-1.0) k/uL Potassium (3.5-5.1) mmol/L Chloride (98-107) mmol/L BUN (7-17) mg/dL Creatinine (0.52-1.04) mg/dL Glucose (74-99) mg/dL POC Glucose (mg/dL) 126 H 119 H 111 H (75-99) mg/dL Calcium (8.4-10.2) mg/dL Total Bilirubin (0.2-1.3) mg/dL AST (14-36) U/L ALT (4-34) U/L Alkaline Phosphatase (38-126) U/L Total Protein (6.3-8.2) g/dL Albumin (3.5-5.0) g/dL 07/25/19 07/25/19 Range/Units 04:50 04:50 RBC 2.89 L (3.80-5.40) m/uL Hgb 8.9 L (11.4-16.0) gm/dL Hct 28.3 L (34.0-46.0) % RDW 20.1 H (11.5-15.5) % Plt Count 56 L D (150-450) k/uL Monocytes # (Manual) 1.18 H (0-1.0) k/uL Potassium 3.2 L (3.5-5.1) mmol/L Chloride 108 H (98-107) mmol/L BUN 22 H (7-17) mg/dL Creatinine 2.17 H (0.52-1.04) mg/dL Glucose 102 H (74-99) mg/dL POC Glucose (mg/dL) (75-99) mg/dL Calcium 7.7 L (8.4-10.2) mg/dL Total Bilirubin 2.5 H (0.2-1.3) mg/dL AST 254 H (14-36) U/L ALT 83 H (4-34) U/L Alkaline Phosphatase 246 H (38-126) U/L Total Protein 4.8 L (6.3-8.2) g/dL Albumin 2.0 L (3.5-5.0) g/dL Microbiology - Last 24 Hours (Table) 07/19/19 15:36 Blood Culture - Preliminary Blood No Growth after 120 hours Assessment and Plan Assessment: 1 Cardiopulmonary arrest with brief resuscitation requiring intubation mechanical ventilatory support on 07/19/2019. Subsequently extubated on 07/24/2019. 2 Acute hypoxemic respiratory failure secondary to above 3 Acute septic shock and possible ischemic colitis and/or suspected intra- abdominal source of sepsis 4 E. coli urinary tract infection with sepsis 5 Acute blood loss anemia requiring 2 units of packed red blood cell transfusions current hemoglobin 8.9 6 Acute thrombocytopenia secondary to sepsis 7 Acute liver shock with hypotension secondary to sepsis, recovered 8 Altered mental status suspect secondary to hepatic encephalopathy 9 Acute kidney injury 10 Chronic kidney disease 11 Acute ALCOHOL intoxication 12 Chronic tobacco dependence Plan: The patient was seen and evaluated by Dr. Yu Chest x-ray and labs reviewed Continue Zosyn Encourage increased use the incentive spirometer and cough and deep breathing exercises Increase her activity as tolerated To be transferred out of the ICU today We'll continue to follow I, the cosigning physician, performed a history & physical examination of the patient. Lungs sounds with crackles in the bilateral posterior bases. Maintaining good O2 saturations in the 90s on 2 L/m per nasal cannula. I discussed the assessment and plan of care with my nurse practitioner, Omayra Hollingsworth. I attest to the above note as dictated by her.
[2019-07-25] MEDS: RIFAXIMIN 550 MG TABLET PO SCH ×2 (10:23→22:24)
[2019-07-25 11:19] VITALS: BMI 29.9
--- NOTE | 2019-07-25 11:54 | P.PN ---
Subjective Patient is seen in follow for acute kidney injury. She is undergoing 3 treatments of hemodialysis so far. Last treatment on July 22. She was extubated yesterday. Currently denies any chest pain or shortness of breath. Hillman catheter removed this morning. Yesterday her blood pressure was in the lower side. She received 1 L normal saline bolus. Midodrine was also added. Vital signs are stable. General: The patient appeared well nourished and normally developed. HEENT: Head exam is unremarkable. Neck is without jugular venous distension. Intubated. LUNGS: Lungs are clear to auscultation and percussion. Breath sounds decreased. HEART: Rate and Rhythm are regular. ABDOMEN: Soft, nondistended. EXTREMITITES: Trace edema. Objective - Vital Signs Vital signs: Vital Signs Temp 98.5 F 07/25/19 08:00 Pulse 97 07/25/19 11:00 Resp 24 07/25/19 11:00 BP 100/71 07/25/19 11:00 Pulse Ox 99 07/25/19 11:00 Intake & Output 07/24/19 07/25/19 07/25/19 18:59 06:59 18:59 Intake Total 1211.843 721 232 Output Total 665 167 90 Balance 546.843 554 142 Weight 89.2 kg 89.2 kg Intake: IV 1153 721 112 Piperacillin-Tazobactam 3 100 .375 gm In Sodium Chloride 0.9% 100 ml @ 25 mls/hr IVPB Q12H [facility] Rx# :[id number] Piperacillin-Tazobactam 3 200 125 100 .375 gm In Sodium Chloride 0.9% 100 ml @ 25 mls/hr IVPB Q8HR [facility] Rx# :[id number] Potassium Chloride 20 meq 100 In Water For Injection 1 100ml.bag @ 50 mls/hr IVPB Q2H [facility] Rx#: [id number] Sodium Chloride 0.9% 1, 120 60 000 ml @ 10 mls/hr IV . Q24H [facility] Rx#:[id number] Sodium Chloride 0.9% 500 500 500 ml 500 ml @ 999 mls/hr IV .Q31M [facility] Rx#:[id number] metroNIDAZOLE-NS PMX 500 100 mg In Saline 1 100ml.bag @ 100 mls/hr IVPB TID [facility] Rx#:[id number] pressure bag 33 36 12 Intake, IV Titration 58.843 Amount Dexmedetomidine/0.9% NaCl 58.843 (Pmx) 400 mcg In Empty Bag 1 bag @ Titrate IV . Q0M [facility] Rx#:[id number] Oral 120 Output: Gastric Drainage 150 Urine 215 167 90 Stool 300 Other: Voiding Method Indwelling Catheter Indwelling Catheter # Voids 0 ABP, PAP, CO, CI - Last Documented Arterial Blood Pressure 112/48 - Labs CBC & Chem 7: 07/25/19 04:50 07/25/19 04:50 Labs: Abnormal Lab Results - Last 24 Hours (Table) 07/24/19 07/24/19 07/25/19 Range/Units 16:28 19:56 00:09 RBC (3.80-5.40) m/uL Hgb (11.4-16.0) gm/dL Hct (34.0-46.0) % RDW (11.5-15.5) % Plt Count (150-450) k/uL Monocytes # (Manual) (0-1.0) k/uL Potassium (3.5-5.1) mmol/L Chloride (98-107) mmol/L BUN (7-17) mg/dL Creatinine (0.52-1.04) mg/dL Glucose (74-99) mg/dL POC Glucose (mg/dL) 126 H 119 H 111 H (75-99) mg/dL Calcium (8.4-10.2) mg/dL Total Bilirubin (0.2-1.3) mg/dL AST (14-36) U/L ALT (4-34) U/L Alkaline Phosphatase (38-126) U/L Total Protein (6.3-8.2) g/dL Albumin (3.5-5.0) g/dL 07/25/19 07/25/19 Range/Units 04:50 04:50 RBC 2.89 L (3.80-5.40) m/uL Hgb 8.9 L (11.4-16.0) gm/dL Hct 28.3 L (34.0-46.0) % RDW 20.1 H (11.5-15.5) % Plt Count 56 L D (150-450) k/uL Monocytes # (Manual) 1.18 H (0-1.0) k/uL Potassium 3.2 L (3.5-5.1) mmol/L Chloride 108 H (98-107) mmol/L BUN 22 H (7-17) mg/dL Creatinine 2.17 H (0.52-1.04) mg/dL Glucose 102 H (74-99) mg/dL POC Glucose (mg/dL) (75-99) mg/dL Calcium 7.7 L (8.4-10.2) mg/dL Total Bilirubin 2.5 H (0.2-1.3) mg/dL AST 254 H (14-36) U/L ALT 83 H (4-34) U/L Alkaline Phosphatase 246 H (38-126) U/L Total Protein 4.8 L (6.3-8.2) g/dL Albumin 2.0 L (3.5-5.0) g/dL Microbiology - Last 24 Hours (Table) 07/19/19 15:36 Blood Culture - Preliminary Blood No Growth after 120 hours Assessment and Plan Plan: Assessment: 1. Acute kidney injury secondary to ATN secondary to septic shock. Creatinine peaked at 4 this admission. CAT scan revealed fullness of the collecting systems. No hydronephrosis noted on renal ultrasound. Unknown baseline renal function. Started on hemodialysis on July 20 - last treatment on July 22. Creatinine fairly stable at 2.17 today. 2. Hyperkalemia secondary to acute kidney injury, metabolic acidosis and GI bleed. Improved with medical management. Now hypokalemic, being replaced. 3. Severe metabolic acidosis secondary to acute kidney injury and lactic acidosis. Volatile screen negative. Resolved. 4. Hypocalcemia secondary to acute kidney injury. Corrected calcium normal. 5. Acute GI bleed status post blood transfusion and IV DDAVP. GI following. 6. UTI with urine culture positive for E. coli maintain on antibiotics. 7. ? Ischemic colitis. 8. Alcohol-induced liver cirrhosis. Plan: Potassium is being replaced. Maintain midodrine. Continue to monitor renal function and urine output. Hold hemodialysis today. Continue to assess on daily basis. Add Aranesp.
[2019-07-25] MEDS ORDERED: DARBEPOETIN ALFA 25 MCG/0.42 ML SYRINGE SQ SCH (12:00)
[2019-07-25 12:49] LABS: Glucose,Whole Blood 95 mg/dL (75-99)
--- NOTE | 2019-07-25 14:50 | PN ---
PROGRESS NOTE DATE OF SERVICE: 07/25/2019 REASON FOR FOLLOWUP: Possible aspiration pneumonia. INTERVAL HISTORY: The patient is currently afebrile. The patient has been breathing comfortably. She is more awake, alert, complaining of cough and diarrhea and some abdominal pain. No vomiting. PHYSICAL EXAMINATION: Blood pressure 107/60 with a pulse of 84, temperature 98.2, she is 100% on 2 L nasal cannula. General description is a middle-aged female, lying in bed in no distress. RESPIRATORY SYSTEM: Unlabored breathing, clear to auscultation anteriorly. HEART: S1, S2. Regular rate and rhythm. ABDOMEN: Soft. No tenderness. LABS: Hemoglobin 8.1, white count of 4.9, BUN of 22, creatinine is 2.17. DIAGNOSTIC IMPRESSION AND PLAN: 1. Patient admitted to hospital with unresponsiveness, but patient did in the ER. Clinical concern for encephalitis and possible right lower lobe aspiration pneumonia. Patient is covered with Zosyn. 2. Diarrhea possible antibiotic associated. has been negative. We will add Questran for symptomatic relief. MMODL / IJN: [id number] /
[2019-07-25 17:05] LABS: Glucose,Whole Blood 80 mg/dL (75-99)
--- NOTE | 2019-07-25 17:57 | PN ---
PROGRESS NOTE DATE OF SERVICE: 07/25/2019. CHIEF COMPLAINT: Cardiorespiratory arrest with encephalopathy. HISTORY OF PRESENT ILLNESS: This lady is much improved. She is extubated and she is responding. She is responding quite appropriately. At present time she denies any abdominal pain. PHYSICAL EXAMINATION: Vital signs are normal. Eyes are open. She has proptosis and she has subconjunctival hemorrhage on the left. Pupils equally round. Chest is quite clear. Cardiac exam is normal. Abdomen is soft, nontender without masses. IMPRESSION: 1. Cardiorespiratory arrest with anoxic brain injury, improving. 2. Proptosis. 3. Small subconjunctival hemorrhage in the left eye. PLAN: Continue to progress her activity and diet. She can probably be moved out of ICU soon. MMODL / IJN: [id number] /
--- NOTE | 2019-07-25 18:08 | P.PN ---
Subjective Progress Note Date: 07/25/19 Principal diagnosis: Elevated liver enzymes, altered mental status, hematemesis Patient is seen lying in bed in no acute complaints. No signs or symptoms of GI bleed. Asking for diet. Objective - Vital Signs Vital signs: Vital Signs Temp 98.5 F 07/25/19 08:00 Pulse 97 07/25/19 11:00 Resp 24 07/25/19 11:00 BP 100/71 07/25/19 11:00 Pulse Ox 99 07/25/19 11:00 Intake & Output 07/24/19 07/25/19 07/25/19 18:59 06:59 18:59 Intake Total 1211.843 721 232 Output Total 665 167 90 Balance 546.843 554 142 Weight 89.2 kg 89.2 kg Intake: IV 1153 721 112 Piperacillin-Tazobactam 3 100 .375 gm In Sodium Chloride 0.9% 100 ml @ 25 mls/hr IVPB Q12H [facility] Rx# :[id number] Piperacillin-Tazobactam 3 200 125 100 .375 gm In Sodium Chloride 0.9% 100 ml @ 25 mls/hr IVPB Q8HR [facility] Rx# :[id number] Potassium Chloride 20 meq 100 In Water For Injection 1 100ml.bag @ 50 mls/hr IVPB Q2H [facility] Rx#: [id number] Sodium Chloride 0.9% 1, 120 60 000 ml @ 10 mls/hr IV . Q24H [facility] Rx#:[id number] Sodium Chloride 0.9% 500 500 500 ml 500 ml @ 999 mls/hr IV .Q31M [facility] Rx#:[id number] metroNIDAZOLE-NS PMX 500 100 mg In Saline 1 100ml.bag @ 100 mls/hr IVPB TID [facility] Rx#:[id number] pressure bag 33 36 12 Intake, IV Titration 58.843 Amount Dexmedetomidine/0.9% NaCl 58.843 (Pmx) 400 mcg In Empty Bag 1 bag @ Titrate IV . Q0M [facility] Rx#:[id number] Oral 120 Output: Gastric Drainage 150 Urine 215 167 90 Stool 300 Other: Voiding Method Indwelling Catheter Indwelling Catheter # Voids 0 ABP, PAP, CO, CI - Last Documented Arterial Blood Pressure 112/48 - Exam On physical examination, patient appears comfortable in no apparent distress. HEAD: Normocephalic, atraumatic. EYES: No scleral icterus. Conjunctival injection noted in the left eye. MOUTH: No lesions, tongue midline. NECK: Trachea midline, no gross abnormalities. ABDOMEN: Soft, obese. Bowel sounds are positive. No organomegaly. No guarding or rigidity. EXTREMITIES: No pedal edema. SKIN: No rashes, no jaundice. NEUROLOGIC: Alert and oriented to person and place, no asterixis noted. - Labs CBC & Chem 7: 07/25/19 04:50 07/25/19 04:50 Labs: Abnormal Lab Results - Last 24 Hours (Table) 07/24/19 07/24/19 07/25/19 Range/Units 16:28 19:56 00:09 RBC (3.80-5.40) m/uL Hgb (11.4-16.0) gm/dL Hct (34.0-46.0) % RDW (11.5-15.5) % Plt Count (150-450) k/uL Monocytes # (Manual) (0-1.0) k/uL Potassium (3.5-5.1) mmol/L Chloride (98-107) mmol/L BUN (7-17) mg/dL Creatinine (0.52-1.04) mg/dL Glucose (74-99) mg/dL POC Glucose (mg/dL) 126 H 119 H 111 H (75-99) mg/dL Calcium (8.4-10.2) mg/dL Total Bilirubin (0.2-1.3) mg/dL AST (14-36) U/L ALT (4-34) U/L Alkaline Phosphatase (38-126) U/L Total Protein (6.3-8.2) g/dL Albumin (3.5-5.0) g/dL 07/25/19 07/25/19 Range/Units 04:50 04:50 RBC 2.89 L (3.80-5.40) m/uL Hgb 8.9 L (11.4-16.0) gm/dL Hct 28.3 L (34.0-46.0) % RDW 20.1 H (11.5-15.5) % Plt Count 56 L D (150-450) k/uL Monocytes # (Manual) 1.18 H (0-1.0) k/uL Potassium 3.2 L (3.5-5.1) mmol/L Chloride 108 H (98-107) mmol/L BUN 22 H (7-17) mg/dL Creatinine 2.17 H (0.52-1.04) mg/dL Glucose 102 H (74-99) mg/dL POC Glucose (mg/dL) (75-99) mg/dL Calcium 7.7 L (8.4-10.2) mg/dL Total Bilirubin 2.5 H (0.2-1.3) mg/dL AST 254 H (14-36) U/L ALT 83 H (4-34) U/L Alkaline Phosphatase 246 H (38-126) U/L Total Protein 4.8 L (6.3-8.2) g/dL Albumin 2.0 L (3.5-5.0) g/dL Microbiology - Last 24 Hours (Table) 07/19/19 15:36 Blood Culture - Preliminary Blood No Growth after 120 hours Assessment and Plan (1) Elevated liver enzymes Narrative/Plan: 48-year-old female presenting with multiple complaints, found to have elevated liver enzymes, likely the results of alcoholic hepatitis. They have remained stable. Current Visit: Yes Status: Acute Code(s): R74.8 - ABNORMAL LEVELS OF OTHER SERUM ENZYMES SNOMED Code(s): 156801021 (2) Hematemesis Narrative/Plan: Some dark-colored emesis after NG tube removal, likely traumatic in the setting of nasogastric tube. No further episodes. Hemoglobin has remained stable. Current Visit: Yes Status: Acute Code(s): K92.0 - HEMATEMESIS SNOMED Code (s): 1939746 (3) Altered mental status Narrative/Plan: Altered mental status secondary to hepatic encephalopathy. Currently improving. Current Visit: Yes Status: Acute Code(s): R41.82 - ALTERED MENTAL STATUS, UNSPECIFIED SNOMED Code(s): 722687778 Plan: Supportive care Continue to monitor hemoglobin and hematocrit and transfuse as needed Okay to initiate liquid diet Continue to monitor stool output Continue Protonix therapy Continue lactulose and rifaximin, titrated for 2-3 bowel movements daily plans for endoscopic evaluation at this time Thank you for allowing us to participate in care of the patient
[2019-07-25] MEDS: CHOLESTYRAMINE (WITH SUGAR) 4 GM PACKET PO SCH (18:18)
[2019-07-25 21:19] LABS: Calcium 8.1 mg/dL (8.4-10.2); Potassium 3.3 mmol/L (3.5-5.1)
[2019-07-25 21:21] LABS: Glucose,Whole Blood 182 mg/dL (75-99)
[2019-07-25] MEDS ORDERED: Potassium Replacement Protocol 1 EACH MISC MISCELLANE PRN (22:11)
[2019-07-25] MEDS: POTASSIUM CHLORIDE ER 20 MEQ TAB.ER PO SCH (22:24)
[2019-07-25] MEDS: ONDANSETRON 4 MG/2 ML VIAL IVP PRN (22:30)
[2019-07-26 05:40] LABS: Anisocytosis Moderate; HCT 27.7 % (34.0-46.0); HGB 8.8 gm/dL (11.4-16.0); Hypochromasia Marked; MCH 31.5 pg (25.0-35.0); MCHC 31.8 g/dL (31.0-37.0); MCV 99.1 fL (80.0-100.0); Macrocytosis Moderate; Mean Platelet Volume 10.9; RDW 20.6 % (11.5-15.5)
[2019-07-26 05:47] LABS: Platelet Count 93 k/uL (150-450)
[2019-07-26 06:26] LABS: Calcium 7.9 mg/dL (8.4-10.2); Potassium 3.5 mmol/L (3.5-5.1)
[2019-07-26] MEDS ORDERED: Potassium Replacement Protocol 1 EACH MISC MISCELLANE PRN (06:29)
[2019-07-26 06:46] LABS: Band Neutrophils % 12 %; Neutrophils % (M) 36 %; Nucleated Red Blood Cells 1 /100 WBC (0-0); Total Cells Counted 200
[2019-07-26 06:47] LABS: Anisocytosis (M) Present; Lymphocytes # (M) 1.75 k/uL (1.0-4.8); Monocytes # (M) 2.04 k/uL (0-1.0); Poikilocytosis (M) Present; Polychromasia Present; Target Cells Present; WBC 7.3 k/uL (3.8-10.6)
[2019-07-26 07:11] LABS: Glucose,Whole Blood 120 mg/dL (75-99)
[2019-07-26] MEDS: POTASSIUM CHLORIDE ER 20 MEQ TAB.ER PO SCH (07:15)
[2019-07-26] MEDS: MIDODRINE 5 MG TAB PO SCH ×3 (07:16→17:15)
[2019-07-26] MEDS: RIFAXIMIN 550 MG TABLET PO SCH ×2 (08:37→21:04)
[2019-07-26] MEDS: PANTOPRAZOLE 40 MG/10 ML VIAL IV SCH (08:37)
[2019-07-26] MEDS: PIPERACILLIN-TAZOBACTAM 3.375 GM in SODIUM CHLORIDE 0.9% 100 ML IVPB SCH ×3 (08:37→23:37)
[2019-07-26] MEDS: FLUTICASONE 50MCG/SPRAY NASAL 16GM EA NOSTRIL SCH (10:30)
[2019-07-26] MEDS: CHOLESTYRAMINE (WITH SUGAR) 4 GM PACKET PO SCH ×2 (10:30→18:19)
[2019-07-26 11:48] LABS: Glucose,Whole Blood 157 mg/dL (75-99)
[2019-07-26] MEDS: guaiFENesin-DM 600/30MG 1 EACH TAB.ER.12H PO SCH ×2 (12:45→21:04)
--- NOTE | 2019-07-26 12:46 | P.PN ---
Subjective Progress Note Date: 07/26/19 Principal diagnosis: Cardiac arrest The patient is seen today 07/25/2019 in follow-up in the intensive care unit. This is a 48-year-old female who suffered a cardiac arrest on 07/19/2019. She required mechanical ventilation and was subsequently extubated yesterday 07/24/2019. She is currently awake and alert in no acute distress. She is maintaining good O2 saturations in the 90s on 2 L/m per nasal cannula. No current IV fluids required. No drips. This x-ray does show bibasilar infiltrates right greater than left. He had required 2 units of packed red blood cells, 2 fresh frozen plasma and 1 platelet this admission. Urine culture was positive for E. coli. Sputum culture negative. Blood cultures reveal no growth. White count 4.9. Hemoglobin 8.9. Platelets 56,000. Sodium 137. Potassium 3.2. Creatinine 2.17. AST 254. ALT 83. She remains on Zosyn. The patient is seen today 07/26/2019 in follow-up in the intensive care unit. She is currently awake and alert in no acute distress. Maintaining good O2 saturations in the 90s on 2 L/m per nasal cannula. She is having a loose nonproductive cough. She's afebrile. Hemodynamically stable. Urine culture positive for E. coli. Sputum culture revealed no growth. Blood culture revealed no growth. Stool culture revealed no growth. White count 7.3. Hemoglobin 8.8. Platelet count 93,000. Sodium 141. Potassium 3.5. Creatinine 1.55. 0.9 normal saline at 20 ML's per hour. Continued on Zosyn. Objective - Vital Signs Vital signs: Vital Signs Temp 98.2 F 07/26/19 08:00 Pulse 92 07/26/19 08:00 Resp 22 07/26/19 08:00 BP 100/56 07/26/19 08:00 Pulse Ox 96 07/26/19 08:00 Intake & Output 07/25/19 07/26/19 07/26/19 18:59 06:59 18:59 Intake Total 572 360 500 Output Total 190 200 Balance 382 360 300 Weight 89.2 kg 96.4 kg Intake: IV 212 360 100 0.9 KVO 160 Piperacillin-Tazobactam 3 200 200 100 .375 gm In Sodium Chloride 0.9% 100 ml @ 25 mls/hr IVPB Q8HR [facility] Rx# :[id number] pressure bag 12 Oral 360 400 Output: Urine 90 200 Stool 100 Other: Voiding Method Indwelling Catheter Incontinent Incontinent # Voids 1 # Bowel Movements 1 1 ABP, PAP, CO, CI - Last Documented Arterial Blood Pressure 112/48 - Exam GENERAL EXAM: Alert, pleasant 48 year old female patient, on 2 L nasal cannula, comfortable in no apparent distress. HEAD: Normocephalic. EYES: Normal reaction of pupils, equal size. NOSE: Clear with pink turbinates. THROAT: No erythema or exudates. NECK: No masses, no JVD. CHEST: No chest wall deformity. LUNGS: Equal air entry with crackles in the bilateral posterior bases CVS: S1 and S2 normal with no audible murmur, regular rhythm. ABDOMEN: No hepatosplenomegaly, normal bowel sounds, no guarding or rigidity. SPINE: No scoliosis or deformity SKIN: No rashes CENTRAL NERVOUS SYSTEM: No focal deficits, tone is normal in all 4 extremities. EXTREMITIES: There is no peripheral edema. No clubbing, no cyanosis. Peripheral pulses are intact. - Labs CBC & Chem 7: 07/26/19 04:50 07/26/19 04:50 Labs: Abnormal Lab Results - Last 24 Hours (Table) 07/25/19 07/25/19 07/26/19 Range/Units 20:50 21:19 04:50 RBC 2.80 L (3.80-5.40) m/uL Hgb 8.8 L (11.4-16.0) gm/dL Hct 27.7 L (34.0-46.0) % RDW 20.6 H (11.5-15.5) % Plt Count 93 L D (150-450) k/uL Monocytes # (Manual) 2.04 H (0-1.0) k/uL Nucleated RBCs 1 H (0-0) /100 WBC Potassium 3.3 L (3.5-5.1) mmol/L Chloride 108 H (98-107) mmol/L BUN 23 H (7-17) mg/dL Creatinine 1.76 H (0.52-1.04) mg/dL Glucose 202 H (74-99) mg/dL POC Glucose (mg/dL) 182 H (75-99) mg/dL Calcium 8.1 L (8.4-10.2) mg/dL 07/26/19 07/26/19 07/26/19 Range/Units 04:50 07:09 11:47 RBC (3.80-5.40) m/uL Hgb (11.4-16.0) gm/dL Hct (34.0-46.0) % RDW (11.5-15.5) % Plt Count (150-450) k/uL Monocytes # (Manual) (0-1.0) k/uL Nucleated RBCs (0-0) /100 WBC Potassium (3.5-5.1) mmol/L Chloride 112 H (98-107) mmol/L BUN 21 H (7-17) mg/dL Creatinine 1.55 H (0.52-1.04) mg/dL Glucose 137 H (74-99) mg/dL POC Glucose (mg/dL) 120 H 157 H (75-99) mg/dL Calcium 7.9 L (8.4-10.2) mg/dL Microbiology - Last 24 Hours (Table) 07/21/19 15:10 Stool Culture - Final Stool 07/19/19 15:36 Blood Culture - Final Blood No Growth after 144 hours Assessment and Plan Assessment: 1 Cardiopulmonary arrest with brief resuscitation requiring intubation mechanical ventilatory support on 07/19/2019. Subsequently extubated on 07/24/2019. Currently maintaining good O2 saturations on 2 L/m per nasal can nula. 2 Acute hypoxemic respiratory failure secondary to above, recovered 3 Acute septic shock and possible ischemic colitis and/or suspected intra- abdominal source of sepsis, recovered 4 E. coli urinary tract infection with sepsis 5 Acute blood loss anemia requiring 2 units of packed red blood cell transfusions current hemoglobin 8.8 6 Acute thrombocytopenia secondary to sepsis 7 Acute liver shock with hypotension secondary to sepsis, recovered 8 Altered mental status suspect secondary to hepatic encephalopathy 9 Acute kidney injury 10 Chronic kidney disease 11 Acute ALCOHOL intoxication 12 Chronic tobacco dependence Plan: The patient was seen and evaluated by Dr. Yu She is stable from the pulmonary and critical care standpoint Add Mucinex Continue Zosyn Encourage increased use the incentive spirometer and cough and deep breathing exercises Increase her activity as tolerated To be transferred to a general medical floor without telemetry today We'll continue to follow I, the cosigning physician, performed a history & physical examination of the patient. Lungs sounds with crackles in the bilateral posterior bases. Maintaining good O2 saturations in the 90s on 2 L/m per nasal cannula. I discussed the assessment and plan of care with my nurse practitioner, Omayra Hollingsworth. I attest to the above note as dictated by her.
--- NOTE | 2019-07-26 12:55 | PN ---
PROGRESS NOTE Patient is seen for followup for acute kidney injury. Her renal function has improved. Creatinine is down from 4.0 at peak to 1.5 now. The patient feels well. Her last dialysis was on Sunday which was 3 days ago. Currently patient has good urine output. She is awake, comfortable. Blood pressure on examination this morning was 100/56, heart rate 92 per minute, she is afebrile. Examination of the heart S1, S2. Examination of the lungs, decreased breath sounds at bases. Abdomen is soft, nontender. Examination of lower extremities shows no evidence of edema. [employer] exam grossly intact. LAB: Show sodium 141, potassium 3.5, chloride 112, BUN 21, creatinine 1.5, hemoglobin 8.8 g/dL. ASSESSMENT: 1. Acute kidney injury, acute tubular necrosis, currently nonoliguric and improving. Maintain patient off dialysis. Will likely discontinue dialysis catheter in about 2 days time. 2. Acute hypoxic respiratory failure status post extubation, currently doing well. 3. Urinary tract infection with urine culture positive for Escherichia coli. 4. Possible ischemic colitis. 5. Alcohol induced liver cirrhosis. 6. Severe metabolic acidosis associated with acute kidney injury, lactic acidosis, currently improved. PLAN: Continue off dialysis. Continue to avoid nephrotoxic agents. Repeat labs in a.m. Continue with midodrine as blood pressure remains low. MMODL / IJN: [id number] /
--- NOTE | 2019-07-26 14:13 | PN ---
PROGRESS NOTE CHIEF COMPLAINT: Cardiorespiratory arrest. HISTORY OF PRESENT ILLNESS: This lady is doing very well. She is awake and alert and awaits a bed in [facility]. She is not having any chest pain, abdominal pain, etc. She has had no vomiting or diarrhea. She is eating. PHYSICAL EXAM: Head, ears, eyes, nose, mouth, and throat are normal. Chest is quite clear. Cardiac exam is normal. Abdomen is soft and extremities are normal. IMPRESSION: Status post cardiorespiratory arrest with renal failure. PLAN: Progress to [facility]. Laboratory studies have been improving and she has not been dialyzed for several days. MMODL / IJN: [id number] /
[2019-07-26] MEDS: ACETAMINOPHEN TAB 500 MG TAB PO PRN (17:15)
[2019-07-26 17:43] LABS: Glucose,Whole Blood 123 mg/dL (75-99)
--- NOTE | 2019-07-26 18:40 | PN ---
PROGRESS NOTE DATE OF SERVICE: 07/26/2019 REASON FOR FOLLOWUP: Possible aspiration pneumonitis and diarrhea. INTERVAL HISTORY: The patient is currently afebrile. Patient is breathing more comfortably, complaining of some left-sided chest pain, more of a dull aching pain. No nausea, no vomiting. No abdominal pain and diarrhea has slowed down. PHYSICAL EXAMINATION: Blood pressure 120/78 with a pulse of 80, temperature 98.3. She is 98% on 2 L nasal cannula. General description is a middle-aged female lying in bed in no distress. Respiratory system: Unlabored breathing, clear to auscultation anteriorly. Heart S1, S2. Regular rate and rhythm. Abdomen soft, no tenderness. LABS: Hemoglobin is 8.8, white count 7.3, BUN of 21, creatinine 1.55. DIAGNOSTIC IMPRESSION AND PLAN: Patient admitted to the hospital with sepsis with pneumonia, unresponsive and did have a cardia chest requiring resuscitation and concern for ischemic colitis. The patient is currently on Zosyn to continue along with Questran for the diarrhea and monitor clinical course closely. MMODL / IJN: [id number] /
[2019-07-26 20:24] LABS: Glucose,Whole Blood 146 mg/dL (75-99)
--- NOTE | 2019-07-26 22:03 | P.PN ---
Subjective Progress Note Date: 07/26/19 Principal diagnosis: Elevated liver enzymes, altered mental status, hematemesis Patient is seen lying in bed denying any abdominal pain, nausea or vomiting. She has tolerated a liquid diet. Objective - Vital Signs Vital signs: Vital Signs Temp 98.2 F 07/26/19 08:00 Pulse 87 07/26/19 12:00 Resp 20 07/26/19 12:00 BP 104/60 07/26/19 12:00 Pulse Ox 99 07/26/19 12:00 Intake & Output 07/25/19 07/26/19 07/26/19 18:59 06:59 18:59 Intake Total 572 360 500 Output Total 190 200 Balance 382 360 300 Weight 89.2 kg 96.4 kg Intake: IV 212 360 100 0.9 KVO 160 Piperacillin-Tazobactam 3 200 200 100 .375 gm In Sodium Chloride 0.9% 100 ml @ 25 mls/hr IVPB Q8HR [facility] Rx# :[id number] pressure bag 12 Oral 360 400 Output: Urine 90 200 Stool 100 Other: Voiding Method Indwelling Catheter Incontinent Incontinent # Voids 1 1 # Bowel Movements 1 1 ABP, PAP, CO, CI - Last Documented Arterial Blood Pressure 112/48 - Exam On physical examination, patient appears comfortable in no apparent distress. HEAD: Normocephalic, atraumatic. EYES: No scleral icterus. Conjunctival injection noted in the left eye. MOUTH: No lesions, tongue midline. NECK: Trachea midline, no gross abnormalities. ABDOMEN: Soft, obese. Bowel sounds are positive. No organomegaly. No guarding or rigidity. EXTREMITIES: No pedal edema. SKIN: No rashes, no jaundice. NEUROLOGIC: Alert and oriented to person and place, no asterixis noted. - Labs CBC & Chem 7: 07/26/19 04:50 07/26/19 04:50 Labs: Abnormal Lab Results - Last 24 Hours (Table) 07/25/19 07/25/19 07/26/19 Range/Units 20:50 21:19 04:50 RBC 2.80 L (3.80-5.40) m/uL Hgb 8.8 L (11.4-16.0) gm/dL Hct 27.7 L (34.0-46.0) % RDW 20.6 H (11.5-15.5) % Plt Count 93 L D (150-450) k/uL Monocytes # (Manual) 2.04 H (0-1.0) k/uL Nucleated RBCs 1 H (0-0) /100 WBC Potassium 3.3 L (3.5-5.1) mmol/L Chloride 108 H (98-107) mmol/L BUN 23 H (7-17) mg/dL Creatinine 1.76 H (0.52-1.04) mg/dL Glucose 202 H (74-99) mg/dL POC Glucose (mg/dL) 182 H (75-99) mg/dL Calcium 8.1 L (8.4-10.2) mg/dL 07/26/19 07/26/19 07/26/19 Range/Units 04:50 07:09 11:47 RBC (3.80-5.40) m/uL Hgb (11.4-16.0) gm/dL Hct (34.0-46.0) % RDW (11.5-15.5) % Plt Count (150-450) k/uL Monocytes # (Manual) (0-1.0) k/uL Nucleated RBCs (0-0) /100 WBC Potassium (3.5-5.1) mmol/L Chloride 112 H (98-107) mmol/L BUN 21 H (7-17) mg/dL Creatinine 1.55 H (0.52-1.04) mg/dL Glucose 137 H (74-99) mg/dL POC Glucose (mg/dL) 120 H 157 H (75-99) mg/dL Calcium 7.9 L (8.4-10.2) mg/dL Microbiology - Last 24 Hours (Table) 07/21/19 15:10 Stool Culture - Final Stool 07/19/19 15:36 Blood Culture - Final Blood No Growth after 144 hours Assessment and Plan (1) Elevated liver enzymes Narrative/Plan: 48-year-old female presenting with multiple complaints, found to have elevated liver enzymes, likely the results of alcoholic hepatitis. They have remained stable. Current Visit: Yes Status: Acute Code(s): R74.8 - ABNORMAL LEVELS OF OTHER SERUM ENZYMES SNOMED Code(s): 322998192 (2) Hematemesis Narrative/Plan: Some dark-colored emesis after NG tube removal, likely traumatic in the setting of nasogastric tube. No further episodes. Hemoglobin has remained stable. Current Visit: Yes Status: Acute Code(s): K92.0 - HEMATEMESIS SNOMED Code(s): 6684597 (3) Altered mental status Narrative/Plan: Altered mental status secondary to hepatic encephalopathy. Currently improving. Current Visit: Yes Status: Acute Code(s): R41.82 - ALTERED MENTAL STATUS, UNSPECIFIED SNOMED Code(s): 759627008 Plan: Supportive care Continue to monitor hemoglobin and hematocrit and transfuse as needed Okay to advanced to a low-sodium diet Continue to monitor stool output Continue Protonix therapy Continue lactulose and rifaximin, titrated for 2-3 bowel movements daily No plans for endoscopic evaluation at this time Thank you for allowing us to participate in care of the patient
[2019-07-27 07:03] LABS: Glucose,Whole Blood 132 mg/dL (75-99)
[2019-07-27] MEDS: MIDODRINE 5 MG TAB PO SCH ×3 (08:31→17:21)
[2019-07-27] MEDS: RIFAXIMIN 550 MG TABLET PO SCH ×2 (08:31→22:04)
[2019-07-27] MEDS: CHOLESTYRAMINE (WITH SUGAR) 4 GM PACKET PO SCH ×2 (08:32→17:21)
[2019-07-27] MEDS: guaiFENesin-DM 600/30MG 1 EACH TAB.ER.12H PO SCH ×2 (08:32→22:05)
[2019-07-27] MEDS: PIPERACILLIN-TAZOBACTAM 3.375 GM in SODIUM CHLORIDE 0.9% 100 ML IVPB SCH ×2 (08:32→17:20)
[2019-07-27] MEDS: FLUTICASONE 50MCG/SPRAY NASAL 16GM EA NOSTRIL SCH (08:32)
[2019-07-27] MEDS: PANTOPRAZOLE 40 MG/10 ML VIAL IV SCH (08:32)
[2019-07-27] MEDS ORDERED: FUROSEMIDE 10 MG/ML 4 ML VIAL IV STA (10:24)
[2019-07-27 10:30] LABS: African American GFR (CKD) >90 (>60 ml/min/1.73 sqM); Anion Gap 6 mmol/L; Blood Urea Nitrogen 15 mg/dL (7-17); Calcium 8.2 mg/dL (8.4-10.2); Carbon Dioxide 23 mmol/L (22-30); Chloride 111 mmol/L (98-107); Glucose 166 mg/dL (74-99); Non-African American GFR(CKD) 83 (>60 ml/min/1.73 sqM); Potassium 4.5 mmol/L (3.5-5.1); Sodium 140 mmol/L (137-145)
[2019-07-27 11:58] LABS: Glucose,Whole Blood 165 mg/dL (75-99)
--- NOTE | 2019-07-27 13:22 | P.PN ---
Subjective Progress Note Date: 07/27/19 Principal diagnosis: Cardiac arrest The patient is seen today 07/25/2019 in follow-up in the intensive care unit. This is a 48-year-old female who suffered a cardiac arrest on 07/19/2019. She required mechanical ventilation and was subsequently extubated yesterday 07/24/2019. She is currently awake and alert in no acute distress. She is maintaining good O2 saturations in the 90s on 2 L/m per nasal cannula. No current IV fluids required. No drips. This x-ray does show bibasilar infiltrates right greater than left. He had required 2 units of packed red blood cells, 2 fresh frozen plasma and 1 platelet this admission. Urine culture was positive for E. coli. Sputum culture negative. Blood cultures reveal no growth. White count 4.9. Hemoglobin 8.9. Platelets 56,000. Sodium 137. Potassium 3.2. Creatinine 2.17. AST 254. ALT 83. She remains on Zosyn. The patient is seen today 07/26/2019 in follow-up in the intensive care unit. She is currently awake and alert in no acute distress. Maintaining good O2 saturations in the 90s on 2 L/m per nasal cannula. She is having a loose nonproductive cough. She's afebrile. Hemodynamically stable. Urine culture positive for E. coli. Sputum culture revealed no growth. Blood culture revealed no growth. Stool culture revealed no growth. White count 7.3. Hemoglobin 8.8. Platelet count 93,000. Sodium 141. Potassium 3.5. Creatinine 1.55. 0.9 normal saline at 20 ML's per hour. Continued on Zosyn. The patient is seen today 07/27/2019 in follow-up on the regular medical floor. She is currently sitting up in a chair at the bedside. Awake and alert in no acute distress. Maintaining O2 saturations in the 90s on 2 L/m per nasal cannula. Continues with a loose nonproductive cough. She's been afebrile. Hemodynamically stable. Sodium 140. Potassium 4.5. Creatinine 0.84. She remains on Zosyn. Currently on Mucinex. She did receive a dose of Lasix this a.m. per nephrology. Objective - Vital Signs Vital signs: Vital Signs Temp 98 F 07/27/19 07:50 Pulse 86 07/27/19 07:50 Resp 16 07/27/19 07:50 BP 122/73 07/27/19 07:50 Pulse Ox 91 L 07/27/19 07:50 Intake & Output 07/26/19 07/27/19 07/27/19 18:59 06:59 18:59 Intake Total 600 Output Total 350 Balance 250 Weight 88.5 kg Intake: IV 100 Piperacillin-Tazobactam 3 100 .375 gm In Sodium Chloride 0.9% 100 ml @ 25 mls/hr IVPB Q8HR [facility] Rx# :[id number] Oral 500 Output: Urine 350 Other: Voiding Method Incontinent Incontinent Incontinent # Voids 1 1 # Bowel Movements 1 ABP, PAP, CO, CI - Last Documented Arterial Blood Pressure 112/48 - Exam GENERAL EXAM: Alert, 48 year old female patient, on 2 L nasal cannula, up in a chair at the bedside, comfortable in no apparent distress. HEAD: Normocephalic. EYES: Normal reaction of pupils, equal size. NOSE: Clear with pink turbinates. THROAT: No erythema or exudates. NECK: No masses, no JVD. CHEST: No chest wall deformity. LUNGS: Equal air entry with crackles in the bilateral posterior bases CVS: S1 and S2 normal with no audible murmur, regular rhythm. ABDOMEN: No hepatosplenomegaly, normal bowel sounds, no guarding or rigidity. SPINE: No scoliosis or deformity SKIN: No rashes CENTRAL NERVOUS SYSTEM: No focal deficits, tone is normal in all 4 extremities. EXTREMITIES: There is no peripheral edema. No clubbing, no cyanosis. Peripheral pulses are intact. - Labs CBC & Chem 7: 07/26/19 04:50 07/27/19 09:40 Labs: Abnormal Lab Results - Last 24 Hours (Table) 07/26/19 07/26/19 07/27/19 Range/Units 17:41 20:23 06:56 Chloride (98-107) mmol/L Glucose (74-99) mg/dL POC Glucose (mg/dL) 123 H 146 H 132 H (75-99) mg/dL Calcium (8.4-10.2) mg/dL 07/27/19 07/27/19 Range/Units 09:40 11:52 Chloride 111 H (98-107) mmol/L Glucose 166 H (74-99) mg/dL POC Glucose (mg/dL) 165 H (75-99) mg/dL Calcium 8.2 L (8.4-10.2) mg/dL Assessment and Plan Assessment: 1 Cardiopulmonary arrest with brief resuscitation requiring intubation mechanical ventilatory support on 07/19/2019. Subsequently extubated on 07/24/2019. Currently maintaining good O2 saturations on 2 L/m per nasal cannula. 2 Acute hypoxemic respiratory failure secondary to above, recovered 3 Acute septic shock and possible ischemic colitis and/or suspected intra- abdominal source of sepsis, recovered 4 E. coli urinary tract infection with sepsis 5 Acute blood loss anemia requiring 2 units of packed red blood cell transfusions current hemoglobin 8.8 6 Acute thrombocytopenia secondary to sepsis 7 Acute liver shock with hypotension secondary to sepsis, recovered 8 Altered mental status suspect secondary to hepatic encephalopathy 9 Acute kidney injury secondary to above requiring hemodialysis, right catheter remains in place 10 Chronic kidney disease 11 Acute ALCOHOL intoxication 12 Chronic tobacco dependence Plan: The patient was seen and evaluated by Dr. Gigi Whiteheda and Mucinex Additional IV Lasix per nephrology today Hemodialysis catheter remains in place no recent treatments, improving Chest x-ray in a.m. Encourage increased use the incentive spirometer and cough and deep breathing exercises Increase her activity as tolerated We'll continue to follow I, the cosigning physician, performed a history & physical examination of the patient. Lungs sounds with crackles in the bilateral posterior bases. Maintaining good O2 saturations in the 90s on 2 L/m per nasal cannula. I dis cussed the assessment and plan of care with my nurse practitioner, Omayra Hollingsworth. I attest to the above note as dictated by her.
--- NOTE | 2019-07-27 16:11 | PN ---
PROGRESS NOTE Patient is seen for followup for acute kidney injury. Her renal function has improved significantly. Serum creatinine is down to 0.84 today. The patient is complaining of cough, which is worse when she lays down. She continues to have good urine output. The patient had hemodialysis treatments initially, however, dialysis has been on hold and her renal function continues to improve. PHYSICAL EXAMINATION: On examination today, blood pressure was 109/70, heart rate 87 per minute, she is afebrile. Examination of the heart S1, S2. Examination of the lungs, decreased breath sounds at bases, basal crackles are heard. Abdomen is soft, nontender. Examination of lower extremities shows edema 1+ bilaterally [employer] exam grossly intact. LABS: Show sodium 140, potassium 4.5, chloride 111, CO2 is 23. BUN 15, creatinine 0.84 today, calcium 8.2. ASSESSMENT: 1. Acute kidney injury, acute tubular necrosis, currently significantly improved. I will discontinue the dialysis catheter. Patient does not need any further dialysis treatments. 2. Volume overload. I will give her a dose of Lasix x1 and maintain her on scheduled dose of IV Lasix. 3. Status post cardiopulmonary arrest. 4. Hypoxic respiratory failure, currently extubated, doing well. 5. Urinary tract infection with Escherichia coli maintained on antibiotics. 6. Hypotension, currently on midodrine. Blood pressure remains on the lower side. I will continue with the midodrine for now. PLAN: IV Lasix x1 and then continue q.12 hours. DC dialysis catheter. Repeat labs in a.m. MMODL / IJN: [id number] /
[2019-07-27] MEDS ORDERED: guaiFENesin SYRUP 100MG/5ML 200 MG/10 ML CUP PO PRN (16:38)
[2019-07-27] MEDS ORDERED: MELATONIN 5 MG TABLET PO PRN (16:38)
[2019-07-27 17:01] LABS: Glucose,Whole Blood 172 mg/dL (75-99)
[2019-07-27] MEDS: IPRATROPIUM-ALBUTEROL 3 ML NEB INHALATION PRN (20:48)
[2019-07-27 20:58] LABS: Glucose,Whole Blood 119 mg/dL (75-99)
[2019-07-27] MEDS ORDERED: risperiDONE 2 MG TAB PO SCH (21:00)
[2019-07-27] MEDS ORDERED: FAMOTIDINE 20 MG TAB PO SCH (21:00)
[2019-07-27] MEDS: SYMBICORT 160-4.5 MCG INHALER INHALATION SCH (21:30)
[2019-07-27] MEDS: FUROSEMIDE 10 MG/ML 4 ML VIAL IV SCH (22:04)
[2019-07-27] MEDS: ACETAMINOPHEN TAB 500 MG TAB PO PRN (22:08)
--- NOTE | 2019-07-27 23:00 | P.PN ---
Subjective Progress Note Date: 07/27/19 Principal diagnosis: Elevated liver enzymes, altered mental status, hematemesis Patient is seen lying in bed reporting that she is feeling better. She is tolerated advancement in her diet. No nausea, vomiting or abdominal pain. Objective - Vital Signs Vital signs: Vital Signs Temp 98 F 07/27/19 07:50 Pulse 86 07/27/19 07:50 Resp 16 07/27/19 07:50 BP 122/73 07/27/19 07:50 Pulse Ox 91 L 07/27/19 07:50 Intake & Output 07/26/19 07/27/19 07/27/19 18:59 06:59 18:59 Intake Total 600 Output Total 350 Balance 250 Weight 88.5 kg Intake: IV 100 Piperacillin-Tazobactam 3 100 .375 gm In Sodium Chloride 0.9% 100 ml @ 25 mls/hr IVPB Q8HR [facility] Rx# :[id number] Oral 500 Output: Urine 350 Other: Voiding Method Incontinent Incontinent Incontinent # Voids 1 1 # Bowel Movements 1 ABP, PAP, CO, CI - Last Documented Arterial Blood Pressure 112/48 - Exam On physical examination, patient appears comfortable in no apparent distress. HEAD: Normocephalic, atraumatic. EYES: No scleral icterus. Conjunctival injection noted in the left eye. MOUTH: No lesions, tongue midline. NECK: Trachea midline, no gross abnormalities. ABDOMEN: Soft, obese. Bowel sounds are positive. No organomegaly. No guarding or rigidity. EXTREMITIES: No pedal edema. SKIN: No rashes, no jaundice. NEUROLOGIC: Alert and oriented to person and place, no asterixis noted. - Labs CBC & Chem 7: 07/26/19 04:50 07/27/19 09:40 Labs: Abnormal Lab Results - Last 24 Hours (Table) 07/26/19 07/26/19 07/26/19 Range/Units 11:47 17:41 20:23 Chloride (98-107) mmol/L Glucose (74-99) mg/dL POC Glucose (mg/dL) 157 H 123 H 146 H (75-99) mg/dL Calcium (8.4-10.2) mg/dL 07/27/19 07/27/19 Range/Units 06:56 09:40 Chloride 111 H (98-107) mmol/L Glucose 166 H (74-99) mg/dL POC Glucose (mg/dL) 132 H (75-99) mg/dL Calcium 8.2 L (8.4-10.2) mg/dL Assessment and Plan (1) Elevated liver enzymes Narrative/Plan: 48-year-old female presenting with multiple complaints, found to have elevated liver enzymes, likely the results of alcoholic hepatitis. They have remained stable. Current Visit: Yes Status: Acute Code(s): R74.8 - ABNORMAL LEVELS OF OTHER SERUM ENZYMES SNOMED Code(s): 298315550 (2) Hematemesis Narrative/Plan: Some dark-colored emesis after NG tube removal, likely traumatic in the setting of nasogastric tube. No further episodes. Hemoglobin has remained stable. Current Visit: Yes Status: Acute Code(s): K92.0 - HEMATEMESIS SNOMED Code(s): 9290750 (3) Altered mental status Narrative/Plan: Altered mental status secondary to hepatic encephalopathy. Currently improving. Current Visit: Yes Status: Acute Code(s): R41.82 - ALTERED MENTAL STATUS, UNSPECIFIED SNOMED Code(s): 994609394 Plan: Supportive care Continue to monitor hemoglobin and hematocrit and transfuse as needed Low-sodium diet Continue to monitor stool output Continue Protonix therapy Continue lactulose and rifaximin, titrated for 2-3 bowel movements daily No plans for endoscopic evaluation at this time Thank you for allowing us to participate in care of the patient
--- NOTE | 2019-07-28 00:15 | PN ---
PROGRESS NOTE CHIEF COMPLAINT: Status post cardiorespiratory arrest. HISTORY OF PRESENT ILLNESS: This lady continues to improve. She still complains of a general anterior chest wall pain was likely related to her resuscitation. She is also having slight headache on the left side, but has no focal neurologic issues related to that. She has subconjunctival hemorrhage in the left eye with proptosis, but both eyes are prominent. A T4 will be ordered. She also wants to get back on some of her medications that she was on. These will be ordered including Symbicort. She will also be started on updrafts. She is requesting another CT of the brain, but this probably would not be productive considering that she is improving and could be done at a later date, if necessary. PHYSICAL EXAMINATION: Physical exam is otherwise unremarkable. Chest is clear. Cardiac exam is normal. Abdomen is soft, nontender. IMPRESSION: 1. Status post cardiorespiratory arrest. 2. Renal failure-resolving. 3. Subconjunctival hemorrhage, left eye. 4. Asthma related shortness of breath and cough. 5. Proptosis. PLAN: 1. Restart her home medications. 2. Symbicort 160/4.5 two puffs twice a day. 3. Updrafts with DuoNeb. 4. Obtain a free T4. 5. Plan to continue with rehab until she can be discharged. MMODL / IJN: [id number] /
[2019-07-28] MEDS: PIPERACILLIN-TAZOBACTAM 3.375 GM in SODIUM CHLORIDE 0.9% 100 ML IVPB SCH ×3 (00:20→15:50)
--- NOTE | 2019-07-28 02:22 | PN ---
PROGRESS NOTE DATE OF SERVICE: 07/27/2019 REASON FOR FOLLOWUP: Ischemic colitis and aspiration pneumonitis. INTERVAL HISTORY: The patient is currently afebrile. The patient is breathing more comfortably. Denies having any chest pain. Occasional cough. No abdominal pain. No diarrhea. PHYSICAL EXAMINATION: On examination, her blood pressure 129/78 with a pulse of 106, temperature 98.8. She is 96% on 2 L nasal cannula. General description is a middle-aged female lying in bed in no distress. RESPIRATORY SYSTEM: Unlabored breathing, clear to auscultation anteriorly. HEART: S1, S2. Regular rate and rhythm. ABDOMEN: Soft, no tenderness. LABS: BUN of 15, creatinine 0.84. DIAGNOSTIC IMPRESSION AND PLAN: Patient admitted to the hospital with sepsis with component of ischemic colitis and aspiration pneumonitis with Escherichia coli urinary tract infection. Patient is covered with Zosyn to finish therapy with oral antibiotic on discharge. Continue with supportive care. MMODL / IJN: [id number] /
[2019-07-28] MEDS: SYMBICORT 160-4.5 MCG INHALER INHALATION SCH (05:44)
[2019-07-28 07:16] LABS: Glucose,Whole Blood 116 mg/dL (75-99)
--- NOTE | 2019-07-28 07:23 | XR ---
EXAMINATION TYPE: XR chest 1V portable DATE OF EXAM: 07/28/2019 Comparison: 07/25/2019 Clinical History: 48-year-old female CHF Findings: Heart borderline enlarged. A loop recorder device projects over the left side of the heart. Worsening bilateral diffuse airspace opacities. Underlying small effusions though slightly improved on the rig ht. Impression: Worsening bilateral diffuse airspace disease/pulmonary edema. Small effusions.
[2019-07-28] MEDS: MIDODRINE 5 MG TAB PO SCH ×3 (08:13→17:45)
[2019-07-28] MEDS: guaiFENesin-DM 600/30MG 1 EACH TAB.ER.12H PO SCH (08:13)
[2019-07-28] MEDS: RIFAXIMIN 550 MG TABLET PO SCH (08:14)
[2019-07-28] MEDS: PANTOPRAZOLE 40 MG/10 ML VIAL IV SCH (08:14)
[2019-07-28] MEDS: FUROSEMIDE 10 MG/ML 4 ML VIAL IV SCH (08:14)
[2019-07-28] MEDS: CHOLESTYRAMINE (WITH SUGAR) 4 GM PACKET PO SCH ×2 (08:15→17:45)
[2019-07-28 08:17] VITALS: RESP 18
[2019-07-28] MEDS: FLUTICASONE 50MCG/SPRAY NASAL 16GM EA NOSTRIL SCH (08:17)
[2019-07-28] MEDS ORDERED: CITALOPRAM HYDROBROMIDE 20 MG TAB PO PRN (09:00)
[2019-07-28] MEDS ORDERED: ACETAMINOPHEN TAB 325 MG TAB PO SCH (09:00)
[2019-07-28] MEDS ORDERED: LORATADINE 10 MG TAB PO SCH (09:00)
[2019-07-28] MEDS ORDERED: FERROUS SULFATE 325 MG TAB PO SCH (09:00)
[2019-07-28] MEDS ORDERED: ALPRAZolam 0.25 MG TAB PO STA (09:57)
[2019-07-28] MEDS ORDERED: LORazepam 1 MG TAB PO PRN (10:09)
[2019-07-28] MEDS ORDERED: CITALOPRAM HYDROBROMIDE 20 MG TAB PO ONE (10:15)
[2019-07-28] MEDS: IPRATROPIUM-ALBUTEROL 3 ML NEB INHALATION PRN (10:47)
[2019-07-28] MEDS: ACETAMINOPHEN TAB 500 MG TAB PO PRN (12:15)
[2019-07-28 12:36] LABS: Glucose,Whole Blood 198 mg/dL (75-99)
[2019-07-28] MEDS: INSULIN ASPART (NovoLOG) 100 UNIT/ML VIAL SQ SCH ×2 (13:06→17:19)
--- NOTE | 2019-07-28 14:02 | P.PN ---
Subjective Progress Note Date: 07/28/19 Principal diagnosis: Status post cardiac arrest The patient is seen today 07/25/2019 in follow-up in the intensive care unit. This is a 48-year-old female who suffered a cardiac arrest on 07/19/2019. She required mechanical ventilation and was subsequently extubated yesterday 07/24/2019. She is currently awake and alert in no acute distress. She is maintaining good O2 saturations in the 90s on 2 L/m per nasal cannula. No current IV fluids required. No drips. This x-ray does show bibasilar infiltrates right greater than left. He had required 2 units of packed red bl ood cells, 2 fresh frozen plasma and 1 platelet this admission. Urine culture was positive for E. coli. Sputum culture negative. Blood cultures reveal no growth. White count 4.9. Hemoglobin 8.9. Platelets 56,000. Sodium 137. Potassium 3.2. Creatinine 2.17. AST 254. ALT 83. She remains on Zosyn. The patient is seen today 07/26/2019 in follow-up in the intensive care unit. She is currently awake and alert in no acute distress. Maintaining good O2 saturations in the 90s on 2 L/m per nasal cannula. She is having a loose nonproductive cough. She's afebrile. Hemodynamically stable. Urine culture positive for E. coli. Sputum culture revealed no growth. Blood culture revealed no growth. Stool culture revealed no growth. White count 7.3. Hemoglobin 8.8. Platelet count 93,000. Sodium 141. Potassium 3.5. Creatinine 1.55. 0.9 normal saline at 20 ML's per hour. Continued on Zosyn. The patient is seen today 07/27/2019 in follow-up on the regular medical floor. She is currently sitting up in a chair at the bedside. Awake and alert in no acute distress. Maintaining O2 saturations in the 90s on 2 L/m per nasal cannula. Continues with a loose nonproductive cough. She's been afebrile. Hemodynamically stable. Sodium 140. Potassium 4.5. Creatinine 0.84. She re edgar on Zosyn. Currently on Mucinex. She did receive a dose of Lasix this a.m. per nephrology. On 07/28/2019 patient is doing well, sitting up in a chair, in no acute distress, is answering questions appropriately, she denies any worsening shortness of breath, she is on 2 L of oxygen pulse ox is 100%, no fever or chills, she is in sinus mechanism with a rate of 83 bpm. Patient has significa nt generalized edema and edema involving lower extremities. Remains on Zosyn for E. coli urinary tract infection. Today's chest x-ray was reviewed showing worsening bilateral diffuse airspace disease/pulmonary edema and small pleural effusions. Hillman catheter has been discontinued, patient is voiding, she is incontinent of urine, difficult to adequately estimated her net fluid balance. But overall her weight is up 11 kg Objective - Vital Signs Vital signs: Vital Signs Temp 97.7 F 07/28/19 06:49 Pulse 104 H 07/28/19 10:59 Resp 18 07/28/19 06:49 BP 122/64 07/28/19 06:49 Pulse Ox 100 07/28/19 06:49 Intake & Output 07/27/19 07/28/19 07/28/19 18:59 06:59 18:59 Output Total 800 850 Balance -800 -850 Weight 92 kg Output: Urine 800 850 Other: Voiding Method Incontinent Incontinent # Bowel Movements 1 ABP, PAP, CO, CI - Last Documented Arterial Blood Pressure 112/48 - Exam GENERAL EXAM: Alert, very pleasant -[place] female, sitting up in the chair, generally weak, but no acute distress, room air pulse ox of 100%, comfortable in no apparent distress. HEAD: Normocephalic/atraumatic. EYES: Normal reaction of pupils, equal size. Conjunctiva pink, sclera white. NOSE: Clear with pink turbinates. THROAT: No erythema or exudates. NECK: No masses, no JVD, no thyroid enlargement, no adenopathy. CHEST: No chest wall deformity. Symmetrical expansion. LUNGS: Equal air entry with bibasilar crackles, but no wheeze, rhonchi or dullne ss. CVS: Regular rate and rhythm, normal S1 and S2, no gallops, no murmurs, no rubs ABDOMEN: Soft, nontender. No hepatosplenomegaly, normal bowel sounds, no guarding or rigidity. EXTREMITIES: No clubbing, 1+ lower extremity edema, no cyanosis, 2+ pulses and upper and lower extremities. MUSCULOSKELETAL: Muscle strength and tone normal. SPINE: No scoliosis or deformity SKIN: No rashes CENTRAL NERVOUS SYSTEM: Alert and oriented -3. No focal deficits, tone is normal in all 4 extremities. PSYCHIATRIC: Alert and oriented -3. Appropriate affect. Intact judgment and insight. - Labs CBC & Chem 7: 07/26/19 04:50 07/27/19 09:40 Labs: Abnormal Lab Results - Last 24 Hours (Table) 07/27/19 07/27/19 07/28/19 Range/Units 16:59 20:56 06:51 POC Glucose (mg/dL) 172 H 119 H 116 H (75-99) mg/dL 07/28/19 Range/Units 11:35 POC Glucose (mg/dL) 198 H (75-99) mg/dL Microbiology - Last 24 Hours (Table) 07/21/19 15:10 Stool Culture - Final Stool Assessment and Plan Plan: Assessment: 1 Cardiopulmonary arrest with brief resuscitation requiring intubation mechanical ventilatory support on 07/19/2019. Subsequently extubated on 07/24/2019. Currently maintaining good O2 saturations on 2 L/m per nasal cannula. 2 Acute hypoxemic respiratory failure secondary to above, recovered 3 Acute septic shock and possible ischemic colitis and/or suspected intra- abdominal source of sepsis, recovered 4 E. coli urinary tract infection with sepsis 5 Acute blood loss anemia requiring 2 units of packed red blood cell transfusions current hemoglobin 8.8 6 Acute thrombocytopenia secondary to sepsis 7 Acute liver shock with hypotension secondary to sepsis, recovered 8 Altered mental status suspect secondary to hepatic encephalopathy 9 Acute kidney injury secondary to above requiring hemodialysis, right catheter remains in place 10 Chronic kidney disease 11 Acute ALCOHOL intoxication 12 Chronic tobacco dependence Plan: Case chest x-ray was reviewed showing pulmonary edema, and patient has quite significant generalized edema, continue with diuretic therapy, accurate intake and output, daily labs, electrolytes and renal profile, continue same antibiotics, increase activity as tolerated, follow-up chest x-ray in the morning. I performed a history & physical examination of the patient and discussed their management with my nurse practitioner, Amy Siddiqui. I reviewed the nurse practitioner's note and agree with the documented findings and plan of care. Lung sounds are positive for diminished breath sounds. The findings and the impression was discussed with the patient. I attest to the documentation by the nurse practitioner. Time with Patient: Less than 30
--- NOTE | 2019-07-28 15:19 | PN ---
PROGRESS NOTE Patient is seen for followup for acute kidney injury. She required dialysis initially. However, her renal function has continued to improve. Serum creatinine was 0.84 mg/dL yesterday. The patient was noticed to be in volume overload and started on Lasix yesterday. PHYSICAL EXAMINATION: On examination today, patient is comfortable. She appears to be anxious. Heart rate 100 per minute, blood pressure was 122/64. She is less short of breath than yesterday. EXAMINATION OF THE HEART: S1 and S2. EXAMINATION OF LUNGS: Decreased breath sounds at bases. Minimal basal crackles are heard. ABDOMEN: Soft, non-tender. Examination of lower extremities shows edema 2+ bilaterally. LABS: Labs are not available from today. Serum creatinine 0.84 yesterday. ASSESSMENT: 1. Acute kidney injury, acute tubular necrosis, currently significantly improved. Discharge dialysis catheter. 2. Escherichia coli urinary tract infection. 3. Sepsis from urinary tract infection, now improved. 4. Volume overload, maintained on IV Lasix. 5. Status post cardiopulmonary arrest, status post extubation. 6. Acute shock liver from hypotension and sepsis. 7. Acute alcohol intoxication. PLAN: Continue to diurese patient. Xanax p.o. x1. MMODL / IJN: [id number] /
[2019-07-28 16:32] VITALS: PULSE 116
[2019-07-28 16:49] VITALS: BP 144/87; TEMP 99
[2019-07-28 16:59] LABS: Glucose,Whole Blood 114 mg/dL (75-99)
--- NOTE | 2019-07-28 17:01 | PN ---
PROGRESS NOTE CHIEF COMPLAINT: Status post cardiorespiratory arrest. HISTORY OF PRESENT ILLNESS: This lady continues to improve and do fairly well. She is quite agitated and anxious, however. She apparently has psychiatric history looking at the medications she is on and will seek a consult. REVIEW OF SYSTEMS: She has had no chest pain, shortness of breath, etc. She states she can't walk due to weakness and she also has a physical left-sided headache. PHYSICAL EXAMINATION: Her chest is clear. The cardiac exam is normal. Abdomen is soft, nontender. Neck is supple. IMPRESSION: 1. Status post cardiorespiratory arrest. 2. Headache. 3. Anxiety and agitation. PLAN: 1. Psych consult. 2. Physical therapy. 3. Increase Celexa from 20-40 mg a day. 4. Treat anxiety. MMODL / IJN: [id number] /
[2019-07-28 18:56] LABS: Glucose,Whole Blood 107 mg/dL (75-99)
[2019-07-28] MEDS ORDERED: EPINEPHrine 10 ML SYRINGE (0.1 MG/ML) ONE (18:59)
[2019-07-28] MEDS ORDERED: SODIUM BICARB 8.4% 50 ML SYR (1 MEQ/ML) ONE (18:59)
[2019-07-28] MEDS ORDERED: ATROPINE SULFATE 0.1 MG/ML 10ML SYRINGE ONE (18:59)
--- NOTE | 2019-07-28 20:00 | P.EN ---
Code Blue Note: Back ground: Patient was hospitalized on 07/18 due to being found unresponsive. She was noted to have low blood sugars in the ED and was obtunded. She became hypotensive in the ED was started on levophed and then became bradycardiac and arrested. At that time she was noted to have gross metabolic and hematologic derrangements. She was stabilized and transferred to the ICU. She did required HD but had been off this successfully for a few days. She had been improving and was awake and talking today. Arrived to the room: CPR in Progress, Patient was being hooked up to the crash cart. CPR started at 1851. Inciting event: Patient was been seen about 10 minutes earlier and was feeling anxious but alert and talking, then when the aid came into preform vitals the patient was unresponsive. Once patient hooked upto monitor she was found to be in asystole. She was intubated by the [employer] successfully. Sugar 106. During the code she did briefly regain pulses X 2 but they were weak and thready and lasted less than 30 seconds. Last set of labs for electrolytes was 07/26 and reviewed with normal electrolytes. Medications given during code: EPi 8 amps Bicarb 6 amps Calcium chloride 1 amp Atropin 1 mg 1L NS Levophed started less than 1 minute For further code details see Code Note. Time of : 1917 Dr. Ramirez notified by myself Legal Guardian notified by Christine KUMAR A total of 25 minutes of Critical care time was spent on the care of this patient.
[2019-07-29] MEDS ORDERED: CITALOPRAM HYDROBROMIDE 20 MG TAB PO SCH (09:00)
--- NOTE | 2019-07-30 07:24 | CDI ---
Documentation Clarification Form Date: 07/30/19 From: Katie Justice Phone: If you have a question about this query, please contact Sadaf Lewis, Revival Clerk at [phone] between 8am and 5pm. Admit Date: 07/19/19 Discharge Date:07/28/19 Patient Name: Sadaf Lomeli Visit Number: [id number] ATTENTION: The Clinical Documentation Specialists (CDI) and [facility] Coding Staff appreciate your assistance in clarifying documentation. Please respond to the clarification below the line at the bottom and electronically sign. The CDI & [facility] Coding staff will review the response and follow-up if needed. Please note: Queries are made part of the Legal Health Record. If you have any questions, please contact the author of this message via ITS. Dear Dr. Chapman CKD is documented in Dr. Gregory's 07/[address] Yu's 07/23 - 07/27 progress notes. History/Risk Factors: ADALBERTO secondary to ATN, hypotension, Alcohol intoxication, septic shock, Patients Historical BUN/CR/GFR: No documentation of previous renal function. Clinical Indicators: Current BUN/CR/GFR: On admit - 11/3.55/17; Last day of stay - 15/0.84/>90 Treatment: 3 liters NS bolus In order to capture the severity of condition, please clarify the stage of the CKD, if known: CKD Stage 1 (GFR > 90) CKD Stage 2 (GFR 60-89) CKD Stage 3 (GFR 30-59) CKD Stage 4 (GFR 15-29) CKD Stage 5 (GFR <15) ESRD Other, please specify Unable to determine atn MTDD
--- NOTE | 2019-07-30 07:52 | CDI ---
Documentation Clarification Form Date: 07/30/19 From: Katie Justice Phone: If you have a question about this query, please contact Sadaf Lewis, Oracle Analyst at [phone] between 8am and 5pm. Admit Date: 07/19/19 Discharge Date:07/28/19 Patient Name: Sadaf Lomeli Visit Number: [id number] ATTENTION: The Clinical Documentation Specialists (CDI) and [facility] Coding Staff appreciate your assistance in clarifying documentation. Please respond to the clarification below the line at the bottom and electronically sign. The CDI & [facility] Coding staff will review the response and follow-up if needed. Please note: Queries are made part of the Legal Health Record. If you have any questions, please contact the author of this message via ITS. Dear Dr. Ramirez Colitis is documented in the Dr. Ruiz's, Dr. Gregory's and Dr. Dowd's consult notes and Dr. Gregory's and Dr. Dowd's progress notes. Dr. Yu documents ischemic colitis and/or intraabdominal source of sepsis in his progress notes. Dr. Ruiz states "Doubt ischemic colitis considering the dramatic improvement in the last 24 hours" in his 07/[address] Hinojosa documented, "There has been no reports of bloody bowel movements yet which would be expected with ischemic colitis" in his 07/19 progress note and "Based on overall clinical picture I do not believe patient has ischemic colitis that requires surgical intervention." in his 07/21 progress note. Patient history/risk factors: Clinical Indicators: Sepsis, septic shock, alcohol intoxication, shock liver, anemia Radiology: Abdomen on 06/18 - Severe pancolonic bowel wall thickening with mesenteric edema and small volume ascites. Given the elevated lactic acid ischemic bowel should be excluded. Labs: Lactic acid 20.4, Hgb 6.2, Hct 23.7 Treatment: IV Zosyn, PO Rifaximin, IV NS Bolus 3 liters In your professional opinion, can you please further specify the following, if known? Ischemic colitis Ruled Out Ischemic colitis Ruled In (please specify acuity, acute, chronic, etc.): Other, please specify Unable to determine MTDD
--- NOTE | 2019-07-30 17:04 | DS ---
DISCHARGE SUMMARY CHIEF COMPLAINT: Cardiorespiratory arrest. HISTORY OF PRESENT ILLNESS AND PHYSICAL EXAM: The details of this lady's history and physical can be found in the initial workup. LABORATORY STUDIES: While she was in a hospital she had laboratory studies, details of which can be found in the laboratory section of her chart. COURSE IN HOSPITAL: After she was admitted, she was placed on bedrest in ICU and placed on a ventilator. The etiology of for her arrest was never determined. It was thought that she may have had an intraabdominal catastrophe, but this turned out not to be the case. She was on the ventilator for several days with very little response and then gradually became she started to improve. She did require dialysis for several days, but then this was stopped as her renal function began to return. She was eventually able to trigger the ventilator and started to make purposeful movements and subsequently was able to be extubated. After that, she was found to be significantly neurologically intact and was able to communicate appropriately, verbally and was eventually moved to [facility] care. She was improving with physical therapy and it was felt that she would be able to be discharged in a few days when she suddenly went into a cardiorespiratory arrest on the evening of the 07/27. After an extensive and vigorous effort to resuscitate her, she . FINAL DIAGNOSES: 1. Cardiorespiratory arrest, etiology unknown. 2. Acute tubular necrosis with recovery. 3. Ventilator dependency. OPERATIONS: None. CONSULTATIONS: Intensive Medicine, Neurology. She was not improved. She . MMPAMELLA / OC: [id number] /
--- NOTE | 2019-07-31 11:52 | MISC ---
MISCELLANOUS REPORT QUERY: Ischemic colitis ruled out. MMODL / IJN: [id number] /
--- NOTE | 2019-08-07 11:23 | CDI ---
Documentation Clarification Form Date: 08/07/2019 10:48:47 AM From: Ariella BarfieldALEJO, CCDS Admit Date: 07/19/2019 03:44:00 PM Patient Name: Sadaf Lomeli Visit Number: [id number] Discharge Date: 07/28/2019 07:26:00 PM ATTENTION: The Clinical Documentation Specialists (CDI) and [facility] Coding Staff appreciate your assistance in clarifying documentation. Please respond to the clarification below the line at the bottom and electronically sign. The CDI & [facility] Coding staff will review the response and follow-up if needed. Please note: Queries are made part of the Legal Health Record. If you have any questions, please contact the author of this message via ITS. Dr. Alexy Ramirez: Per the ED documentation: "ET tube retracted twice due to right main stem intubation". OG tube placed w/immediate output of 75cc bright red blood. Per the 07/20 GI Consult: "Acute upper gastrointestinal bleed. The patient had small amount of bright red blood from the NG tube after intubation following cardiac arrest yesterday, but since then she did not have any further episodes of bleeding. Hemoglobin remains stable at 9.3 g/dL." Patients Admitting Diagnosis (ED 07/18): Alcoholic intoxication, Altered mental status, Hypoglycemia, Hypothermia, ADALBERTO, Lactic Acidosis, Anemia, Cardiopulmonary Arrest, UTI, Hyperkalemia, Thrombocytopenia & Hypotension. After admission, diagnosed with E Coli Sepsis, Septic Shock, Acute hypoxic respiratory failure, ADALBERTO/ADALBERTO and Anoxic Brain Injury. An intra-abdominal source of infection was suspected but ruled out. History: Alcohol abuse, Back pain, Depression, Breast CA, Drug abuse, Suicide attempt. Clinical Indicators: Presented to the ED on 07/18 after being found unresponsive by her . Altered mental status, obtunded, diaphoretic, pallor, hypotensive. Became bradycardic, then astyolic in ED, CPR, intubated. Developed aspiration pneumonia. Patient on 07/27. 07/18 H/H: 6.3/23.7* 07/18 CT Abdomen & Pelvis: Close surveillance with Hematocrit & Hemoglobin is recommended as the unenhanced exam is limited to evaluate visceral trauma. 07/18 CXR: Main stem bronchus intubation, tube was retracted. OG tube placed & immediately put out 75 cc of bright red blood. Treatment: 07/18 Transfused 2 units PRBCs, 1 unit Platelets, 2 units FFP, Central line & intubated in ED. 2L bolus normal saline. In order to accurately reflect this patients severity of illness, please clarify if the Acute Blood Loss Anemia: Is a complication of the insertion of the NGT tube and/or ET tube placement Is an expected outcome of the insertion of the NGT and/or ET tube placement Is related to co-morbid condition(s) of: Other, please specify Unable to determine (Last Revision: March 2019) MTDD
--- NOTE | 2019-08-08 23:11 | MISC ---
MISCELLANOUS REPORT QUERY: Blood loss anemia: Unable to determine that. MMODL / IJN: [id number] /
== END 2019-07-28 19:26 | disposition expired | DRG 870 ==
LOC: EC 12:11 → 2SICU 15:44 → EEVIPCON 15:44 → 4SSUR 07-26 17:22
PROVIDERS: ADMIT Family Medicine; ATTEND Family Medicine
PROC: 5A1955Z Respiratory Ventilation, Greater than 96 Consecutive Hours (ICD-10-PCS; principal; 2019-07-19)
PROC: 0BH17EZ Insertion of Endotracheal Airway into Trachea, Via Natural or Artificial Opening (ICD-10-PCS; principal; 2019-07-19)
PROC: 5A12012 Performance of Cardiac Output, Single, Manual (ICD-10-PCS; 2019-07-19)
PROC: 3E033XZ Introduction of Vasopressor into Peripheral Vein, Percutaneous Approach (ICD-10-PCS; 2019-07-19)
PROC: 30233K1 Transfusion of Nonautologous Frozen Plasma into Peripheral Vein, Percutaneous Approach (ICD-10-PCS; 2019-07-19)
PROC: 30233N1 Transfusion of Nonautologous Red Blood Cells into Peripheral Vein, Percutaneous Approach (ICD-10-PCS; 2019-07-19)
PROC: 30233R1 Transfusion of Nonautologous Platelets into Peripheral Vein, Percutaneous Approach (ICD-10-PCS; 2019-07-19)
PROC: 03H833Z Insertion of Infusion Device into Left Brachial Artery, Percutaneous Approach (ICD-10-PCS; 2019-07-19)
PROC: 0DH673Z Insertion of Infusion Device into Stomach, Via Natural or Artificial Opening (ICD-10-PCS; 2019-07-19)
PROC: 06HY33Z Insertion of Infusion Device into Lower Vein, Percutaneous Approach (ICD-10-PCS; 2019-07-21)
PROC: 5A1D70Z Performance of Urinary Filtration, Intermittent, Less than 6 Hours Per Day (ICD-10-PCS; 2019-07-21)
PROC: 5A12012 Performance of Cardiac Output, Single, Manual (ICD-10-PCS; 2019-07-28)
DX: A41.51 Sepsis due to Escherichia coli [E. coli] (principal); R65.21 Severe sepsis with septic shock; J69.0 Pneumonitis due to inhalation of food and vomit; J96.01 Acute respiratory failure with hypoxia; K72.00 Acute and subacute hepatic failure without coma; N17.0 Acute kidney failure with tubular necrosis; D62 Acute posthemorrhagic anemia; E87.4 Mixed disorder of acid-base balance; G93.1 Anoxic brain damage, not elsewhere classified; J98.11 Atelectasis; N39.0 Urinary tract infection, site not specified; D68.9 Coagulation defect, unspecified; K91.72 Accidental puncture and laceration of a digestive system organ or structure during other procedure; K92.2 Gastrointestinal hemorrhage, unspecified; I46.9 Cardiac arrest, cause unspecified; K70.31 Alcoholic cirrhosis of liver with ascites; E83.51 Hypocalcemia; H05.20 Unspecified exophthalmos; D69.59 Other secondary thrombocytopenia; K70.11 Alcoholic hepatitis with ascites; F10.129 Alcohol abuse with intoxication, unspecified; Z11.59 Encounter for screening for other viral diseases; E16.2 Hypoglycemia, unspecified; T51.0X1A Toxic effect of ethanol, accidental (unintentional), initial encounter; R40.2434 Glasgow coma scale score 3-8, 24 hours or more after hospital admission; T43.211A Poisoning by selective serotonin and norepinephrine reuptake inhibitors, accidental (unintentional), initial encounter; E87.5 Hyperkalemia; E87.6 Hypokalemia; F17.200 Nicotine dependence, unspecified, uncomplicated; F32.9 Major depressive disorder, single episode, unspecified; F41.9 Anxiety disorder, unspecified; H11.32 Conjunctival hemorrhage, left eye; J45.909 Unspecified asthma, uncomplicated; R32 Unspecified urinary incontinence; R11.2 Nausea with vomiting, unspecified; R01.1 Cardiac murmur, unspecified; R19.7 Diarrhea, unspecified; T36.95XA Adverse effect of unspecified systemic antibiotic, initial encounter; R45.1 Restlessness and agitation; R07.89 Other chest pain; Z79.899 Other long term (current) drug therapy; Z85.3 Personal history of malignant neoplasm of breast; Z91.5 Personal history of self-harm; Y90.8 Blood alcohol level of 240 mg/100 ml or more; Y84.8 Other medical procedures as the cause of abnormal reaction of the patient, or of later complication, without mention of misadventure at the time of the procedure; Y92.003 Bedroom of unspecified non-institutional (private) residence as the place of occurrence of the external cause
CPT/HCPCS: 31500; 36410; 36415; 36430; 36556; 36600; 70450; 71045; 74176; 76770; 76937; 80048; 80051; 80053; 80074; 80306; 80320; 80329; 81001; 81025; 82140; 82533; 82550; 82803; 82805; 83520; 83605; 83735; 83930; 84100; 84132; 84439; 84484; 84600; 85025; 85027; 85610; 85730; 86704; 86706; 86850; 86900; 86901; 86920; 87040; 87045; 87046; 87070; 87077; 87086; 87186; 87205; 87324; 87340; 87635; 90935; 93005; 94002; 94003; 94640; 96365; 96366; 96368; 96375; 96376; 99291; 99292